=== PATIENT | female | born 1985 | race Caucasian/White ===

== ENCOUNTER → 2017-09-20 21:28 | Outpatient (CLI) | payer MEDICAID, SELFPAY | PROVIDERS: Family Provider Family Medicine; PCP Family Medicine; Visit Provider Obstetrics & Gynecology | DX: Z12.4 Encounter for screening for malignant neoplasm of cervix (principal) ==

== ENCOUNTER 2017-10-25 16:14 | Emergency (ER) | payer MEDICAID, SELFPAY ==
[2017-10-25 16:15] VITALS: BP 153/85; PULSE 105; RESP 16; TEMP 36.4; O2SAT 100; BMI 24.5
--- NOTE | 2017-10-25 16:17 | RAD_ITS ---
STUDY: X-RAY - RIGHT SHOULDER REASON FOR EXAM: Female, 31 years old. Shoulder pain without known injury TECHNIQUE: 4 view(s) of the shoulder. COMPARISON: None. FINDINGS: Normal glenohumeral articulation. Normal acromioclavicular joint. Normal acromion. Normal humeral head and visualized proximal humerus. The soft tissue structures are unremarkable. Normal visualized pulmonary apex. RAD/Shoulder min 2 Views IMPRESSION: Normal x-ray examination of the shoulder. Electronically Signed: Martin Dong DO at 16:58 EDT Tel , Service support ,
--- NOTE | 2017-10-25 17:34 | ED.VISSUMM ---
- ER Visit Summary Date of Service: 10/25/17 Chief Complaint: [Right shoulder pain] History of Present Illness: The patient is a 31 F [presents to the emergency department with pain in her right shoulder that started 2-3 days ago. Patient states the pain came on gradually. Patient yesterday started feeling some numbness in her right hand and at times feels like the hand is weak. Patient is never had pain like this before. Patient denies any trauma. 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 Patient is right-hand dominant.] Physical Examination: [HEENT-PERRLA, EOMI. Cranial nerves II through XII grossly intact. TMs clear. Mucous membranes moist. No adenopathy. Cardiovascular-regular rate and rhythm without murmur or ectopy Lungs-clear to auscultation, chest wall stable without crepitus or subcu emphysema Abdomen-normoactive bowel sounds, soft, nontender, no rebound or rigidity, no peritoneal signs. Extremities-intact ?4, normal range of motion, normal pulses, atraumatic. Right shoulder-no soft tissue swelling or deformity noted. Patient has tenderness diffusely about the glenohumeral joint and biceps tendon. Patient has pain with abduction of the arm and internal rotation of the shoulder. She is neurovascular intact distally. Deep tendon reflexes are plus 2 out of 4 bilaterally at the bicep, tricep, and brachioradialis.] Test Results: [X-ray of the right shoulder obtained was normal] Emergency Department Course and Treatment: [Patient was given a sling]. I suspect patient likely has pain from repetitive use possibly tendinitis or bursitis. Treatment Plan: [Patient will be given a prescription for an anti-inflammatory as well as [place] for pain. Patient will be referred to orthopedics on-call.] Disposition: [Discharged home in stable condition] Impression: [Right shoulder pain-etiology uncertain] This note was generated with [employer] dictation software. It may contain incorrect words, spelling, and punctuation that were not noted in review of the chart prior to signing ED Disposition - Plan for ED Patient: Chief Complaint: Upper Extremity Injury Referrals: Jani Christianson MD [Primary Care Provider] -
--- NOTE | 2017-10-25 17:37 | ED.DEP ---
ED Disposition - Plan for ED Patient: Chief Complaint: Upper Extremity Injury Instructions: ED Shoulder Pain [facility] Prescriptions: Hydrocodone Bitart/Apap 5-325 [[place] 5/325] 1 - 2 tab PO Q4H PRN PRN 5 Days #20 tab PRN Reason: Pain Naproxen [Naprosyn] 500 mg PO BID PRN #20 tab Referrals: Jani Christianson MD [Primary Care Provider] - Ottoniel Mayberry DO [STAFF PHYSICIAN] - 5-7 Days
[2017-10-25 17:56] VITALS: BP 128/78; PULSE 89; RESP 16; O2SAT 100
== END 2017-10-25 17:57 | disposition home or self-care (01) ==
PROVIDERS: Emergency Provider Emergency Medicine; Family Provider Family Medicine; PCP Family Medicine
DX: M25.511 Pain in right shoulder (principal); Z72.0 Tobacco use
CPT/HCPCS: 73030; 99283

== ENCOUNTER → 2017-12-21 16:16 | Outpatient (CLI) | payer MEDICAID, SELFPAY ==
--- NOTE | 2017-12-21 16:18 | CT_ITS ---
CT Sinuses W/O Contrast INDICATION: Sinusitis, cyst under nose/upper lip area. No prior surgery. [employer] navigation protocol. COMPARISON: None TECHNIQUE: axial CT imaging of the paranasal sinuses/maxillofacial bones with coronal and sagittal reformatted images. FINDINGS: Metallic pins are present in the bilateral maxillary central incisors as well as the left lateral incisor. There is lucency surrounding the root of the right maxillary incisor and there is associated cortical breakthrough and mild soft tissue swelling. This periapical abscess with anterior cortical breakthrough likely relates to the palpable abnormality at the base of the nose right of midline. The left medial and lateral incisor with pins are normal. Multiple molar teeth are missing. No additional periapical dental abscesses identified. The frontal sinuses not developed, normal variation. The ethmoid sinuses, sphenoid sinus, and maxillary sinuses are clear. The mastoid air cells and middle ear cavities are clear. CT/Sinus/Facial Bone IMPRESSION: Paranasal sinuses are clear. No evidence of paranasal sinus disease. Right central maxillary incisor periapical root abscess with anterior cortical breakthrough and focal soft tissue swelling, likely causing the palpable abnormality. Dentist consultation recommended. at 2116 Reported and signed by: Anamaria Garcia MD Electronically Signed: Anamaria Garcia MD at 21:14 EDT Tel , Service support ,
== END ==
PROVIDERS: Family Provider Family Medicine; PCP Family Medicine; Visit Provider Otolaryngology
DX: J32.9 Chronic sinusitis, unspecified (principal)
CPT/HCPCS: 70486

== ENCOUNTER → 2018-06-08 16:08 | Outpatient (CLI) | payer MEDICAID, SELFPAY ==
--- NOTE | 2018-06-08 16:10 | US_ITS ---
STUDY: ULTRASOUND OF THE PELVIS CLINICAL: Female, 32 years old. Left lower quadrant pain TECHNIQUE: Transvaginal and transabdominal COMPARISON: None. FINDINGS: The uterus has been surgically removed.. The right ovary has been surgically removed. The left ovary measures 4.1 x 2.5 x 2.5 cm. There is a 1.7 cm cyst. There is no free fluid in the pelvis. The urinary bladder has a problem of 109 cc. US/Pelvic (Non ) IMPRESSION: Left ovarian cyst. Status post hysterectomy and right oophorectomy. Electronically Signed: Clifford Tom DO at 22:07 EDT Tel [phone], Service support ,
== END ==
PROVIDERS: Family Provider Family Medicine; PCP Family Medicine; Referring Provider Obstetrics & Gynecology; Visit Provider Obstetrics & Gynecology
DX: N83.202 Unspecified ovarian cyst, left side (principal); R10.2 Pelvic and perineal pain; Z90.710 Acquired absence of both cervix and uterus; Z90.721 Acquired absence of ovaries, unilateral
CPT/HCPCS: 76856; 93976

== ENCOUNTER → 2018-08-09 09:46 | Outpatient (CLI) | payer MEDICAID, SELFPAY ==
--- NOTE | 2018-08-09 09:47 | RAD_ITS ---
STUDY: X-RAY - RIGHT SHOULDER REASON FOR EXAM: Female, 32 years old. Pain of the right shoulder TECHNIQUE: 3 view(s) of the shoulder. COMPARISON: 10/25/2017 FINDINGS: Normal glenohumeral articulation. Normal acromioclavicular joint. Normal acromion. Normal humeral head and visualized proximal humerus. The soft tissue structures are unremarkable. Normal visualized pulmonary apex. RAD/Shoulder min 2 Views IMPRESSION: Normal x-ray examination of the shoulder. Electronically Signed: Magdy Bonilla MD at 14:26 EST , Service support ,
== END ==
PROVIDERS: Family Provider Family Medicine; PCP Family Medicine; Referring Provider Physician Assistant; Visit Provider Physician Assistant
DX: M25.511 Pain in right shoulder (principal)
CPT/HCPCS: 73030

== ENCOUNTER 2018-08-29 18:28 | Emergency (ER) | payer MEDICAID, SELFPAY ==
[2018-08-29 18:29] VITALS: BP 145/74; PULSE 116; RESP 18; TEMP 37.3; O2SAT 98; BMI 22.1
--- NOTE | 2018-08-29 19:00 | RAD_ITS ---
STUDY: X-RAY - RIGHT SHOULDER REASON FOR EXAM: Female, 32 years old. Pain TECHNIQUE: 2 view(s) of the shoulder. COMPARISON: August 09, 2018 FINDINGS: Normal glenohumeral articulation. Normal acromioclavicular joint. Normal acromion. Normal humeral head and visualized proximal humerus. The soft tissue structures are unremarkable. Normal visualized pulmonary apex. No significant change since prior exam RAD/Shoulder min 2 Views IMPRESSION: Normal x-ray examination of the shoulder. If pain persists MRI recommended for further evaluation Electronically Signed: Jani Laws MD at 20:19 EST , Service support ,
--- NOTE | 2018-08-29 21:00 | ED.VISSUMM ---
- ER Visit Summary Date of Service: 08/29/18 Chief Complaint: Right shoulder injury History of Present Illness: The patient is a 32 F who presents with right shoulder injury that occurred today. Patient was riding on an inner tube behind a [employer] [address] when she fell off. Patient landed on her right shoulder. Patient states her pain is worse with movement. Patient describes the pain is sharp. Patient denies any paresthesias or weakness. Patient states she has a history of tendinitis in that shoulder and had a recent steroid injection in that right shoulder. Patient denies any head injury or loss of consciousness. Patient denies any other injuries. Physical Examination: Vital signs are stable. Patient is afebrile. Patient is in no acute distress. Musculoskeletal exam reveals tenderness over the right distal clavicle. There is no bony crepitance or step-off noted. Range of motion was limited in all motions of the right shoulder secondary to pain. Sensation was intact to light touch in the radial, median, ulnar, and axillary areas. Radial pulses are equal bilaterally. The remaining physical exam is within normal limits. Test Results: X-rays of the right shoulder were obtained. There is no acute fracture or dislocation noted. Emergency Department Course and Treatment: Patient was instructed to use ice to the area. Patient was instructed to do range of motion exercises. Patient was instructed to take ibuprofen or Tylenol as needed for pain. Patient was instructed to follow-up with her primary care physician in 5-7 days. Patient understood and was agreeable with the plan. All questions were answered. Disposition: Discharge home Impression: Right shoulder contusion This note was generated with [employer] dictation software. It may contain incorrect words, spelling, and punctuation that were not noted in review of the chart prior to signing ED Disposition - Plan for ED Patient: Disposition: Home or Assisted Living Chief Complaint: Upper Extremity Injury Diagnosis: Contusion of right shoulder region Instructions: ED Contusion Upper Ext Referrals: Jani Christianson MD [Primary Care Provider] -
--- OUTSIDE RECORDS SUMMARY | 2018-10-31 23:36 | XMS RPT_ITS ---
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 alert, in no acute distress, well-hydrated, well nourished.. Skin: Skin color, texture, turgor normal, no suspicious rashes or lesions. Head: Normocephalic, no masses, lesions, tenderness or abnormalities. Eyes: Anicteric sclera. Extraocular movements are intact. Neck: limited rotation. No step offs. No pain to vertebra. Lungs: Lungs clear to auscultation. No wheezing, rhonchi, rales. Heart: RRR without murmur, gallop, or rubs. No ectopy. Extremities: No deformities, edema, skin discoloration, clubbing or cyanosis. Good capillary refill. +2 radial pulses. Shoulder : Location: right shoulder Redness: no Warmth: no Tenderness to palpation: anterior glenoid Swelling: no Range of motion: extension and abduction limited to appx 110- 120 degrees. Tenderness with internal/external rotation. Empty can test: Negative. Neurologic: Gait normal. ASSESSMENT/PLAN: 1. Acute pain of right shoulder - ICD9: 719.41, ICD10: M25.511 (primary diagnosis) Stop ibuprofen. Start prednisone. Shoulder exercises. Moist heat/ice. Obtained xray results from gerardo - normal. - PREDNISONE 10 MG TABLET 2. Neck pain - ICD9: 723.1, ICD10: M54.2 Suspect exacerbated by the shoulder pain. Will start flexeril, at least at bedtime, to help with neck spasms/tightness. Neck exercises given. - CYCLOBENZAPRINE 10 MG TABLET Consider PT. Discussed treatment plan and patient voices understanding. Patient's questions answered appropriately. Medications and potential side effects were discussed and patient voices understanding. Return to the office as scheduled or as needed for worsening/no improvement. Liz Moctezuma APRN.JAH Moctezuma APRN.CNP 05/12/2018 1:54 PM Signed 1. The prednisone taper will be 4 tablets for 3 days; 3 tablets for 3 days; 2 tablets for 3 days; then 1 tablet for 3 days. Please do no use other anti-inflammatories (like ibuprofen, aleve, naproxen, etc) while you are on this medication. 2. Flexeril as needed for muscle spasm/tightness. 3. Neck and shoulder exercises. 4. Physical therapy. 5. Let me know how things are progressing. Referring Provider: SELF [[id number]] Allergies As of Date: 05/12/2018 Noted Allergy Reaction BUSPAR (BUSPIRONE HCL) 10/29/2015 14 - Other: See Comments Comments: Increased HR and shakey IMITREX (SUMATRIPTAN SUCCINATE) 09/04/2012 7 - Swelling Comments: Swelling of throat IMODIUM (LOPERAMIDE HCL) 03/31/2016 8 - GI Upset Comments: abdominal cramping and bloating MORPHINE 03/27/2013 8 - GI Upset Comments: severe pain in stomach TORADOL (KETOROLAC TROMETHAMINE) 05/28/2013 4 - Hives 9 - Itching ULTRAM (TRAMADOL) 04/21/2011 4 - Hives 9 - Itching Date Reviewed: 05/12/2018 Reviewed by: Laurel Leyva Distance Learning Administrator - Fully Assessed Reason for Visit: Pain (Shoulder Pain) [1343] Cmt: right shoulder X 3 weeks Primary Visit Diagnosis:Acute pain of right shoulder [M25.511] Other Visit Diagnosis:Neck pain [M54.2] Order(s):predniSONE (DELTASONE) 10 mg tabletTake 4 tabs daily x 3 days, then 3 tabs x 3 days, 2 tabs x 3 days, then 1 tab x3 days with food.Disp: 30 tabletRfl: 0 cyclobenzaprine (FLEXERIL) 10 mg tabletTake 0.5-1 tablets by mouth three times daily as needed for Muscle Spasm.Disp: 30 tabletRfl: 0 Prescriptions as of 05/12/2018 Sig: PREDNISONE 10 MG TABLET Take 4 tabs daily x 3 days, t* CYCLOBENZAPRINE 10 MG TABLET Take 0.5-1 tablets by mouth t* Problem List As Of Date 05/12/2018 Noted Resolved History of labor [Z87.51] INVALID FOR*11/19/2013 More... H/O kidney disease [Z87.448] INVALID FOR*04/11/2013 More... Immunization due [Z23] INVALID FOR*04/11/2013 More... Supervision of other normal [Z34.80] INVALID FOR*04/11/2013 Hydronephrosis [N13.30] INVALID FOR*11/19/2013 Right flank pain [R10.9] INVALID FOR*11/19/2013 Microscopic hematuria [R31.29] INVALID FOR*11/19/2013 arrhythmia [GVW0390] INVALID FOR*04/11/2013 More... Uterine size date discrepancy [O26.849] INVALID FOR*04/11/2013 More... Anxiety [F41.9] INVALID FOR* Priority: A More... Post-op bleeding [FWT6415] INVALID FOR*09/11/2014 Incisional pain [L76.82] INVALID FOR*12/07/2016 Hemorrhagic ovarian cyst [N83.209] INVALID FOR*12/07/2016 Generalized abdominal pain [R10.84] INVALID FOR*12/07/2016 Diarrhea [R19.7] INVALID FOR* Weight loss [R63.4] INVALID FOR*12/07/2016 Night sweats [R61] INVALID FOR*12/07/2016 Combined abdominal and pelvic pain [R10.9, R10.*INVALID FOR* Deep dyspareunia [N94.12] INVALID FOR* Marijuana abuse [F12.10] INVALID FOR* Priority: A More... Other instructions from your clinician: 1. The prednisone taper will be 4 tablets for 3 days; 3 tablets for 3 days; 2 tablets for 3 days; then 1 tablet for 3 days. Please do no use other anti-inflammatories (like ibuprofen, aleve, naproxen, etc) while you are on this medication. 2. Flexeril as needed for muscle spasm/tightness. 3. Neck and shoulder exercises. 4. Physical therapy. 5. Let me know how things are progressing. Prescriptions ordered this encounter Disp Refills Start End PREDNISONE 10 MG TABLET 30 t* 0 05/12/2018 05/24/2018 Sig: Take 4 tabs daily x 3 days, then 3 tabs x 3 days, 2 tabs x 3 days, then 1 tab x3 days with food. CYCLOBENZAPRINE 10 MG TABLET 30 t* 0 05/12/2018 Route: ORAL Sig: Take 0.5-1 tablets by mouth three times daily as needed for Muscle Spasm. Medications Discontinued During This Encounter venlafaxine ER (EFFEXOR XR) 75 mg 24* 05/12/2018 Class: Historical Med Route: ORAL Sig: Take 75 mg by mouth once daily. Disc: Course of therapy completed HYDROcodone-acetaminophen (NORCO) 5-* 30 t* 0 01/12/2017 05/12/2018 Class: Print RX Route: ORAL Sig: Take 1-2 tablets by mouth every 6 hours as needed. Disc: Course of therapy completed naproxen sodium (ALEVE) 220 mg tablet 05/12/2018 Class: Historical Med Route: ORAL Sig: Take 220 mg by mouth as needed. Disc: Course of therapy completed ALPRAZolam (XANAX) 0.5 mg tablet 30 t* 0 09/14/2016 05/12/2018 Class: Call Rx Route: ORAL Sig: Take 1 tablet by mouth three times daily. Disc: Course of therapy completed PARoxetine (PAXIL) 10 mg tablet 30 t* 13 09/14/2016 05/12/2018 Route: ORAL Sig: Take 1 tablet by mouth once daily. Disc: Course of therapy completed colestipol (COLESTID) 1 gram tablet 120 * 4 02/11/2016 05/12/2018 Route: ORAL Sig: Take 4 tablets by mouth once daily. Patient taking differently: Take 4 g by mouth once daily. As needed. Disc: Course of therapy completed dicyclomine (BENTYL) 20 mg tablet 90 t* 3 01/19/2016 05/12/2018 Route: ORAL Sig: Take 1 tablet by mouth three times daily before meals. Patient taking differently: Take 20 mg by mouth three times daily before meals. As needed. Disc: Course of therapy completed Encounter Status:Closed by LIZ MOCTEZUMA CNP on 05/12/18 SINUS/FACIAL BONE Observed: 12/21/2017 Status: F Source: [place] 4:18 PM [facility] REPOSITORY [facility] Imaging Services [address] [place] [address] Sinus/Facial Bone MR#: [id number] Acct: [id number] Name: KALEN DALLAS Rep #: [id number] : 1985 F 32 From: Anamaria Garcia MD PCP: Jani Christianson MD Status: REG CLI Study: Sinus/Facial Bone Date of Exam: 12/21/17 Exam# [id number] Ordering Dr: Aníbal Prasad MD CT Sinuses W/O Contrast INDICATION: Sinusitis, cyst under nose/upper lip area. No prior surgery. Needle HR navigation protocol. COMPARISON: None TECHNIQUE: axial CT imaging of the paranasal sinuses/maxillofacial bones with coronal and sagittal reformatted images. FINDINGS: Metallic pins are present in the bilateral maxillary central incisors as well as the left lateral incisor. There is lucency surrounding the root of the right maxillary incisor and there is associated cortical breakthrough and mild soft tissue swelling. This periapical abscess with anterior cortical breakthrough likely relates to the palpable abnormality at the base of the nose right of midline. The left medial and lateral incisor with pins are normal. Multiple molar teeth are missing. No additional periapical dental abscesses identified. The frontal sinuses not developed, normal variation. The ethmoid sinuses, sphenoid sinus, and maxillary sinuses are clear. The mastoid air cells and middle ear cavities are clear. CT/Sinus/Facial Bone IMPRESSION: Paranasal sinuses are clear. No evidence of paranasal sinus disease. Right central maxillary incisor periapical root abscess with anterior cortical breakthrough and focal soft tissue swelling, likely causing the palpable abnormality. Dentist consultation recommended. at 2116 Reported and signed by: Anamaria Garcia MD Electronically Signed: Anamaria Garcia MD at 21:14 EDT Tel , Service support , CC: Kael Prasad MD; Jani Christianson MD Typesetters Printer: Signed CBC W/ AUTO DIFF Collected: 2017 Status: F Source: [facility] 12:[address] [facility] REPOSITORY TYPE CODE TESTS RESULT OUT OF RANGE REFERENCE UNITS LAB 33329029(L 3.6-11.0 E3/mcL OINC) High WBC 18.0 LAB 36307977(L 3.90-5.40 E6/mcL OINC) High RBC 5.51 LAB 56063682(L 12.0-16.0 G/DL OINC) High Hgb 16.4 LAB 56214570(L 36.0-48.0 % OINC) Normal Hct 47.3 LAB 26016627(L 11.5-14.5 % OINC) Normal RDW 13.4 LAB 75735178(L 27.0-31.0 pg OINC) Normal MCH 29.8 LAB 05782743(L 33.0-37.0 G/DL OINC) Normal MCHC 34.7 LAB 65850941(L 78.0-100.0 fL OINC) Normal MCV 85.8 LAB 08768216(L 7.4-11.0 fL OINC) Normal MPV 8.1 LAB 41748440(L 130-400 E3/mcL OINC) Normal Platelet 253 Performed By: #### [id number] #### ANA [facility] [place] [address] AUTO DIFF Collected: 2017 Status: F Source: [place] 12:57 AM [facility] REPOSITORY Order Comment: Order Added by Discern Expert. TYPE CODE TESTS RESULT OUT OF RANGE REFERENCE UNITS LAB 74856685(L 37.0-75.0 % OINC) High Neutro Auto 75.2 LAB 96692168(L 20.0-55.0 % OINC) Low Lymph Auto 16.5 LAB 00666020(L 0.0-10.0 % OINC) Normal [place] Auto 6.1 LAB 23834187(L 0.0-11.0 % OINC) Normal Eos Auto 1.4 LAB 05528224(L 0.0-2.0 % OINC) Normal Basophil Auto 0.8 LAB 85789560(L 1.4-6.5 E3/mcL OINC) High Neutro 13.5 Absolute LAB 48505851(L 1.2-3.4 E3/mcL OINC) Normal Lymph Absolute 3.0 LAB 16360590(L 0.0-0.7 E3/mcL OINC) High [place] Absolute 1.1 LAB 12283093(L 0.0-0.7 E3/mcL OINC) Normal Eos Absolute 0.3 LAB 88425108(L 0.0-0.2 E3/mcL OINC) Normal Basophil 0.1 Absolute Performed By: #### [id number] #### ANA [employer] [address] [place] [address] BMP Collected: 2017 Status: F Source: [facility] 12:57 AM [facility] REPOSITORY TYPE CODE TESTS RESULT OUT OF RANGE REFERENCE UNITS LAB 82651237(L 70-99 mg/dL OINC) High Glucose Lvl 107 LAB 43413743(L 8.4-10.2 mg/dL OINC) Calcium Normal Lvl 9.5 LAB 68228015(L 136-145 mEq/L OINC) Sodium Normal Lvl 138 LAB 53893812(L 3.5-5.1 mEq/L OINC) Low Potassium Lvl 3.4 LAB 77520786(L 98-107 mEq/L OINC) Chloride Normal 105 LAB 78217246(L 24.0-30.0 mEq/L OINC) CO2 Normal 24.7 LAB 29216309(L 7-18 mg/dL OINC) BUN Normal 9 LAB 6433618(LO 0.6-1.3 mg/dL INC) Normal Creatinine 0.6 LAB 46258060(L 5.4-30.0 ratio OINC) Normal BUN/Creat Ratio 15.0 Performed By: #### [id number] #### ANA [employer] [facility] [place] [address] EGFR Collected: 2017 Status: F Source: [facility] 12:57 [facility] REPOSITORY Order Comment: Order added by Discern Expert. TYPE CODE TESTS RESULT OUT OF RANGE REFERENCE UNITS LAB 02315022(LO mL/min/1.73 INC) m2 Normal eGFR >60 LAB 78558078(LO mL/min/1.73 INC) m2 Normal eGFR AA >60 Performed By: #### [id number] #### ANA [employer] [address] [place] [id number] HEP FUNC PANEL Collected: 2017 Status: F Source: [facility] 12:57 [facility] REPOSITORY TYPE CODE TESTS RESULT OUT OF RANGE REFERENCE UNITS LAB 52125122(L 10-40 Int._Unit/L OINC) Normal ALT 30 LAB 43090519(L 10-42 Int._Unit/L OINC) Normal AST 21 LAB 88741155(L 3.2-5.0 G/DL OINC) High Albumin Lvl 5.1 LAB 98914925(L 2.0-4.0 G/DL OINC) Normal Globulin 3.4 LAB 52658735(L 1.1-1.9 ratio OINC) Normal A/G Ratio 1.5 LAB 43154714(L 42-121 Int._Unit/L OINC) Normal Alk Phos 58 LAB 15744304(L .00-.20 mg/dL OINC) Normal Bili Direct <.10 LAB 68839860(L OINC) Normal Bili Indirect >0.3 Result Comment: No established ranges available for the Indirect [place]. LAB 53037990(LOINC) 0.2-1.0 mg/dL Normal Bili Total 0.4 LAB 56006865(LOINC) 6.4-8.3 G/DL High Total Protein 8.5 Performed By: #### [id number] #### ANA [address] [place] [address] LIPASE LEVEL Collected: 2017 Status: F Source: [facility] 12:57 AM [facility] REPOSITORY TYPE CODE TESTS RESULT OUT OF RANGE REFERENCE UNITS LAB 81011576(LO 8-57 U/L INC) Normal Lipase Lvl 31 Performed By: #### [id number] #### [address]NA [address] [place] [address] INFLUENZA A&B AG Collected: 2017 Status: F Source: [facility] 12:43 AM [facility] REPOSITORY TYPE CODE TESTS RESULT OUT OF REFERENCE UNITS RANGE LAB 32435233(L Negative OINC) Normal Influenzae A Ag Negative Result Comment: A negative test result does not exclude infection with influenza A and B. Therefore, the results obtained should be used in conjunction with clinical findings to make an accurate diagnosis. LAB 84561709(LOINC) Negative Normal Influenzae B Ag Negative Performed By: #### [id number] #### ANA [facility] Micro SubSection , UA COMPLETE Collected: 2017 Status: F Source: [facility] 12:30 AM [facility] REPOSITORY TYPE CODE TESTS RESULT OUT OF RANGE REFERENCE UNITS LAB 38848549( Yellow LOINC) Normal UA Color Straw LAB 25957787( Clear LOINC) Normal UA Clarity Clear LAB 63918953( Negative LOINC) Normal UA Glucose Negative LAB 08305426( Negative LOINC) Normal UA Bili Negative LAB 71898778( Negative LOINC) Normal UA Ketones Negative LAB 36955252( 1.003-1.030 LOINC) Normal UA Spec Grav 1.005 LAB 61874904( 4.6-8.0 LOINC) Normal UA pH 6.0 LAB 77549171( Negative LOINC) Normal UA Protein Negative LAB 37542881( LOINC) Normal UA Urobilinogen Negative LAB 97404513( Negative LOINC) Normal UA Nitrite Negative LAB 95073093( Negative LOINC) UA Blood Abnormal 1+ LAB 84692710( Negative LOINC) Normal UA Leuk Est Negative LAB 26111271( 0-3 /HPF LOINC) UA RBC Abnormal 5-10 LAB 21455305( 0-5 /HPF LOINC) Normal UA WBC 0-5 LAB 27670464( 0-5 /HPF LOINC) Normal UA Squam Epithelial 0-5 LAB 91832137( /HPF LOINC) Normal UA Sperm FEW Performed By: #### [id number] #### ANA Urinalysis Automated Subsection [address] [place] [address] DISCHARGE INSTRUCTION Observed: 10/25/2017 Status: F Source: [place] 5:38 PM [facility] REPOSITORY [facility] Medical Records Department [address] [place] [address] Discharge Instruction 10/25/17 1737 MR#: [id number] Acct: [id number] Name: KALEN DALLAS Rep #: [id number] : 1985 31 From: Romi Uribe DO PCP: Jani Christianson MD Status: REG ER ED Disposition - Plan for ED Patient: Chief Complaint: Upper Extremity Injury Instructions: ED Shoulder Pain [facility]O Prescriptions: Hydrocodone Bitart/Apap 5-325 [Ripley 5/325] 1 - 2 tab PO Q4H PRN PRN 5 Days #20 tab PRN Reason: Pain Naproxen [Naprosyn] 500 mg PO BID PRN #20 tab Referrals: Jani Christianson MD [Primary Care Provider] - Ottoniel Mayberry DO [STAFF PHYSICIAN] - 5-7 Days What to do if you have Problems For any increased pain, shortness of breath, bleeding, nausea or vomiting, chest pain, or any unexpected problems, contact your Primary Care Provider. Call [facility] ([phone]) or report to the closest Emergency Room. Call 911 if necessary. 10/25/17 1738 <Electronically signed by Romi Uribe DO> Date Romi Uribe DO Cosigner Signature (If Indicated): Date CC: Jani Christianson MD EMERGENCY DEPARTMENT Observed: 10/25/2017 Status: F Source: [place] [facility] 5:36 PM [facility] REPOSITORY [facility] Medical Records Department [address] [facility] [place] [address] Emergency Department Summary 10/25/17 1734 MR#: [id number] Acct: [id number] Name: KALEN DALLAS Edie Rep #: [id number] : 1985 31 From: Romi Uribe DO PCP: Jani Christianson MD Status: REG ER - ER Visit Summary Date of Service: 10/25/17 Chief Complaint: [Right shoulder pain] History of Present Illness: The patient is a 31 F [presents to the emergency department with pain in her right shoulder that started 2-3 days ago. Patient states the pain came on gradually. Patient yesterday started feeling some numbness in her right hand and at times feels like the hand is weak. Patient is never had pain like this before. Patient denies any trauma. 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 Patient is right-hand dominant.] Physical Examination: [HEENT-PERRLA, EOMI. Cranial nerves II through XII grossly intact. TMs clear. Mucous membranes moist. No adenopathy. Cardiovascular-regular rate and rhythm without murmur or ectopy Lungs-clear to auscultation, chest wall stable without crepitus or subcu emphysema Abdomen-normoactive bowel sounds, soft, nontender, no rebound or rigidity, no peritoneal signs. Extremities-intact 4, normal range of motion, normal pulses, atraumatic. Right shoulder-no soft tissue swelling or deformity noted. Patient has tenderness diffusely about the glenohumeral joint and biceps tendon. Patient has pain with abduction of the arm and internal rotation of the shoulder. She is neurovascular intact distally. Deep tendon reflexes are plus 2 out of 4 bilaterally at the bicep, tricep, and brachioradialis.] Test Results: [X-ray of the right shoulder obtained was normal] Emergency Department Course and Treatment: [Patient was given a sling]. I suspect patient likely has pain from repetitive use possibly tendinitis or bursitis. Treatment Plan: [Patient will be given a prescription for an anti-inflammatory as well as Ripley for pain. Patient will be referred to orthopedics on-call.] Disposition: [Discharged home in stable condition] Impression: [Right shoulder pain-etiology uncertain] This note was generated with [employer] dictation software. It may contain incorrect words, spelling, and punctuation that were not noted in review of the chart prior to signing ED Disposition - Plan for ED Patient: Chief Complaint: Upper Extremity Injury Referrals: Jani Christianson MD [Primary Care Provider] - What to do if you have Problems For any increased pain, shortness of breath, bleeding, nausea or vomiting, chest pain, or any unexpected problems, contact your Primary Care Provider. Call [facility] ([phone]) or report to the closest Emergency Room. Call 911 if necessary. 10/25/17 2592 <Electronically signed by Romi Uribe DO> Date Romi Uribe DO Cosigner Signature (If Indicated): Date CC: Jani Christianson MD SHOULDER MIN 2 VIEWS Observed: 10/25/2017 Status: F Source: [place] 4:18 PM [facility] REPOSITORY [facility] Imaging Services [facility] [place] [address] [place] [address] Shoulder min 2 Views MR#: [id number] Acct: [id number] Name: KALEN DALLAS Rep #: [id number] : 1985 F 31 From: Martin Dong DO PCP: Jani Christianson MD Status: PRE ER Study: Shoulder min 2 Views Date of Exam: 10/25/17 Exam# [id number] Ordering Dr: Provider, Ed P. STUDY: X-RAY - RIGHT SHOULDER REASON FOR EXAM: Female, 31 years old. Shoulder pain without known injury TECHNIQUE: 4 view(s) of the shoulder. COMPARISON: None. FINDINGS: Normal glenohumeral articulation. Normal acromioclavicular joint. Normal acromion. Normal humeral head and visualized proximal humerus. The soft tissue structures are unremarkable. Normal visualized pulmonary apex. RAD/Shoulder min 2 Views IMPRESSION: Normal x-ray examination of the shoulder. Electronically Signed: Martin Dong DO at 16:58 EDT Tel , Service support , CC: ED PHYSICIAN PROVIDER; Jani Christianson MD Typesetters Printer: Signed CNOV Observed: 10/10/2017 Status: COMPLETED Source: [place] 7:15 PM [facility] REPOSITORY Office Visit (WSTR) KALEN DALLAS ([id number]) 1985 F Date Time Provider Department 10/10/17 7:15 PM FERNANDO HARRIS (BEAD TRIMMER) [facility] During your visit today, we recorded the following information about you: Temperature Pulse Respiration Blood pressure 99 degrees 84/minute 16/minute 120/88 Weight 55.8 kg Fernando Harris CNP, FACILITY WORKER 10/17/2017 8:19 AM Signed Subjective HPI Patient presents with: Tenderness ANDamp; red, inflammed spot in upper gum X 1 yr, started oozing yesterday Analgesic otc with minimal relief. Review of Systems Constitutional: Negative for chills and fever. HENT: Tenderness ANDamp; red, inflammed spot in upper gum X 1 yr, started oozing yesterday PAST MEDICAL HISTORY Diagnosis Date - Anxiety - SHERRI III (cervical intraepithelial neoplasia grade III) with severe dysplasia 2006 needs paps until 2026 - KIDNEY INFECTION HOSPITALIZED FOR 5 DAYS 09/2010 PAST SURGICAL HISTORY Procedure Laterality Date - COLONOSCOP W/ OR W/O BRSH SPEC 01/28/16 Colonoscopy mac - ESSURE 2012 - HYSTERECTOMY HX 07/2014 [facility] then exp lap for postop bleeding - OFFICE LEEP [facility] - REMOVAL GALLBLADDER 04/08/2011 - SALPINGECTOMY 11/2013 bilateral sec to post essure pain - VAGINOSCOPY 2006 Dr Rodriguez ALLERGIES Buspar [Buspirone Hcl]; Imitrex [Sumatriptan Succinate]; Imodium [Loperamide Hcl]; Morphine; Toradol [Ketorolac Tromethamine]; Ultram [Tramadol] MEDICATIONS venlafaxine ER (EFFEXOR XR) 75 mg 24 hr capsule Take 75 mg by mouth once daily. cephALEXin (KEFLEX) 500 mg capsule Take 1 capsule by mouth four times daily for 10 days. FOR 10 DAYS HYDROcodone-acetaminophen (NORCO) 5-325 mg per tablet Take 1-2 tablets by mouth every 6 hours as needed. naproxen sodium (ALEVE) 220 mg tablet Take 220 mg by mouth as needed. ALPRAZolam (XANAX) 0.5 mg tablet Take 1 tablet by mouth three times daily. PARoxetine (PAXIL) 10 mg tablet Take 1 tablet by mouth once daily. colestipol (COLESTID) 1 gram tablet Take 4 tablets by mouth once daily. dicyclomine (BENTYL) 20 mg tablet Take 1 tablet by mouth three times daily before meals. FAMILY HISTORY Problem Relation Age of Onset - Hypertension Mother - Lipids Mother - COPD Mother - Hypertension Father - COPD Father - Diabetes Maternal Grandmother - ITP [OTHER] Son Social History Substance Use Topics - Smoking status: Current Every Day Smoker Packs/day: 0.50 Years: 9.00 - Smokeless tobacco: Never Used Comment: less than a 1/2 pack per day - Alcohol use No Objective Physical Exam Constitutional: She is well-developed, well-nourished, and in no distress. HENT: Head: Normocephalic. Right Ear: External ear normal. Left Ear: External ear normal. Nose: Nose normal. Mouth/Throat: Oropharynx is clear and moist. Upper gumline adjacent to inside of upper lip erythematous pustule, swelling and tenderness present. No active drainage visible. Eyes: Conjunctivae are normal. Neck: Normal range of motion. Neck supple. Lymphadenopathy: She has no cervical adenopathy. Nursing note and vitals reviewed. ASSESSMENT/PLAN: 1. Abscess of soft tissue of mouth - ICD9: 528.3, ICD10: K12.2 - Begin treatment with Cephalaxin (Keflex) - Area of cellulitis defined, seek further attention if this area continues to enlarge - Follow up for recheck in three days if symptoms are not improving or worsening Prescription instructions reviewed with patient as applicable. Patient advised if symptoms do not improve or if symptoms worsen sooner, to contact their primary care physician. Potential red flag symptoms discussed with the patient. Reviewed appropriate action plan to take if red flag symptoms occur. Patient agreeable to treatment plan. Fernando Harris CNP Referring Provider: SELF [200] Allergies As of Date: 10/10/2017 Noted Allergy Reaction BUSPAR (BUSPIRONE HCL) 10/29/2015 14 - Other: See Comments Comments: Increased HR and shakey IMITREX (SUMATRIPTAN SUCCINATE) 09/04/2012 7 - Swelling Comments: Swelling of throat IMODIUM (LOPERAMIDE HCL) 03/31/2016 8 - GI Upset Comments: abdominal cramping and bloating MORPHINE 03/27/2013 8 - GI Upset Comments: severe pain in stomach TORADOL (KETOROLAC TROMETHAMINE) 05/28/2013 4 - Hives 9 - Itching ULTRAM (TRAMADOL) 04/21/2011 4 - Hives 9 - Itching Date Reviewed: 10/10/2017 Reviewed by: Fernando Adame (Statement Processor) JAH Harris - Fully Assessed Reason for Visit: Headache [52] Cmt: since this amAND tenderness AND red, inflammed spot in upper gum X 1 yr, started oozing yesterday Primary Visit Diagnosis:Abscess of soft tissue of mouth [K12.2] Order(s):cephALEXin (KEFLEX) 500 mg capsuleTake 1 capsule by mouth four times daily for 10 days. FOR 10 DAYSDisp: 40 capsuleRfl: 0 Prescriptions as of 10/10/2017 Sig: VENLAFAXINE ER 75 MG CAPSULE,* Take 75 mg by mouth once lizzeth* CEPHALEXIN 500 MG CAPSULE Take 1 capsule by mouth four * HYDROCODONE 5 MG-ACETAMINOPHE* Take 1-2 tablets by mouth anabella* NAPROXEN SODIUM 220 MG TABLET Take 220 mg by mouth as neede* ALPRAZOLAM 0.5 MG TABLET Take 1 tablet by mouth three * PAROXETINE 10 MG TABLET Take 1 tablet by mouth once d* COLESTIPOL 1 GRAM TABLET Take 4 tablets by mouth once * Patient taking differently: Take 4 g by mouth once daily.* DICYCLOMINE 20 MG TABLET Take 1 tablet by mouth three * Patient taking differently: Take 20 mg by mouth three sandra* Medication notes this encounter DICYCLOMINE 20 MG TABLET >> Patience Fernández LPN 10/10/2017 7:27 PM >> PATIENCE FERNÁNDEZ LPN TueOct 10, 2017 7:27 PM Not taking Problem List As Of Date 10/10/2017 Noted Resolved History of labor [Z87.51] INVALID FOR*11/19/2013 More... H/O kidney disease [Z87.448] INVALID FOR*04/11/2013 More... Immunization due [Z23] INVALID FOR*04/11/2013 More... Supervision of other normal [Z34.80] INVALID FOR*04/11/2013 Hydronephrosis [N13.30] INVALID FOR*11/19/2013 Right flank pain [R10.9] INVALID FOR*11/19/2013 Microscopic hematuria [R31.29] INVALID FOR*11/19/2013 arrhythmia [NRJ2754] INVALID FOR*04/11/2013 More... Uterine size date discrepancy [O26.849] INVALID FOR*04/11/2013 More... Anxiety [F41.9] INVALID FOR* Priority: A More... Post-op bleeding [TMF7935] INVALID FOR*09/11/2014 Incisional pain [R20.8] INVALID FOR*12/07/2016 Hemorrhagic ovarian cyst [N83.209] INVALID FOR*12/07/2016 Generalized abdominal pain [R10.84] INVALID FOR*12/07/2016 Diarrhea [R19.7] INVALID FOR* Weight loss [R63.4] INVALID FOR*12/07/2016 Night sweats [R61] INVALID FOR*12/07/2016 Combined abdominal and pelvic pain [R10.30] INVALID FOR* Deep dyspareunia [N94.12] INVALID FOR* Marijuana abuse [F12.10] INVALID FOR* Priority: A More... Prescriptions ordered this encounter Disp Refills Start End CEPHALEXIN 500 MG CAPSULE 40 c* 0 10/10/2017 10/20/2017 Route: ORAL Sig: Take 1 capsule by mouth four times daily for 10 days. FOR 10 DAYS Disposition: Return if symptoms worsen or fail to improve. Follow-up and Disposition History Recorded Encounter Status:Closed by FERNANDO HARRIS on 10/17/17 PROGRESS Observed: 10/10/2017 Status: COMPLETED Source: [place] 8:[address] [facility] REPOSITORY O ID: [id number] Author: Fernando Adame (Statement Processor) JAH Harris Service: (none) Author Type: Nurse Practitioner Type: Progress Notes Filed: 10/17/2017 8:19 AM Note Text: Subjective HPI Patient presents with: Tenderness AND red, inflammed spot in upper gum X 1 yr, started oozing yesterday Analgesic otc with minimal relief. Review of Systems Constitutional: Negative for chills and fever. HENT: Tenderness AND red, inflammed spot in upper gum X 1 yr, started oozing yesterday PAST MEDICAL HISTORY Diagnosis Date - Anxiety - SHERRI III (cervical intraepithelial neoplasia grade III) with severe dysplasia 2006 needs paps until 2026 - KIDNEY INFECTION HOSPITALIZED FOR 5 DAYS 09/2010 PAST SURGICAL HISTORY Procedure Laterality Date - COLONOSCOP W/ OR W/O BRSH SPEC 01/28/16 Colonoscopy mac - ESSURE 2012 - HYSTERECTOMY HX 07/2014 TV[facility] then exp lap for postop bleeding - OFFICE LEEP Yasir [facility] office - REMOVAL GALLBLADDER 04/08/2011 - SALPINGECTOMY 11/2013 bilateral sec to post essure pain - VAGINOSCOPY 2006 Dr Rodriguez ALLERGIES Buspar [Buspirone Hcl]; Imitrex [Sumatriptan Succinate]; Imodium [Loperamide Hcl]; Morphine; Toradol [Ketorolac Tromethamine]; Ultram [Tramadol] MEDICATIONS venlafaxine ER (EFFEXOR XR) 75 mg 24 hr capsule Take 75 mg by mouth once daily. cephALEXin (KEFLEX) 500 mg capsule Take 1 capsule by mouth four times daily for 10 days. FOR 10 DAYS HYDROcodone-acetaminophen (NORCO) 5-325 mg per tablet Take 1-2 tablets by mouth every 6 hours as needed. naproxen sodium (ALEVE) 220 mg tablet Take 220 mg by mouth as needed. ALPRAZolam (XANAX) 0.5 mg tablet Take 1 tablet by mouth three times daily. PARoxetine (PAXIL) 10 mg tablet Take 1 tablet by mouth once daily. colestipol (COLESTID) 1 gram tablet Take 4 tablets by mouth once daily. dicyclomine (BENTYL) 20 mg tablet Take 1 tablet by mouth three times daily before meals. FAMILY HISTORY Problem Relation Age of Onset - Hypertension Mother - Lipids Mother - COPD Mother - Hypertension Father - COPD Father - Diabetes Maternal Grandmother - ITP [OTHER] Son Social History Substance Use Topics - Smoking status: Current Every Day Smoker Packs/day: 0.50 Years: 9.00 - Smokeless tobacco: Never Used Comment: less than a 1/2 pack per day - Alcohol use No Objective Physical Exam Constitutional: She is well-developed, well-nourished, and in no distress. HENT: Head: Normocephalic. Right Ear: External ear normal. Left Ear: External ear normal. Nose: Nose normal. Mouth/Throat: Oropharynx is clear and moist. Upper gumline adjacent to inside of upper lip erythematous pustule, swelling and tenderness present. No active drainage visible. Eyes: Conjunctivae are normal. Neck: Normal range of motion. Neck supple. Lymphadenopathy: She has no cervical adenopathy. Nursing note and vitals reviewed. ASSESSMENT/PLAN: 1. Abscess of soft tissue of mouth - ICD9: 528.3, ICD10: K12.2 - Begin treatment with Cephalaxin (Keflex) - Area of cellulitis defined, seek further attention if this area continues to enlarge - Follow up for recheck in three days if symptoms are not improving or worsening Prescription instructions reviewed with patient as applicable. Patient advised if symptoms do not improve or if symptoms worsen sooner, to contact their primary care physician. Potential red flag symptoms discussed with the patient. Reviewed appropriate action plan to take if red flag symptoms occur. Patient agreeable to treatment plan. Fernando Harris CNP CURRICULUM COUNSELOR OFFICE VISIT Observed: 09/20/2017 Status: F Source: [place] REPORT 4:26 PM [facility] [place] 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 Required: No Accompanied by: None Is patient in pain?: No Allergies ketorolac tromethamine [From Toradol] Allergy (Verified 12/29/16 10:57) Hives sumatriptan [From Imitrex] Allergy (Verified 12/29/16 10:57) Anaphylaxis sumatriptan succinate [From Imitrex] Allergy (Verified 12/29/16 10:57) Anaphylaxis tramadol HCl [From Ultram] Allergy (Verified 12/29/16 10:57) Hives morphine Adverse Reaction (Verified 12/29/16 10:57) Other Medications alprazolam 0.5 mg tablet 0.5 mg PO ONCE #30 tab 09/20/17 [Rx Confirmed 09/20/17] venlafaxine ER 75 mg capsule,extended release 24 hr 75 mg PO QHS #30 cap 09/20/17 [Rx Confirmed 09/20/17] Is last menstrual period known: No PFSH Medical History Anxiety (Acute) Surgical History H/O: hysterectomy (Acute) History of cholecystectomy (Acute) Family History Mother Hypertension High cholesterol Grandmother Diabetes Father Hypertension Social History Smoking Status: Former smoker second hand exposure: Yes alcohol intake: never substance use type: does not use what type of physical activity do you participate in: none Pregancy History 2 Elective abortions Hx Para 2 Spontaneous abortions Past Pregnancies Del. DatNamshraddha [place]/WeeksOutcome Route [facility]aveen [facility] LocaProviderFOB e ht en ia tn 11/15/06Eithan 01/16/13Avia HPI Annual: Details: KALEN DALLAS is a 31 year old who presents for annual exam. having Last PAP: due History of abnormal PAP: 2005 leep Last mammogram: History of abnormal mammogram: Colon cancer screening: Other preventative health care screenings: Female Reproductive History Questions: Metorrhagia: No, Sexually active: Yes, Dyspareunia: No, PCB: No ROS Const Constitutional: Reports as per HPI; denies poor appetite, fatigue, increased appetite, weight gain or weight loss Cardio Card: Denies chest pain Resp Resp: Denies dyspnea or cough GI GI: Reports as per HPI; denies bloating, abdominal pain, constipation, vomiting or nausea : Reports as per HPI and other; denies blood in urine, vaginal odor, vaginal itching, vaginal dryness, vaginal discharge, urinary urgency, urinary incontinence, urinary frequency, pelvic pain, painful urination, difficulty urinating, prolapse symptoms or nipple discharge Skin Skin/Breast: Reports breast pain; denies breast skin changes, nipple discharge, breast lump or changing lesions Psych Psych: Reports anxiety Exam Const General: cooperative, healthy appearing, comfortable, no acute distress, well developed, well groomed [facility] Head: normal to inspection, normocephalic Ears: hearing grossly normal bilaterally, external ears normal Nose: external nose normal Face and sinus: normal facial exam Neck Neck: normal visual inspection, full ROM, no lymphadenopathy Thyroid: thyroid normal Chest Chest palpation AND inspection: normal inspection of the chest Breast inspection: normal inspection of the breasts, normal inspection of the axillae Breast palpation: normal palpation of the breasts, normal palpation of the axillae, no axillary lymphadenopathy Resp Effort AND Inspection: normal respiratory effort GI Inspection: normal to inspection, non-distended Palpation: no guarding, soft, no hepatosplenomegaly General: bladder normal to palpation External Female Exam: normal external appearance, normal appearance of the urethra, no lesions Urethra: normal appearance of the urethra, normal palpation Speculum Exam - Vagina: normal appearance of the vagina, normal vaginal discharge Speculum Exam - Cervix: normal appearance of the cervix, no cervical discharge, no lesions, nontender Bimanual Exam- Vagina AND Uterus: No cervical tenderness, normal bimanual exam, uterine size normal, bladder normal to palpation, uterine mobility normal, uterine consistency normal, uterus non-tender, no cervical motion tenderness Bimanual Exam- Adnexa, other: normal adnexae, no adnexal masses, adnexae non-tender Skin General: no rashes or lesions noted Neuro General: alert, moves all extremities, no focal motor deficits Extrem General: no pedal edema, normal to inspection Psych Appearance: grossly normal Mental Status: mental status grossly normal Affect: normal affect Speech and Movement: speech and movement normal Attitude: cooperative Assessment AND Plan Problems 1. Encounter for gynecological examination with abnormal finding Z01.411 2. Anxiety F41.9 Plan Cervical cancer screening: pap done Breast cancer screening: clinical STD prevention and contraceptive options including their risks, benefits, and alternatives were reviewed with the patient and she chooses: na Encouraged maintenance of a healthy weight and active lifestyle and handout given. Calcium/vitamin D recommendations provided. Annual exam handout including recommendations for good health guidelines and basic screening information given. Problem list up to date, see problem list details for any additional plan information. follow up in one year for annual health maintenance exam or sooner if needed. Medications New: Coding Level of Care Code Off vis,est,prev 18-39yrs Diagnoses Encounter for gynecological examination with abnormal finding Z01.411 Gynecological examination findings: abnormal findings PRESENT Anxiety F41.9 09/20/17 1626 <Electronically signed by Karrie Rdz MD> Date Karrie Rdz MD Cosigner Signature: Date (if applicable) CC: MISCELLANEOUS LAB Collected: 09/20/2017 Status: F Source: [place] PROCEDURE 11:45 AM [facility] [place] REPOSITORY Order Comment: Test(s) Ordered: [id number] TYPE CODE TESTS RESULT OUT OF RANGE REFERENCE UNITS LAB L801.[address] [facility] LAB TEST Result Comment: Test Ordered: IGP, Aptima HPV, rfx 16/18,45 Interpretation: NEGATIVE FOR INTRAEPITHELIAL LESION AND MALIGNANCY. Specimen Adequacy: Satisfactory for evaluation. Endocervical and/or squamous metaplastic cells (endocervical component) are present. Comments: The pap smear is a screening test designated to aid in the detection of pre-malignant and malignant conditions of the uterine cervix. It is not a diagnostic procedure and should not be used as the sole means of detecting cervical cancer. Both false-positive and false-negative reports do occur. This liquid based ThinPrep(R) pap test was screened with the use of an image guided system. Performed by Terri Evans, Ensemble Member (ASCP) This test detects fourteen high-risk HPV types (16/18/31/33/35/39/45/ 51/52/56/58/59/66/68) without differentiation. HPV Results: HPV Aptima: Negative TESTING PERFORMED AT [facility]. ORIGINAL REPORT ON FILE IN LAB CONTAINS ADDITIONAL TEST SITE INFORMATION. Performed By: #### L801.1541 #### [facility] [place], [address] ALLERGIES ALLERGIES DATE TYPE / NAME / CODE REACTION SEVERITY SOURCE CODE 08/29/2018 Drug ketorolac Hives Unknown [place] Allergy/41 tromethamine/F0000 [facility] [id number](SN 43026(RXNORM) [facility]) Repository 08/29/2018 Drug sumatriptan Anaphylaxis Unknown [place] Allergy/41 succinate/[id number] [facility] 6324691(SN 45(RXNORM) [facility]) Repository 08/29/2018 Drug tramadol Hives Unknown [place] Allergy/41 HCl/[id number](RXN [facility] 3370693( [place]) [facility]) Repository 08/29/2018 Drug morphine/F43245091 Other Unknown [place] Allergy/41 5(RXNORM) Community 8964362([facility] OMED [facility]) Repository 08/29/2018 Drug sumatriptan/P00600 Anaphylaxis Unknown [place] Allergy/41 4044(RXNORM) Community 9277325([facility] OMED [facility]) Repository 03/31/2016 DRUG LOPERAMIDE HCL GI UPSET [facility] INGREDI/41 [facility] [place] 6044708(SN Repository OMED CT) 10/29/2015 DRUG BUSPIRONE HCL OTHER: SEE C [facility] INGREDI/ [facility] [place] [id number]( Repository OMED CT) 05/28/2013 DRUG [facility]ES [facility] [place] [facility] 7699063( Repository OMED CT) 03/27/2013 DRUG MORPHINE GI UPSET [facility] INGREDI/ [facility] [place] 4155444( Repository OMED CT) 09/04/2012 DRUG SUMATRIPTAN SWELLING [facility] INGREDI/ SUCCINATE [facility] [place] [facility] 0147215( Repository OMED CT) 04/21/2011 DRUG TRAMADOL HIVES [facility] [place] 8167632( Repository OMED CT) Drug/00317 Toradol [id number] Moderate Yarsanism 1003([facility]) System Repository Drug/14735 Imitrex 58262794 Severe Yarsanism 1003([facility] D [facility]) System Repository Drug/31223 Ultram 333416288 Moderate Yarsanism 1003([facility] D [facility]) System Repository ENCOUNTERS ENCOUNTERS ADMIT/DISCHARGE ACCOUNT NUMBER ADMITTING ENCOUNTER LOCATION SOURCE CLASS 08/29/2018/08/29/19 [id number] Emergency [place] [address] [place] [address] ding:ED Repository 08/09/2018 [id number] Ambulatory [place] [facility] ding:HPRAD Repository 08/09/2018/08/09/19 [id number] Ambulatory BMSBuilding: Gerardo 19 BMS.[facility] Repository 08/08/2018/08/08/19 [id number] [place], Emergency [facility] 19 [facility] ding:[facility] EDRoom: WR Repository 08/08/2018 [id number] Ambulatory [address] [place] [address] Repository 06/08/2018 [id number] Ambulatory [facility] ding:US Repository 05/12/2018/05/15/20 [id number] Ambulatory [address] [facility] [place] Repository 12/21/2017 [id number] Ambulatory [facility] ding:CT Repository 10/30/2017/11/01/19 [id number] [place], Emergency [facility] 18 [facility] ding:[facility] EDRoom: WR Repository 10/25/2017/10/26/19 [id number] Emergency [address] ding:ED Repository 10/10/2017/10/18/19 [id number] Ambulatory [address] Repository 09/20/2017 [id number] Ambulatory [facility] ding:LABSPEC Repository 09/20/2017/09/20/19 [id number] Ambulatory BMSBuilding: [place] [address] BMS.[facility] Repository PAYERS PAYERS ENCOUNTER GUARANTOR PAYER SUBSCRIBER SOURCE 08/29/2018 KALEN D LILLY6 Primary KALEN D [place] TR Insurance:CARESOURCEP LILLYDOB: [address] Number: [id number] [place], [place] [address]Aiu: [id number] Repository Date:2018-08-29P O (HP) [address]ATTN: [place] [address]DN: 08/29/2018 Secondary NOT GIVENUNK [place] Insurance:SELF PAY [facility] Number: Effective Repository Date:2018-08-29 08/09/2018 KALEN D LILLY6 Primary KALEN D [place] TR Insurance:CARESOURCEP LILLYB: [address] Number: [id number] [place], [place] [address]Ocf: [id number] Repository Date:2018-08-09P O (HP) [address]ATTN: [place] [address]MA: 08/09/2018 Secondary NOT GIVENUNK [place] Insurance:SELF PAY [facility] Number: Effective Repository Date:2018-08-09 08/09/2018 KALEN D LILLY6 Primary KALEN D [place] TR Insurance:CARESOURCEP LILLYDOB: [address] Number: [id number] [place], [place] [address]Wvm: [id number] Repository Date:2018-08-09P O () [address]ATTN: [place] [address]PP: 08/09/2018 Secondary NOT GIVENUNK [place] Insurance:SELF PAY [facility] Number: Effective Repository Date:2018-08-09 08/08/2018 KALEN D Primary KALEN D Yarsanism LILLYDOB: Insurance:CARESOURCE LILLYDOB: [facility] Number: [id number] [place] [address] [place] [address] Date:2018-08-[address] [place] [address] [id number] , [place] [address]Dmu: Name:CD:[id number]: [address] [place] [address] (HP) [phone]: [phone] () [phone] () 08/08/2018 KALEN LILLYDOB: Primary KALEN LILLYDOB: [place] Insurance:CaresourceP [id number] [facility] Number: [address] [id number] [address] [place] [address] Date:[place], [place] [id number]: Name:[facility] [address] [id number]: [address] [place] [address] (HP) [phone]: [phone] ([phone] 06/08/2018 KALEN D LILLY6 Primary KALEN D [place] TR Insurance:CARESOURCEP LILLYDOB: [address] Number: [id number] [place], [place] [address]Lsd: [id number] Repository Date:2018-06-07 O () [address]ATTN: [place] [address]SU: 06/08/2018 Secondary NOT GIVENUNK [place] Insurance:SELF PAY [facility] Number: Effective Repository Date:2018-06-07 12/21/2017 KALEN D LILLY6 Primary KALEN D [place] TR Insurance:CARESOURCEP LILLYDOB: [address] Number: [id number] [place], [place] [address]Ins: [id number] Repository Date:2017-11-30P O () [address]ATTN: [place] [address]LL: 12/21/2017 Secondary NOT GIVENUNK [place] Insurance:SELF PAY [facility] Number: Effective Repository Date:2017-11-30 10/30/2017 KALEN D Primary KALEN D Yarsanism LILLYDOB: Insurance:CARESOURCE LILLYDOB: [facility] Number: [id number] [facility] Effective [facility] [address] Repository [address] [place] [address] Date:2017-10-30 - [address] [place] [address] [id number] , [place] [id number]: Name:CD:[id number]: [address] [place] [address] (HP) [phone]: [phone] (HP) [phone] () 10/25/2017 KALEN D LILLY6 Primary KALEN D [place] TR Insurance:CARESOURCEP LILLYDOB: [address] Number: [id number] [place], [place] [address]Den: [id number] Repository Date:2017-10-25P O (HP) [address]ATTN: [place] [address]OK: 10/25/2017 Secondary NOT GIVENUNK [place] Insurance:SELF PAY [facility] Effective Repository Date:2017-10-25 09/20/2017 KALEN LILLY6 TR Primary KALEN LILLYDOB: [place] [address] Insurance:CARESOURCEP [id number] [place], [place] [address]Hfs: olicy Number: [facility] [id number] Repository (HP) Date:2017-09-20P O [address]ATTN: [place] [address]QT: 09/20/2017 Secondary NOT GIVENUNK [place] Insurance:SELF PAY [facility] Number: Effective Repository Date:2017-09-20 09/20/2017 KALEN LILLY6 Primary KALEN LILLYDOB: [facility] [id number] [facility] [address] [facility] Number: [place], [place] [address]Maa: [id number] Repository Date:2017-08-10P O () [address]ATTN: [place] [address]NL: 09/20/2017 Secondary NOT GIVENUNK Ger[place] Insurance:SELF PAY [facility] Number: Effective Repository Date:2017-09-20
== END 2018-08-29 21:13 | disposition home or self-care (01) ==
PROVIDERS: Emergency Provider Emergency Medicine; Family Provider Family Medicine; PCP Family Medicine
DX: S40.011A Contusion of right shoulder, initial encounter (principal); W17.89XA Other fall from one level to another, initial encounter; Y93.23 Activity, snow (alpine) (downhill) skiing, snowboarding, sledding, tobogganing and snow tubing; Y92.9 Unspecified place or not applicable; Y99.8 Other external cause status; Z72.0 Tobacco use
CPT/HCPCS: 73030; 99282

== ENCOUNTER 2018-09-27 21:18 | Emergency (ER) | payer MEDICAID, SELFPAY ==
[2018-09-27 21:19] VITALS: BP 155/79; PULSE 117; RESP 16; TEMP 36.2; O2SAT 100; BMI 23.1
--- NOTE | 2018-09-27 21:52 | ED.VISSUMM ---
- ER Visit Summary Date of Service: 09/27/18 Chief Complaint: [] History of Present Illness: The patient is a 32 F [] Physical Examination: [] Test Results: [] Emergency Department Course and Treatment: [] Treatment Plan: [] Disposition: [] Impression: [] This note was generated with [employer] dictation software. It may contain incorrect words, spelling, and punctuation that were not noted in review of the chart prior to signing ED Disposition - Plan for ED Patient: Disposition: Home or Assisted Living Diagnosis: Dental abscess Instructions: ED Abscess Dental Prescriptions: Clindamycin HCl [Cleocin] 300 mg PO Q6H #40 cap Referrals: Jani Christianson MD [Primary Care Provider] -
--- NOTE | 2018-09-27 21:56 | ED.DCSUM_ITS ---
- ER Visit Summary Date of Service: 09/27/18 Chief Complaint: Dental pain History of Present Illness: The patient is a 32 F who presents with right upper dental pain that has been getting worse over the past 3 days. Patient describes pain as aching. Patient states the pain is worse when she moves her head. Patient is currently on amoxicillin for a dental abscess. Patient admits to some purulent drainage today. Patient admits to a fever of 102 at home. Patient admits to some nausea. Patient states she has been following up with her dentist who prescribes her amoxicillin or Cipro. Physical Examination: Vital signs are stable. Patient is afebrile. Patient is in no acute distress. Oral mucosa is pink and moist. There is tenderness over the right upper lateral incisor and right upper canine. There is some mild gingival edema over these teeth. There is no fluctuance. There is no discharge or drainage. There are dental caries noted in these teeth as well. Neck is supple. Trachea is midline. There is no JVD noted. Cranial nerves II through XII are intact. There are no focal motor or sensory deficits noted. The remaining physical exam is within normal limits. Emergency Department Course and Treatment: Patient was given a prescription for clindamycin. Patient was instructed to follow-up with her primary care physician in 7-10 days. Patient was instructed to follow-up with her dentist as scheduled. Patient understood and was agreeable with the plan. All questions were answered. Disposition: Discharge home Impression: Dental abscess This note was generated with [employer] dictation software. It may contain incorrect words, spelling, and punctuation that were not noted in review of the chart prior to signing ED Disposition - Plan for ED Patient: Disposition: Home or Assisted Living Diagnosis: Dental abscess Instructions: ED Abscess Dental Prescriptions: Clindamycin HCl [Cleocin] 300 mg PO Q6H #40 cap Referrals: Jani Christianson MD [Primary Care Provider] -
[2018-09-27 22:11] VITALS: RESP 16
== END 2018-09-27 22:12 | disposition home or self-care (01) ==
PROVIDERS: Emergency Provider Emergency Medicine; Family Provider Family Medicine; PCP Family Medicine
DX: K04.7 Periapical abscess without sinus (principal); Z72.0 Tobacco use
CPT/HCPCS: 99282

== ENCOUNTER → 2018-11-13 | Outpatient (CLI) | payer MEDICAID, SELFPAY ==
[2018-11-06 14:24] VITALS: BMI 23.1
--- NOTE | 2018-11-13 09:17 | BI_ITS ---
MAMMOGRAPHY - BILATERAL DIAGNOSTIC REASON FOR EXAM: Female, 33 years old. Occasional left lateral breast pain. Occasional left milky discharge. PERTINENT HISTORY: Non-contributory. TECHNIQUE: Digital bilateral breast herberth (3D mammographic acquisition) in the CC and MLO projections. 2-D mediolateral oblique (MLO) and craniocaudad (CC) views of both breasts were obtained. CAD: Full Field Digital Mammography with Computer Added Detection was performed. COMPARISON: None. Baseline examination. FINDINGS: Breast Composition: The breasts are heterogeneously dense, which may obscure small masses. There is a 1.1 cm x 0.6 cm nodular density in the deep slightly outer aspect of the right breast. There is also evidence of a 7.5 mm well-defined nodule in the deep lateral aspect of the right breast. Correlation with ultrasound is recommended. No other significant abnormalities are identified. BI/DIAG MAMM W/CAD, BILAT IMPRESSION: History of occasional left breast discharge. Nodular densities in the right breast as described. Correlation with bilateral breast ultrasound is recommended. ASSESSMENT CATEGORY: BIRADS Category 0: Incomplete. Need additional imaging evaluation. A letter regarding these results will be sent to the patient by the facility within 30 days. Approximately 10% of breast cancers are not detected by mammography. A normal mammogram should not delay biopsy of a clinically suspicious abnormality. Electronically Signed: Carlos Voss, at 11:17 EDT , Service support ,
--- NOTE | 2018-11-13 09:17 | US_ITS ---
STUDY: ULTRASOUND BREAST - LEFT REASON FOR EXAM: Female, 33 years old. Lateral left breast pain and breast discharge. TECHNIQUE: Axial and longitudinal images of the LEFT breast were performed with a high resolution ultrasound transducer. COMPARISON: Comparison is made with prior mammogram done earlier in the day. FINDINGS: LEFT Breast: The lateral aspect of the breast was examined by ultrasound. There is homogeneous fibroglandular tissue. No solid or cystic mass lesion is seen. US/Breast Limited Unilateral IMPRESSION: Unremarkable sonogram of the lateral aspect of the left breast. ASSESSMENT CATEGORY: BIRADS Category 1: Negative. A letter regarding these results will be sent to the patient by the facility within 30 days. Electronically Signed: Carlos Voss, at 14:31 EDT , Service support ,
== END | disposition home or self-care (01) ==
PROVIDERS: Family Provider Family Medicine; PCP Family Medicine; Referring Provider Obstetrics & Gynecology; Visit Provider Obstetrics & Gynecology
DX: N64.4 Mastodynia (principal)
CPT/HCPCS: 76642; 77066

== ENCOUNTER → 2018-11-16 10:28 | Outpatient (CLI) | payer MEDICAID, SELFPAY ==
[2018-11-06 14:24] VITALS: BMI 23.1
--- NOTE | 2018-11-16 10:30 | US_ITS ---
STUDY: ULTRASOUND BREAST - RIGHT REASON FOR EXAM: Female, 33 years old. Abnormal screening mammogram. TECHNIQUE: Axial and longitudinal images of the RIGHT breast were performed with a high resolution ultrasound transducer. COMPARISON: Comparison is made with prior mammogram dated November 13, 2018. FINDINGS: RIGHT Breast: There is a 4 mm x 7 mm x 2 mm cyst at the 9:00 position of the breast at 1 cm from the nipple. This also evidence of heterogeneously fibroglandular tissue. US/Breast Limited Unilateral IMPRESSION: The mammographic abnormality corresponds to a 7 mm x 2 mm x 4 mm cyst. ASSESSMENT CATEGORY: BIRADS Category 2: Benign. A letter regarding these results will be sent to the patient by the facility within 30 days. Electronically Signed: Carlos Voss, at 11:15 EDT , Service support ,
== END ==
PROVIDERS: Family Provider Family Medicine; PCP Family Medicine; Referring Provider Obstetrics & Gynecology; Visit Provider Obstetrics & Gynecology
DX: R92.8 Other abnormal and inconclusive findings on diagnostic imaging of breast (principal)
CPT/HCPCS: 76642

== ENCOUNTER 2018-12-31 18:24 | Emergency (ER) | payer MEDICAID, SELFPAY ==
[2018-12-14 12:43] VITALS: BMI 23.1
[2018-12-31 18:25] VITALS: BP 153/90; PULSE 122; RESP 18; TEMP 36.1; O2SAT 99; BMI 23.0
--- NOTE | 2018-12-31 18:42 | ED.RN ---
PULLED OLD IRVIN FOR
--- NOTE | 2018-12-31 19:12 | EKG12_ITS ---
Test Reason : PALPS Blood Pressure : / mmHG Vent. Rate : 130 BPM Atrial Rate : 130 BPM P-R Int : 146 ms QRS Dur : 090 ms QT Int : 308 ms P-R-T Axes : 080 090 050 degrees QTc Int : 453 ms Sinus tachycardia with occasional Premature ventricular complexes Possible Left atrial enlargement Rightward axis Nonspecific ST abnormality Abnormal ECG Confirmed by RANDALL ANDERSEN, MICHELLE ([id number]), writer editor KALEN DAMON ([id number]) on 01/03/2019 9:12:06 AM Referred By: RORY Confirmed By:MICHELLE PEREIRA MD
--- NOTE | 2018-12-31 19:14 | RAD_ITS ---
STUDY: X-RAY CHEST REASON FOR EXAM: Female, 33 years old. Palpitations. TECHNIQUE: Single frontal view of the chest. COMPARISON: None. FINDINGS: The lungs are clear and expanded. There is no demonstrated pleural abnormality. Normal size heart. Normal mediastinum and diego. Normal visualized pulmonary arteries. Normal visualized aortic arch and descending thoracic aorta. Normal visualized thoracic spine. Normal visualized ribs, clavicles, and shoulders. There is no demonstrated abnormality of the visualized soft tissue structures of the upper abdomen. RAD/Chest 1 View (Portable) IMPRESSION: No acute cardiopulmonary process. Electronically Signed: Julieta Brown MD at 19:32 EDT Tel , Service support ,
--- NOTE | 2018-12-31 19:14 | ED.VIS.CHEST ---
History of Present Illness Chief Complaint: Chest Pain Informant: Patient Onset: Today Activity at onset: Light Activity Timing: Continuous Quality: Aching Location: Substernal Current Severity: Mild Maximum Severity: Mild Worsened By: Nothing Relieved By: Nothing Associated Symptoms: Dyspnea, Lightheadedness, Palpitations - Racing. Negative for: Nausea, Vomiting, Diaphoresis, Cough Narrative: Patient states she felt an occasional skip of her heartbeat for the past week, but today feels like it is racing, malaise, having some shortness of breath and mild chest discomfort. She denies any leg pain or swelling, no recent travel/immobilization/hospitalization/surgery. No history of DVT or PE. She smokes but does not take any female exogenous hormones, she has had prior hysterectomy. Prior Similar Symptoms: No Recent Illness/Hospitalization: No CVD Risk Factors: Smoking - Past Medical History (1) Migraines Status: Chronic Past Medical History - Allergies and Home Meds Allergies/Adverse Reactions: Allergies ketorolac tromethamine [From Toradol] Allergy (Verified 12/31/18 18:25) Hives sumatriptan [From Imitrex] Allergy (Verified 12/31/18 18:25) Anaphylaxis sumatriptan succinate [From Imitrex] Allergy (Verified 12/31/18 18:25) Anaphylaxis tramadol HCl [From Ultram] Allergy (Verified 12/31/18 18:25) Hives morphine Adverse Reaction (Verified 12/31/18 18:25) Other Primary Care Physician: Jani Christianson MD [Primary Care Provider] - Surgical History: hysterectomy Smoking Status: Current every day smoker Drugs: None Review of Systems General: Reports: Malaise. Denies: Chills, Fever, Sweats Eyes: Denies: Visual changes - bilaterally, Diplopia ENT: Denies: Rhinorrhea, Sore throat Cardiovascular: Reports: Chest pain, Palpitations, Heart racing Respiratory: Reports: Dyspnea. Denies: Cough, Dyspnea on exertion Gastrointestinal: Reports: Abdominal pain - intermittent lower. Denies: Nausea, Vomiting, Diarrhea, Melena, Hematochezia Genitourinary: Denies: Dysuria, Hematuria, Frequency Musculoskeletal: Denies: Neck pain, Back pain, Swelling, Extremity Pain Skin: Denies: Rash, Wounds Neurological: Denies: Headache, Weakness, Numbness Endocrine: Denies: Polyuria, Polydipsia, Heat intolerance, Cold intolerance Physical Exam Vital Signs/Narrative: Vital Signs Temp Pulse Resp BP Pulse Ox 12/31/18 18:25 97 F L 122 H 18 153/90 H 99 Inital Vital Signs reviewed: Yes General: Well nourished, Well developed, No Acute Distress Head: Normocephalic, Atraumatic Eyes: Perrl, EOMI ENT: Moist mucous membranes, No rhinorrhea Neck: Supple, Nontender, No JVD Cardiovascular: Regular rate, Regular rhythm, No murmurs, Tachycardia Respiratory: No distress, CTA bilaterally, Chest nontender Abdomen: Soft, Nontender, Nondistended, Normal bowel sounds Back: Nontender, Normal Inspection. Negative for: CVA tenderness Extremities: Nontender, No edema. Negative for: Calf Tenderness Skin: Normal color, No rash, No Trauma Neurological: Alert, Oriented x3, Cranial nerves II-XII grossly intact, Normal Strength, Normal Sensation Psychological: Normal affect, Normal Mood Diagnostic/Tx/Re-eval Impressions Chest X-Ray 12/31/18 19:14 IMPRESSION: No acute cardiopulmonary process. Electronically Signed: Julieta Brown MD at 19:32 EDT Tel , Service support , 12/31/18 19:14 Chest 1 View (Portable) [RAD] Stat Laboratory Results 12/31/18 12/31/18 12/31/18 18:55 18:55 18:55 WBC 15.0 H RBC 5.37 Hgb 16.0 H Hct 45.5 MCV 84.7 MCH 29.8 MCHC 35.2 RDW 13.4 RDW Differential 41.1 Plt Count 294 MPV 10.0 Immature Gran % (Auto) 0.300 Neut % (Auto) 75.2 H Lymph % (Auto) 17.0 L [place] % (Auto) 6.7 Eos % (Auto) 0.4 Baso % (Auto) 0.4 Absolute Neuts (auto) 11.3 H Absolute Lymphs (auto) 2.55 Total Counted Not Reportable D-Dimer Quant (PE/DVT) < 0.27 L Sodium 138 Potassium 3.2 L Chloride 105 Carbon Dioxide 24.0 Anion Gap 9 BUN 10 Creatinine 0.85 Estim Creat Clear Calc 71.70 Est GFR (MDRD) Af Amer 100 Est GFR (MDRD) Non-Af 82 BUN/Creatinine Ratio 11.8 Glucose 130 H Calcium 9.1 Troponin I < 0.015 TSH 1.36 Urine Color Urine Clarity Urine pH Ur Specific [place] Urine Protein Urine Glucose (UA) Urine Ketones Urine Occult Blood Urine Nitrite Urine Bilirubin Urine Urobilinogen Ur Leukocyte Esterase Urine RBC Urine WBC Ur Squamous Epith Cells Urine Bacteria Urine Mucus 12/31/18 19:15 WBC RBC Hgb Hct MCV MCH MCHC RDW RDW Differential Plt Count MPV Immature Gran % (Auto) Neut % (Auto) Lymph % (Auto) [place] % (Auto) Eos % (Auto) Baso % (Auto) Absolute Neuts (auto) Absolute Lymphs (auto) Total Counted D-Dimer Quant (PE/DVT) Sodium Potassium Chloride Carbon Dioxide Anion Gap BUN Creatinine Estim Creat Clear Calc Est GFR (MDRD) Af Amer Est GFR (MDRD) Non-Af BUN/Creatinine Ratio Glucose Calcium Troponin I TSH Urine Color Yellow Urine Clarity Clear Urine pH 6.5 Ur Specific [place] 1.005 Urine Protein Negative Urine Glucose (UA) Normal Urine Ketones Negative Urine Occult Blood Negative Urine Nitrite Negative Urine Bilirubin Negative Urine Urobilinogen Normal Ur Leukocyte Esterase 25 H Urine RBC 0 SEEN Urine WBC 0 SEEN Ur Squamous Epith Cells 0-5 SEEN Urine Bacteria 0 SEEN Urine Mucus 0 SEEN - Rhythm Strip Rhythm Strip: Sinus Tach Rate: 130 Ectopy: PVC(s) - EKG Initial EKG Interpretation: No Acute Injury Pattern, Sinus Tachycardia, Non-Specific ST Changes - inf, - - PVCs. nml axis, almost rightward. LAE w/ upright P waves inferiorly. Prior: Changed Follow-up EKG Interpretation: Sinus Rhythm - 82, No Acute Injury Pattern, - - Normal EKG. Resolution of enlarged P waves axis unchanged. No ectopy. Prior: Changed - Medical Decision Making Patient was given Cardizem 20 mg and on repeat evaluation her symptoms are resolved and her heart rate is in the 80s. I repeated EKG. It looks normal, and the P waves look more normal and different compared with her other EKG. My suspicion is that she was having atrial tachycardia, potentially some other supraventricular dysrhythmia, that would be the most likely here given the appearance of the EKG. I discussed with Dr. Dey who advises putting her on low-dose metoprolol and having her follow-up as an outpatient which is the plan. Patient is comfortable with that plan. I also advised that she try to avoid drinking caffeine until then. ED Disposition - Plan for ED Patient: Disposition: Home or Assisted Living Diagnosis: Tachycardia Instructions: ED Dysrhythmia Unspecified Prescriptions: Metoprolol Tartrate 12.5 mg PO BID #15 tablet Referrals: Jani Christianson MD [Primary Care Provider] - [facility] [Provider Group] (Call Tuesday for appointment)
[2018-12-31 19:19] VITALS: O2SAT 100
[2018-12-31 19:23] LABS: Absolute Lymphocyte Count 2.55 X10^3/ul (0.83-4.51); Absolute Neutrophil Count 11.3 X10^3/uL (2.0-7.7); Basophil# 0.06 X10^3/uL; Basophil% 0.4 % (0-1); Eosinophil# 0.06 X10^3/uL; Eosinophils% 0.4 % (0-5); Hematocrit 45.5 % (37-47); Lymphocyte # 2.55 X10^3/ul (4.0); Mean Corp Hgb Conc 35.2 g/gl (32-36); Mean Corpuscular Hgb 29.8 pg (27.0-32.0); Mean Corpuscular Volume 84.7 fL (81-99); Monocyte# 1.01 X10^3/uL; Monocyte% 6.7 % (0-10); Neutrophil # 11.28 X10^3/uL (2.7-7.7); Neutrophil % 75.2 % (47-70); Platelet Count 294 K/mm3 (150-450); RBC Distribution Width CV 13.4 % (11.6-14.6); RBC Distribution Width SD 41.1 fl (35.1-43.9); Red Blood Count 5.37 M/mm3 (4.2-5.4)
[2018-12-31 19:25] LABS: POSITIVE COUNT NO; POSITIVE DIFFERENTIAL NO; POSITIVE MORPHOLOGY NO
[2018-12-31 19:25] LABS: Bacteria 0 SEEN /hpf (None Seen); Mucous, Urine 0 SEEN /hpf (<or=2+); Red Blood Cells-Urine 0 SEEN /hpf (0-5); White Blood Cells 0 SEEN /hpf (0-5)
[2018-12-31 19:28] VITALS: BP 116/79; PULSE 105; RESP 11; O2SAT 99
[2018-12-31] MEDS: 0.9% Normal Saline 1,000 ML 1000 ML IV (19:31)
[2018-12-31] MEDS: dilTIAZem 25 MG/5 ML Vial 20 MG IV BOLUS (19:31)
[2018-12-31 19:47] LABS: Color, Urine Yellow (Yellow); Glucose, Dipstick Normal (Normal); Ketone-Dipstick Negative (Negative); Leukocyte Esterase-Dipstick 25 /ul (Negative); Nitrite-Dipstick Negative (Negative); Occult Blood-Urine Negative /ul (Negative); Protein-Dipstick Negative (Negative); Specific Gravity, Urine 1.005 (1.002-1.030); Urine Bilirubin Dipstick Negative (Negative); Urine Clarity Clear (Clear); Urine Urobilinogen Normal (Normal); Urine pH 6.5 (5.0 - 8.0)
[2018-12-31 19:57] LABS: Anion Gap 9 (5-15); BUN 10 mg/dL (7-18); BUN/Creat Ratio 11.8 RATIO (10-20); Calcium,Total 9.1 mg/dL (8.5-10.1); Chloride 105 mmol/L (98-107); Creatinine, Serum 0.85 mg/dL (0.55-1.02); EST Glomerular Filtration Rate 82 mL/min (>60); Est Glom Filt Rate - Afr Amer 100 mL/min (>60); Glucose 130 mg/dL (74-106); Potassium 3.2 mmol/L (3.5-5.1); Sodium Level 138 mmol/L (136-145); Thyroid Stim Hormone (TSH) 1.36 uIU/mL (0.358-3.74)
[2018-12-31 20:02] LABS: Squamous Epithelial Cells - UA 0-5 SEEN /hpf (5-10)
[2018-12-31 20:02] LABS: D-Dimer Quantitative (DVT/PE) < 0.27 FEU/ug/m (0.27-0.49)
[2018-12-31 20:03] VITALS: BP 115/74; PULSE 91; RESP 20; O2SAT 98
--- NOTE | 2018-12-31 20:35 | EKG12_ITS ---
Test Reason : REPEAT Blood Pressure : / mmHG Vent. Rate : 082 BPM Atrial Rate : 082 BPM P-R Int : 140 ms QRS Dur : 080 ms QT Int : 370 ms P-R-T Axes : 076 090 054 degrees QTc Int : 432 ms Normal sinus rhythm Rightward axis Borderline ECG Confirmed by RANDALL ANDERSEN, MICHELLE ([id number]), news editor KALEN DAMON ([id number]) on 01/03/2019 9:12:23 AM Referred By: DAGMAR Confirmed By:MICHELLE PEREIRA MD
[2018-12-31 21:26] VITALS: BP 113/63; PULSE 82; RESP 12; O2SAT 98
== END 2018-12-31 21:26 | disposition home or self-care (01) ==
PROVIDERS: Emergency Provider Emergency Medicine; Family Provider Family Medicine; PCP Family Medicine
DX: R00.0 Tachycardia, unspecified (principal); F17.200 Nicotine dependence, unspecified, uncomplicated
CPT/HCPCS: 71045; 80048; 81001; 84443; 84484; 85025; 85379; 93005; 96361; 96374; 99285; J7030; A4216

== ENCOUNTER → 2019-05-28 11:06 | Outpatient (CLI) | payer MEDICAID, SELFPAY ==
[2019-05-28 10:26] VITALS: BMI 21.7
--- NOTE | 2019-05-28 11:07 | RAD_ITS ---
STUDY: X-RAY - CERVICAL SPINE REASON FOR EXAM: Female, 33 years old. Neck pain TECHNIQUE: 6 view(s) of the cervical spine were obtained. COMPARISON: Prior study of 07/24/2015 FINDINGS: Normal anterior atlantoaxial articulation. Normal odontoid process. There is mild reversal of the normal lordotic curvature. Normal vertebral bodies and endplates. Normal disc space heights. Normal visualized intervertebral neuroforamina. The soft tissue structures are unremarkable. RAD/Cerv Spine 4 or 5 Views IMPRESSION: There is mild reversal of the normal lordotic curvature. There is no evidence of fracture or subluxation. Disc spacing is preserved. Electronically Signed: Eric Puente MD at 23:16 EDT , Service support ,
== END ==
PROVIDERS: Family Provider Family Medicine; PCP Family Medicine; Referring Provider Physician Assistant; Visit Provider Physician Assistant
DX: M75.41 Impingement syndrome of right shoulder (principal)
CPT/HCPCS: 72050

== ENCOUNTER → 2019-06-09 08:00 | Outpatient (CLI) | payer MEDICAID, SELFPAY ==
[2019-05-28 10:26] VITALS: BMI 21.7
--- NOTE | 2019-06-09 08:02 | MRI_ITS ---
HISTORY: rt shoulder pain for 1-2 YEARS. 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 EXAMINATION: MR Shoulder W/O Contrast TECHNIQUE: Multiplanar and multisequence MR images of the right shoulder. IV Contrast dosage and agent: No contrast. 8 series. 153 images COMPARISON: X-rays of the right shoulder from August 29, 2018 FINDINGS: BONE: No fracture or abnormal bone marrow signal. ACROMIOCLAVICULAR JOINT: There is no degenerative change. SUBACROMIAL-SUBDELTOID SPACE: A tiny sliver of bursal fluid is present within the subacromial space GLENOHUMERAL JOINT: Articular cartilage is intact Field a tiny amount of fluid is present within the joint, a normal volume of fluid No rotator interval edema. ROTATOR CUFF: The rotator cuff is intact, however, there is some abnormal increased T2-weighted signal within the supraspinatus both superficially and deep adjacent to the articular surface. This is very peripheral edema at the insertion of the supraspinatus. Some of this also extends more anteriorly to involve the superior posterior fibers of the subscapularis LABRUM: Intact, limited evaluation on non-arthrographic exam. BICEPS TENDON: The extra-articular biceps tendon is in the bicipital groove. The intra-articular biceps tendon is normal. OTHER SOFT TISSUES: Unremarkable. MRI/Upper Ext Joint Only(Routine) IMPRESSION: Tiny sliver of subacromial bursal fluid. Minimal tendinosis to the superficial surface of the supraspinatus and the anterior posterior surface of the subscapularis. Tendinosis also at the insertion of the supraspinatus, the undersurface of the supraspinatus just proximal to its insertion. at 0600 Reported and signed by: Jeovanny Tejada MD Electronically Signed: Jeovanny Tejada MD at 5:59 EST Tel , Service support ,
== END ==
PROVIDERS: Family Provider Family Medicine; PCP Family Medicine; Referring Provider Physician Assistant; Visit Provider Physician Assistant
DX: M75.41 Impingement syndrome of right shoulder (principal)
CPT/HCPCS: 73221

== ENCOUNTER 2019-06-25 10:12 | Emergency (ER) | payer MEDICAID, SELFPAY ==
[2019-06-21 08:54] VITALS: BMI 21.7
[2019-06-25 10:14] VITALS: BP 151/83; PULSE 121; RESP 20; TEMP 36.6; O2SAT 97; BMI 23.6
[2019-06-25 10:32] VITALS: BP 131/76; PULSE 108; RESP 16; TEMP 37.1; O2SAT 98
--- NOTE | 2019-06-25 11:07 | EKG12_ITS ---
Test Reason : PALP Blood Pressure : / mmHG Vent. Rate : 097 BPM Atrial Rate : 097 BPM P-R Int : 138 ms QRS Dur : 084 ms QT Int : 352 ms P-R-T Axes : 066 078 055 degrees QTc Int : 447 ms Normal sinus rhythm Right atrial enlargement Borderline ECG Confirmed by RANDALL ANDERSEN, MICHELLE ([id number]), multimedia editor RITO RINALDI ([id number]) on 06/27/2019 2:01:24 PM Referred By: PAO/TWILA Confirmed By:MICHELLE PEREIRA MD
--- NOTE | 2019-06-25 11:11 | RAD_ITS ---
STUDY: X-RAY CHEST REASON FOR EXAM: Female, 33 years old. Shortness of breath and palpitations. TECHNIQUE: Single AP portable view of the chest. COMPARISON: Comparison is made with prior examination of December 31, 2018. FINDINGS: EKG electrodes are seen. The lungs are clear and expanded. There is no demonstrated pleural abnormality. Normal size heart. Normal mediastinum and diego. Normal visualized pulmonary arteries. Normal visualized aortic arch and descending thoracic aorta. Normal visualized thoracic spine. Normal visualized ribs, clavicles, and shoulders. There is no demonstrated abnormality of the visualized soft tissue structures of the upper abdomen. RAD/Chest 1 View (Portable) IMPRESSION: Normal x-ray examination of the chest. Electronically Signed: Carlos Voss, at 11:32 EST , Service support ,
[2019-06-25] MEDS: 0.9% Normal Saline 1,000 ML 1000 ML IV (11:19)
[2019-06-25 11:21] VITALS: PULSE 79; RESP 17; O2SAT 98
[2019-06-25 11:25] LABS: Absolute Neutrophil Count 5.7 X10^3/uL (2.0-7.7); Basophil# 0.11 X10^3/uL; Basophil% 1.1 % (0-1); Eosinophil# 0.18 X10^3/uL; Eosinophils% 1.8 % (0-5); Hematocrit 46.6 % (37-47); Hemoglobin 15.9 g/dL (12.0-15.0); Lymphocyte % 31.5 % (19-41); Mean Corp Hgb Conc 34.1 g/dL (32-36); Mean Corpuscular Hgb 29.2 pg (27.0-32.0); Mean Corpuscular Volume 85.5 fL (81-99); Mean Platelet Vol. 10.4 fl (6.2-12.0); Monocyte# 0.75 X10^3/uL; Monocyte% 7.6 % (0-10); NRBC Flagged by Analyzer 0 % (0-5); Neutrophil # 5.67 X10^3/uL (2.7-7.7); Neutrophil % 57.6 % (47-70); Platelet Count 319 K/mm3 (150-450); RBC Distribution Width CV 12.9 % (11.6-14.6); RBC Distribution Width SD 39.9 fl (35.1-43.9); Red Blood Count 5.45 M/mm3 (4.2-5.4); White Blood Count 9.9 K/mm3 (4.4-11.0)
[2019-06-25 11:38] LABS: Anion Gap 6 (5-15); BUN 6 mg/dL (7-18); BUN/Creat Ratio 6.6 RATIO (10-20); Calcium,Total 9.3 mg/dL (8.5-10.1); Chloride 107 mmol/L (98-107); EST Glomerular Filtration Rate 77 mL/min (>60); Est Glom Filt Rate - Afr Amer 93 mL/min (>60); Estimated Creatinine Clearance 67.72 ml/min; Glucose 129 mg/dL (74-106); Potassium 3.3 mmol/L (3.5-5.1); Sodium Level 137 mmol/L (136-145)
[2019-06-25 12:16] VITALS: BP 101/51; PULSE 83; RESP 21; O2SAT 100
--- NOTE | 2019-06-25 12:59 | ED.DCSUM_ITS ---
History of Present Illness Chief Complaint: Shortness of Breath Onset: Today Current Severity: Moderate Maximum Severity: Moderate Narrative: Chief complaint says shortness of breath. Patient is here mostly for palpitations. This is been ongoing for the past few months and she is been diagnosed with tachycardia she takes a very low-dose beta-elfego. She had 2 episodes where her phone ian and her own pounding showed a heart rate in the 16 0s. She wants to make sure that everything is okay. She has no chest pain shortness of breath fever or chills. She has no abdominal pain no recent nausea vomiting or diarrhea. Past Medical History - Allergies and Home Meds Allergies/Adverse Reactions: Allergies ketorolac tromethamine [From Toradol] Allergy (Verified 06/25/19 10:13) Hives sumatriptan [From Imitrex] Allergy (Verified 06/25/19 10:13) Anaphylaxis sumatriptan succinate [From Imitrex] Allergy (Verified 06/25/19 10:13) Anaphylaxis tramadol HCl [From Ultram] Allergy (Verified 06/25/19 10:13) Hives morphine Adverse Reaction (Verified 06/25/19 10:13) Other novocaine with epinephrine Adverse Reaction (Uncoded 06/25/19 10:13) tachy and hypotensive Primary Care Physician: Jani Christianson MD [Primary Care Provider] - Past Medical History: - - Tachycardia Surgical History: hysterectomy Smoking Status: Current every day smoker Review of Systems General: Denies: Fever Eyes: Denies: Visual changes - left Cardiovascular: Reports: Palpitations, Heart racing. Denies: Chest pain Respiratory: Denies: Dyspnea, Cough, Sputum Gastrointestinal: Denies: Abdominal pain, Vomiting Genitourinary: Denies: Dysuria Skin: Denies: Rash Neurological: Denies: Weakness Endocrine: Denies: Polyuria Hematologic: Denies: Easy bruising Allergy: Denies: Uticaria Physical Exam Vital Signs/Narrative: Vital Signs Temp Pulse Resp BP Pulse Ox 06/25/19 12:16 83 21 H 101/51 L 100 06/25/19 11:21 79 17 98 06/25/19 10:32 98.8 F 108 H 16 131/76 H 98 06/25/19 10:14 97.9 F 121 H 20 H 151/83 H 97 General: Well nourished, Well developed, No Acute Distress Eyes: Perrl ENT: Moist mucous membranes Neck: Supple Cardiovascular: Regular rate, Regular rhythm Respiratory: No distress, CTA bilaterally Abdomen: Soft, Nontender Back: Nontender, Normal Inspection Extremities: Nontender, No edema Skin: Normal color Neurological: Alert, Oriented x3 Psychological: Normal affect Diagnostic/Tx/Re-eval - Rhythm Strip Rhythm Strip: Sinus Rhythm Rate: 97 Ectopy: None - EKG Initial EKG Interpretation: Sinus Rhythm - Normal sinus rhythm with a rate of 97. Normal OR and QTc intervals. No ischemic changes Interpreted by emergency doctor - Medical Decision Making Patient has a normal work-up. I told her she can double up on her metoprolol, she is currently only on 12.5 mg twice a day. She is to do this only when she has the palpitations. Otherwise she can follow-up with cardiology. ED Disposition - Plan for ED Patient: Disposition: Home or Assisted Living Diagnosis: Tachycardia Instructions: Palpitations Referrals: Raj Zayas MD [STAFF PHYSICIAN] - 3-5 Days
[2019-06-25 13:19] VITALS: BP 103/58; PULSE 87; RESP 16; O2SAT 97
== END 2019-06-25 13:20 | disposition home or self-care (01) ==
PROVIDERS: Emergency Provider Emergency Medicine; Family Provider Family Medicine; PCP Family Medicine
DX: R00.0 Tachycardia, unspecified (principal); F17.200 Nicotine dependence, unspecified, uncomplicated
CPT/HCPCS: 71045; 80048; 84484; 85025; 93005; 96360; 99284; J7030; A4216

== ENCOUNTER 2019-08-22 09:11 | Day surgery (SDC) | payer MEDICAID, SELFPAY ==
[2019-08-03 13:12] VITALS: BMI 23.6
[2019-08-22] VITALS (12 sets, daily range): BP systolic 94–115; BP diastolic 57–71; PULSE 63–84; RESP 16; TEMP 36.2–37.2; O2SAT 97–100; BMI 23.8
[2019-08-22] MEDS: Lactated Ringers 1,000 ML 100 ML IV ×2 (09:41→15:05)
[2019-08-22 09:46] LABS: International Normalized Ratio 1.1; Prothrombin Time (Protime)PT. 13.9 SECONDS (11.7-14.9)
[2019-08-22 09:47] LABS: Partial Thromboplast Time 31.5 Seconds (24.1-36.2)
[2019-08-22 09:50] LABS: AST(SGOT) 11 U/L (15-37); Alanine Aminotransfer ALT/SGPT 17 U/L (13-56); Albumin, Serum 4.3 g/dL (3.2-5.0); Alkaline Phosphatase 57 U/L (45-117); Bilirubin, Direct 0.07 mg/dL (0.00-0.30); Globulin 2.9 g/dL (2.2-4.2); Protein, Total 7.2 g/dL (6.4-8.2)
[2019-08-22] MEDS: Cefazolin 2 GM in 0.9% Normal Saline 100 ML IV (12:45)
[2019-08-22] MEDS: Epinephrine (1 mg/ml) 1 MG/ML VIAL (13:30)
[2019-08-22] MEDS: Mupirocin Ointment 22gm Tube 1 APPLIC (13:40)
--- NOTE | 2019-08-22 13:46 | HP.PCM_ITS ---
History and Physical I have re-examined the patient. There are no clinical changes since date of exam. Intake Vital Signs 08/03/19 BMI 23.6 Intake Visit Reasons: RIGHT SHOULDER Chief Complaint: right shoulder pain Allergies ketorolac tromethamine [From Toradol] Allergy (Verified 06/25/19 10:13) Hives sumatriptan [From Imitrex] Allergy (Verified 06/25/19 10:13) Anaphylaxis sumatriptan succinate [From Imitrex] Allergy (Verified 06/25/19 10:13) Anaphylaxis tramadol HCl [From Ultram] Allergy (Verified 06/25/19 10:13) Hives morphine Adverse Reaction (Verified 06/25/19 10:13) Other novocaine with epinephrine Adverse Reaction (Uncoded 06/25/19 10:13) tachy and hypotensive Medications metoprolol tartrate 25 mg tablet 25 mg PO BID tab 02/22/19 [History Confirmed 08/03/19] PFSH Social History (Updated 08/03/19 @ 15:56 by DONALD Saavedra) Smoking Status: Current every day smoker tobacco type: cigarettes Tobacco: How many years used: 8 second hand exposure: Yes alcohol intake: never substance use type: does not use caffeine: Yes (2) Type: carbonated beverages what type of physical activity do you participate in: walking seatbelt use: always do you feel safe at home: Yes 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 KALEN VALLADARES is a 33 year old F here today for right shoulder. Patient is here today to sign surgery consent for right shoulder arthroscopy for bursectomy/synovectomy and should clean out. Denies numbness, tingling or other associated symptoms. Continues to have right anterior shoulder pain with any shoulder ROM. ROS Const Reports weakness Musc Reports joint pain, Denies joint swelling, Reports muscle weakness, Reports numbness, Denies radiating pain into limb, Reports stiffness, Reports tingling Skin/Breast Denies redness, Denies lesions, Denies itching, Denies rash, Denies skin swelling Neuro Yes numbness, Yes tingling, Yes weakness Ortho Exam Right Shoulder Skin/Wound: No ecchymosis, No erythema, No swelling Testing: Positive Hawkin's, Speed's, TTP Biceps and AROM-External Rotation at side 0-60; negative AROM-Forward Elevation 0-180 SHOULDER: No interval change in physical exam findings from previous visit. No abnormalities on inspection. Some decreased range of motion and weakness. Evident impingement with biceps involvement. No rales rhonchi wheezing, no abdominal pain, no audible bruits Assessment & Plan Problems 1. Biceps tendinitis of right shoulder M75.21 2. Impingement syndrome of right shoulder M75.41 Plan Patient presents to the office today to sign surgical consent for right shoulder arthroscopy with acromial decompression, synovectomy/bursectomy, and expiration of the biceps to include possible tenotomy versus tenodesis. At this time we discussed risks and benefits of the surgery and all her questions were answered regarding these. Consent was signed in office to proceed for the planned procedure. We did discuss that recovery is a little dependent upon whether the biceps is repaired versus snipped. This is something patient can think about and notify us the day of surgery. She states she would not want any type of rotator cuff repair at this time if that would be found. Patient be notified by surgery for presurgery/anesthesia testing. Patient was given antimicrobial cleansed to be used night before morning of surgery from the neck down to her fingertips. Patient be notified the day before her surgery for surgery time. Notify our office if she has any other concerns or complaints or need to cancel or reschedule. This note was generated with [employer] dictation software. It may contain incorrect words, spelling, and punctuation that were not noted in checking the note before signing. Coding Level of Care Code Off vis,est,level 2 Diagnoses Biceps tendinitis of right shoulder M75.21 Impingement syndrome of right shoulder M75.41
--- NOTE | 2019-08-22 13:47 | DCINST_ITS ---
Discharge Diet: No Restrictions - May remove dressings in 4 days and apply Band- Aids to incision sites, may get incision wet in shower after 4 days , may remove sling as tolerated move arm and elbow as tolerated, follow-up in 10 to 14 days for suture removal, no restrictions and arm hand or shoulder movement, call with concerns Discharge Activity: May Not Drive May shower in (days): 1 Ice area for (Minutes): 20 - Every hour while awake. Weight Bearing Status: Weight bearing as tolerated Keep extremity elevated above heart level: Operative Extremity Call your doctor if your incision/area has: Continuous Slow Oozing, Sudden Increased Bleeding, Increased Pain/ Swelling, Increased Redness, Foul Smelling Discharge Call your doctor if you observe: Fever of 101 or Higher, Coldness, Increased Pain, Numbness or Tingling, Change in Color, Calf discomfort Allergies/Adverse Reactions: Allergies ketorolac tromethamine [From Toradol] Allergy (Verified 08/22/19 09:21) Hives sumatriptan [From Imitrex] Allergy (Verified 08/22/19 09:21) Anaphylaxis sumatriptan succinate [From Imitrex] Allergy (Verified 08/22/19 09:21) Anaphylaxis tramadol HCl [From Ultram] Allergy (Verified 08/22/19 09:21) Hives morphine Adverse Reaction (Verified 08/22/19 09:21) Other novocaine with epinephrine Adverse Reaction (Uncoded 08/22/19 09:21) tachy and hypotensive Medications to take at Discharge Oxycodone HCl/Acetaminophen [Percocet 5/325] 1 - 2 tab PO Q6H PRN PRN 5 Days #28 tab 08/22/19 Zolpidem Tartrate [Ambien (Generic)] 5 mg PO QHS PRN PRN #14 tab 08/22/19 The following prescriptions were given: Zolpidem Tartrate [Ambien (Generic)] 5 mg PO QHS PRN PRN #14 tab PRN Reason: Insomnia Transmission Status: Received by [facility] Oxycodone HCl/Acetaminophen [Percocet 5/325] 1 - 2 tab PO Q6H PRN PRN 5 Days #28 tab PRN Reason: Pain Transmission Status: Received by [facility] Orders to be completed after discharge: Liver Profile Time Frame: 08/22/19, Facility: [facility], Location: Laboratory Partial Thromboplast Time Time Frame: 08/22/19, Facility: [facility], Location: Laboratory Prothrombin Time w/INR Time Frame: 08/22/19, Facility: [facility], Location: Laboratory Primary Care Physician: Jani Christianson MD [Primary Care Provider] - Test Results: Test results from this visit will be discussed in further detail at your follow- up appointment, if applicable. Please Follow Up With: Yara Bruce, - [phone]
--- NOTE | 2019-08-22 13:47 | PCM.OPRPT ---
Report of Operation Date of Procedure: 08/22/19 Pre-Operative Diagnosis: right shoulder biceps tendinosis, rc tear, subacromial impingment Post-Operative Diagnosis: same Surgery/Procedure Performed:: sars, rc debridement, biceps tenotomy, sad/acromioplasty finisher cold rolling: Steven Gray Type of Anesthesia:: Block,Regional, General Anesthesiologist: Alessandro Lawrence Estimated Blood Loss (mL): min Fluids Replaced: 1100cc lr Description of Procedure: Preop note Patient is a 33-year-old female with continued right shoulder pain recalcitrant to conservative treatment. Patient complains of most of her pain being anterior aspect of her shoulder with supination as well. Risk benefits alternatives are discussed with family patient after MRI which shows a leading edge rotator cuff tear as well as some fluid around her biceps and some impingement. Risk include but not limited to blood loss, blood clot, infection, neurovascular, failure procedure, loss of life and loss of limb. Patient is aware like to proceed with right shoulder arthroscopy repair as indicated. Operative note Patient seen and examined preop plan. Right arm was marked. Patient brought to the operating room placed supine on the operating table. Signed, anesthesia, antibiotics were administered. The right arm was prepped and draped usual sterile fashion after [place] after beachchair positioning was maintained. [place] through beachchair we did recheck her blood pressure which is stable throughout all bony prominences well-padded SCDs placed on her bilateral lower extremity. Again her right arm was prepped and draped in usual sterile sterile technique. Marked out our bony landmarks for portal placement. We insufflated the glenohumeral joint for the posterior aspect and had good return. We created a lateral of posterior portal with an 11 blade. Timeout was performed prior to that. Begin a diagnostic arthroscopy. Created anterior portal under direct visualization. Her glenohumeral humeral joint was intact there is no loose bodies in her inferior recess her posterior labrum was intact her anterior labrum was intact she had a large [facility] L. Her biceps tendon insertion was unstable and had a partially torn at the slap lesion extending from anterior to posterior at the insertion of the biceps anchor. And there is a leading edge rotator cuff tear as well. We inserted a shaver and resected back the rotator cuff and then marked it with a spinal needle. We then performed a biceps tenotomy. We then moved to the subacromial space. We created a lateral portal under direct visualization. Resected back the thickened bursa that was extensive throughout with combination of a shaver and ablator if there were at least we encountered any bleeders. We visualized the anterior aspect of the rotator cuff which is where we had marked out the tear there was no bursal sided tear and was appear to be about a 20% thickness tear from the articular side only. We then irrigated again the subacromial space with copious muscle sterile saline. We had completed an extensive bursectomy and acromioplasty shaving gently of the acromion and anterior lateral edge as well. The only irrigated the copious with copious amounts of sterile saline portals were closed with interrupted 4-0 nylon stitches. Sterile dressings were applied patient was placed in a simple sling. Patient taught procedure well no complication transferred recovery room stable condition. Postoperative note Weight-bear as tolerated right arm as tolerated Patient is to give to family in 2 weeks Call with increased pain numbness tingling further issues arise This note was generated with imageloop dictation software. It may contain incorrect words, spelling, and punctuation that were not noted in checking the note before signing.
== END 2019-08-22 16:49 | disposition home or self-care (01) ==
LOC: SDC 09:14 → AC 09:14
PROVIDERS: Family Provider Family Medicine; PCP Family Medicine; Referring Provider Orthopaedic Surgery; Visit Provider Orthopaedic Surgery
PROC: (CPT 29827; principal; 2019-08-22 10:40)
DX: M75.41 Impingement syndrome of right shoulder (principal); M75.21 Bicipital tendinitis, right shoulder; M75.111 Incomplete rotator cuff tear or rupture of right shoulder, not specified as traumatic; F17.210 Nicotine dependence, cigarettes, uncomplicated; R00.2 Palpitations; Z79.899 Other long term (current) drug therapy
CPT/HCPCS: 01630; 29826; 29828; 36415; 80076; 85610; 85730; J7120; J2405

== ENCOUNTER → 2020-04-29 12:08 | Outpatient (CLI) | payer MEDICAID, SELFPAY ==
[2020-04-22 12:08] VITALS: BMI 23.8
--- NOTE | 2020-04-29 12:10 | US_ITS ---
STUDY: ULTRASOUND OF THE FEMALE PELVIS - COMPLETE REASON FOR EXAM: Female, 34 years old. LEFT PELVIC PAIN -- HX OF HYSTERECTOMY 2014 -- HX OF RT OOPHORECTOMY 2014 LMP: Status post hysterectomy. TECHNIQUE: Transabdominal and Transvaginal TECHNICAL QUALITY: Adequate. COMPARISON: None. FINDINGS: The patient is status post hysterectomy. The patient is status post right oophorectomy. The left ovary is visualized. The left ovary measures 5 cm x 4.8 cm x 4 cm. 2 complex cysts are seen within the ovary adjacent to each other. The larger cyst measures 2.3 cm x 2 size by 1.8 cm. The second cyst measures 1.9 cm x 1.8 cm x 1.4 cm. There is no visualized left adnexal mass or complex lesion. There is normal arterial and normal venous vascularity. There is no fluid in the cul-de-sac. US/Transvaginal Non- IMPRESSION: Status post hysterectomy and right oophorectomy. Two complex cysts are seen in the left ovary. Electronically Signed: Carlos Voss, at 14:09 EDT , Service support ,
--- NOTE | 2020-04-29 12:10 | US_ITS ---
STUDY: ULTRASOUND OF THE FEMALE PELVIS - COMPLETE REASON FOR EXAM: Female, 34 years old. LEFT PELVIC PAIN -- HX OF HYSTERECTOMY 2014 -- HX OF RT OOPHORECTOMY 2014 LMP: Status post hysterectomy. TECHNIQUE: Transabdominal and Transvaginal TECHNICAL QUALITY: Adequate. COMPARISON: None. FINDINGS: The patient is status post hysterectomy. The patient is status post right oophorectomy. The left ovary is visualized. The left ovary measures 5 cm x 4.8 cm x 4 cm. 2 complex cysts are seen within the ovary adjacent to each other. The larger cyst measures 2.3 cm x 2 size by 1.8 cm. The second cyst measures 1.9 cm x 1.8 cm x 1.4 cm. There is no visualized left adnexal mass or complex lesion. There is normal arterial and normal venous vascularity. There is no fluid in the cul-de-sac. US/Pelvic (Non ) IMPRESSION: Status post hysterectomy and right oophorectomy. Two complex cysts are seen in the left ovary. Electronically Signed: Carlos Voss, at 14:09 EDT , Service support ,
== END ==
PROVIDERS: PCP Family Medicine; Referring Provider Obstetrics & Gynecology; Visit Provider Obstetrics & Gynecology
DX: R10.2 Pelvic and perineal pain (principal)
CPT/HCPCS: 76830; 76856; 93976

== ENCOUNTER 2020-05-27 06:52 | Day surgery (SDC) | payer MEDICAID, SELFPAY ==
[2020-05-15 13:06] VITALS: BMI 23.8
[2020-05-20 15:05] LABS: Hematocrit 45.6 % (37-47); Hemoglobin 15.1 g/dL (12.0-15.0); Mean Corp Hgb Conc 33.1 g/dL (32-36); Mean Corpuscular Hgb 28.7 pg (27.0-32.0); Mean Corpuscular Volume 86.7 fL (81-99); Mean Platelet Vol. 10.2 fl (6.2-12.0); Platelet Count 292 K/mm3 (150-450); RBC Distribution Width CV 13.2 % (11.6-14.6); RBC Distribution Width SD 41.8 fl (35.1-43.9); Red Blood Count 5.26 M/mm3 (4.2-5.4); White Blood Count 8.3 K/mm3 (4.4-11.0)
[2020-05-20 15:14] LABS: International Normalized Ratio 1.1; Partial Thromboplast Time 31.8 Seconds (24.1-36.2); Prothrombin Time (Protime)PT. 13.9 SECONDS (11.7-14.9)
[2020-05-20 15:29] LABS: AST(SGOT) 13 U/L (15-37); Alanine Aminotransfer ALT/SGPT 16 U/L (13-56); Alkaline Phosphatase 68 U/L (45-117); Bilirubin, Direct 0.08 mg/dL (0.00-0.30); Globulin 3.6 g/dL (2.2-4.2); Protein, Total 7.6 g/dL (6.4-8.2)
--- NOTE | 2020-05-24 18:01 | HP.PCM_ITS ---
- Problem List (1) Adnexal mass Status: Acute Comment: us reviewed multiple complex cyst present on ovary, N SAID ordered. discussed removal and estrogen replacement (2) Intermittent palpitations Status: Acute (3) Pelvic pain Status: Acute Comment: Chronic and related to recurrent ovarian cysts. Patient has been treated with continuous OCP in the past which has failed to control symptoms. Discussed Depo-Lupron versus surgical removal. Plan proceeding with ovarian removal and estrogen replacement after due to risk of early menopause which was discussed with the patient. (4) Tachycardia Status: Acute (5) Nicotine dependence Status: Chronic History and Physical Date of Admission: 05/27/20 Intake Vital Signs 05/15/20 Height 5 ft 1 in 05/15/20 Weight: 123 lb 6 oz 05/15/20 BMI 23.3 05/15/20 BP 116/87 H Intake Visit Reasons: Discuss US. Chief Complaint: u/s results, surgical consult Obstetric Anaesthetist Required: No Is patient in pain?: No Allergies ketorolac tromethamine [From Toradol] Allergy (Verified 05/15/20 13:06) Hives sumatriptan [From Imitrex] Allergy (Verified 05/15/20 13:06) Anaphylaxis sumatriptan succinate [From Imitrex] Allergy (Verified 05/15/20 13:06) Anaphylaxis tramadol HCl [From Ultram] Allergy (Verified 05/15/20 13:06) Hives morphine Adverse Reaction (Verified 05/15/20 13:06) Other novocaine with epinephrine Adverse Reaction (Uncoded 05/15/20 13:06) tachy and hypotensive Medications acetaminophen 325 mg tablet 325 mg PO ONCE PRN 04/22/20 [History Confirmed 05/15/20] ibuprofen 200 mg capsule 200 mg PO Q6H PRN 04/22/20 [History Confirmed 05/15/20] nabumetone 500 mg tablet 500 mg PO BID #60 tab 04/22/20 [Rx Confirmed 05/15/20] Is last menstrual period known: No Post menopausal: No Patient : No : No PFSH Medical History Nicotine dependence (Chronic) Anxiety (Chronic) GERD (gastroesophageal reflux disease) (Chronic) Migraine (Chronic) Situational depression (Chronic) Surgical History H/O: hysterectomy (Resolved) History of bilateral salpingectomy (Resolved) History of cholecystectomy (Resolved) History of colonoscopy (Resolved) History of right oophorectomy (Resolved) Family History Mother Hypertension High cholesterol Grandmother Diabetes Hypertension afib Father Hypertension Grandfather Cancer skin Hypertension Afib Grandmother Hypertension afib Social History (Updated 05/16/20 @ 04:[address] 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 She had a hysterectomy done years ago for abnormal uterine bleeding and dysmenorrhea. She has had one ovary removed due to pelvic pain, complex ovarian cyst, and dyspareunia. Currently she has had a recurrence of symptoms and had several complex cysts seen on ultrasound recently. She has been treated with a continuous OCP in the past but this has not been managing her pain now and she is wanting definitive treatment. This limits physical activity and interferes with work. Pregancy History 2 Elective abortions Hx Para 2 Spontaneous abortions Hx # Term Pregnancies Ectopic pregnancies Hx # Pregnancies Multiple births # of living children Past Pregnancies Del. Date Name GA/Weeks Outcome Route Bth Weight Infant Gen Labor Lgth Anesthesia Del Locatn Provider FOB 11/15/06 Eikimmy 01/16/13 Mj EVANS Const Constitutional: Denies fatigue, fever(s), headache(s), increased appetite, poor appetite, weight gain or weight loss GI GI: Reports as per HPI; denies abdominal pain, constipation, nausea or vomiting : Denies nipple discharge Skin Skin/Breast: Denies hair loss, change in hair, dry skin, breast lump, breast pain, breast skin changes or nipple discharge Exam Const General: cooperative, healthy appearing, comfortable, no acute distress, well developed Orientation: alert HENMT Head: normal to inspection, normocephalic Ears: hearing grossly normal bilaterally, external ears normal Nose: external nose normal, nares normal Face and sinus: normal facial exam Neck Neck: normal visual inspection, no lymphadenopathy, trachea midline Thyroid: thyroid normal Resp Effort & Inspection: normal respiratory effort Musc Other: gross motor intact no deficits, full bilateral strength Skin General: no rashes or lesions noted Neuro Motor: muscle tone normal throughout Assessment & Plan Problems 1. Adnexal mass N94.89 us reviewed multiple complex cyst present on ovary, NSAID ordered. discussed removal and estrogen replacement 2. Pelvic pain R10.2 Chronic and related to recurrent ovarian cysts. Patient has been treated with continuous OCP in the past which has failed to control symptoms. Discussed Depo-Lupron versus surgical removal. Plan proceeding with ovarian removal and estrogen replacement after due to risk of early menopause which was discussed with the patient. Plan After discussing the patient's diagnosis and treatment plan options, patient wishes to proceed with surgical management. I have discussed with the patient the risks, benefits, and alternatives of the procedure which include but are not limited to risks of anesthesia, bleeding, infection, possible damage to bowel, bladder, or surrounding vasculature which could lead to additional surgery to evaluate any complications. Patient agrees to procedure and wishes to proceed. ACOG/uptodate references given for additional information regarding procedure. Orders Referrals: Urogynecology N32.81 Coding Level of Care Code Off vis,est,level 4 Diagnoses Adnexal mass N94.89 Pelvic pain R10.2
[2020-05-27] VITALS (9 sets, daily range): BP systolic 95–110; BP diastolic 55–66; PULSE 68–85; RESP 16–18; TEMP 36.5–37.1; O2SAT 96–100; BMI 22.8
[2020-05-27] MEDS: Lactated Ringers 1,000 ML 100 ML IV (07:41)
--- NOTE | 2020-05-27 08:50 | OV_PTH ---
PATIENT: KALEN VALLADARES [place] [facility] [id number] AGE/SX: 34/F ROOM: RE05/27/[address]: Dr. Karrie Rdz MD : [id number] BED: DIS: 05/27/2020 SPEC #: [id number] RECD: 05/27/20 11:35 STATUS: DEJA JEROD #: [id number] PAWAN: 05/27/20 08:[address]: Karrie Rdz DEPT: SURGICAL PATHOLOGY RECD BY: Tasneem Garcia ENTERED: 05/27/20 13:22 SP TYPE: OVARY OTHR DR: Dr. Jani Christianson MD Tissues: Left ovary Procedures: Surgery Specimen Level IV HEADER OPERATION: Left laparoscopic oophorectomy PRE-OP DIAGNOSIS: Adnexal mass, chronic pelvic pain TISSUE SUBMITTED: Left ovary MICROSCOPIC DIAGNOSIS Left ovary, oophorectomy: Physiologic follicular cysts. GRANT:gunjan 05/28/20 MICROSCOPIC DESCRIPTION Slides are reviewed. GROSS DESCRIPTION Received in fixative is one container labeled with the patient's name and designated left ovary. The specimen consists of a soft to cystic ovary measuring 4 x 3 x 1.5 cm and weighs 7.7 gm. No papillation is identified. The outer surface is slightly rough. The specimen is inked, serially sectioned and reveals multiple cysts filled with clear to hemorrhagic fluid. No obvious mass lesion is identified. The largest cyst measures 1 cm in greatest dimension. Annealing Oven Operator sections are submitted in four cassettes. / GRANT:gunjan 05/27/20 TC:5 CPT: 04327
[2020-05-27] MEDS: Bupivacaine 0.25% 30 ML Vial (09:00)
--- NOTE | 2020-05-27 10:30 | OP.PCM_ITS ---
Problem List (1) Adnexal mass Status: Acute Comment: us reviewed multiple complex cyst present on ovary, NS AID ordered. discussed removal and estrogen replacement (2) Intermittent palpitations Status: Acute (3) Pelvic pain Status: Acute Comment: Chronic and related to recurrent ovarian cysts. Patient has been treated with continuous OCP in the past which has failed to control symptoms. Discussed Depo-Lupron versus surgical removal. Plan proceeding with ovarian removal and estrogen replacement after due to risk of early menopause which was discussed with the patient. (4) Tachycardia Status: Acute (5) Nicotine dependence Status: Chronic Report of Operation Date of Procedure: 05/27/20 Pre-Operative Diagnosis: Pelvic pain complex ovarian cysts Post-Operative Diagnosis: Same Surgery/Procedure Performed:: Laparoscopic left oophorectomy Description of Surgical Findings:: Extensive adhesions left ovary to sigmoid colon and pelvic sidewall. Normal abdomen and the rest of the pelvis writer technical publications: Kyleigh Kay Type of Anesthesia:: General Special Medications: aldo, intercede, floseal Specimen's removed: left ovary Drains: none Estimated Blood Loss (mL): 50 Fluids Replaced: crystalloid Description of Procedure: Patient was taken to the operating room and placed under general anesthesia was prepped and draped in normal sterile fashion in the dorsal lithotomy position. Sponge stick placed in the vagina. Umbilicus injected with quarter percent Marcaine and 12 mm incision made and after insufflating the abdomen with CO2 gas using a varies needle a 12 mm port was placed under direct visualization. Suprapubic and left lower quadrant 5 mm ports were placed without complication. Left ovary was noted to be significantly adhesed into the ovarian fossa the pelvic sidewall and to the back of the sigmoid colon. Sharp and blunt dissection were used to be able to separate the anatomical structures and hydrodissection was also used. Using the LigaSure device the ovary was freed and vessels isolated and ligated with the LigaSure device without complication. Multiple raw areas were noted over the epiploica overlying the sigmoid colon of which the bowel was inspected and the area noted to have no changes to the integrity however that with a raw appearance Aldo was initially placed but some oozing was noted in certain areas and therefore FloSeal was placed. This obtained excellent hemostasis and a sheet of Interceed was placed over it to reduce adhesions in the future. Abdomen was desufflated of gas after the umbilical port was closed with 0 Vicryl using a Papo Jenkins and all port sites were closed all instruments removed from the patient and patient awoken taken recovery in stable condition. Grafts/Implants Used: none - Complications none - Admit VTE Documentation VTE Present on Admission: No VTE Mechan Device Prophylaxis: SCD's Multi Select Codes - Urinary/Genital Urinary/Genital CPT Codes: 86040 Laproscopic BS/O
--- NOTE | 2020-05-27 10:51 | DCINST_ITS ---
Discharge Diet: No Restrictions - Increase fluid intake for the next 48 hours. Discharge Activity: Return to Normal Activity, May Drive - when you are no longer taking narcotic pain medications., May Shower, May Take a Tub Bath - in 7 days Additional Activity Instructions:: Ambulate often the next week after surgery. Nothing in the vagina for 5 days. Call your doctor if your incision/area has: Continuous Slow Oozing, Sudden Increased Bleeding, Increased Pain/ Swelling, Increased Redness, Foul Smelling Discharge Call your doctor if you observe: Fever of 101 or Higher Allergies/Adverse Reactions: Allergies ketorolac tromethamine [From Toradol] Allergy (Verified 05/27/20 07:15) Hives sumatriptan [From Imitrex] Allergy (Verified 05/27/20 07:15) Anaphylaxis sumatriptan succinate [From Imitrex] Allergy (Verified 05/27/20 07:15) Anaphylaxis tramadol HCl [From Ultram] Allergy (Verified 05/27/20 07:15) Hives morphine Adverse Reaction (Verified 05/27/20 07:15) Other novocaine with epinephrine Adverse Reaction (Uncoded 05/27/20 07:15) tachy and hypotensive Medications to take at Discharge acetaminophen 325 mg tablet 325 mg PO ONCE PRN 04/22/20 ibuprofen 200 mg capsule 200 mg PO Q6H PRN 04/22/20 Nabumetone 500 mg PO BID PRN 05/19/20 Docusate Sodium [Colace] 100 mg PO BID #60 cap 05/27/20 Estradiol [Vivelle-Dot, Estraderm] 0.1 mg TRANSDERM. .2X/WEEK #8 patch 05/27/20 Naproxen [Naprosyn] 250 - 500 mg PO Q8H PRN PRN #30 tab 05/27/20 Oxycodone HCl/Acetaminophen [Percocet 5-325] 1 - 2 tab PO Q6H PRN PRN 7 Days #20 tab 05/27/20 The following prescriptions were given: Docusate Sodium [Colace] 100 mg PO BID #60 cap Transmission Status: Pending to [facility] Naproxen [Naprosyn] 250 - 500 mg PO Q8H PRN PRN #30 tab PRN Reason: MILD PAIN Transmission Status: Received by [facility] Oxycodone HCl/Acetaminophen [Percocet 5-325] 1 - 2 tab PO Q6H PRN PRN 7 Days #20 tab PRN Reason: Pain Transmission Status: Received by [facility] Estradiol [Vivelle-Dot, Estraderm] 0.1 mg TRANSDERM. .2X/WEEK #8 patch Transmission Status: Pending to [facility] Orders to be completed after discharge: Type & Screen - PAT ONLY Time Frame: 05/26/20, Facility: [facility] [place], Location: Laboratory Primary Care Physician: Jani Christianson MD [Primary Care Provider] - Test Results: Test results from this visit will be discussed in further detail at your follow- up appointment, if applicable. Please Follow Up With: Karrie Rdz MD - [phone]
[2020-05-27] MEDS: HYDROcodone Bitartrate/Apap 5/325 Tablet PO (12:00)
== END 2020-05-27 12:50 | disposition home or self-care (01) ==
LOC: SDC 06:53 → AC 06:53
PROVIDERS: Anesthesiology; PCP Family Medicine; Referring Provider Obstetrics & Gynecology; Visit Provider Obstetrics & Gynecology
PROC: (CPT 58720; principal; 2020-05-27 08:35)
DX: N83.02 Follicular cyst of left ovary (principal); Z20.828 Contact with and (suspected) exposure to other viral communicable diseases; G89.29 Other chronic pain; Z79.1 Long term (current) use of non-steroidal anti-inflammatories (NSAID); K21.9 Gastro-esophageal reflux disease without esophagitis; F17.200 Nicotine dependence, unspecified, uncomplicated; K66.0 Peritoneal adhesions (postprocedural) (postinfection)
CPT/HCPCS: 00840; 58661; 36415; 80076; 85027; 85610; 85730; 86850; 86870; 86900; 86901; 86902; 86920; 86922; 87635; 88305; C9803; J7120; J2405; U0003

== ENCOUNTER 2021-04-12 17:30 | Emergency (ER) | payer MEDICAID, SELFPAY ==
[2021-04-12 17:31] VITALS: BP 105/57; PULSE 104; RESP 16; TEMP 36.6; O2SAT 98; BMI 24.9
--- NOTE | 2021-04-12 18:20 | EDS_ITS ---
HPI HPI - GI History of Present Illness Chief Complaint: Abd Pain Informant: patient Abdominal Pain/Flank Pain Onset: Days Narrative Narrative: Patient is a 35-year-old female with history of IBS and tachycardia presenting with left-sided abdominal pain and bright red blood per rectum. Patient states she started having abdominal pain and blood in her stool 2 days ago. She has frequent sensation of needing to have a bowel movement and her bowel movements have been loose. She states been mixed with clots of bright red blood. She has had nausea but no vomiting. Patient know she is felt very bloated. She is been feeling dizzy. She is not on any oral anticoagulation. She did take some ibuprofen with help with her symptoms. She had a colonoscopy 6 to 7 years ago which she states was normal and they told her she had IBS. She has family history of diverticulitis as well as colon cancer. She has had a hysterectomy as well as a cholecystectomy in the past. No report of any fevers. No other complaints at this time. [facility] Medical History Anxiety GERD (gastroesophageal reflux disease) Migraine Nicotine dependence PTSD (post-traumatic stress disorder) Situational depression Home Medications estradiol 0.05 mg/24 hr semiweekly transdermal patch 1 patch TD 2XW #24 each 01/30/21 [Rx Last Taken Unknown] dicyclomine 20 mg PO TID PRN #20 tab 04/12/21 [Rx Last Taken Unknown] Allergy/AdvReac Type Severity Reaction Status Date / Time ketorolac tromethamine Allergy Hives Verified 04/12/21 17:31 [From Toradol] sumatriptan [From Imitrex] Allergy Anaphylaxis Verified 04/12/21 17:31 sumatriptan succinate Allergy Anaphylaxis Verified 04/12/21 17:31 [From Imitrex] tramadol HCl [From Ultram] Allergy Hives Verified 04/12/21 17:31 morphine AdvReac Other Verified 04/12/21 17:31 novocaine with epinephrine AdvReac tachy and Uncoded 04/12/21 17:31 hypotensive Family History Mother Hypertension High cholesterol Grandmother Diabetes Hypertension afib Father Hypertension Grandfather Cancer skin Hypertension Afib Grandmother Hypertension afib Surgical History H/O: hysterectomy History of bilateral salpingectomy History of cholecystectomy History of colonoscopy History of left oophorectomy History of right oophorectomy Social History Smoking Status: Current every day smoker tobacco type: cigarettes Tobacco: How many years used: 8 second hand exposure: Yes alcohol intake: never substance use type: does not use caffeine: Yes (2) Type: carbonated beverages what type of physical activity do you participate in: walking seatbelt use: always do you feel safe at home: Yes 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 ROS ED Constitutional Constitutional ED: Reports other Details: Dizziness ; Denies chills, fever(s) or malaise Eyes Eyes: Denies blurry vision or loss of vision ENT ENT ED: Denies rhinorrhea or sore throat Cardiovascular Cardiovascular: Denies chest pain or dizziness Respiratory/Chest Respiratory/Chest: Denies cough or dyspnea Gastrointestinal Gastrointestinal: Reports abdominal pain, diarrhea, nausea and other Details: Hematochezia ; Denies vomiting Genitourinary Genitourinary ED: Denies dysuria or hematuria Musculoskeletal Musculoskeletal: Denies arthralgias or myalgias Integumentary Denies rash or wounds Neurologic Neurologic: Denies focal weakness or headache(s) Psychiatric Psychiatric: Denies anxiety or behavioral changes EXAM Physical Exam Const Vital Signs: 04/12/21 17:31 04/12/21 20:01 04/12/21 21:58 Temperature 97.8 F Temperature Source Temporal Pulse Rate 104 H 74 74 Respiratory Rate 16 17 17 Blood Pressure 105/57 L 107/61 103/65 Blood Pressure Mean 73 76 Pulse Ox 98 98 Oxygen Delivery Method Room Air 04/12/21 22:00 Temperature Temperature Source Pulse Rate Respiratory Rate 19 H Blood Pressure Blood Pressure Mean Pulse Ox Oxygen Delivery Method Positive well nourished, well developed and no apparent distress General Appearance ED: well developed HEENT Reports normocephalic normocephalic and atraumatic Nose: no nasal discharge External Ear: external ears normal Mouth ED: Yes moist mucous membranes normal Eyes PERRL and EOMs intact bilaterally Neck full ROM and no meningeal signs Chest Wall inspection of chest normal Resp normal respiratory effort and normal air movement Cardio regular rate and regular rhythm GI normal to inspection, nondistended, normoactive bowel sounds Inspection: abdominal distention Auscultation: normoactive bowel sounds Palpation: soft and tender LLQ and LUQ; Negative for guarding or rigid Back/Spine no CVA tenderness Extremity normal to inspection and full ROM Neuro oriented x3 and no focal motor deficits Sensorium / Orientation: alert Motor Exam: strength 5/5 throughout; Negative for general weakness Psych mental status grossly normal and thought process normal Skin no rashes or lesions noted and no wounds Rashes: no rashes MDM MDM MDM Narrative Medical decision making narrative: Patient is evaluated for bright red blood per rectum as well as abdominal pain and bloating. She appears nontoxic and in no acute distress. Vital signs on arrival are significant for mild tachycardia with a pulse of 104. Her blood pressure is normal. She is given IV fluids. Her hemoglobin is normal at 14.3. No signs of acute infection with a normal white blood cell count. She is afebrile. Patient is given 2 doses of 0.5 mg Dilaudid as well as IV Zofran for pain control in the emergency room. CT does not show any acute anterior abdominal process to explain her symptoms. Patient referred to surgery for further evaluation of her bright red blood per rectum at this time I think she is stable for outpatient follow-up. She is not have any further bowel movements or bleeding while in the emergency room. She is counseled on return precautions. Patient does have a history of IBS will be started on Bentyl for pain control and bloating. Lab Data Labs: Laboratory Results - last 24 hr 04/12/21 04/12/21 04/12/21 18:30 18:30 18:30 WBC 8.3 RBC 4.86 Hgb 14.3 Hct 42.1 MCV 86.6 MCH 29.4 MCHC 34.0 RDW Std Deviation 43.8 RDW Coeff of Marian 13.8 Plt Count 276 MPV 9.7 Immature Gran % (Auto) 0.200 Neut % (Auto) 53.5 Lymph % (Auto) 32.6 Brooke % (Auto) 9.0 Eos % (Auto) 3.7 Baso % (Auto) 1.0 Absolute Neuts (auto) 4.4 Absolute Lymphs (auto) 2.71 Nucleated RBC % 0 Sodium 141 Potassium 3.8 Chloride 107 Carbon Dioxide 28.0 Anion Gap 6 BUN 9 Creatinine 0.57 Estim Creat Clear Calc 104.94 Est GFR (MDRD) Af Amer 156 Est GFR (MDRD) Non-Af 129 BUN/Creatinine Ratio 15.8 Glucose 100 Lactic Acid 0.7 Calcium 8.0 L Total Bilirubin 0.30 AST 12 L ALT 21 Alkaline Phosphatase 60 Total Protein 6.8 Albumin 3.7 Globulin 3.1 Albumin/Globulin Ratio 1.2 Lipase 132 Radiography Diagnostic Testing: Radiology Impression Abdomen/Pelvis CT 04/12/21 19:35 IMPRESSION: Negative CT of the abdomen and pelvis with contrast. Individualized dose optimization techniques were used for this CT. at 2015 Reported and signed by: Steven Dong MD Electronically Signed: Steven Dong MD at 20:13 EDT Tel , Service support , ADDENDUM: 04/12/21 2206 IMPRESSION: Negative CT of the abdomen and pelvis with contrast. Individualized dose optimization techniques were used for this CT. at 2015 Reported and signed by: Steven Dong MD Electronically Signed: Steven Dong MD at 21:56 EDT Tel , Service support , Discharge Plan Triage Chief Complaint: Abd Pain ED Provider: Chandni Vasquez Dx/Rx/DC Orders Clinical Impression: BRBPR (bright red blood per rectum), Abdominal pain of unknown etiology Instructions: ED Abdominal Pain Unkn Cause Fem, ED Lower GI Bleeding (Stable) Prescriptions: New dicyclomine 20 mg tablet 20 mg PO TID PRN (Reason: abdominal discomfort) Qty: 20 RF: 0 No Action estradiol 0.05 mg/24 hr patch semiweekly 1 patch TD 2XW Qty: 24 RF: 12 Primary Care Provider: Jani Christianson Referrals: Jani Christianson MD [Primary Care Provider] - Lyn Monreal MD [STAFF PHYSICIAN] - Disposition Disposition: Home, Self Care Discharge Date/Time: 04/12/21 22:00
[2021-04-12] MEDS: 0.9% Normal Saline 1,000 ML 1000 ML IV (18:38)
[2021-04-12] MEDS: Ondansetron 4 MG/2 ML Vial IV (18:38)
[2021-04-12] MEDS: HYDROmorphone 1 MG/ML Syringe 0.5 MG IV (18:39)
[2021-04-12 19:00] LABS: Bacteria 0 SEEN /hpf (None Seen); Mucous, Urine 0 SEEN /hpf (<or=2+); Red Blood Cells-Urine 0 SEEN /hpf (0-5); White Blood Cells 0 SEEN /hpf (0-5)
[2021-04-12 19:01] LABS: Absolute Lymphocyte Count 2.71 X10^3/uL (0.83-4.51); Absolute Neutrophil Count 4.4 X10^3/uL (2.0-7.7); Basophil# 0.08 X10^3/uL; Eosinophil# 0.31 X10^3/uL; Eosinophils% 3.7 % (0-5); Hematocrit 42.1 % (37-47); Hemoglobin 14.3 g/dL (12.0-15.0); Lymphocyte # 2.71 X10^3/ul (0.83-4.51); Lymphocyte % 32.6 % (19-41); Mean Corpuscular Hgb 29.4 pg (27.0-32.0); Mean Corpuscular Volume 86.6 fL (81-99); Mean Platelet Vol. 9.7 fl (6.2-12.0); Monocyte# 0.75 X10^3/uL; NRBC Flagged by Analyzer 0 % (0-5); Neutrophil # 4.44 X10^3/uL (2.7-7.7); Neutrophil % 53.5 % (47-70); Platelet Count 276 K/mm3 (150-450); RBC Distribution Width CV 13.8 % (11.6-14.6); RBC Distribution Width SD 43.8 fl (35.1-43.9); Red Blood Count 4.86 M/mm3 (4.2-5.4); White Blood Count 8.3 K/mm3 (4.4-11.0)
[2021-04-12 19:19] LABS: ALB/GLOB Ratio 1.2 RATIO (0.9-2.4); AST(SGOT) 12 U/L (15-37); Alanine Aminotransfer ALT/SGPT 21 U/L (13-56); Albumin, Serum 3.7 g/dL (3.2-5.0); Alkaline Phosphatase 60 U/L (45-117); Anion Gap 6 (5-15); BUN 9 mg/dL (7-18); BUN/Creat Ratio 15.8 RATIO (10-20); Chloride 107 mmol/L (98-107); Creatinine, Serum 0.57 mg/dL (0.55-1.02); EST Glomerular Filtration Rate 129 mL/min (>60); Est Glom Filt Rate - Afr Amer 156 mL/min (>60); Estimated Creatinine Clearance 104.94 ml/min; Globulin 3.1 g/dL (2.2-4.2); Glucose 100 mg/dL (74-106); Lactic Acid 0.7 mmol/L (0.4-1.9); Lipase 132 U/L (73-393); Potassium 3.8 mmol/L (3.5-5.1); Protein, Total 6.8 g/dL (6.4-8.2); Sodium Level 141 mmol/L (136-145)
--- NOTE | 2021-04-12 19:35 | CT_ITS ---
HISTORY: Left sided abd pain TECHNIQUE: Helically acquired images were obtained of the abdomen and pelvis following the intravenous administration of 100mL Isovue-370 Iodinated contrast. No Oral contrast was administered. Coronal and sagittal reformats obtained. A radiation dose optimization technique was used for this scan. COMPARISON: None FINDINGS: # of images incl. paperwork: [id number] LUNG BASES: Unremarkable. LIVER T BILIARY TRACT: Cholecystectomy. No acute hepatic finding. Hepatomegaly. ADRENAL GLANDS: Unremarkable. SPLEEN: Unremarkable. PANCREAS: Unremarkable. KIDNEYS/URETERS/BLADDER: No hydronephrosis or perinephric inflammation. Unremarkable ureters and bladder. LYMPH NODES: No suspicious adenopathy. STOMACH, SMALL AND LARGE BOWEL: No acute gastric finding. No small bowel obstruction or gross wall thickening. Normal appendix. No acute colonic finding. ASCITES/FREE AIR: No free fluid or free air. AORTA: Unremarkable. PELVIS: Left ovary noted, decreased in size from prior CT at 2.1 cm. No right ovary seen. Absent uterus. MUSCULOSKELETAL: No acute osseous finding. CT/Abdomen/Pelvis W IV Cont ONLY IMPRESSION: Negative CT of the abdomen and pelvis with contrast. Individualized dose optimization techniques were used for this CT. at 2015 Reported and signed by: Steven Dong MD Electronically Signed: Steven Dong MD at 20:13 EDT Tel , Service support ,
[2021-04-12 20:01] VITALS: BP 107/61; PULSE 74; RESP 17
[2021-04-12] MEDS: HYDROmorphone 0.5 MG/0.5 ML SYRINGE IV (20:10)
[2021-04-12 21:58] VITALS: BP 103/65; PULSE 74; RESP 17; O2SAT 98
[2021-04-12 22:00] VITALS: RESP 19
[2021-04-12 23:08] LABS: Color, Urine Yellow (Yellow); Urine Clarity Clear (Clear)
[2021-04-12 23:09] LABS: Glucose, Dipstick NEGATIVE (Normal); Ketone-Dipstick Negative (Negative); Leukocyte Esterase-Dipstick Negative /ul (Negative); Nitrite-Dipstick Negative (Negative); Occult Blood-Urine Negative /ul (Negative); Protein-Dipstick Negative (Negative); Squamous Epithelial Cells - UA 5-10 SEEN /hpf (5-10); Urine Bilirubin Dipstick Negative (Negative); Urine Urobilinogen Normal (Normal); Urine pH 6.5 (5.0 - 8.0)
== END 2021-04-12 22:00 | disposition home or self-care (01) ==
PROVIDERS: Emergency Provider Emergency Medicine; PCP Family Medicine
DX: K62.5 Hemorrhage of anus and rectum (principal); R10.9 Unspecified abdominal pain
CPT/HCPCS: 74177; 80053; 81001; 83605; 83690; 85025; 96374; 96375; 96376; 99284; J7030; Q9967; A4216; J2405

== ENCOUNTER → 2021-04-22 11:19 | Outpatient (CLI) | payer MEDICAID, SELFPAY ==
--- NOTE | 2021-04-22 11:20 | US_ITS ---
HISTORY: pelvic pain EXAMINATION: US Transvaginal Non-OB TECHNIQUE: Transabdominal and transvaginal (for optimal evaluation of the adnexa) pelvic ultrasound was performed. Grayscale, spectral waveform, and color flow Doppler evaluation of the adnexa. COMPARISON: CT abdomen and pelvis 04/12/21, pelvic ultrasound 04/29/20 FINDINGS: UTERUS: Surgically absent. RIGHT OVARY: Surgically absent LEFT OVARY: No ovarian tissue identified. 2.2 cm anechoic cyst in the left adnexa corresponding to CT findings. FREE FLUID: None. US/Transvaginal Non- IMPRESSION: Status post hysterectomy and bilateral oophorectomy. 2.2 cm anechoic cyst left adnexa. Findings correspond to CT findings of 04/12/21. at 1832 Reported and signed by: Chirag Hernandez MD Electronically Signed: Chirag Hernandez MD at 18:31 EDT Tel , Service support ,
== END ==
PROVIDERS: PCP Family Medicine; Referring Provider Obstetrics & Gynecology; Visit Provider Obstetrics & Gynecology
DX: R10.2 Pelvic and perineal pain (principal)
CPT/HCPCS: 76830

== ENCOUNTER 2021-05-20 08:17 | Day surgery (SDC) | payer MEDICAID, SELFPAY ==
[2021-05-20] VITALS (7 sets, daily range): BP systolic 93–113; BP diastolic 49–70; PULSE 65–87; RESP 16–18; TEMP 36.2–36.3; O2SAT 98–99; BMI 25.4
[2021-05-20] MEDS: Lactated Ringers 1,000 ML 100 ML IV (08:43)
--- NOTE | 2021-05-20 09:13 | HP.PCM_ITS ---
HPI - General HPI Narrative KALEN VALLADARES, is a 35 F who presents for colonoscopy due to abdominal pain. Patient states she has had dull left lower quadrant abdominal pain still comes and goes not directly related anything obvious. Patient did have increasing pain last Tuesday prior to office visit in April and went to the ER. At the ER patient's labs were normal. Patient had CT abdomen pelvis which only showed peripelvic cyst on the left unsure significance but did recommend follow-up with [facility] per report. Patient does have a history of IBS states she gets could have a quick abdominal cramp prior to having a bowel movement. Patient states she usually has diarrhea with this. Patient states she has had some bright red blood per rectum twice denies any hemorrhoids that she is aware of. Patient states she did have a colonoscopy 2012 or 2013 at [facility] which was negative. Patient's grandmother did have colon cancer in her 80s as well as an uncle in his 50s but no immediate relatives. [facility] Medical History (Updated 05/15/21 @ 14:36 by Inga Horton) Abdominal pain of unknown etiology Anemia Anxiety BRBPR (bright red blood per rectum) Cardiology follow-up encounter Depression GERD (gastroesophageal reflux disease) History of echocardiogram History of IBS Hx of sinus tachycardia Migraine Migraine headache Nausea Nicotine dependence PTSD (post-traumatic stress disorder) Situational depression Smoker Wears dentures Home Medications estradiol 1 patch TD TUSA 05/15/21 [History Last Taken Unknown] Allergy/AdvReac Type Severity Reaction Status Date / Time ketorolac tromethamine Allergy Hives Verified 05/20/21 08:44 [From Toradol] sumatriptan [From Imitrex] Allergy Anaphylaxis Verified 05/20/21 08:44 sumatriptan succinate Allergy Anaphylaxis Verified 05/20/21 08:44 [From Imitrex] tramadol HCl [From Ultram] Allergy Hives Verified 05/20/21 08:44 morphine AdvReac Other Verified 05/20/21 08:44 novocaine with epinephrine AdvReac tachy and Uncoded 05/20/21 08:44 hypotensive Family History Mother Hypertension High cholesterol Grandmother Diabetes Hypertension afib Father Hypertension High cholesterol Grandfather Cancer skin Hypertension Afib Grandmother Hypertension afib Colon cancer Diabetes Surgical History (Updated 05/15/21 @ 14:36 by Inga Horton) H/O: hysterectomy History of bilateral salpingectomy History of cholecystectomy History of colonoscopy History of left oophorectomy History of right oophorectomy History of shoulder surgery Hx laparoscopic cholecystectomy Hx of colonoscopy Social History Smoking Status: Current every day smoker tobacco type: cigarettes Tobacco: How many years used: 8 second hand exposure: Yes alcohol intake: never substance use type: does not use caffeine: Yes (2) Type: carbonated beverages what type of physical activity do you participate in: walking seatbelt use: always do you feel safe at home: Yes 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 Medical/Surgical History Planned Operation Planned Operative Procedure/s: CSCOPE S.O.S: No Previous Hospitalizations/Surgeries HX Hospitalizations: No HX of Surgeries: GB TUBES REMOVED 2013 [facility] X2 VAG PARTIAL HYSTERECTOMY 2013 [place] OOPHRECTOMY 01/2017 Any Problems With Anesthesia: No You/Your Family Experience Fever (Hyperthermia) With Anes: No Cholinesterase deficiency: No Cardiovascular Hx Chest Pain within Last 2 months: No Hx of Irregular Heartbeat and/or Afib: Yes (PALPATATIONS,) Hx Heart Attack: No Hx Congestive Heart Failure: No Hx Rheumatic Fever: No Hx Hypertension: No Hx Internal Defibrillator: No Hx Pacemaker: No Hx Cardiac Catheterization: No Hx Cardiac Surgery/Stents/Etc.: No (ECHO) Hx Stress Test: No Hx Pain in Legs when Walking/Leg Cramps: No Respiratory Chronic Cough: No HX of Shortness of Breath: No Hoarseness: No Hx Chronic Obstructive Pulmonary Disease (COPD): No Hx Asthma: No Hx Emphysema: No Hx Sleep Apnea: No CPAP: No BIPAP: No Hx Respiratory Tract Infection/Cold (presently): No Do You Snore Loudly (louder than talking or can be heard): No Do You Often Feel Tired/ Fatigued/ Sleepy Dring Daytime?: Yes Has Anyone Observed You Stop Breathing During Sleep?: No Result (for STOP score): Negative Hx Smoking: Yes Smoking Status: Current every day smoker Gastrointestinal Hx Gastroesophageal Reflux: No Controlled With Meds: No (no meds) Hx Gastrointestinal Disorders: Yes (IBS) Hx Gastrointestinal Bleed: No Hx Ulcer: No Hx Hiatal Hernia: No Difficulty Chewing/Swallowing: No Special diet followed at home: No Hx Unplanned Weight Loss of 20#: No HX Unplanned Weight Gain of 20#: No Neurological Hx Seizures: No HX Syncope/Blackout Spells/Unconsciousness: No Hx Transient Ischemic Attacks (TIA): No Hx Multiple Sclerosis: No Hx Parkinson's Disease: No Hx Head/Neck Injury: No Hx Headaches: Yes (DAILY HEADACHES) Hx Back Injury/Pain: No Recent Onset of Speech Difficulty: No Restless Legs: No Does patient have nerve stimulator: No Blood Disorder Hx Leukemia: No Bleeding Tendencies: Yes (BRUISES EASILY) Hx Deep Vein Thrombosis: No Hx High Cholesterol: No Blood Transmitted Disease: No Hx Hepatitis: No Hx Cirrhosis: No Hx Anemia: Yes (IN THE PAST) Hx Blood Disorders: No Reproduction : No Is Patient Lactating: No Hx Hysterectomy: Yes Hx Tubal Ligation: No Are You Post Menopause: No Genitourinary Hx Renal Disease: No Hx Dialysis: No Musculoskeletal Hx Arthritis: No Hx Rheumatoid Arthritis: No Hx Gout: No Recent Onset of an Orthopedic Problem: No Endocrine Hx Diabetes: No Thyroid Disease: No Hx Steroid Therapy: No Psycho/Social Hx Substance Use: No Hx Alcohol Use: No Hx Anxiety: Yes (NO MEDS) Hx Depression: No Mental Illness: No Hx Dementia: No Miscellaneous Hx Cancer: No Recent Exposure to Contagious Disease: No Hx of C-Diff: No Any Loose Teeth: No Allergies ketorolac tromethamine [From Toradol] Allergy (Verified 05/20/21 08:44) Hives sumatriptan [From Imitrex] Allergy (Verified 05/20/21 08:44) Anaphylaxis sumatriptan succinate [From Imitrex] Allergy (Verified 05/20/21 08:44) Anaphylaxis tramadol HCl [From Ultram] Allergy (Verified 05/20/21 08:44) Hives morphine Adverse Reaction (Verified 05/20/21 08:44) Other novocaine with epinephrine Adverse Reaction (Uncoded 05/20/21 08:44) tachy and hypotensive Discharge Is Pt Admitted From a Skilled Nursing, or a [facility]: No After D/C, Where Do you Plan to Go: Return Home Vital Signs Vital Signs Vital Signs: 05/20/21 08:40 Temperature 97.4 F L Temperature Source Temporal Pulse Rate 87 Respiratory Rate 18 Respiratory Pattern Normal Blood Pressure 113/57 L Blood Pressure Mean 75 Blood Pressure Source Monitor Blood Pressure Position Sitting Blood Pressure Location Left Arm Pulse Ox 99 Oxygen Delivery Method Room Air Weight Weight: 134 lb 7.712 oz Body Mass Index (BMI) 25.4 Physical Exam Const alert, oriented x3 and no apparent distress HEENT normocephalic and head/scalp atraumatic Resp normal respiratory effort Cardio regular rate GI soft to palpation; Negative for non-distended Palpation: tender LLQ; Negative for guarding Extremity no clubbing, cyanosis or edema Neuro CN's II-XII intact bilaterally Psych mental status grossly normal Assessment & Plan Assessment/Plan (1) Abdominal pain of unknown etiology: (2) BRBPR (bright red blood per rectum): Procedure Criteria Type of Procedure Procedure Type: Elective Elective Risks - COVID COVID Risk Discussion: The surgeon/proceduralist and patient have discussed in detail the risk of exposure to and/or potential harm posed by the COVID-19 virus with having a surgery/procedure at this time versus the risk of delaying the surgery/procedure. It is not possible to know either the risk of delaying the surgery or procedure or chance of getting an infection with perfect accuracy, but a joint decision was made between the patient and the surgeon/proceduralist to proceed at this time with the scheduled surgery/procedure as indicated on the consent form. Surgery Risks - Colonoscopy Risks Include but are not Limited To: Risks include but are not limited to: Bleeding, perforation requiring further surgery, inability to complete colonoscopy requiring barium enema.
--- NOTE | 2021-05-20 09:30 | COLBX_PTH ---
PATIENT: KALEN VALLADARES LOC: EN U#:[id number] AGE/SX: 35/F ROOM: RE05/20/[address]: Dr. Lyn Monreal MD : 1985 BED: DIS: 05/20/2021 SPEC #: [id number] RECD: 05/20/21 11:57 STATUS: DEJA JEROD #: [id number] PAWAN: 05/20/21 09:[address]: Lyn Monreal DEPT: SURGICAL PATHOLOGY RECD BY: Tasneem Garcia ENTERED: 05/20/21 13:29 SP TYPE: COLON BX OTHR DR: Dr. Jani Christianson MD Tissues: Ileum, NOS Procedures: Surgery Specimen Level IV HEADER OPERATION: Colonoscopy (MAC) PRE-OP DIAGNOSIS: Abdominal pain, bright red blood per rectum TISSUE SUBMITTED: Biopsy of terminal ileum MICROSCOPIC DIAGNOSIS Terminal ileum, biopsy: Fragments of small intestinal mucosa with prominent lymphoid aggregates, favor benign. See comment. SJ:gunjan 05/21/2021 COMMENT Correlation with clinical, endoscopic findings and appropriate follow up are necessary. MICROSCOPIC DESCRIPTION Slides are reviewed. GROSS DESCRIPTION Received in fixative is one container labeled with the patient's name and designated biopsy of terminal ileum. The specimen consists of multiple irregular fragments of light pozo soft tissue that in aggregate measure 0.7 x 0.1 x 0.1 cm. The specimen is totally submitted in one cassette. / GRANT:gunjan 05/20/21 TC:5 CPT: 48618
--- NOTE | 2021-05-20 10:38 | OP.COLON_ITS ---
Patient Name: Eliza Dallas Procedure Date: 05/20/2021 10:09 AM Date of : 1985 Age: 35 Procedure: Colonoscopy Indications: Rectal bleeding, Lower abdominal pain Providers: Lyn Monreal MD Referring MD: Lyn Monreal MD Medicines: Monitored Anesthesia Care Patient Profile: This is a 35 year old female. Last Colonoscopy: several years ago. Complications: No immediate complications. Procedure: Pre-Anesthesia Assessment: - Prior to the procedure, a History and Physical was performed, and patient medications and allergies were reviewed. The patient's tolerance of previous anesthesia was also reviewed. The risks and benefits of the procedure and the sedation options and risks were discussed with the patient. All questions were answered, and informed consent was obtained. Prior Anticoagulants: The patient has taken no previous anticoagulant or antiplatelet agents. ASA Grade Assessment: Per anesthesia. After reviewing the risks and benefits, the patient was deemed in satisfactory condition to undergo the procedure. After I obtained informed consent, the scope was passed under direct vision. Throughout the procedure, the patient's blood pressure, pulse, and oxygen saturations were monitored continuously. The pediatric colonoscope was introduced through the anus and advanced to the terminal ileum. The colonoscopy was performed without difficulty. The patient tolerated the procedure well. The quality of the bowel preparation was good. Scope In: 10:19:15 AM Scope Withdrawal Time 0 hours 8 minutes 15 seconds Scope Out: 10:32:46 AM Total Procedure Duration Time 0 hours 13 minutes 31 seconds Findings: Hemorrhoids were found on perianal exam. Non-bleeding internal hemorrhoids were found. The hemorrhoids were Grade I (internal hemorrhoids that do not prolapse). A localized area of mucosa in the terminal ileum was nodular. Biopsies were taken with a cold forceps for histology. The exam was otherwise without abnormality. Impression: - Hemorrhoids found on perianal exam. - Non-bleeding internal hemorrhoids. - Nodular ileal mucosa. Biopsied. - The examination was otherwise normal. Recommendation: - Discharge patient to home. - Resume previous diet. - Continue present medications. - Await pathology results. - Repeat colonoscopy [day] at age 46 Procedure Code(s): --- Professional --- 47089, Colonoscopy, flexible; with biopsy, single or multiple Diagnosis Code(s): --- Professional --- K64.0, First degree hemorrhoids K63.89, Other specified diseases of intestine K62.5, Hemorrhage of anus and rectum R10.30, Lower abdominal pain, unspecified CPT copyright 2017 [employer] [place] [employer]. All rights reserved. The codes documented in this report are preliminary and upon supervisor cd area review may be revised to meet current compliance requirements. MD Lyn Woodard MD 05/20/2021 10:37:52 AM This report has been signed electronically. Number of Addenda: 0 Note Initiated On: 05/20/2021 10:09 AM
--- NOTE | 2021-05-20 10:38 | OP.CCLET_ITS ---
05/20/2021 Jani Christianson MD Re : Colonoscopy procedure for Eliza Dallas Dear Dr. Christianson This procedure was performed on Thursday, May 20, 2021. My impressions and recommendations are as follows: Impressions : - Hemorrhoids found on perianal exam. - Non-bleeding internal hemorrhoids. - Nodular ileal mucosa. Biopsied. - The examination was otherwise normal. Recommendations : - Discharge patient to home. - Resume previous diet. - Continue present medications. - Await pathology results. - Repeat colonoscopy [day] at age 46 My findings are described in the full procedure note, which is enclosed. If I can be of further assistance, please feel free to contact me at Doctor phone number(s): , Work: . Sincerely, MD Lyn Woodard MD 05/20/2021 10:37:52 AM This report has been signed electronically.
--- NOTE | 2021-05-20 11:13 | SUR.PHASEI ---
Iv site, right hand; assessment, red and tender to touch. Does not appear infiltrated. IV removed.
== END 2021-05-20 11:28 ==
LOC: EN 08:18 → AC 08:18
PROVIDERS: PCP Family Medicine; Referring Provider Surgery; Visit Provider Surgery
PROC: 0DJD8ZZ Inspection of Lower Intestinal Tract, Via Natural or Artificial Opening Endoscopic (ICD-10-PCS; CPT 45378; principal; 2021-05-20 09:25)
DX: K64.0 First degree hemorrhoids (principal); K64.9 Unspecified hemorrhoids; K63.89 Other specified diseases of intestine; F17.210 Nicotine dependence, cigarettes, uncomplicated; Z80.0 Family history of malignant neoplasm of digestive organs; Z79.899 Other long term (current) drug therapy
CPT/HCPCS: 45380; 87426; 88305; C9803; J7120; J2405

== ENCOUNTER 2021-12-04 23:47 | Emergency (ER) | payer MEDICAID, SELFPAY ==
[2021-12-04 23:50] VITALS: BP 157/90; PULSE 110; RESP 16; TEMP 36.6; O2SAT 99; BMI 30.4
--- NOTE | 2021-12-05 00:49 | CT_ITS ---
INDICATION: headache/neck pain EXAMINATION: CTA HEAD - CTA Head and Neck W/ Contrast Injection (and W/O Contrast Images if performed) TECHNIQUE: [place]/head CT angiogram protocol was performed following IV contrast. Routine carotid CT angiogram protocol was performed without and with IV contrast. NASCET criteria using the distal ICAs for comparison were used for evaluation of stenoses. 3D reconstructions were reviewed of the CT angiogram head and neck. A radiation dose optimization technique was used for this scan. IV Contrast dosage and agent: 100 mL [id number] COMPARISON: None. FINDINGS: --Anterior cerebral circulation: ACAs: No significant stenosis at the visualized segments. ACOM: Present. MCAs: No significant stenosis at the visualized segments. --Posterior cerebral circulation: PCOMs: Present bilaterally green chainer: Diminutive right P1 segment which is commonly congenital. No significant stenosis at the visualized segments. BASILAR ARTERY: No significant stenosis. --Carotid and vertebral circulation: AORTIC ARCH AND BRANCHES: Normal anatomy, patent. RIGHT CCA: No occlusion, significant stenosis or dissection. RIGHT ICA: No occlusion, significant stenosis or dissection. LEFT CCA: No occlusion, significant stenosis or dissection. LEFT ICA: No occlusion, significant stenosis or dissection. RIGHT VERTEBRAL ARTERY: No occlusion, significant stenosis or dissection. LEFT VERTEBRAL ARTERY: No occlusion, significant stenosis or dissection. NECK SOFT TISSUES: Focal irregular subcutaneous edema anterior to the left maxilla compatible with contusion. LUNG APICES: Clear. BONES: Unremarkable. CT/CTA Head AND Neck W/ Contrast IMPRESSION: Negative CTA Head.and CTA Neck Small subcutaneous soft tissue contusion anterior to the left maxilla. Electronically Signed: Steven Dong MD at 3:31 EDT ,
--- NOTE | 2021-12-05 00:52 | EDS_ITS ---
HPI History of Present Illness Chief Complaint: Headache Narrative Narrative: 36-year-old female presenting with headache, left-sided neck pain. This started about 24 hours ago. She states that initially started with dizziness. She was seen at an outside facility and had a CTA of the head and neck done which was initially read as normal however the patient states that they told her she was going to be transferred to [facility]. She states she did not feel comfortable at that facility and she had had a bad experience at [facility] and decided to leave. She states that the police showed up at her house and told her she had abnormal findings on her CTA with concern for po ssible vertebral artery dissection. There is also possibly an aneurysm. She is able to show me the read of this and it is very vague. She describes her headache as mild. She states he sometimes has some visual floaters in her left eye but other than that she has no visual complaints. She denies a thunderclap or acute onset headache. No nausea or vomiting. She has not had any neck manipulation but does states she cracks her neck on her own quite a bit. [facility] Medical History Abdominal pain of unknown etiology Anemia Anxiety BRBPR (bright red blood per rectum) Cardiology follow-up encounter Cervical strain Depression GERD (gastroesophageal reflux disease) History of echocardiogram History of IBS Hx of sinus tachycardia Migraine Migraine headache Nausea Nicotine dependence PTSD (post-traumatic stress disorder) Right shoulder strain Situational depression Smoker Wears dentures Home Medications cyclobenzaprine 10 mg tablet 10 mg PO TID PRN #30 tab 11/04/21 [Rx Last Taken Unknown] fluoxetine 20 mg capsule 20 mg PO DAILY #30 cap 12/04/21 [Rx Last Taken Unknown] Allergy/AdvReac Type Severity Reaction Status Date / Time ketorolac tromethamine Allergy Hives Verified 12/04/21 23:52 [From Toradol] sumatriptan [From Imitrex] Allergy Anaphylaxis Verified 12/04/21 23:52 sumatriptan succinate Allergy Anaphylaxis Verified 12/04/21 23:52 [From Imitrex] tramadol HCl [From Ultram] Allergy Hives Verified 12/04/21 23:52 morphine AdvReac Other Verified 12/04/21 23:52 novocaine with epinephrine AdvReac tachy and Uncoded 12/04/21 23:52 hypotensive Family History Mother Hypertension High cholesterol Grandmother Diabetes Hypertension afib Father Hypertension High cholesterol Grandfather Cancer skin Hypertension Afib Grandmother Hypertension afib Colon cancer Diabetes Surgical History H/O: hysterectomy History of bilateral salpingectomy History of cholecystectomy History of colonoscopy History of left oophorectomy History of right oophorectomy History of shoulder surgery Hx laparoscopic cholecystectomy Hx of colonoscopy Social History Smoking Status: Current every day smoker tobacco type: cigarettes Tobacco: How many years used: 8 second hand exposure: Yes alcohol intake: never substance use type: does not use caffeine: Yes (2) Type: carbonated beverages what type of physical activity do you participate in: walking seatbelt use: always do you feel safe at home: Yes 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 ROS ED Constitutional Constitutional ED: Denies chills or fever(s) Eyes Eyes: Reports other Details: Visual floaters left eye ENT ENT ED: Denies ear pain or sore throat Cardiovascular Cardiovascular: Denies chest pain or palpitations Respiratory/Chest Respiratory/Chest: Denies cough or dyspnea Gastrointestinal Gastrointestinal: Denies abdominal pain or nausea Genitourinary Genitourinary ED: Denies dysuria or hematuria Musculoskeletal Musculoskeletal: Reports neck pain; Denies arthralgias or myalgias Integumentary Denies Abrasions or rash Neurologic Neurologic: Reports headache(s); Denies paresthesias or weakness Psychiatric Psychiatric: Denies anxiety or depression EXAM Physical Exam Const Vital Signs: 12/04/21 23:50 Temperature 97.9 F Temperature Source Temporal Pulse Rate 110 H Respiratory Rate 16 Blood Pressure 157/90 H Blood Pressure Mean 112 Pulse Ox 99 Oxygen Delivery Method Room Air Positive well nourished General Appearance ED: NAD HEENT Reports normocephalic and moist mucous membranes atraumatic Eyes PERRL and EOMs intact bilaterally Neck no lymphadenopathy, supple, no meningeal signs and no JVD Resp normal respiratory effort and clear to auscultation bilaterally Cardio regular rate and regular rhythm Neuro oriented x3, CN's II-XII intact bilaterally and no sensory deficits noted Sensorium / Orientation: awake and alert Motor Exam: strength 5/5 throughout Psych mental status grossly normal Skin Lesions: no lesions Rashes: no rashes MDM MDM MDM Narrative Medical decision making narrative: Patient presenting with headache and neck pain and she had an abnormal CTA at an outside facility which I did review and these were not conclusive findings. Patient does not have any risk factors for vertebral dissection and her symptoms do not appear consistent. I did speak to her at length regarding the fact that we do not have MRI or MRA which was recommended for follow-up however I could repeat the CTA and see if there is anything abnormal and this was performed and the radiologist interpreted the CTA as negative for any kind of occlusion or dissection. There was no stroke identi fied. They did a definitive a small subcutaneous soft tissue contusion of the left maxilla although the patient does not have any pain here and there is no swelling. I counseled the patient that based on this finding I do not believe she needs emergent follow-up however I also did agency legal counsel her that this is not an MRI or MRA and if she has any worsening symptoms she should return to the ER. I suspect that she has a cervical strain which is causing the left-sided headache and the left neck pain. Patient was already given Valium at the other facility. Impression: 1. Headache 2. Cervical strain Lab Data Attestation: I reviewed the patient's lab results. Radiography Diagnostic Testing: Clinical Impression(s) from Imaging Studies Head/Neck CTA 12/05/21 00:49 IMPRESSION: Negative CTA Head.and CTA Neck Small subcutaneous soft tissue contusion anterior to the left maxilla. Electronically Signed: Steven Dong MD at 3:31 EDT Reading Location ID and State: [facility] include [facility] beds at the [facility] [place] Tel , Service support , Discharge Plan Triage Chief Complaint: Headache ED Provider: Jw Flores Dx/Rx/DC Orders Instructions: ED Headache Unspecified, ED Neck Sprain or Strain Prescriptions: No Action cyclobenzaprine 10 mg tablet 10 mg PO TID PRN (Reason: muscle spasm) Qty: 30 RF: 0 fluoxetine [Prozac] 20 mg capsule 20 mg PO DAILY Qty: 30 RF: 12 Primary Care Provider: Jani Christianson Referrals: Jani Christianson MD [Primary Care Provider] - Disposition Disposition: Home, Self Care
[2021-12-05 03:36] VITALS: PULSE 74; RESP 15; O2SAT 99
== END 2021-12-05 03:42 | disposition home or self-care (01) ==
PROVIDERS: Emergency Provider Student in an Organized Health Care Education/Training Program; PCP Family Medicine; Visit Provider Student in an Organized Health Care Education/Training Program
DX: S16.1XXA Strain of muscle, fascia and tendon at neck level, initial encounter (principal); R51.9 Headache, unspecified; F17.210 Nicotine dependence, cigarettes, uncomplicated; Z79.899 Other long term (current) drug therapy; X58.XXXA Exposure to other specified factors, initial encounter
CPT/HCPCS: 70496; 70498; 99283; Q9967; A4216

== ENCOUNTER 2021-12-25 18:50 | Emergency (ER) | payer MEDICAID, SELFPAY ==
[2021-12-25 18:51] VITALS: BP 137/90; PULSE 128; RESP 20; TEMP 37.2; O2SAT 99; BMI 28.7
[2021-12-25 20:04] LABS: Bacteria 0 SEEN /hpf (None Seen); Mucous, Urine 0 SEEN /hpf (<or=2+)
[2021-12-25 20:07] LABS: Absolute Lymphocyte Count 1.71 X10^3/uL (0.83-4.51); Absolute Neutrophil Count 4.8 X10^3/uL (2.0-7.7); Basophil# 0.06 X10^3/uL; Basophil% 0.8 % (0-1); Eosinophil# 0.06 X10^3/uL; Eosinophils% 0.8 % (0-5); Hematocrit 46.2 % (37-47); Hemoglobin 15.8 g/dL (12.0-15.0); Lymphocyte # 1.71 X10^3/ul (0.83-4.51); Lymphocyte % 22.7 % (19-41); Mean Corp Hgb Conc 34.2 g/dL (32-36); Mean Corpuscular Hgb 28.3 pg (27.0-32.0); Mean Corpuscular Volume 82.8 fL (81-99); Mean Platelet Vol. 9.8 fl (6.2-12.0); Monocyte# 0.82 X10^3/uL; Monocyte% 10.9 % (0-10); NRBC Flagged by Analyzer 0 % (0-5); Neutrophil # 4.83 X10^3/uL (2.7-7.7); Neutrophil % 64.3 % (47-70); Platelet Count 285 K/mm3 (150-450); RBC Distribution Width CV 14.5 % (11.6-14.6); RBC Distribution Width SD 43.2 fl (35.1-43.9); Red Blood Count 5.58 M/mm3 (4.2-5.4); White Blood Count 7.5 K/mm3 (4.4-11.0)
[2021-12-25] MEDS: 0.9% Normal Saline 1,000 ML 999 ML IV (20:07)
[2021-12-25] MEDS: Ondansetron 4 MG/2 ML Vial IV (20:08)
[2021-12-25 20:12] LABS: Color, Urine Yellow (Yellow); Glucose, Dipstick Normal (Normal); Ketone-Dipstick 5 mg/dl (Negative); Leukocyte Esterase-Dipstick 25 /ul (Negative); Nitrite-Dipstick Negative (Negative); Occult Blood-Urine 25 /ul (Negative); Protein-Dipstick 15 mg/dl (Negative); Urine Bilirubin Dipstick Negative (Negative); Urine Clarity Sl. Cloudy (Clear); Urine Urobilinogen Normal (Normal)
[2021-12-25 20:20] LABS: Anion Gap 6 (5-15); BUN 7 mg/dL (7-18); Calcium,Total 9.3 mg/dL (8.5-10.1); Chloride 105 mmol/L (98-107); Creatinine, Serum 0.78 mg/dL (0.55-1.02); EST Glomerular Filtration Rate 90 mL/min (>60); Est Glom Filt Rate - Afr Amer 109 mL/min (>60); Estimated Creatinine Clearance 75.96 ml/min; Glucose 111 mg/dL (74-106); Potassium 3.3 mmol/L (3.5-5.1); Sodium Level 139 mmol/L (136-145)
[2021-12-25 20:26] LABS: Red Blood Cells-Urine 0-5 SEEN /hpf (0-5); Squamous Epithelial Cells - UA 0-5 SEEN /hpf (5-10); White Blood Cells 0-5 SEEN /hpf (0-5)
--- NOTE | 2021-12-25 20:48 | EX.ED.DYSGE1 ---
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 She states that 2 or 3 days later she started developing diarrhea, and the next day or 2 she saw urgent care for all of this. She states that the wound was a little red but no different than what it appears to look like now, except now the scab is starting to fall off, and because of this they put her on amoxicillin. The diarrhea has persisted, she has been taking amoxicillin now for 3 days, she states she is having 9-10 bouts of diarrhea per day and it is watery nonbloody. She denies any abdominal pain, but yesterday and today she has developed nausea, fevers subjective and chills. [facility] Medical History Abdominal pain of unknown etiology Anemia Anxiety BRBPR (bright red blood per rectum) Cardiology follow-up encounter Cellulitis of lower back Cervical strain Depression GERD (gastroesophageal reflux disease) History of echocardiogram History of IBS Hx of sinus tachycardia Migraine Migraine headache Nausea Nicotine dependence PTSD (post-traumatic stress disorder) Right shoulder strain Situational depression Smoker Wears dentures Home Medications cyclobenzaprine 10 mg tablet 10 mg PO TID PRN #30 tab 11/04/21 [Rx Last Taken Unknown] fluoxetine 20 mg capsule 20 mg PO DAILY #30 cap 12/04/21 [Rx Last Taken Unknown] ciprofloxacin HCl 500 mg PO BID #10 tablet 12/25/21 [Rx Last Taken Unknown] potassium chloride 20 meq PO BID #8 tab 12/25/21 [Rx Last Taken Unknown] promethazine 25 mg PO Q6H PRN PRN #10 tablet 12/25/21 [Rx Last Taken Unknown] Allergy/AdvReac Type Severity Reaction Status Date / Time ketorolac tromethamine Allergy Hives Verified 12/25/21 18:51 [From Toradol] sumatriptan [From Imitrex] Allergy Anaphylaxis Verified 12/25/21 18:51 sumatriptan succinate Allergy Anaphylaxis Verified 12/25/21 18:51 [From Imitrex] tramadol HCl [From Ultram] Allergy Hives Verified 12/25/21 18:51 morphine AdvReac Other Verified 12/25/21 18:51 novocaine with epinephrine AdvReac tachy and Uncoded 12/25/21 18:51 hypotensive Family History Mother Hypertension High cholesterol Grandmother Diabetes Hypertension afib Father Hypertension High cholesterol Grandfather Cancer skin Hypertension Afib Grandmother Hypertension afib Colon cancer Diabetes Surgical History H/O: hysterectomy History of bilateral salpingectomy History of cholecystectomy History of colonoscopy History of left oophorectomy History of right oophorectomy History of shoulder surgery Hx laparoscopic cholecystectomy Hx of colonoscopy Social History Smoking Status: Current every day smoker tobacco type: cigarettes Tobacco: How many years used: 8 second hand exposure: Yes alcohol intake: never substance use type: does not use caffeine: Yes (2) Type: carbonated beverages what type of physical activity do you participate in: walking seatbelt use: always do you feel safe at home: Yes 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 ROS ED Constitutional Constitutional ED: Denies chills or fever(s) Eyes Eyes: Denies change in vision or diplopia ENT ENT ED: Denies rhinorrhea or sore throat Cardiovascular Cardiovascular: Denies chest pain or palpitations Respiratory/Chest Respiratory/Chest: Denies cough or dyspnea Gastrointestinal Gastrointestinal: Reports as per HPI, diarrhea and nausea; Denies abdominal pain or vomiting Genitourinary Genitourinary ED: Denies dysuria or hematuria Musculoskeletal Musculoskeletal: Denies back pain or neck pain Integumentary Reports wounds; Denies abscess or rash Neurologic Neurologic: Denies headache(s), paresthesias or weakness Psychiatric Psychiatric: Denies anxiety or suicidal thoughts EXAM Physical Exam Const Vital Signs: 12/25/21 18:51 Temperature 99 F Temperature Source Temporal Pulse Rate 128 H Respiratory Rate 20 H Blood Pressure 137/90 H Blood Pressure Mean 105 Pulse Ox 99 Oxygen Delivery Method Room Air Positive well nourished and well developed General Appearance ED: well developed and NAD HEENT Reports moist mucous membranes normocephalic and atraumatic Eyes PERRL and EOMs intact bilaterally Neck full ROM and supple Resp normal respiratory effort and clear to auscultation bilaterally Cardio regular rate, regular rhythm and no murmurs Rate: tachycardic GI non-tender and non-distended Auscultation: normoactive bowel sounds Palpation: soft Back/Spine no CVA tenderness General Back: other FROM Extremity normal to inspection General Extremety ED: Negative for edema, pulses abnormal or tenderness General Extremity: Negative for edema or pulses abnormal Neuro oriented x3, CN's II-XII intact bilaterally and no sensory deficits noted Sensorium / Orientation: awake and alert Motor Exam: strength 5/5 throughout Skin no rashes or lesions noted Skin Narrative: Mostly healed abrasion, linear, no surrounding cellulitis, no expressible discharge, mostly covered in scab, on the left lower side/flank. Mildly tender throughout this area without any abscess or induration. The linear abrasion is approximately 7 cm in length. MDM MDM MDM Narrative Medical decision making narrative: PatientTreated with a liter of IV fluids and some Zofran. Work-up is fairly unremarkable, her potassium is a little low, urinalysis unremarkable. It is unknown if the wound/abrasion, which does not appear to be infected at all and she states it is exactly the way it looks when they started her on amoxicillin, has anything to do with the diarrhea she has developed. She has had no sick contacts, no recent antibiotics except for the amoxicillin that she started after the diarrhea started, no recent travel out of the area. Her only risk factor is exposure to chickens and their feces. She was not able to provide stool specimen in the emergency department, but given this risk for Salmonella and/or Campylobacter I think would be reasonable to try her on a 5-day course of ciprofloxacin and have her discontinue the amoxicillin which I see no indication for. We will send her home with a collection kit and current labs are ordered for C. difficile and enteric pathogen panel with results to be sent to her doctor after the weekend. Since today is Tuesday night, we decided to do a combination of testing and treated empirically after she provides the specimen and she is comfortable with that. I discussed staying hydrated, she is certainly not dehydrated here and I will give her some potassium prior to discharge. She is comfortable with that overall plan, we discussed reasons to return to the ER. Lab Data Attestation: I reviewed the patient's lab results. Labs: Laboratory Results - last 24 hr 12/25/21 12/25/21 12/25/21 19:47 19:47 19:55 WBC 7.5 RBC 5.58 H Hgb 15.8 H Hct 46.2 MCV 82.8 MCH 28.3 MCHC 34.2 RDW Std Deviation 43.2 RDW Coeff of Marian 14.5 Plt Count 285 MPV 9.8 Immature Gran % (Auto) 0.500 Neut % (Auto) 64.3 Lymph % (Auto) 22.7 Hood % (Auto) 10.9 H Eos % (Auto) 0.8 Baso % (Auto) 0.8 Absolute Neuts (auto) 4.8 Absolute Lymphs (auto) 1.71 Nucleated RBC % 0 Sodium 139 Potassium 3.3 L Chloride 105 Carbon Dioxide 28.0 Anion Gap 6 BUN 7 Creatinine 0.78 Estim Creat Clear Calc 75.96 Est GFR (MDRD) Af Amer 109 Est GFR (MDRD) Non-Af 90 BUN/Creatinine Ratio 9.0 L Glucose 111 H Calcium 9.3 Urine Color Yellow Urine Clarity Sl. Cloudy Urine pH 6.0 Ur Specific [place] 1.020 Urine Protein 15 H Urine Glucose (UA) Normal Urine Ketones 5 H Urine Occult Blood 25 H Urine Nitrite Negative Urine Bilirubin Negative Urine Urobilinogen Normal Ur Leukocyte Esterase 25 H Urine RBC 0-5 SEEN Urine WBC 0-5 SEEN Ur Squamous Epith Cells 0-5 SEEN Urine Bacteria 0 SEEN Urine Mucus 0 SEEN Discharge Plan Triage Chief Complaint: Wound ED Provider: Joseph Edmond Dx/Rx/DC Orders Clinical Impression: Acute diarrhea, Visit for wound check, Abrasion of trunk, Hypokalemia due to excessive gastrointestinal loss of potassium Instructions: ED Diarrhea, Unknown Cause, ED Wound Check (No Infection) Prescriptions: New ciprofloxacin HCl [ciprofloxacin HCl] 500 MG tablet 500 mg PO BID Qty: 10 RF: 0 promethazine [promethazine] 25 MG tablet 25 mg PO Q6H PRN PRN (Reason: Nausea) Qty: 10 RF: 0 potassium chloride 20 mEq tablet extended release 20 meq PO BID Qty: 8 RF: 0 Continued cyclobenzaprine 10 mg tablet 10 mg PO TID PRN (Reason: muscle spasm) Qty: 30 RF: 0 fluoxetine [Prozac] 20 mg capsule 20 mg PO DAILY Qty: 30 RF: 12 Other Ambulatory Orders: ENTERIC PATHOGEN PANEL STOOL (Routine) Timeframe: 2 Days Facility: [facility] - Location: Laboratory Ordered By: Dr. Joseph Edmond CDIFF (PCR) (Routine) Timeframe: 2 Days Facility: [facility] - Location: Laboratory Ordered By: Dr. Joseph Edmond Primary Care Provider: Jani Christianson Referrals: Jani Christianson MD [Primary Care Provider] - Activity Restrictions/Additional Instructions: Collect your stool, keep in the refrigerator until you can get it to the lab here at the hospital. At any point after you collect specimen you may start the antibiotic. If you are getting much worse on the antibiotic discontinue it and consider returning to the emergency room. STOP the amoxicillin. Disposition Disposition: Home, Self Care
[2021-12-25 21:44] VITALS: RESP 16
[2021-12-25 21:55] VITALS: PULSE 108; RESP 16; O2SAT 97
== END 2021-12-25 21:55 | disposition home or self-care (01) ==
PROVIDERS: Emergency Provider Emergency Medicine; PCP Family Medicine; Visit Provider Emergency Medicine
DX: R19.7 Diarrhea, unspecified (principal); E87.6 Hypokalemia; F17.210 Nicotine dependence, cigarettes, uncomplicated; S30.811D Abrasion of abdominal wall, subsequent encounter
CPT/HCPCS: 80048; 81001; 85025; 96361; 96374; 99282; J7030; A4216; J2405

== ENCOUNTER 2022-06-18 22:26 | Emergency (ER) | payer MEDICAID, SELFPAY ==
[2022-06-18 22:28] VITALS: BP 131/81; PULSE 103; RESP 18; TEMP 36.4; O2SAT 99; BMI 28.0
[2022-06-18 22:30] VITALS: BP 131/81; PULSE 103; RESP 16; TEMP 36.4; O2SAT 99
--- NOTE | 2022-06-18 22:51 | EX.ED.DYSGE1 ---
HPI History of Present Illness Chief Complaint: Wound Narrative Narrative: Patient is 36-year-old female who states she was at work yesterday when she was rubbing her right knee because it was painful. She states she got home and took her pants off and noticed there was some redness and swelling to the anterior aspect of her right knee. She denies any direct trauma but states this time is past pain is increased and the redness is slightly worsened. She states she is able to ambulate but states it is painful to do so. She denies any fevers or chills or history of immunosuppression but does states she had a nephew with a similar issue that led to surgery and was concerned that she has an infection presents for evaluation [facility] Medical History Abdominal pain of unknown etiology Anemia Anxiety BRBPR (bright red blood per rectum) Cardiology follow-up encounter Cellulitis of lower back Cephalgia Cervical lymphadenitis Cervical strain Contact with and (suspected) exposure to other viral communicable diseases Depression GERD (gastroesophageal reflux disease) History of echocardiogram History of IBS Hx of sinus tachycardia Migraine Migraine headache Nausea Nicotine dependence PTSD (post-traumatic stress disorder) Right shoulder strain Situational depression Smoker URI (upper respiratory infection) Wears dentures Home Medications ibuprofen 600 mg tablet 600 mg PO TID PRN pain #30 tabs 05/05/22 [Rx Last Taken Unknown] baclofen 5 mg tablet 5 mg PO TID #30 tabs 05/27/22 [Rx Last Taken Unknown] etodolac 300 mg capsule 300 mg PO Q8H #30 caps 05/27/22 [Rx Last Taken Unknown] clindamycin HCl 300 mg capsule (Cleocin HCl) 300 mg PO 4X/DAY 10 days #40 caps 06/18/22 [Rx Last Taken Unknown] oxycodone-acetaminophen 5 mg-325 mg tablet (Percocet) 1 tab PO Q6H PRN pain 3 days #12 tabs 06/18/22 [Rx Last Taken Unknown] Allergy/AdvReac Type Severity Reaction Status Date / Time ketorolac tromethamine Allergy Hives Verified 12/25/21 18:51 [From Toradol] sumatriptan [From Imitrex] Allergy Anaphylaxis Verified 12/25/21 18:51 sumatriptan succinate Allergy Anaphylaxis Verified 12/25/21 18:51 [From Imitrex] tramadol HCl [From Ultram] Allergy Hives Verified 12/25/21 18:51 morphine AdvReac Other Verified 12/25/21 18:51 novocaine with epinephrine AdvReac tachy and Uncoded 12/25/21 18:51 hypotensive Family History Mother Hypertension High cholesterol Grandmother Diabetes Hypertension afib Father Hypertension High cholesterol Grandfather Cancer skin Hypertension Afib Grandmother Hypertension afib Colon cancer Diabetes Surgical History H/O: hysterectomy History of bilateral salpingectomy History of cholecystectomy History of colonoscopy History of left oophorectomy History of right oophorectomy History of shoulder surgery Hx laparoscopic cholecystectomy Hx of colonoscopy Social History Smoking Status: Current every day smoker tobacco type: cigarettes Tobacco: How many years used: 8 second hand exposure: Yes alcohol intake: never substance use type: does not use caffeine: Yes (2) Type: carbonated beverages what type of physical activity do you participate in: walking seatbelt use: always do you feel safe at home: Yes 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 ROS ED Constitutional Constitutional ED: Denies chills or fever(s) ENT ENT ED: Denies sore throat Cardiovascular Cardiovascular: Denies chest pain Respiratory/Chest Respiratory/Chest: Denies cough or dyspnea Gastrointestinal Gastrointestinal: Denies abdominal pain, diarrhea, nausea or vomiting Genitourinary Genitourinary ED: Denies dysuria Musculoskeletal Musculoskeletal: Reports other Details: Positive right knee pain Integumentary Reports other Details: Positive right knee redness ; Denies rash Neurologic Neurologic: Denies headache(s) Hematologic/Lymphatic Hematologic/Lymphatic: Denies easy bleeding or easy bruising EXAM Physical Exam Const Vital Signs: 06/18/22 22:28 06/18/22 22:30 Temperature 97.5 F L 97.5 F L Temperature Source Temporal Temporal Pulse Rate 103 H 103 H Respiratory Rate 18 16 Blood Pressure 131/81 H 131/81 H Blood Pressure Mean 97 97 Pulse Ox 99 99 Oxygen Delivery Method Room Air Room Air Positive well nourished and well developed General Appearance ED: well developed Eyes PERRL and EOMs intact bilaterally Neck supple Resp normal respiratory effort and clear to auscultation bilaterally Cardio regular rate and regular rhythm Extremity Extremity Narrative: Right lower extremity is neurovascular intact. There is mild asymmetric erythema and warmth with slight fluctuance present to the anterior aspect of the right knee over top the prepatellar bursa. There is no active discharge or lymphangitic streak. No joint effusion. Patient is able to flex and extend the knee without difficulty. Remainder of the exam is normal Neuro oriented x3 and CN's II-XII intact bilaterally Sensorium / Orientation: alert Psych mental status grossly normal Skin Skin Narrative: Soft tissue changes over top the right knee as documented above MDM MDM MDM Narrative Medical decision making narrative: Patient presented to the ER afebrile with no report or signs of trauma. She is able to flex and extend the right knee and bear weight going against septic joint and she has no history of immunosuppression or signs of systemic infection. At this time I do feel she has an infection/cellulitis the prepatellar bursa. I do not feel there is enough fluctuance to suggest incision and drainage. As she is not immunosuppressed and does not have signs of systemic infection I do not believe lab work or imaging studies would change treatment options and therefore elected not to perform these. Patient will be started on antibiotics secondary to the infectious process but without signs of septic joint or systemic infection is otherwise safe for discharge Discharge Plan Triage Chief Complaint: Wound ED Provider: Nimesh Stack Dx/Rx/DC Orders Clinical Impression: Cellulitis Instructions: Cellulitis Dc Prescriptions: New clindamycin HCl [Cleocin HCl] 300 mg capsule 300 mg PO 4X/DAY 10 Days Qty: 40 0RF oxycodone-acetaminophen [Percocet] 5-325 mg tablet 1 tab PO Q6H PRN (Reason: pain) 3 Days Qty: 12 0RF No Action ibuprofen 600 mg tablet 600 mg PO TID PRN (Reason: pain) Qty: 30 0RF baclofen 5 mg tablet 5 mg PO TID Qty: 30 0RF Rx Instructions: May increase to 2 tabs (10mg) TID after 3 days etodolac 300 mg capsule 300 mg PO Q8H Qty: 30 0RF Primary Care Provider: Jani Christianson Referrals: Jani Christianson MD [Primary Care Provider] - Activity Restrictions/Additional Instructions: Please take your antibiotic as directed and if you notice worsening of the redness lymphangitic streaking or develop a fever over 100.4 despite being on antibiotics please return to the ER for repeat evaluation Disposition Disposition: Home, Self Care Discharge Date/Time: 06/18/22 23:02
[2022-06-18] MEDS: Morphine 4 MG/ML Syringe 8 MG IM (22:58)
[2022-06-18] MEDS: Ondansetron ODT 4 MG Tablet PO (22:58)
[2022-06-18] MEDS: Clindamycin HCl 150 MG Capsule 300 MG PO (22:58)
== END 2022-06-18 23:02 | disposition home or self-care (01) ==
PROVIDERS: Emergency Provider Emergency Medicine; PCP Family Medicine; Visit Provider Emergency Medicine
DX: L03.115 Cellulitis of right lower limb (principal); F17.210 Nicotine dependence, cigarettes, uncomplicated
CPT/HCPCS: 96372; 99283

== ENCOUNTER → 2022-08-30 | Outpatient (CLI) | payer MEDICAID, SELFPAY ==
[2022-08-30 14:42] LABS: Prolactin 5.8 ng/mL
== END | disposition home or self-care (01) ==
LOC: PAVLAB 13:54
PROVIDERS: PCP Family Medicine; Referring Provider Obstetrics & Gynecology; Visit Provider Obstetrics & Gynecology
DX: N64.3 Galactorrhea not associated with childbirth (principal)
CPT/HCPCS: 36415; 84146

== ENCOUNTER 2023-05-08 01:01 | Emergency (ER) | payer MEDICAID, SELFPAY ==
[2023-05-08 01:04] VITALS: BP 143/72; PULSE 102; RESP 15; TEMP 36.6; O2SAT 100
[2023-05-08] MEDS: Ondansetron 4 MG/2 ML Vial IV (02:04)
[2023-05-08] MEDS: Dicyclomine 10 MG Capsule 20 MG PO (02:04)
[2023-05-08] MEDS: 0.9% Normal Saline (1000mL) 1,000 ML 1000 ML IV (02:05)
[2023-05-08 02:13] LABS: Absolute Lymphocyte Count 3.19 X10^3/uL (0.83-4.51); Absolute Neutrophil Count 4.5 X10^3/uL (2.0-7.7); Basophil# 0.06 X10^3/uL; Basophil% 0.7 % (0-1); Eosinophil# 0.27 X10^3/uL; Eosinophils% 3.1 % (0-5); Hematocrit 46.7 % (37-47); Hemoglobin 15.5 g/dL (12.0-15.0); Lymphocyte # 3.19 X10^3/ul (0.83-4.51); Mean Corp Hgb Conc 33.2 g/dL (32-36); Mean Corpuscular Hgb 28.2 pg (27.0-32.0); Mean Corpuscular Volume 84.9 fL (81-99); Monocyte# 0.56 X10^3/uL; Monocyte% 6.5 % (0-10); NRBC Flagged by Analyzer 0 % (0-5); Neutrophil # 4.52 X10^3/uL (2.7-7.7); Neutrophil % 52.5 % (47-70); Platelet Count 313 K/mm3 (150-450); RBC Distribution Width CV 13.2 % (11.6-14.6); White Blood Count 8.6 K/mm3 (4.4-11.0)
[2023-05-08 02:27] LABS: Anion Gap 4 (5-15); BUN 11 mg/dL (7-18); BUN/Creat Ratio 14.5 RATIO (10-20); Calcium,Total 9.5 mg/dL (8.5-10.1); Chloride 107 mmol/L (98-107); Creatinine, Serum 0.76 mg/dL (0.55-1.02); EST Glomerular Filtration Rate 91 mL/min (>60); Est Glom Filt Rate - Afr Amer 110 mL/min (>60); Glucose 111 mg/dL (74-106); Potassium 3.5 mmol/L (3.5-5.1); Sodium Level 140 mmol/L (136-145)
--- NOTE | 2023-05-08 05:46 | ED.VIS.GI ---
HPI HPI - GI History of Present Illness Chief Complaint: Diarrhea Detail of Chief Complaint: Pain and diarrhea Informant: patient Abdominal Pain/Flank Pain Onset: Weeks (1 week) Context: Sudden Onset Timing: Intermittent and Waxes and wanes Quality: Aching and Cramping Location: Epigastric and RUQ Current Severity: Moderate Maximum Severity: Severe Worsened by: Not Worsened By Car ride, Food or Movement Relieved by: Nothing; Not Relieved By Antacids, Food or Remaining Still Nausea/Vomiting/Emesis GI Symptom: Positive for Nausea; Negative for Vomiting Diarrhea/Melena/Hematochezia GI Symptom: Positive for Diarrhea; Negative for Melena or Hematochezia Onset: Weeks (Week. Between 5-8 times a day) Stool Quality: Positive for Loose, Watery and Mucous; Negative for Black, Maroon or BRB per rectum Severity: Moderate Associated Symptoms Associated Symptoms: Negative for Dysuria, Frequency, Hematuria or Urgency Narrative Narrative: Patient is a 37-year-old female who presents with abdominal discomfort that is in the right upper quadrant epigastric area. She states this reminds her of pain that she experienced prior to her cholecystectomy. She denies blood with her diarrhea. She does report mucus. She does have history of IBS. There is no family history nor does she have history of Crohn's disease or ulcerative colitis. She denies urologic symptoms. She denies dermatologic symptoms. She denies plaints. She states the diarrhea is worse if she eats. Prior similar symptoms: No Recent Illness/Hospitalization: No PFSH PFS Medical History Abdominal pain of unknown etiology Acute sinusitis, unspecified Anemia Anxiety BRBPR (bright red blood per rectum) Cardiology follow-up encounter Cellulitis of lower back Cephalgia Cervical lymphadenitis Cervical strain Contact with and (suspected) exposure to other viral communicable diseases Contact with and (suspected) exposure to other viral communicable diseases Depression GERD (gastroesophageal reflux disease) Hematuria History of echocardiogram History of IBS Hx of sinus tachycardia Migraine Migraine headache Nausea Nicotine dependence Postauricular lymphadenopathy PTSD (post-traumatic stress disorder) Right shoulder strain Situational depression Smoker URI (upper respiratory infection) Urinary frequency Wears dentures Home Medications lorazepam 1 mg tablet (Ativan) 1 mg PO BID PRN anxiety #30 tabs 11/08/22 [Rx Last Taken Unknown] Allergy/AdvReac Type Severity Reaction Status Date / Time ketorolac tromethamine Allergy Hives Verified 05/08/23 01:12 [From Toradol] sumatriptan [From Imitrex] Allergy Anaphylaxis Verified 05/08/23 01:12 sumatriptan succinate Allergy Anaphylaxis Verified 05/08/23 01:12 [From Imitrex] tramadol HCl [From Ultram] Allergy Hives Verified 05/08/23 01:12 epinephrine AdvReac Other Verified 05/08/23 01:12 morphine AdvReac Other Verified 05/08/23 01:12 procaine [From Novocain] AdvReac Other Verified 05/08/23 01:12 Family History Mother Hypertension High cholesterol Grandmother Diabetes Hypertension afib Father Hypertension High cholesterol Grandfather Cancer skin Hypertension Afib Grandmother Hypertension afib Colon cancer Diabetes Surgical History H/O: hysterectomy History of bilateral salpingectomy History of cholecystectomy History of colonoscopy History of left oophorectomy History of right oophorectomy History of shoulder surgery Hx laparoscopic cholecystectomy Hx of colonoscopy Social History Smoking Status: Current every day smoker tobacco type: cigarettes Tobacco: How many years used: 8 second hand exposure: Yes alcohol intake: never substance use type: does not use caffeine: Yes (2) Type: carbonated beverages what type of physical activity do you participate in: none seatbelt use: always do you feel safe at home: Yes 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 difficile or infectious diarrhea. ; Denies constipation, melena or vomiting Genitourinary Genitourinary ED: Denies dysuria, hematuria or urinary frequency Musculoskeletal Musculoskeletal: Denies arthralgias or myalgias Integumentary Denies rash Neurologic Neurologic: Reports weakness; Denies headache(s) or paresthesias Endocrine Endocrinology: Denies polydipsia or polyphagia Hematologic/Lymphatic Hematologic/Lymphatic: Denies easy bleeding or easy bruising EXAM Physical Exam Const Vital Signs: 05/08/23 01:04 Temperature 97.9 F Temperature Source Temporal Pulse Rate 102 H Respiratory Rate 15 Blood Pressure 143/72 H Blood Pressure Mean 95 Pulse Ox 100 Oxygen Delivery Method Room Air Positive well nourished and well developed Constitutional Narrative: Does not appear well. She does not appear toxic. She does not appear to be in pain or distress at this time. General Appearance ED: well developed; Negative for pallor HEENT Reports TM's clear and dry mucous membranes normocephalic and atraumatic Tympanic Membrane ED: Yes TM's clear Mouth ED: Yes dry mucous membranes Mouth: dry mucous membranes Eyes PERRL and EOMs intact bilaterally General Eye ED: Negative for pale conjunctiva or scleral icterus Neck no lymphadenopathy, supple and no JVD Resp normal respiratory effort and clear to auscultation bilaterally Cardio regular rate, regular rhythm, S1 normal heart sound, S2 normal heart sound and no murmurs GI non-distended and no masses Auscultation: hypoactive bowel sounds Palpation: soft and tender RUQ Back/Spine no CVA tenderness Extremity full ROM General Extremety ED: Negative for edema or tenderness General Extremity: Negative for edema Neuro CN's II-XII intact bilaterally, moves all extremities and no sensory deficits noted Sensorium / Orientation: alert Motor Exam: strength 5/5 throughout Psych thought process normal Psych Narrative: Patient appears slightly depressed. Skin no wounds General Skin Exam: Negative for jaundice or pallor Lesions: no lesions Rashes: no rashes MDM MDM MDM Narrative Medical decision making narrative: This may represent inflammatory bowel disorder, infectious diarrhea including bacterial and viral. Patient may be slightly dehydrated. CBC was obtained to assess white count and determine if there is any eosinophilia which would increase likelihood of parasitic infection. If patient is able to give a stool specimen we will send for stool enteric pathogen since her diarrhea has been greater than 7 days. Basic metabolic panel was obtained assess electrolytes and fecal for hypokalemia as well as renal function. Patient's CV the normal. BMP is normal. Lab Data Attestation: I reviewed the patient's lab results. Lab results narrative: CBC is unremarkable. BMP is unremarkable. Glucose is 111 with normal CO2 anion gap. Labs: Laboratory Results - last 24 hr 05/08/23 01:30 WBC 8.6 RBC 5.50 H Hgb 15.5 H Hct 46.7 MCV 84.9 MCH 28.2 MCHC 33.2 RDW Std Deviation 41.0 RDW Coeff of Marian 13.2 Plt Count 313 MPV 10.0 Immature Gran % (Auto) 0.200 Neut % (Auto) 52.5 Lymph % (Auto) 37.0 Fountain % (Auto) 6.5 Eos % (Auto) 3.1 Baso % (Auto) 0.7 Absolute Neuts (auto) 4.5 Absolute Lymphs (auto) 3.19 Nucleated RBC % 0 Sodium 140 Potassium 3.5 Chloride 107 Carbon Dioxide 29.0 Anion Gap 4 L BUN 11 Creatinine 0.76 Est GFR (MDRD) Af Amer 110 Est GFR (MDRD) Non-Af 91 BUN/Creatinine Ratio 14.5 Glucose 111 H Calcium 9.5 Treatment and Re-Evaluation :: Went to reassess her at 0546 was noted that she was not in the room and her gown was on the chair next to her bed. Patient had left prior to me informing her that her blood work was unremarkable and that she will be discharged home to follow-up with her doctor. Discharge Plan Triage Chief Complaint: Diarrhea ED Provider: Devyn Lizarraga Dx/Rx/DC Orders Clinical Impression: Abdominal pain, Nicotine dependence, Diarrhea Instructions: ED Diarrhea, Unknown Cause Prescriptions: No Action lorazepam [Ativan] 1 mg tablet 1 mg PO BID PRN (Reason: anxiety) Qty: 30 0RF Primary Care Provider: Jani Christianson Referrals: Jani Christianson MD [Primary Care Provider] - 3-5 Days if not improving Disposition Disposition: Home, Self Care
== END 2023-05-08 07:06 | disposition home or self-care (01) ==
PROVIDERS: Emergency Provider Emergency Medicine; PCP Family Medicine; Visit Provider Emergency Medicine
DX: R10.9 Unspecified abdominal pain (principal); F17.210 Nicotine dependence, cigarettes, uncomplicated; R19.7 Diarrhea, unspecified
CPT/HCPCS: 80048; 85025; 96361; 96374; 99283; J7030; A4216; J2405

== ENCOUNTER → 2023-06-22 | Outpatient (CLI) | payer MEDICAID, SELFPAY ==
--- NOTE | 2023-06-22 12:53 | NEURO ---
NCS and/or EMG Patient Report Ordering Doctor: Jessy Arredondo DATE OF SERVICE: 06/22/23 Eliza presents for electrodiagnostic testing of the right upper limb. She reports neck pain with radiation into the right arm. She reports numbness and tingling in the right hand. Symptoms been present for approximately 4 months. Electrodiagnostic findings: Right median motor nerve demonstrates normal distal latency, amplitude and conduction velocity. Normal right ulnar motor response, including conduction across the elbow. Normal median and ulnar F?wave. Normal sensory responses. Needle EMG testing was performed in the right upper limb. 1+ fibrillation potentials are noted in the right flexor carpi ulnaris, right triceps and right lower cervical paraspinals. A decreased recruitment pattern is noted in the right triceps. Motor unit action potentials are of normal amplitude and duration. Electrodiagnostic impression: This is an abnormal study in the right upper limb. 1. Electrodiagnostic findings are suggestive of an acute right C7 radiculopathy. Consider cervical spine imaging to evaluate for potential disc herniation and/or stenosis. 2. There is no electrodiagnostic evidence for peripheral neuropathy, including carpal tunnel or cubital tunnel syndrome. Multi Select Codes Neurology Neurology Interp Codes: 52541-32 Musc test done w/n test comp (interp) and 08132-05 Nrv cndj test 7-8 studies (interp)
== END | disposition home or self-care (01) ==
LOC: PSN 08:21
PROVIDERS: PCP Family Medicine
DX: M54.12 Radiculopathy, cervical region (principal)
CPT/HCPCS: 95886; 95910

== ENCOUNTER → 2023-07-02 | Outpatient (CLI) | payer MEDICAID, SELFPAY ==
--- NOTE | 2023-07-02 07:24 | MRI_ITS ---
HISTORY: Pain, right arm radiculopathy, NKI. TECHNIQUE: Multiplanar and multisequence MR images of the cervical spine were obtained without contrast. 246 images. COMPARISON: XR 05/27/2022, CT 12/05/2021. FINDINGS: VERTEBRAE: Vertebral body heights maintained. Mild degenerative endplate changes of C5-6. No other significant bone marrow signal abnormality. VERTEBRAL ALIGNMENT: Straightening of the cervical lordosis without anterior or posterior subluxation. SPINAL CORD: Cervical cord signal and morphology within normal limits. SOFT TISSUES: No prevertebral fluid collection. INTERVERTEBRAL DISCS: C2-3, C3-4, C4-5: No significant posterior disc protrusion, central canal stenosis, or foraminal narrowing. C5-6: Mild posterior disc bulge osteophyte complex resulting in mild central canal stenosis. No significant foraminal narrowing. C6-7, C7-T1: No significant posterior disc protrusion, central canal stenosis, or foraminal narrowing. MRI/Spine Cervical (Routine) IMPRESSION: Mild degenerative disc disease of C5-6 resulting in mild spinal canal stenosis. Electronically Signed: Valentina Silver MD at 11:52 EST ,
== END | disposition home or self-care (01) ==
LOC: MRI 07:12
PROVIDERS: PCP Family Medicine
DX: M54.12 Radiculopathy, cervical region (principal)
CPT/HCPCS: 72141

== ENCOUNTER 2024-04-24 10:02 | Emergency (ER) | payer MEDICAID, SELFPAY ==
[2024-04-24 10:02] VITALS: BP 165/81; BP 175/79; PULSE 150; PULSE 155; RESP 18; RESP 22; TEMP 37.2; O2SAT 97; BMI 27.8
--- NOTE | 2024-04-24 11:08 | RAD_ITS ---
STUDY: X-RAY CHEST REASON FOR EXAM: Female, 38 years old. Cough, sob TECHNIQUE: PA and lateral views of the chest. COMPARISON: Comparison is made with prior study dated June 25, 2019. FINDINGS: EKG electrodes are seen. The lungs are clear and expanded. Scattered calcified granulomas in the right lung base. There is no demonstrated pleural abnormality. Normal size heart. Normal mediastinum and diego. Normal visualized pulmonary arteries. Normal visualized aortic arch and descending thoracic aorta. Normal visualized thoracic spine. Normal visualized ribs, clavicles, and shoulders. Prior cholecystectomy. RAD/Chest PA and Lateral IMPRESSION: Normal x-ray examination of the chest. Electronically Signed: Carlos Voss MD at 12:05 EDT ,
--- NOTE | 2024-04-24 11:53 | EX.ED.DYSGE1 ---
HPI History of Present Illness Chief Complaint: Chest Pain Informant: patient Narrative Narrative: Patient states she has had an illness for about a week. Started with vomiting and diarrhea but that stopped and went into respiratory symptoms with cough occasional shortness of breath, chest is sore diffusely when she coughs, she had some green sputum at the beginning and then it lessened and now she is occasionally having sputum again. Fevers at the beginning but not since. She has got body aches and some mild headaches. She has seen urgent care several times. She had a negative COVID test, and at the first visit they thought she had an ear infection so they prescribed her amoxicillin, and she went back again and the next petitioner told her that she did not have an ear infection and told her to stop the amoxicillin, so she took it for a day or 2. Her ears have never bothered her throughout this illness. She denies a sore throat. She denies history of asthma or any other chronic medical problems that she knows of. She went back to urgent care for a third time today and so they sent her here to the ER. [facility] Medical History Urinary frequency Hematuria Postauricular lymphadenopathy Contact with and (suspected) exposure to other viral communicable diseases Acute sinusitis, unspecified Contact with and (suspected) exposure to other viral communicable diseases Cervical lymphadenitis Cephalgia URI (upper respiratory infection) Cellulitis of lower back Right shoulder strain Cervical strain Wears dentures Depression Anemia Migraine headache History of IBS Smoker History of echocardiogram Hx of sinus tachycardia Cardiology follow-up encounter Nausea Abdominal pain of unknown etiology BRBPR (bright red blood per rectum) PTSD (post-traumatic stress disorder) Nicotine dependence Migraine Situational depression GERD (gastroesophageal reflux disease) Anxiety Home Medications ?Medication ?Instructions ?Recorded ?Last Taken ?Type acetaminophen 500 mg tablet 1,000 mg PO BID PRN 07/07/23 Unknown History (Tylenol Extra Strength) ibuprofen 200 mg tablet 400 mg PO Q6H PRN 07/07/23 Unknown History tizanidine 4 mg tablet 2 mg PO QHS PRN 12/12/23 Unknown History albuterol sulfate 90 mcg/actuation 1 - 2 puff inhalation Q4H PRN PRN 04/24/24 Unknown Rx aerosol inhaler (Ventolin HFA) Wheezing ##1 benzonatate 100 mg capsule 200 mg (2 x 100 mg) PO TID PRN PRN 04/24/24 Unknown Rx Cough #20 CAPSULES Allergy/AdvReac Type Severity Reaction Status Date / Time ketorolac tromethamine (From Allergy Hives Verified 04/24/24 10:22 Toradol) sumatriptan (From Imitrex) Allergy Anaphylaxis Verified 04/24/24 10:22 sumatriptan succinate (From Allergy Anaphylaxis Verified 04/24/24 10:22 Imitrex) tramadol HCl (From Ultram) Allergy Hives Verified 04/24/24 10:22 epinephrine AdvReac Other Verified 04/24/24 10:22 morphine AdvReac Other Verified 04/24/24 10:22 procaine (From Novocain) AdvReac Other Verified 04/24/24 10:22 Family History Mother Hypertension High cholesterol Grandmother Diabetes Hypertension afib Father Hypertension High cholesterol Grandfather Cancer skin Hypertension Afib Grandmother Hypertension afib Colon cancer Diabetes Surgical History H/O: hysterectomy History of bilateral salpingectomy History of cholecystectomy History of colonoscopy History of left oophorectomy History of right oophorectomy History of shoulder surgery Hx laparoscopic cholecystectomy Hx of colonoscopy Social History Smoking Status: Current every day smoker tobacco type: cigarettes Tobacco: How many years used: 8 second hand exposure: Yes alcohol intake: never substance use type: does not use caffeine: Yes (2) Type: carbonated beverages what type of physical activity do you participate in: none seatbelt use: always do you feel safe at home: Yes 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 ROS ED Constitutional Constitutional ED: Reports body ache(s); Denies chills or fever(s) Eyes Eyes: Denies change in vision or diplopia ENT ENT ED: Reports headache(s), nasal congestion and rhinorrhea; Denies ear pain, sinus pain, sinus pressure or sore throat Cardiovascular Cardiovascular: Denies chest pain or palpitations Respiratory/Chest Respiratory/Chest: Reports cough, dyspnea and sputum Gastrointestinal Gastrointestinal: Denies abdominal pain, diarrhea, nausea or vomiting Genitourinary Genitourinary ED: Denies dysuria or hematuria Musculoskeletal Musculoskeletal: Denies back pain or neck pain Integumentary Denies abscess or rash Neurologic Neurologic: Denies headache(s), paresthesias or weakness Psychiatric Psychiatric: Denies suicidal thoughts EXAM Physical Exam Const Vital Signs: 04/24/24 10:02 04/24/24 10:02 04/24/24 10:14 Temperature 99 F Temperature Source Temporal Pulse Rate 150 H 155 H Respiratory Rate 22 H 18 Respiratory Effort Normal Respiratory Pattern Blood Pressure 165/81 H 175/79 H Blood Pressure Mean 109 111 Pulse Ox 97 97 Oxygen Delivery Method Room Air Room Air 04/24/24 10:14 Temperature Temperature Source Pulse Rate Respiratory Rate Respiratory Effort Normal Respiratory Pattern Normal Blood Pressure Blood Pressure Mean Pulse Ox Oxygen Delivery Method Positive well nourished and well developed Constitutional Narrative: Well-appearing General Appearance ED: well developed and NAD HEENT Reports TM's clear and moist mucous membranes normocephalic and atraumatic Tympanic Membrane ED: Yes TM's clear Eyes PERRL and EOMs intact bilaterally Neck full ROM and supple Chest Wall inspection of chest normal and palpation of chest normal Resp normal respiratory effort Resp Narrative: Slight end expiratory wheezes in the bases otherwise clear. Effort and Inspection: able to speak in complete sentences Cardio regular rate, regular rhythm and no murmurs GI non-tender and non-distended Auscultation: normoactive bowel sounds Palpation: soft Back/Spine no CVA tenderness General Back: other FROM Extremity normal to inspection General Extremety ED: Negative for edema, pulses abnormal or tenderness General Extremity: Negative for edema or pulses abnormal Neuro oriented x3, CN's II-XII intact bilaterally and no sensory deficits noted Sensorium / Orientation: awake and alert Motor Exam: strength 5/5 throughout Psych mental status grossly normal Skin no rashes or lesions noted and no wounds MDM MDM MDM Narrative Medical decision making narrative: Initially patient got here her heart was racing and she felt it, EKG was obtained shows sinus tachycardia in the 120s, but this resolved by the time I saw the patient, heart rate in the 80s. Two-view chest x-ray on my interpretation negative for pneumonia. Patient reassured, she says she has a history of tachycardia, I do not think this is related to her illness, may be more anxiety. At this time my suspicion is that this is all viral wheezy bronchitis. She is in agreement with that, she is okay with prescription for Tessalon and albuterol but she is advised to not use it too much since it could cause her to become tachycardic again. Radiography Diagnostic Testing: Clinical Impression(s) from Imaging Studies Chest X-Ray 04/24/24 11:08 IMPRESSION: Normal x-ray examination of the chest. Electronically Signed: Carlos Voss MD at 12:05 EDT , Rhythm Strip Rhythm Strip: Sinus Rhythm Rate: 85 Ectopy: None EKG Initial EKG: Attestation: I personally reviewed and interpreted this EKG as follows: Interpretation: No Acute Injury Pattern and Sinus Tachycardia Discharge Plan Triage Chief Complaint: Chest Pain Other Complaint: Hypertension ED Provider: Joseph Edmond Dx/Rx/DC Orders Clinical Impression: Acute wheezy bronchitis, Tachycardia Instructions: Acute Bronchitis Prescriptions: New benzonatate 100 mg capsule 200 mg PO TID PRN PRN (Reason: Cough) Qty: 20 0RF albuterol sulfate [Ventolin HFA] 90 mcg/actuation HFA aerosol inhaler 1 - 2 puff inhalation Q4H PRN PRN (Reason: Wheezing) Qty: 1 0RF No Action acetaminophen [Tylenol Extra Strength] 500 mg tablet 1,000 mg PO BID PRN ibuprofen 200 mg tablet 400 mg PO Q6H PRN tizanidine 4 mg tablet 2 mg PO QHS PRN Primary Care Provider: Jani Christianson Referrals: Jani Christianson MD [Primary Care Provider] - 1 Week if not improving Print Language: Welsh Disposition Disposition: Home, Self Care
[2024-04-24 12:24] VITALS: BP 108/76; PULSE 81; RESP 16; TEMP 36.4; O2SAT 99
== END 2024-04-24 12:25 | disposition home or self-care (01) ==
PROVIDERS: Emergency Provider Emergency Medicine; PCP Family Medicine; Visit Provider Emergency Medicine
DX: J20.9 Acute bronchitis, unspecified (principal); R00.0 Tachycardia, unspecified; F17.210 Nicotine dependence, cigarettes, uncomplicated
CPT/HCPCS: 71046; 93005; 99283; A4216

== ENCOUNTER → 2024-06-28 | Outpatient (CLI) | payer MEDICAID, SELFPAY ==
[2024-06-28 10:02] LABS: Erythrocyte Sedimentation Rate 5 mm/hr (0-30)
[2024-06-28 10:04] LABS: ALB/GLOB Ratio 1.1 RATIO (0.9-2.4); AST(SGOT) 22 U/L (15-37); Alanine Aminotransfer ALT/SGPT 30 U/L (13-56); Albumin, Serum 4.1 g/dL (3.2-5.0); Alkaline Phosphatase 82 U/L (45-117); Anion Gap 5 (5-15); BUN 9 mg/dL (7-18); BUN/Creat Ratio 11.7 RATIO (10-20); CRP 7.51 mg/L (0.0-3.0); Calcium,Total 9.4 mg/dL (8.5-10.1); Chloride 107 mmol/L (98-107); Creatinine, Serum 0.77 mg/dL (0.55-1.02); EST Glomerular Filtration Rate 89 mL/min (>60); Est Glom Filt Rate - Afr Amer 108 mL/min (>60); Globulin 3.8 g/dL (2.2-4.2); Glucose 98 mg/dL (74-106); Protein, Total 7.9 g/dL (6.4-8.2); Sodium Level 139 mmol/L (136-145)
[2024-06-28 10:06] LABS: Absolute Lymphocyte Count 2.69 X10^3/uL (0.83-4.51); Absolute Neutrophil Count 3.1 X10^3/uL (2.0-7.7); Basophil# 0.09 X10^3/uL; Basophil% 1.3 % (0-1); Eosinophil# 0.35 X10^3/uL; Eosinophils% 5.1 % (0-5); Hematocrit 45.1 % (37-47); Hemoglobin 15.3 g/dL (12.0-15.0); Lymphocyte # 2.69 X10^3/ul (0.83-4.51); Mean Corp Hgb Conc 33.9 g/dL (32-36); Mean Corpuscular Hgb 28.8 pg (27.0-32.0); Mean Corpuscular Volume 84.8 fL (81-99); Mean Platelet Vol. 10.5 fl (6.2-12.0); Monocyte% 8.7 % (0-10); NRBC Flagged by Analyzer 0 % (0-5); Neutrophil # 3.14 X10^3/uL (2.7-7.7); Neutrophil % 45.6 % (47-70); POSITIVE COUNT YES; Platelet Count 319 K/mm3 (150-450); RBC Distribution Width CV 13.5 % (11.6-14.6); RBC Distribution Width SD 41.9 fl (35.1-43.9); Red Blood Count 5.32 M/mm3 (4.2-5.4); White Blood Count 6.9 K/mm3 (4.4-11.0)
[2024-06-28 12:10] LABS: Platelet Estimate ADEQUATE (ADEQ)
[2024-07-02 04:06] LABS: Giardia Lamblia, Stool EIA Negative (Negative); Pancreatic Elastase, Fecal > 800 (>200)
[2024-07-02 16:10] LABS: Calprotectin, Stool 26 ug/g (0-120)
[2024-07-03 12:10] LABS: Anti-Centromere B Ab <0.2 AI (0.0-0.9); Anti-Chromatin <0.2 AI (0.0-0.9); Anti-Jo <0.2 AI (0.0-0.9); Anti-Scleroderma-70 AB <0.2 AI (0.0-0.9); Anti-dsDNA Ab 2 IU/mL (0-9); Beef <0.10 kU/L (Class 0); Chocolate <0.10 kU/L (Class 0); Codfish <0.10 kU/L (Class 0); Corn <0.10 kU/L (Class 0); Egg, Whole <0.10 kU/L (Class 0); Milk (Cow) <0.10 kU/L (Class 0); Mussels <0.10 kU/L (Class 0); Peanut <0.10 kU/L (Class 0); Pork <0.10 kU/L (Class 0); RNP Ab 0.7 AI (0.0-0.9); SJOGREN'S Anti-SS-A test < 0.2 AI (0.0-0.9); SJOGREN'S Anti-SS-B test < 0.2 AI (0.0-0.9); Salmon <0.10 kU/L (Class 0); Shrimp <0.10 kU/L (Class 0); Smith Ab <0.2 AI (0.0-0.9); Soybean <0.10 kU/L (Class 0); Tuna <0.10 kU/L (Class 0); Wheat <0.10 kU/L (Class 0)
[2024-07-05 17:07] LABS: ACCA 12 units (0-90); ALCA 2 units (0-60); AMCA 19 units (0-100); Cytoplasmic Ab (C-ANCA) <1:20 titer (Neg:<1:20); Deamidated Gliadin IgA 2 units (0-19); Deamidated Gliadin IgG 2 units (0-19); Endomysial Antibody IgA Negative (Negative); Immunoglobulin A 103 mg/dL (87-352); Immunoglobulin E 22 IU/mL (6-495); Immunoglobulin G 969 mg/dL (586-1602); Immunoglobulin M 166 mg/dL (26-217); Perinuclear Ab (P-ANCA) <1:20 titer (Neg:<1:20); gASCA 9 units (0-50); t-Transglutaminase IgA <2 U/mL (0-3)
== END | disposition home or self-care (01) ==
PROVIDERS: PCP Family Medicine; Referring Provider Student in an Organized Health Care Education/Training Program; Visit Provider Student in an Organized Health Care Education/Training Program
DX: R19.7 Diarrhea, unspecified (principal); K58.9 Irritable bowel syndrome, unspecified
CPT/HCPCS: 36415; 80053; 82653; 82784; 82785; 83516; 83630; 83993; 85025; 85652; 86003; 86005; 86036; 86037; 86140; 86225; 86235; 86255; 86671; 87177; 87209; 87329; 87506

== ENCOUNTER 2024-08-20 08:21 | Day surgery (SDC) | payer MEDICAID, SELFPAY ==
--- NOTE | 2024-08-15 15:40 | PAT.ANESEVAL ---
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 When Was Last Pacemaker Check QUESTION #4 FULL TEXT: You/Your Family Experience fever (hyperthermia) with Anesthesia Last Oral Intake Last Oral intake: Last Oral Intake NPO since Meds taken in AM with sips of water? Meds patient instructed to take am of surgery PONV PONV - consumer loan manager: PONV - consumer loan manager Female Yes 08/15/24 15:12 HX of Motion Sickness No 08/15/24 15:12 HX of N/V After Surgery No 08/15/24 15:12 Non-Smoker Yes 08/15/24 15:12 Duration of Surgery greater No 08/15/24 15:12 than 60 minutes Number of Risk Factors 2 08/15/24 15:12 PONV Score Moderate Risk 08/15/24 15:12 Height & Weight Height & Weight: Anesthesia: Height & Weight Height 5 ft 2 in 06/22/24 09:24 Respiratory Assessment Respiratory Assessment - consumer loan manager: Respiratory Tract Infection Hx - consumer loan manager Hx Respiratory Tract Infection No 08/15/24 15:12 STOP Sleep Apnea STOP Sleep Apnea - consumer loan manager: STOP Sleep Apnea - consumer loan manager Hx Hypertension No 08/15/24 15:12 Hx Sleep Apnea No 08/15/24 15:12 CPAP No 08/15/24 15:12 BIPAP No 08/15/24 15:12 Do you snore loudly (louder No 08/15/24 15:12 than talking or can be heard Do you often feel tired/ No 08/15/24 15:12 fatigued/ sleepy during daytime? Has anyone observed you stop No 08/15/24 15:12 breathing during sleep? STOP Results Negative 08/15/24 15:12 QUESTION #5 FULL TEXT : Do you snore loudly (louder than talking or can be heard through closed doors)? Tobacco Use History Tobacco Use History - consumer loan manager: Tobacco Use History - consumer loan manager Tobacco Use Cigarettes 05/19/20 11:26 Smoking Status Current every day smoker 08/15/24 15:12 Hx Tobacco Use Yes 08/15/24 15:12 Years Smoking Packs Smoked per Day Smoking Cessation Date was within the last 15 years Hx Smoking Cessation Date Hx Smoking Cessation Counseling Hematologic Medial History Hematologic Hx - consumer loan manager: Hematologic Medical Hx - advice nurse Hx of Blood Transfusion Yes 08/15/24 15:12 Hx of Transfusion in last 3 No 08/15/24 15:12 Months Date of Last Transfusion (if within last 3 months) Ever experience any problems No 08/15/24 15:12 with transfusion(s)? Specify any problems Hx of Preganancy in last 3 No 08/15/24 15:12 Months Nurse Filling Out Transfusion VCHRISTIN 08/15/24 15:12 & Questions: Date: 08/15/24 08/15/24 15:12 Time: 15:14 08/15/24 15:12 Patient unable to answer at this time (ie. confused, unrespo /Reproduction History /Reproductive History - consumer loan manager: /Reproductive Hx- consumer loan manager Hx Now No 08/15/24 15:12 Gestational Age (in weeks): EDC: Hx Hx Para Hx Section SAB No 08/15/24 15:12 [facility] Medical History (Updated 08/15/24 @ 15:12 by Lindsey Pulido) Wears glasses Gastric reflux History of irregular heartbeat Urinary frequency Hematuria Postauricular lymphadenopathy Contact with and (suspected) exposure to other viral communicable diseases Acute sinusitis, unspecified Contact with and (suspected) exposure to other viral communicable diseases Cervical lymphadenitis Cephalgia URI (upper respiratory infection) Cellulitis of lower back Right shoulder strain Cervical strain Wears dentures Depression Anemia Migraine headache History of IBS Smoker History of echocardiogram Hx of sinus tachycardia Cardiology follow-up encounter Nausea Abdominal pain of unknown etiology BRBPR (bright red blood per rectum) PTSD (post-traumatic stress disorder) Nicotine dependence Migraine Situational depression GERD (gastroesophageal reflux disease) Anxiety Home Medications ?Medication ?Instructions ?Recorded ?Last Taken ?Type acetaminophen 500 mg tablet 1,000 mg PO BID PRN pain 07/07/23 Unknown History (Tylenol Extra Strength) ibuprofen 200 mg tablet 400 mg PO Q6H PRN pain 07/07/23 Unknown History pantoprazole 40 mg tablet,delayed 40 mg PO QDAY #90 tabs 06/28/24 Unknown Rx release magnesium 200 mg tablet 200 mg PO BID 08/15/24 Unknown History Allergy/AdvReac Type Severity Reaction Status Date / Time ketorolac tromethamine (From Allergy Hives Verified 08/15/24 15:06 Toradol) sumatriptan (From Imitrex) Allergy Anaphylaxis Verified 08/15/24 15:06 sumatriptan succinate (From Allergy Anaphylaxis Verified 08/15/24 15:06 Imitrex) tramadol HCl (From Ultram) Allergy Hives Verified 08/15/24 15:06 epinephrine AdvReac Other Verified 08/15/24 15:06 morphine AdvReac Other Verified 08/15/24 15:06 procaine (From Novocain) AdvReac Other Verified 08/15/24 15:06 Family History Mother Hypertension High cholesterol Grandmother Diabetes Hypertension afib Father Hypertension High cholesterol Grandfather Cancer skin Hypertension Afib Grandmother Hypertension afib Colon cancer Diabetes Surgical History (Updated 08/15/24 @ 15:12 by Lindsey Pulido) Hx of colonoscopy Hx laparoscopic cholecystectomy History of shoulder surgery History of left oophorectomy History of colonoscopy History of right oophorectomy History of bilateral salpingectomy History of cholecystectomy H/O: hysterectomy Social History number of children: 2 Smoking Status: Current every day smoker tobacco type: cigarettes Tobacco: How many years used: 8 second hand exposure: Yes alcohol intake: never substance use type: does not use caffeine: Yes (2) Type: carbonated beverages what type of physical activity do you participate in: none seatbelt use: always do you feel safe at home: Yes 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
--- NOTE | 2024-08-20 08:39 | PCM.PRE.AN2 ---
ASA Classification* ASA Classification ASA Classification: 2 Assessment & Plan Anesthesia* Anesthesia Assessment Anesthesia Assessment: Discussed sedation and/or anesthesia options, risks, benefits, and alternatives with patient/parents/legal guardian/POA. Questions invited. The patient/parents/legal guardian/POA seems to understand and agrees to proceed with anesthesia plan. Reviewed the physical assessment, medical history, allergy history and patient home medications list prior to surgery/procedure/anesthetic and documented any changes. Performed airway and anesthesia risk assessments. Anesthesia Type Anesthesia Type: MAC (consider avoiding lidocaine) Anesthesia Focused Assessment* Airway Assessment Mouth opens: >3 cm Mallampati Score: II Focused Labs Anesthesia Preop lab: CBC WBC 6.9 K/mm3 (4.4-11.0) 06/28/24 09:08 RBC 5.32 M/mm3 (4.2-5.4) 06/28/24 09:08 Hgb 15.3 g/dL (12.0-15.0) H 06/28/24 09:08 Hct 45.1 % (37-47) 06/28/24 09:08 Plt Count 319 K/mm3 (150-450) 06/28/24 09:08 CHEMISTRY Potassium 4.0 mmol/L (3.5-5.1) 06/28/24 09:08 Sodium 139 mmol/L (136-145) 06/28/24 09:08 BUN 9 mg/dL (7-18) 06/28/24 09:08 Creatinine 0.77 mg/dL (0.55-1.02) 06/28/24 09:08 Glucose 98 mg/dL (74-106) 06/28/24 09:08 TSH 1.36 uIU/mL (0.358-3.74) 12/31/18 18:55 COAG PT 13.9 SECONDS (11.7-14.9) 05/20/20 13:58 Urine Test Negative Negative 11/27/13 22:25 Tst Clinic Negative 05/03/23 09:42 Pre-Assessment Diagnosis/Proposed Procedure Planned Operative Procedure(s): EGD Anesthesia History 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 When Was Last Pacemaker Check QUESTION #4 FULL TEXT: You/Your Family Experience fever (hyperthermia) with Anesthesia Last Oral Intake Last Oral intake: Last Oral Intake NPO since Meds taken in AM with sips of water? 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 Female Yes 08/15/24 15:12 HX of Motion Sickness No 08/15/24 15:12 HX of N/V After Surgery No 08/15/24 15:12 Non-Smoker Yes 08/15/24 15:12 Duration of Surgery greater No 08/15/24 15:12 than 60 minutes Number of Risk Factors 2 08/15/24 15:12 PONV Score Moderate Risk 08/15/24 15:12 Height & Weight Height & Weight: Anesthesia: Height & Weight Height 5 ft 2 in 06/22/24 09:24 Respiratory Assessment Respiratory Assessment - fabric lay out worker: Respiratory Tract Infection Hx - fabric lay out worker Hx Respiratory Tract Infection No 08/15/24 15:12 STOP Sleep Apnea STOP Sleep Apnea - fabric lay out worker: STOP Sleep Apnea - fabric lay out worker Hx Hypertension No 08/15/24 15:12 Hx Sleep Apnea No 08/15/24 15:12 CPAP No 08/15/24 15:12 BIPAP No 08/15/24 15:12 Do you snore loudly (louder No 08/15/24 15:12 than talking or can be heard Do you often feel tired/ No 08/15/24 15:12 fatigued/ sleepy during daytime? Has anyone observed you stop No 08/15/24 15:12 breathing during sleep? STOP Results Negative 08/15/24 15:12 QUESTION #5 FULL TEXT : Do you snore loudly (louder than talking or can be heard through closed doors)? Tobacco Use History Tobacco Use History - fabric lay out worker: Tobacco Use History - fabric lay out worker Tobacco Use Cigarettes 05/19/20 11:26 Smoking Status Current every day smoker 08/15/24 15:12 Hx Tobacco Use Yes 08/15/24 15:12 Years Smoking Packs Smoked per Day Smoking Cessation Date was within the last 15 years Hx Smoking Cessation Date Hx Smoking Cessation Counseling Hematologic Medial History Hematologic Hx - fabric lay out worker: Hematologic Medical Hx - school counselor Hx of Blood Transfusion Yes 08/15/24 15:12 Hx of Transfusion in last 3 No 08/15/24 15:12 Months Date of Last Transfusion (if within last 3 months) Ever experience any problems No 08/15/24 15:12 with transfusion(s)? Specify any problems Hx of Preganancy in last 3 No 08/15/24 15:12 Months Nurse Filling Out Transfusion VCHRISTIN 08/15/24 15:12 & Questions: Date: 08/15/24 08/15/24 15:12 Time: 15:14 08/15/24 15:12 Patient unable to answer at this time (ie. confused, unrespo /Reproduction History /Reproductive History - fabric lay out worker: /Reproductive Hx- fabric lay out worker Hx Now No 08/15/24 15:12 Gestational Age (in weeks): EDC: Hx Hx Para Hx Section SAB No 08/15/24 15:12 PFSH Medical History Wears glasses Gastric reflux History of irregular heartbeat Urinary frequency Hematuria Postauricular lymphadenopathy Contact with and (suspected) exposure to other viral communicable diseases Acute sinusitis, unspecified Contact with and (suspected) exposure to other viral communicable diseases Cervical lymphadenitis Cephalgia URI (upper respiratory infection) Cellulitis of lower back Right shoulder strain Cervical strain Wears dentures Depression Anemia Migraine headache History of IBS Smoker History of echocardiogram Hx of sinus tachycardia Cardiology follow-up encounter Nausea Abdominal pain of unknown etiology BRBPR (bright red blood per rectum) PTSD (post-traumatic stress disorder) Nicotine dependence Migraine Situational depression GERD (gastroesophageal reflux disease) Anxiety Home Medications ?Medication ?Instructions ?Recorded ?Last Taken ?Type acetaminophen 500 mg tablet 1,000 mg PO BID PRN pain 07/07/23 Unknown History (Tylenol Extra Strength) ibuprofen 200 mg tablet 400 mg PO Q6H PRN pain 07/07/23 Unknown History pantoprazole 40 mg tablet,delayed 40 mg PO QDAY #90 tabs 06/28/24 Unknown Rx release magnesium 200 mg tablet 200 mg PO BID 08/15/24 Unknown History Allergy/AdvReac Type Severity Reaction Status Date / Time ketorolac tromethamine (From Allergy Hives Verified 08/15/24 15:06 Toradol) sumatriptan (From Imitrex) Allergy Anaphylaxis Verified 08/15/24 15:06 sumatriptan succinate (From Allergy Anaphylaxis Verified 08/15/24 15:06 Imitrex) tramadol HCl (From Ultram) Allergy Hives Verified 08/15/24 15:06 epinephrine AdvReac Other Verified 08/15/24 15:06 morphine AdvReac Other Verified 08/15/24 15:06 procaine (From Novocain) AdvReac Other Verified 08/15/24 15:06 Family History Mother Hypertension High cholesterol Grandmother Diabetes Hypertension afib Father Hypertension High cholesterol Grandfather Cancer skin Hypertension Afib Grandmother Hypertension afib Colon cancer Diabetes Surgical History Hx of colonoscopy Hx laparoscopic cholecystectomy History of shoulder surgery History of left oophorectomy History of colonoscopy History of right oophorectomy History of bilateral salpingectomy History of cholecystectomy H/O: hysterectomy Social History number of children: 2 Smoking Status: Current every day smoker tobacco type: cigarettes Tobacco: How many years used: 8 second hand exposure: Yes alcohol intake: never substance use type: does not use caffeine: Yes (2) Type: carbonated beverages what type of physical activity do you participate in: none seatbelt use: always do you feel safe at home: Yes 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
[2024-08-20 08:42] VITALS: BP 112/55; PULSE 91; RESP 16; TEMP 36.2; O2SAT 100; BMI 29.6
--- NOTE | 2024-08-20 09:30 | IMM_PTH ---
PATIENT: KALEN VALLADARES LOC: EN U#:[id number] AGE/SX: 38/F ROOM: RE08/20/[address]: Dr. Seymour Rocha DO : 1985 BED: DIS: 08/20/2024 SPEC #: [id number] RECD: 08/20/24 13:48 STATUS: DEJA REQ #: [id number] PAWAN: 08/20/24 09:[address]: Seymour Rocha DEPT: IMMUNOHISTOCHEMISTRY RECD BY: Terrell Walton ENTERED: 08/20/24 13:49 SP TYPE: IMMUNO OTHR DR: Dr. Jani Christianson MD Tissues: A - Gastric mucous membrane Procedures: H Pylori (initial) PHYSICIAN & INSTITUTION [place] [id number] SPECIMEN INFORMATION: Tissue Source: A- Gastric body biopsy Clinical Info: Bloating, diarrhea Specimen Number: [id number] CPT code: 04066 METHODOLOGY: Deparaffinized sections of prefer/formalin-fixed tissue or PAP/DQ stained slides are incubated with monoclonal/polyclonal antibodies/oligonucleotide probes. Localization is made via biotin free immunoperoxidase method. Appropriate controls are performed and reacted as expected. Results on target cell population are indicated in the following table: RESULTS: ANTIBODY / CLONE RESULT Block A H Pylori (polyclonal) negative These tests were developed and their performance characteristics determined by [facility]. They may not have been cleared or approved by the [place]. Food and Drug Administration. The FDA has determined that such clearance or approval is not necessary. The above immunohistochemical/dualISH markers are ordered and reviewed by the Pathologist. INTERPRETATION: A. Gastric body, biopsy: Negative for Helicobacter pylori organisms. 08/21/2024
--- NOTE | 2024-08-20 09:30 | EGD_PTH ---
PATIENT: KALEN VALLADARES LOC: EN U#:[id number] AGE/SX: 38/F ROOM: RE08/20/[address]: Dr. Seymour Rocha DO : 1985 BED: DIS: 08/20/2024 SPEC #: [id number] RECD: 08/20/24 13:27 STATUS: DEJA JEROD #: [id number] PAWAN: 08/20/24 09:[address]: Seymour Rocha DEPT: SURGICAL PATHOLOGY RECD BY: Evelyn Chang ENTERED: 08/20/24 14:01 SP TYPE: EGD BIOPSY WILLIAM DR: Dr. Jani Christianson MD Tissues: A - Gastric mucous membrane B - Duodenum, NOS C - Esophagus, NOS Procedures: Special Stain Group I Surgery Specimen Level IV Alcian Blue/PAS (control) HEADER OPERATION: EGD biopsy, hemostasis PRE-OP DIAGNOSIS: Bloating, diarrhea TISSUE SUBMITTED: A- Gastric body biopsy, B- Submucosal lesion duodenal bulb, C- Distal esophagus biopsy MICROSCOPIC DIAGNOSIS A. Gastric body, biopsy: Minimal gastritis. See microscopic description and comment. B. Submucosal lesion duodenal bulb, biopsy: Fragments of duodenal mucosa, no pathologic diagnosis. See comment. C. Distal esophagus, biopsy: Fragments of gastroesophageal mucosa with chronic inflammation. Intestinal metaplasia (goblet cell metaplasia) not identified. See comment. 08/21/2024 COMMENT A. The results of immunohistochemistry for Helicobacter pylori will be reported separately ([id number]). B. This specimen consists of only superficial mucosal tissue. C. Alcian blue/PAS stain with matched control is used in the evaluation of the specimen. Correlation with clinical, endoscopic findings and appropriate follow up are necessary. MICROSCOPIC DESCRIPTION Slides are reviewed. A. The specimen shows fragments of gastric mucosa with chronic inflammatory cell infiltrates in the lamina propria consisting of lymphocytes and plasma cells, consistent with minimal chronic gastritis. GROSS DESCRIPTION A. Received in fixative is one container labeled with the patient's name and designated Gastric body biopsy. The specimen consists of multiple irregular fragments of light pozo soft tissue that in aggregate measure 1.3 x 0.3 x 0.2 cm. The specimen is totally submitted in one cassette. B. Received in fixative is one container labeled with the patient's name and designated Submucosal lesion duodenal bulb. The specimen consists of two irregular fragments of light pozo soft tissue that in aggregate measuring 0.6 x 0.4 x 0.2 cm. The specimen is totally submitted in one cassette. C. Received in fixative is one container labeled with the patient's name and designated Distal esophagus biopsy. The specimen consists of multiple irregular fragments of light pozo soft tissue that in aggregate measure 1.2 x 0.3 x 0.2 cm. The specimen is totally submitted in one cassette. GT 08/20/2024 TC:3 CPT:49430v8,63654
--- NOTE | 2024-08-20 09:37 | PCM.HP.STD ---
HPI - General General Date of Admission: 08/20/24 Date of Service: 08/20/24 Chief Complaint: Abdominal pain HPI Narrative KALEN VALLADARES, is a 38 F who presents today for evaluation of abdominal pain. Pt reports IBS sx for many years. Increased abdominal pain, bloating and indigestion. Currently taking Famotidine 40mg AM and PM but says it doesn't last her through the day. She will have epigastric pain with reflux and nausea. Some mornings she wakes up with RUQ pain that feels like a gallbladder attack. She had her gallbladder removed several years ago. She reports early satiety. She also complains of alternating BMs. Sometimes will have urgent postprandial diarrhea followed by not being able to go the next day. Stools are loose and watery. Has seen blood mixed with stools twice last month. She has seen general surgery a couple years ago for hemorrhoids. t was referred here to us from OBGYN for abdominal pain. For years pt has had issues with urgent diarrhea and abdominal discomfort. She was told she has IBS but has never had a full GI work up for IBD. She has upwards of 10 loose stools per day that are bright yellow. She is s/p cholecystectomy 15 years ago but these issues were present before. She has bright red blood within her stools. She is also having a lot of heartburn. She takes famotidine 40 mg BID this has not helped. SHe has never had an upper scope before. She is nauseous on most days but does not vomit. Colonoscopy 05.20.21; Hemorrhoids found on perianal exam. - Non-bleeding internal hemorrhoids. - Nodular ileal mucosa. Biopsied. - The examination was otherwise normal. I FORMERLY [facility] Medical History Wears glasses Gastric reflux History of irregular heartbeat Urinary frequency Hematuria Postauricular lymphadenopathy Contact with and (suspected) exposure to other viral communicable diseases Acute sinusitis, unspecified Contact with and (suspected) exposure to other viral communicable diseases Cervical lymphadenitis Cephalgia URI (upper respiratory infection) Cellulitis of lower back Right shoulder strain Cervical strain Wears dentures Depression Anemia Migraine headache History of IBS Smoker History of echocardiogram Hx of sinus tachycardia Cardiology follow-up encounter Nausea Abdominal pain of unknown etiology BRBPR (bright red blood per rectum) PTSD (post-traumatic stress disorder) Nicotine dependence Migraine Situational depression GERD (gastroesophageal reflux disease) Anxiety Home Medications ?Medication ?Instructions ?Recorded ?Last Taken ?Type acetaminophen 500 mg tablet 1,000 mg PO BID PRN pain 07/07/23 Unknown History (Tylenol Extra Strength) ibuprofen 200 mg tablet 400 mg PO Q6H PRN pain 07/07/23 Unknown History pantoprazole 40 mg tablet,delayed 40 mg PO QDAY #90 tabs 06/28/24 Unknown Rx release magnesium 200 mg tablet 200 mg PO BID 08/15/24 Unknown History Allergy/AdvReac Type Severity Reaction Status Date / Time ketorolac tromethamine (From Allergy Hives Verified 08/20/24 08:42 Toradol) sumatriptan (From Imitrex) Allergy Anaphylaxis Verified 08/20/24 08:42 sumatriptan succinate (From Allergy Anaphylaxis Verified 08/20/24 08:42 Imitrex) tramadol HCl (From Ultram) Allergy Hives Verified 08/20/24 08:42 epinephrine AdvReac Other Verified 08/20/24 08:42 morphine AdvReac Other Verified 08/20/24 08:42 procaine (From Novocain) AdvReac Other Verified 08/20/24 08:42 Family History Mother Hypertension High cholesterol Grandmother Diabetes Hypertension afib Father Hypertension High cholesterol Grandfather Cancer skin Hypertension Afib Grandmother Hypertension afib Colon cancer Diabetes Surgical History Hx of colonoscopy Hx laparoscopic cholecystectomy History of shoulder surgery History of left oophorectomy History of colonoscopy History of right oophorectomy History of bilateral salpingectomy History of cholecystectomy H/O: hysterectomy Social History number of children: 2 Smoking Status: Current every day smoker tobacco type: cigarettes Tobacco: How many years used: 8 second hand exposure: Yes alcohol intake: never substance use type: does not use caffeine: Yes (2) Type: carbonated beverages what type of physical activity do you participate in: none seatbelt use: always do you feel safe at home: Yes 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 Constitutional Constitutional: Denies fatigue, fever(s), poor appetite, weight gain or weight loss Gastrointestinal Gastrointestinal: Denies belching, bloating, change in bowel habits, change in stool character, chewing difficulty, coffee ground emesis, constipation, cramping, diarrhea, dyspepsia, dysphagia, early satiety, excessive flatus, fecal incontinence, heartburn, hematemesis, hematochezia, hemorrhoids, loose stools, melena, nausea, odynophagia, rectal bleeding, tenesmus, vomiting or weight changes Vital Signs Vital Signs Vital Signs: 08/20/24 08:42 08/20/24 08:42 Temperature 97.1 F L Temperature Source Temporal Pulse Rate 91 Respiratory Rate 16 Respiratory Pattern Normal Blood Pressure 112/55 L Blood Pressure Mean 74 Blood Pressure Source Monitor Blood Pressure Position Semi-Fowlers Blood Pressure Location Left Arm Pulse Ox 100 Oxygen Delivery Method Room Air Weight Weight: 162 lb Body Mass Index (BMI) 29.6 Physical Exam Const alert, oriented x3 and no apparent distress HEENT normocephalic and head/scalp atraumatic Resp normal respiratory effort Cardio regular rate GI soft to palpation; Negative for non-distended Palpation: tender LLQ; Negative for guarding Extremity no clubbing, cyanosis or edema Neuro CN's II-XII intact bilaterally Psych mental status grossly normal Assessment & Plan Assessment/Plan (1) Bloating: (2) Diarrhea: PLAN: Plan Assessment and Plan Assessment and Plan (1) Abdominal pain of unknown etiology: Status: Acute Comment: LLQ Plan: This is a 38 yo female pt here today for evaluation of abdominal pain and urgent diarrhea. Her last colonoscopy was in 2020 with nodular ilium and biopsy showing prominent lymphoid aggregates. I will order blood work for IBD, celiac or food allergens. I will also order stool testing with calprotectin, lactoferrin and elastase. She has blood in her stool and joint pain which makes me more concerned for IBD. She is also having issues with heartburn and has treated this with famotidine for some time now. She will undergo EGD to evaluate her upper GI tract to rule out GERD, ulcer or gastritis. We will consider further workup with colonoscopy if indicated. She is agreeable to this plan. -EGD -Stool test -blood work -Start PPI -Continue H2 elfego -consider colonoscopy (2) Diarrhea: Status: Inactive Orders: Orders IBD Expanded Profile Today R19.7 - Diarrhea, unspecified Celiac AB,Comprehensive Today R19.7 - Diarrhea, unspecified Allergen, Food Profile 14 Today R19.7 - Diarrhea, unspecified KIARA Comprehensive Panel Today R19.7 - Diarrhea, unspecified ANCA Today R19.7 - Diarrhea, unspecified ENTERIC PATHOGEN PANEL STOOL Today K58.9 - Irritable bowel syndrome, unspecified, R19.7 - Diarrhea, unspecified CRP Today R19.7 - Diarrhea, unspecified Erythrocyte Sed Rate Today R19.7 - Diarrhea, unspecified Immunoglobulins G/A/M/E Today R19.7 - Diarrhea, unspecified Ova and Parasites 8623 Today K58.9 - Irritable bowel syndrome, unspecified, R19.7 - Diarrhea, unspecified Pancreatic Elastase, Fecal Today R19.7 - Diarrhea, unspecified Stool Lactoferrin/WBC Today K58.9 - Irritable bowel syndrome, unspecified, R19.7 - Diarrhea, unspecified Giardia Lamblia, Stool EIA Today R19.7 - Diarrhea, unspecified Calprotectin, Stool Today R19.7 - Diarrhea, unspecified CBC W/Diff, Automated Today R19.7 - Diarrhea, unspecified Comprehensive Metabolic Profil Today R19.7 - Diarrhea, unspecified Medications: New pantoprazole 40 mg PO QDAY 90 tabs 2RF
[2024-08-20 10:30] VITALS: BP 102/59; BP 112/55; PULSE 76; RESP 18; TEMP 36.2; O2SAT 95
--- NOTE | 2024-08-20 10:31 | OP.EGD_ITS ---
Patient Name: Eliza Dallas Procedure Date: 08/20/2024 10:09 AM Date of : 1985 Age: 38 Procedure: Upper GI endoscopy Indications: Epigastric abdominal pain, Functional Dyspepsia Providers: Seymour Rocha DO Referring MD: Seymour Rocha DO Medicines: Monitored Anesthesia Care Patient Profile: This is a 38 year old female. Refer to note in patient chart for documentation of history and physical. Patient has symptoms of chronic abdominal cramping, chronic epigastric abdominal pain, chronic dyspepsia and chronic nausea. Complications: No immediate complications. Procedure: Pre-Anesthesia Assessment: - Prior to the procedure, a History and Physical was performed, and patient medications and allergies were reviewed. The patient is competent. The risks and benefits of the procedure and the sedation options and risks were discussed with the patient. All questions were answered and informed consent was obtained. Patient identification and proposed procedure were verified by the physician in the pre-procedure area. Mental Status Examination: alert and oriented. Respiratory Examination: clear to auscultation. CV Examination: normal. Prophylactic Antibiotics: The patient does not require prophylactic antibiotics. Prior Anticoagulants: The patient has taken no anticoagulant or antiplatelet agents. ASA Grade Assessment: II - A patient with mild systemic disease. After reviewing the risks and benefits, the patient was deemed in satisfactory condition to undergo the procedure. The anesthesia plan was to use monitored anesthesia care (MAC). Immediately prior to administration of medications, the patient was re-assessed for adequacy to receive sedatives. The heart rate, respiratory rate, oxygen saturations, blood pressure, adequacy of pulmonary ventilation, and response to care were monitored throughout the procedure. The physical status of the patient was re-assessed after the procedure. After obtaining informed consent, the endoscope was passed under direct vision. Throughout the procedure, the patient's blood pressure, pulse, and oxygen saturations were monitored continuously. The gastroscope was introduced through the mouth, and advanced to the second part of duodenum. The upper GI endoscopy was accomplished without difficulty. The patient tolerated the procedure well. Scope In: 10:15:41 AM Scope Out: 10:24:45 AM Total Procedure Duration Time 0 hours 9 minutes 4 seconds Findings: The Z-line was irregular and was found 40 cm from the incisors. Biopsies were taken with a cold forceps for histology. Verification of patient identification for the specimen was done. Estimated blood loss was minimal. Segmental mild inflammation characterized by erythema and friability was found in the gastric body. Biopsies were taken with a cold forceps for histology. Verification of patient identification for the specimen was done. Estimated blood loss was minimal. A single 5 mm angioectasia without bleeding was found in the duodenal bulb. Biopsies were taken with a cold forceps for histology. Verification of patient identification for the specimen was done. Coagulation for bleeding prevention using heater probe was successful. Estimated blood loss was minimal. Impression: - Z-line irregular, 40 cm from the incisors. Biopsied. - Chronic gastritis. Biopsied. - A single non-bleeding angioectasia in the duodenum. Biopsied. Treated with a heater probe. Recommendation: - Discharge patient to home. - Resume previous diet. - Continue present medications. - Await pathology results. Procedure Code(s): --- Professional --- 31774, 59, Esophagogastroduodenoscopy, flexible, transoral; with control of bleeding, any method 59681, 51, Esophagogastroduodenoscopy, flexible, transoral; with biopsy, single or multiple CPT copyright 2021 [employer]. All rights reserved. The codes documented in this report are preliminary and upon mechanical tech review may be revised to meet current compliance requirements. Seymour Rocha DO 08/20/2024 10:31:06 AM This report has been signed electronically. Number of Addenda: 0 Note Initiated On: 08/20/2024 10:09 AM
--- NOTE | 2024-08-20 10:31 | OP.CCLET_ITS ---
08/20/2024 Jani Christianson MD Re : Upper GI endoscopy procedure for Eliza Dallas Dear Dr. Christianson This procedure was performed on Tuesday, August 20, 2024. My impressions and recommendations are as follows: Impressions : - Z-line irregular, 40 cm from the incisors. Biopsied. - Chronic gastritis. Biopsied. - A single non-bleeding angioectasia in the duodenum. Biopsied. Treated with a heater probe. Recommendations : - Discharge patient to home. - Resume previous diet. - Continue present medications. - Await pathology results. My findings are described in the full procedure note, which is enclosed. If I can be of further assistance, please feel free to contact me at . Sincerely, Seymour Rocha, 08/20/2024 10:31:06 AM This report has been signed electronically.
--- NOTE | 2024-08-20 10:34 | PCM.POST.ANE ---
Anesthesia: Postop Eval I Current Vital Signs Temperature: 97.2 F Pulse Rate: 85 Blood Pressure: 102/59 Respiratory Rate: 16 Pulse Ox: 95 Oxygen Delivery Method: Room Air Assessment Airway patent: Yes Spontaneous unlabored respirations: Yes Mental status: Asleep nausea: No Vomiting: No Anesthesia Complication: No Fluid Hydration Crystalloid volume administer (ml): 40 Total IV fluid infused: 40 Progress Note Anesthesia document: Postop Eval 1 completed: Yes
[2024-08-20 10:35] VITALS: BP 102/59; BP 109/62; BP 112/55; PULSE 74; PULSE 85; RESP 12; RESP 16; TEMP 36.2; O2SAT 95; O2SAT 96
[2024-08-20 10:43] VITALS: BP 101/69; BP 112/55; PULSE 72; RESP 18; O2SAT 97
--- NOTE | 2024-08-20 10:43 | PCM.POSTANE2 ---
Anesthesia Postop Eval I Sum Postop Eval Completion status Anesthesia document: Postop Eval 1 completed: Yes Anesthesia Postop Eval I Summary Anesthesia Postop Eval I Summary: Anesthesia Postop Eval I: Assessment Summary Airway patent Yes 08/20/24 10:35 [email or web address] Spontaneous unlabored Yes 08/20/24 10:35 [email or web address] respirations Mental status Asleep 08/20/24 10:35 [email or web address] nausea No 08/20/24 10:35 [email or web address] Vomiting No 08/20/24 10:35 [email or web address] Anesthesia Postop Eval I: Fluid Summary Crystalloid volume administer 40 08/20/24 10:35 [email or web address] (ml) Colloids volume administered ( ml) Blood Product volume administered (ml) Total IV fluid infused 40 08/20/24 10:35 [email or web address] Anesthesia Postop Eval I: Summary Notes Anesthesia Complication No 08/20/24 10:35 [email or web address] Anesthesia Complication Comment: Post-operative progress note Anesthesia: Postop Eval II Evaluation Mental status: Awake Pain Level: 0 nausea: No Vomiting: No
[2024-08-20 10:45] VITALS: BP 106/69; BP 112/55; PULSE 87; RESP 16; TEMP 36.7; O2SAT 97
[2024-08-20 11:10] VITALS: BP 112/55
== END 2024-08-20 11:17 | disposition home or self-care (01) ==
LOC: EN 08:22 → AC 08:23
PROVIDERS: PCP Family Medicine; Referring Provider Family Medicine; Visit Provider Internal Medicine Gastroenterology
PROC: 0DJ08ZZ Inspection of Upper Intestinal Tract, Via Natural or Artificial Opening Endoscopic (ICD-10-PCS; CPT 43235; principal; 2024-08-20 09:25)
DX: K29.50 Unspecified chronic gastritis without bleeding (principal); K21.00 Gastro-esophageal reflux disease with esophagitis, without bleeding; R14.0 Abdominal distension (gaseous); F17.210 Nicotine dependence, cigarettes, uncomplicated; Z79.899 Other long term (current) drug therapy
CPT/HCPCS: 43239; 43255; 88305; 88312; 88342; A4216; J2405

== ENCOUNTER → 2025-07-05 | Outpatient (CLI) | payer MEDICAID, SELFPAY ==
--- NOTE | 2025-07-05 09:11 | US_ITS ---
PROCEDURE: BREAST LIMITED UNILATERAL 07/05/2025 REASON FOR EXAM: F, Age 39 y/o , RIGHT BREAST DISCHARGE. Nipple discharge was dark black thin it was a yellowish whitish color and now it is bloody. Inconclusive mammogram. Evaluate. COMPARISON: Mammogram studies dated 06/27/2025 and 11/13/2017. TECHNIQUE: Procedure Code: USBRSTLIMIT Modality: US Procedure: BREAST LIMITED UNILATERAL FINDINGS: There is no ultrasound abnormality in the right breast to correlate to the nipple discharge. The tubular structure seen on the mammogram appears to represent a duct with surrounding echogenic normal- appearing breast parenchymal tissue. There are no filling defects seen in any of the ducts. There are no suspicious solid masses seen. US/Breast Limited Unilateral IMPRESSION: There is no ultrasound abnormality to correlate to the nipple discharge. A gal actogram or breast MRI with and without IV contrast should be performed for further evaluation. BI-RADS 0: INCOMPLETE - NEED ADDITIONAL IMAGING EVALUATION. RECOMMENDATION: MRI Recommended or a galactogram of the right breast. Reading Location: [id number]
--- OUTSIDE RECORDS SUMMARY | 2025-07-05 09:27 | XMS RPT_ITS | CCD ---
Author Organization [facility] Care Team Providers Care Inspector [employer] Name Role Phone Sokari, Telemate Admitting Unavailable Sokari, Telemate Attending Unavailable Jani Starkey Primary Care Unavailable Jani Starkey Primary Care Unavailable Callands, Samantha A Admitting Unavailable Callands, Samantha Harini Attending Unavailable Jani Starkey Primary Care Unavailable Callands, Samantha Harini Admitting Unavailable Callands, Samantha Harini Attending Unavailable Unavailable Primary Care Provider Unavailabl e No Family, Physician Primary Care Unavailable Jani Starkey MD Primary Care Provider [phone] Jani Starkey Primary Care Provider Dr. Jani Starkey Referring Provider DONALD Ziegler Attending Provider JANI STARKEY Primary Care Unavailable PHYSICIANS, [facility] Admitting Unav ailable MARI SANCHEZ Referring Unava ilable aJni Starkey MD Primary Care Provider Jani Starkey MD Primary Care Provider Jani Starkey MD Primary Care Provider Dr. Jani Starkey Primary Care Provider Dr. Jani Starkey Referring Provider DONALD Richmond Attending Provider DONALD Ziegler Attending Provider Dr. Karrie Rdz Attending Provider DONALD Hernández Attending Provider Dr. Raj Zayas Attending Provider SONIYA SCHWARTZ Unavailable Unavailable Bessie Clarke Unavailable Unavailabl e Soniya Schwartz Primary Care Unavailable Bessie Clarke Attending Unavailable Jani Starkey MD Primary Care Provider Dr. Jani Starkey Primary Care Provider Dr. Jani Starkey Referring Provider DONALD Ziegler Attending Provider Jani Starkey MD Primary Care Provider [id number] [phone] JANI STARKEY Primary Care Unavailable SCOTT MCKNIGHT Attending UnavailSCOTT Travis Attending Unavaila JANI Story Primary Care Unavailable Dr. Jani Starkey Primary Care Provider Dr. Jani Starkey Referring Provider DONALD Garcia Attending Provider ODNALD Ziegler Attending Provider Dr. Jani Starkey Primary Care Provider Dr. Jani Starkey Referring Provider DONALD Ziegler Attending Provider DONALD Richmond Attending Provider Dr. Raj Zayas Attending Provider DONALD Richmond Referring Provider DONALD Richmond Other Provider Dr. Beltran Peterson Attending Provider Jani Starkey MD Primary Care Provider Jani Starkey MD Primary Care Provider Lakeisha BRIAN.Sveta TYSON Unavailable Shelbi Whitfield PA-C Unavailable JANI STARKEY Primary Care Unavailable JANI STARKEY Primary Care Unavailable JANI STARKEY Primary Care Unavailable MEAGAN MEJIA Referring Unavailable JAKY, JANI A Primary Care Unavailable NICHOLAS TEJEDA Attending Unavailab le JAKY, JANI A Primary Care Unavailable JAKY, JANI A Primary Care Unavailable ANGEL MENDEZ Attending Unavaila ble Jaky, Jani Referring Unavailable Jaky, Jani Primary Care Unavailable Friend, Seymour Consulting Unavailable Friend, Seymour Attending Unavailable Karrie Rdz Attending Unavailable Jaky, Jani Referring Unavailable Jaky, Jani Primary Care Unavailable Clarisse Ziegler Attending Unavailable Jaky, Jani Referring Unavailable Jaky, Jani Primary Care Unavailable Jaky, Jani Referring Unavailable Jaky, Jani Primary Care Unavailable Friend, Seymour Attending Unavailable Claire Burt Attending Unavailable Claire Burt Referring Unavailable Jaky, Jani Primary Care Unavailable Karrie Rdz Referring Unavailable Adelia Shaw Attending Unavailable Jaky, Jani Primary Care Unavailable Claire Burt Attending Unavailable Jaky, Jani Primary Care Unavailable Jaky, Jani Referring Unavailable Claire Burt Attending Unavailable Jaky, Jani Referring Unavailable Jaky, Jani Primary Care Unavailable Allergies Allergy Classification Reported Allergen(s) Allergy Type Date of Onset Reaction(s) Facility (1 source) Ketorolac; Translations: [Toradol] Drug Allergy [facility] Repository (2 sources) SUMAtriptan; Translations: [Imitrex] Drug Allergy Other [facility] Repository (1 source) traMADol; Translations: [Ultram] Drug Allergy [facility] Repository (20 sources) Ketorolac; Translations: [KETOROLAC TROMETHAMINE] Drug Allergy 3 Hives, Itching [facility] Work Phone: (20 sources) Morphine; Translations: [MORPHINE] Drug Allergy 3 GI Upset, GI Intolerance, Other (See Comments) [facility] (11 sources) SUMAtriptan; Translations: [SUMATRIPTAN] Drug Allergy 9 Anaphylaxis, Other (See Comments) [facility] (20 sources) SUMAtriptan; Translations: [SUMATRIPTAN SUCCINATE] Drug Allergy 3 Swelling [facility] Work Phone: (8 sources) traMADol; Translations: [tramadol HCl] Drug Allergy 2 Hives [facility] (3 sources) novocaine with epinephrine Propensity to adverse reactions 2 tachy and hypotensive [facility] Work Phone: (20 sources) busPIRone; Translations: [BUSPIRONE HCL] Drug Allergy 6 Other: See Comments, Other (See Comments) [facility] Work Phone: (20 sources) Loperamide; Translations: [LOPERAMIDE HCL] Drug Allergy 6 GI Upset, GI Intolerance [facility] Work Phone: (20 sources) traMADol; Translations: [TRAMADOL] Drug Allergy 1 Hives, Itching [facility] (8 sources) EPINEPHrine; Translations: [EPINEPHRINE] Drug Allergy 2 Other (See Comments) [facility] (8 sources) Procaine; Translations: [PROCAINE] Drug Allergy 2 Other (See Comments) [facility] (4 sources) Ketorolac; Translations: [KETOROLAC] Drug Allergy 9 Hives [facility] (1 source) EPINEPHrine Drug Allergy 5 [facility] Repository (1 source) Morphine Drug Allergy 5 [facility] Repository (1 source) Procaine Drug Allergy 5 [facility] Repository (1 source) SUMAtriptan Drug Allergy 5 [facility] Repository Medications Current Medications Medication Drug Class(es) Dates Sig (Normalized) Sig (Original) acetaminophen 325 mg / oxyCODONE hydrochloride 5 mg oral tablet (20 sources) Opioid Agonist Start: 06-18-2022 take 1 tablet by mouth every six hours Oxycodone-Acetami nophen (Percocet) 5-325 mg tablet Active 1 TABLET PO EVERY 6 HOURS 12 3 June 18, 2022 Start: 05-27-2020 End: 06-03-2020 take 1 tablet by mouth every six hours as needed Oxycodone-Acetaminophen Discontinued 1 - 2 TABLET PO EVERY 6 HOURS NEEDED 24 02May 27, 2020 June 02, 2020 11:03pm Start: 08-22-2019 End: 08-27-2019 take 1 tablet by mouth every six hours as needed Oxycodone-Acetaminophen Discontinued 1 - 2 TABLET PO EVERY 6 HOURS NEEDED 02 01August 22, 2019 August 27, 2019 12:08am Start: 01-06-2017 End: 09-20-2017 take 2 tablets by mouth every four hours as needed Oxycodone-Acetaminophen Discontinued 2 TABLET PO EVERY 4 HOURS NEEDED January 05, 2017 11:00pm September 20, 2017 11:46am amoxicillin 875 mg oral tablet (7 sources) Penicillin-class Antibacterial Start: 04-17-2024 End: 04-24-2024 take 1 tablet by mouth twice daily amoxicillin (AMOXIL) 875 mg tablet Indications: Acute otitis media, left Take 1 tablet by mouth two times a day for 7 days. 14 tablet 04/17/2024 04/24/2024 Active Start: 08-12-2022 End: 08-22-2022 take 500 mg by mouth three times daily Amoxicillin Discontinued 500 MG PO THREE TIMES A DAY 06 06August 12, 2022 12:00am August 22, 2022 12:05am cephalexin 500 mg oral capsule (8 sources) Cephalosporin Antibacterial Start: 02-10-2023 End: 02-17-2023 take 1 capsule by mouth four times daily cephALEXin (KEFLEX) 500 MG capsule Take 1 (one) capsule (500 mg total) by mouth 4 (four) times a day for 7 days . 28 capsule 0 02/10/2023 02/17/2023 Active Start: 01-27-2023 End: 02-03-2023 take 1 capsule by mouth four times daily cephALEXin (KEFLEX) 500 MG capsule Take 1 (one) capsule (500 mg total) by mouth 4 (four) times a day for 7 days . 28 capsule 0 01/27/2023 02/03/2023 Active Start: 01-20-2023 End: 01-30-2023 take 500 mg by mouth three times daily Cephalexin Discontinued 500 MG PO THREE TIMES A DAY 30 January 19, 2023 11:00pm January 29, 2023 11:04pm cyclobenzaprine hydrochloride 10 mg oral tablet (20 sources) Muscle Relaxant Start: 06-02-2023 take 10 mg by mouth three times daily Cyclobenzaprine Active 10 MG PO THREE TIMES A DAY June 01, 2023 11:00pm Start: 05-05-2022 End: 11-28-2023 take 1 tablet by mouth every twenty-four hours as needed cyclobenzaprine (FLEXERIL) 5 mg tablet Take 1 tablet by mouth at bedtime as needed. 0 05/05/2022 11/28/2023 Discontinued Start: 11-04-2021 End: 05-14-2022 take 10 mg by mouth three times daily Cyclobenzaprine Discontinued 10 MG PO THREE TIMES A DAY November 03, 2021 11:00pm May 14, 2022 1:19pm Comment on above: Take 1 tablet by radha th at bedtime as needed. famotidine 20 mg oral tablet (14 sources) Histamine-2 Receptor Antagonist Start: 11-28-19 End: 11-28-19 take 1 tablet by mouth twice daily famotidine (PEPCID) 20 mg tablet Take 1 tablet by mouth two times a day. 11/28/2023 Active hydrOXYzine hydrochloride 10 mg oral tablet (20 sources) Antihistamine Start: 11-28-19 take 1 tablet by mouth every eight hours as needed hydrOXYzine HCl (ATARAX) 10 mg tablet Take 1 tablet by mouth three times a day as needed for anxiety. 90 tablet 1 11/28/2023 Active Start: 06-24-2021 End: 11-28-2023 take 1 tablet by mouth every six hours as needed for anxiety and anxiety hydrOXYzine HCl (ATARAX) 25 mg tablet Indications: Anxiety Take 1 tablet by mouth every 6 hours as needed for anxiety. 30 tablet 2 03/31/2022 11/28/2023 Discontinued Comment on above: Take 1 tablet by radha th every 6 hours as needed for anxiety. ibuprofen 600 mg oral tablet (20 sources) Nonsteroidal Anti-inflammatory Drug Start: 05-05-2022 End: 08-30-2022 take 1 tablet by mouth every eight hours as needed ibuprofen (MOTRIN) 600 mg tablet Take 600 mg by mouth three times daily as needed. 05/05/2022 Active Start: 04-22-2020 End: 07-22-2020 take 200 mg by mouth every six hours Ibuprofen Discontinued 200 MG PO EVERY 6 HOURS April 21, 2020 11:00pm July 22, 2020 3:22pm take 1 tablet by radha th every six hours as needed for pain ibuprofen (ADVIL,MOTRIN) 200 MG tablet Take 1 (one) tablet (200 mg total) by mouth every 6 (six) hours as needed for pain . 0 Active Comment on above: Take 600 mg by mouth three times daily as needed. iv contrast (will be provided with radiology test) (1 source) Start: 2 End: 2 iv contrast (will be provided with radiology test) Indications: Acute intractable headache, unspecified headache type MRA Brain Inject, intravenously, once for 1 dose. No IV access, insert saline lock prior to the beginning of sedation, infusion, injection of imaging exam. Discontinue saline lock post exam. If Pt. has a central line or IVAD, may access for administration according to line specific nursing protocol. Once exam is complete flush line and de-access according to line specific nursing protocol in the MR contrast administration guidelines link. 1 Each 0 12/14/2021 12/15/2021 Active Comment on above: MRA Brain Inject, in travenously, once for 1 dose. No IV access, insert saline lock prior to the beginning of sedation, infusion, injection of imaging exam. Discontinue saline lock post exam. If Pt. has a central line or IVAD, may access for administration according to line specific nursing protocol. Once exam is complete flush line and de-access according to line specific nursing protocol in the MR contrast administration guidelines link. meloxicam 15 mg oral tablet (20 sources) Nonsteroidal Anti-inflammatory Drug Start: 3 take 15 mg by mouth once daily Meloxicam Active 15 MG PO DAILY June 01, 2023 11:00pm Do not take in conjunction with other NSAIDs. Tylenol is okay. Start: 04-07-2022 End: 05-14-2022 take 15 mg by mouth once daily Meloxicam Discontinued 15 MG PO DAILY April 06, 2022 11:00pm May 14, 2022 1:19pm Do not take in conjunction with other NSAIDs. Tylenol is okay. Start: 05-28-2019 End: 06-21-2019 take 15 mg by mouth once daily Meloxicam Discontinued 15 MG PO DAILY May 27, 2019 11:00pm June 21, 2019 9:03am Start: 09-11-2018 End: 11-06-2018 take 1 tablet by mouth once daily Meloxicam (Mobic) 15 mg tablet Discontinued 15 MG PO DAILY September 11, 2018 12:00am November 06, 2018 1:22pm mupirocin 0.02 mg/mg topical ointment (6 sources) RNA Synthetase Inhibitor Antibacterial Start: 08-24-2022 End: 08-29-2022 mupirocin (BACTROBAN) 2 % ointment Apply to affected area three times daily for 5 days. 30 g 0 08/24/2022 08/29/2022 Active Start: 06-21-2022 End: 08-30-2022 Mupirocin Discontinued 1 VERONICA LIC TOPICAL TWICE A DAY June 21, 2022 1:00am August 30, 2022 2:05pm Start: 06-21-2022 End: 08-30-2022 Mupirocin Discontinued 1 VERONICA LIC TOPICAL TWICE A DAY June 21, 2022 12:00am August 30, 2022 1:05pm Comment on above: Apply to affected ar ea three times daily for 5 days. [place] (Nk) (1 source) Start: 08-30-2022 [place] (Nk) Active August 30, 2022 12:00am predniSONE 20 mg oral tablet (1 source) Start: 04-28-2022 End: 05-03-2022 take 2 tablets by mouth once daily predniSONE (DELTASONE) 20 mg tablet Take 2 tablets by mouth once daily for 5 days. 10 tablet 0 04/28/2022 05/03/2022 Active Comment on above: Take 2 tablets by [facility] once daily for 5 days. Completed/Discontinued Medications Medication Drug Class(es) Dates Sig (Normalized) Sig (Original) acetaminophen 325 mg oral tablet (7 sources) Start: 04-22-2020 End: 07-22-2020 take 1 tablet by mouth once Acetaminophen (Tylenol) 325 mg tablet Discontinued 325 MG PO ONCE April 21, 2020 11:00pm July 22, 2020 3:22pm acetaminophen 325 mg / HYDROcodone bitartrate 5 mg oral tablet (14 sources) Opioid Agonist Start: 10-25-2017 End: 08-09-2018 take 1 tablet by mouth every four hours as needed Hydrocodone-Acetami nophen Discontinued 1 - 2 TABLET PO EVERY 4 HOURS NEEDED 25 12October 24, 2017 11:00pm August 09, 2018 9:41am Start: 12-29-2016 End: 09-20-2017 take 1 tablet by mouth every six hours Hydrocodone-Acetaminophen Discontinued 1 - 2 TABLET PO EVERY 6 HOURS December 28, 2016 11:00pm September 20, 2017 11:45am ALPRAZolam 0.5 mg oral tablet (7 sources) Benzodiazepine Start: 11-14-2018 End: 11-21-2018 Alprazolam (Xanax) 0.5 mg tablet Discontinued 0.5 MG PO 2 to 3 times per day 20 November 13, 2018 11:00pm November 20, 2018 11:09pm amoxicillin 875 mg / clavulanate 125 mg oral tablet (17 sources) Penicillin-class Antibacterial Start: 12-23-2021 End: 05-05-2023 amoxicillin-clavul anic acid (AUGMENTIN) 875-125 mg per tablet Take by mouth. 0 12/23/2021 05/05/2023 Discontinued (Course of therapy completed) Comment on above: Take by mouth. baclofen 5 mg oral tablet (5 sources) gamma-Aminobutyric Acid-ergic Agonist Start: 05-27-2022 End: 08-30-2022 take 2 tablets by mouth three times daily Baclofen Discontinued 5 MG PO THREE TIMES A DAY May 26, 2022 11:00pm August 30, 2022 1:05pm May increase to 2 tabs (10mg) TID after 3 days 24 hr buPROPion hydrochloride 150 mg extended release oral tablet (7 sources) Aminoketone Start: 11-23-2017 End: 11-06-2018 take 1 tablet by mouth once daily in the morning Bupropion Hcl (Wellbutrin Xl) 150 mg tablet extended release 24 hr Discontinued 150 MG PO EVERY MORNING November 22, 2017 11:00pm November 06, 2018 1:22pm cefadroxil 500 mg oral capsule (5 sources) Cephalosporin Antibacterial Start: 05-05-2023 End: 11-28-2023 take 1 capsule by mouth twice daily cefADROxil (DURICEF) 500 mg capsule Take 1 capsule by mouth twice daily. 20 capsule 0 05/05/2023 11/28/2023 Discontinued Comment on above: Take 1 capsule by [facility] twice daily. ciprofloxacin 500 mg oral tablet (6 sources) Quinolone Antimicrobial Start: 12-25-2021 End: 05-14-2022 take 500 mg by mouth twice daily Ciprofloxacin Hcl Discontinued 500 MG PO TWICE A DAY December 24, 2021 11:00pm May 14, 2022 1:19pm clindamycin 300 mg oral capsule (12 sources) Lincosamide Antibacterial Start: 06-18-2022 End: 08-30-2022 take 1 capsule by mouth four times daily Clindamycin Hcl (Cleocin Hcl) 300 mg capsule Discontinued 300 MG PO 4 TIMES DAILY 40 June 18, 2022 12:00am August 30, 2022 1:05pm Start: 09-27-2018 End: 11-06-2018 take 300 mg by mouth every six hours Clindamycin Hcl Discontinued 300 MG PO EVERY 6 HOURS 40 September 27, 2018 12:00am November 06, 2018 1:22pm dicyclomine hydrochloride 10 mg oral capsule (7 sources) Anticholinergic Start: 11-14-2015 End: 09-20-2017 take 10 mg by mouth at bedtime Dicyclomine Discontinued 10 MG PO BEFORE MEALS AND AT BEDTIME November 13, 2015 11:00pm September 20, 2017 11:45am docusate sodium 100 mg oral capsule (7 sources) Start: 05-27-2020 End: 07-22-2020 take 100 mg by mouth twice daily Docusate Sodium Discontinued 100 MG PO TWICE A DAY May 26, 2020 11:00pm July 22, 2020 3:22pm escitalopram 10 mg oral tablet (7 sources) Serotonin Reuptake Inhibitor Start: 07-22-2020 End: 01-30-2021 take 1 tablet by mouth once daily Escitalopram Oxalate (Lexapro) 10 mg tablet Discontinued 10 MG PO DAILY July 22, 2020 12:00am January 30, 2021 9:11am 84 hr estradiol 0.53118 mg/hr transdermal system (20 sources) Estrogen Start: 05-26-2021 End: 12-14-2021 IRAIS 0.05 mg/24 hr apply 1 patch two times a week as directed (1 PATCH FOR 4 DAYS ALTERNATING WITH 1 PATCH FOR 3 DAYS) 0 05/26/2021 12/14/2021 Discontinued Start: 09-25-2020 End: 05-15-2021 Estradiol Discontinued 1 PAT CH TD TWICE A WEEK October 21, 2020 3:13pm January 30, 2021 9:18am apply 1 patch for 3 days alternating with 1 patch for 4 days each week for 3 wks per 4-wk cycle Start: 05-27-2020 End: 10-21-2020 Estradiol Discontinued 0.1 M G TRANSDERM. .2X/WEEK May 26, 2020 11:00pm October 21, 2020 3:14pm estradioL (VIVEL LE-DOT,DAVID) 0.05 mg/[address] 1 patch on the skin twice weekly . 0 Active Comment on above: apply 1 patch two ti mes a week as directed (1 PATCH FOR 4 DAYS ALTERNATING WITH 1 PATCH FOR 3 DAYS) etodolac 300 mg oral capsule (5 sources) Nonsteroidal Anti-inflammatory Drug Start: 2 End: 2 take 300 mg by mouth every eight hours Etodolac Discontinued 300 MG PO Q8H May 26, 2022 11:00pm June 21, 2022 9:02am FLUoxetine 20 mg oral capsule (20 sources) Serotonin Reuptake Inhibitor Start: 2 End: 2 take 1 capsule by mouth once daily Fluoxetine (Prozac) 20 mg capsule Discontinued 20 MG PO DAILY December 03, 2021 11:00pm May 14, 2022 1:19pm Start: 09-29-2021 End: 11-28-2023 take 1 capsule by mouth once daily FLUoxetine (PROZAC) 10 mg capsule Indications: Anxiety Take 1 capsule by mouth once daily. 30 capsule 0 09/29/2021 11/28/2023 Discontinued Comment on above: Take 1 capsule by [facility] once daily. Lidocaine (6 sources) Antiarrhythmic, Amide Local Anesthetic Start: 02-10-2023 End: 02-10-2023 lidocaine 20 mg/mL (2 %) injection 3 mL Start: 01-27-2023 End: 01-27-2023 lidocaine 20 mg/mL (2 %) inj ection 3 mL LORazepam 1 mg oral tablet (20 sources) Benzodiazepine Start: 11-08-2022 End: 05-17-2023 take 1 tablet by mouth twice daily Lorazepam (Ativan) 1 mg tablet Discontinued 1 MG PO TWICE A DAY May 17, 2023 10:35am May 17, 2023 3:41pm Start: 06-11-2021 End: 07-13-2021 take 1 tablet by mouth three times daily Lorazepam (Ativan) 1 mg tablet Discontinued 1 MG PO THREE TIMES A DAY June 10, 2021 11:00pm July 13, 2021 8:35am Start: 11-20-2020 End: 12-08-2020 take 2 mg by mouth twice daily Lorazepam Discontinued 2 MG PO TWICE A DAY November 20, 2020 7:04am December 08, 2020 3:44pm Start: 07-25-2020 End: 11-20-2020 take 1 tablet by mouth twice daily Lorazepam (Ativan) 1 mg tablet Discontinued 1 MG PO TWICE A DAY November 14, 2020 2:23pm November 20, 2020 7:05am metoprolol tartrate 25 mg oral tablet (14 sources) beta-Adrenergic Bree Start: 12-31-2018 End: 02-22-2019 take 12.5 mg by mouth twice daily Metoprolol Tartrate Discontinued 12.5 MG PO TWICE A DAY January 04, 2019 12:12pm February 22, 2019 6:02pm MULTIVITAMIN ORAL (20 sources) End: 11-28-2023 MULTIVITAMIN ORAL Take by mouth. 0 11/28/2023 Discontinued MULTIVITAMIN ORA L Take by mouth. 0 Active Comment on above: Take by mouth. nabumetone 500 mg oral tablet (14 sources) Nonsteroidal Anti-inflammatory Drug Start: 0 End: 0 take 500 mg by mouth twice daily Nabumetone Discontinued 500 MG PO TWICE A DAY May 19, 2020 10:26am July 22, 2020 3:22pm naproxen 250 mg oral tablet (14 sources) Nonsteroidal Anti-inflammatory Drug Start: 0 End: 0 take 250-500 mg by mouth every eight hours as needed Naproxen Discontinued 250 - 500 MG PO EVERY 8 HOURS NEEDED May 26, 2020 11:00pm July 22, 2020 3:22pm Start: 10-25-2017 End: 11-06-2018 take 500 mg by mouth twice daily as needed Naproxen Discontinued 500 MG PO TWICE DAILY NEEDED October 24, 2017 11:00pm November 06, 2018 1:22pm oxyCODONE hydrochloride 5 mg oral tablet (4 sources) Opioid Agonist Start: 06-19-2022 End: 08-30-2022 take 5 mg by mouth every six hours Oxycodone Discontinued 5 MG PO EVERY 6 HOURS 8 June 19, 2022 August 30, 2022 1:05pm potassium chloride 20 meq extended release oral tablet (6 sources) Start: 12-25-2021 End: 05-14-2022 take 20 mEq by mouth twice daily Potassium Chloride Discontinued 20 MEQ PO TWICE A DAY December 24, 2021 11:00pm May 14, 2022 1:19pm promethazine hydrochloride 25 mg oral tablet (13 sources) Phenothiazine Start: 12-25-2021 End: 05-14-2022 take 25 mg by mouth every six hours as needed Promethazine Discontinued 25 MG PO EVERY 6 HOURS NEEDED December 24, 2021 11:00pm May 14, 2022 1:19pm Start: 11-23-2017 End: 11-06-2018 take 1 tablet by mouth every six hours promethazine 12.5 mg tablet Discontinued 12.5 MG PO EVERY 6 HOURS 60 November 22, 2017 11:00pm November 06, 2018 1:22pm sulfamethoxazole 800 mg / trimethoprim 160 mg oral tablet (5 sources) Dihydrofolate Reductase Inhibitor Antibacterial, Sulfonamide Antimicrobial Start: 05-14-2022 End: 05-24-2022 take 1 tablet by mouth twice daily Sulfamethoxazole-Trimethoprim (Bactrim Ds) 800-160 mg tablet Discontinued 1 TABLET PO TWICE A DAY 20 May 13, 2022 11:00pm May 23, 2022 11:03pm triamcinolone acetonide 40 mg/ml injectable suspension (6 sources) Corticosteroid Start: 11-04-2021 End: 11-04-2021 inject 20 mg by intramuscula r injection once Kenalog (triamcinolone acetonide) 40 mg/mL suspension for injection Discontinued 20 MG IM ONCE 0.5 November 04, 2021 11:53am November 04, 2021 12:22pm Start: 12-14-2018 End: 12-14-2018 Kenalog (triamcinolone aceto nide) 40 mg/mL suspension for injection Discontinued 40 MG intrabursal ONCE December 14, 2018 12:06pm December 14, 2018 2:23pm Start: 08-09-2018 End: 08-09-2018 Kenalog (triamcinolone aceto nide) 40 mg/mL suspension for injection Discontinued 80 MG INTRAARTIC ONCE 2 August 09, 2018 10:33am August 09, 2018 11:26am varenicline 1 mg oral tablet (14 sources) Partial Cholinergic Nicotinic Agonist Start: 11-16-2017 End: 02-08-2018 take 1 tablet by mouth twice daily Varenicline (Chantix Continuing Month Box) 1 mg tablet Discontinued 1 MG PO TWICE A DAY 168 84 November 15, 2017 11:00pm February 07, 2018 11:06pm begin after the first month prescription of chantix Start: 11-16-2017 End: 11-06-2018 take 1 tablet by mouth once Varenicline (Chantix Start ing Month Box) 0.5 mg (11)- 1 mg (42) tablets,dose pack Discontinued 0 PO per package directions 53 November 15, 2017 11:00pm November 06, 2018 1:22pm PO PER PKG DIR 24 hr venlafaxine 75 mg extended release oral capsule (7 sources) Serotonin and Norepinephrine Reuptake Inhibitor Start: 09-20-2017 End: 10-06-2017 take 1 capsule by mouth every twenty-four hours at bedtime Venlafaxine (Effexor Xr) 75 mg capsule,extended release 24hr Discontinued 75 MG PO AT BEDTIME September 20, 2017 12:00am October 06, 2017 11:45am zolpidem tartrate 5 mg oral tablet (7 sources) gamma-Aminobutyric Acid-ergic Agonist Start: 08-22-2019 End: 09-04-2019 take 5 mg by mouth at bedtime as needed Zolpidem Discontinued 5 MG PO AT BEDTIME NEEDED August 22, 2019 12:00am September 04, 2019 10:02am Problems Active Problems Problem Classification Problem Date Documented Da te Episodic/Chronic Acquired foot deformities (2 sources) Talipes cavus; Translations: [Congenital pes cavus, unspecified foot] Episodic Anxiety disorders (20 sources) Anxiety; Translations: [Anxiety disorder, unspecified] Onset: 3 10-29-2015 Chronic Disorders of teeth and jaw (7 sources) Dental abscess; Translations: [Periapical abscess without sinus] 09-28-2018 Episodic E Codes: Natural/environment (2 sources) Repetitive motion disorder; Translations: [Overexertion from repetitive movements, initial encounter] Episodic Esophageal disorders (14 sources) Gastroesophageal reflux disease without esophagitis; Translations: [Gastro-esophageal reflux disease without esophagitis] Onset: 4 11-28-2023 Chronic Fever of unknown origin (1 source) Fever; Translations: [Fever, unspecified] Episodic Fluid and electrolyte disorders (6 sources) Hypokalemia, gastrointestinal losses; Translations: [Hypokalemia] 01-02-2022 Episodic Gastrointestinal hemorrhage (7 sources) Gastrointestinal hemorrhage; Translations: [Hemorrhage of anus and rectum] 04-17-2021 Episodic Headache; including migraine (10 sources) Acute headache; Translations: [Acute intractable headache, unspecified headache type] Episodic Joint disorders and dislocations; trauma-related (1 source) Patellofemoral disorders, left knee; Translations: [Pain in joint, lower leg] Chronic Lymphadenitis (13 sources) Cervical lymphadenitis; Translations: [Nonspecific lymphadenitis, unspecified] Episodic Nausea and vomiting (7 sources) Nausea; Translations: [Nausea] 04-17-2021 Episodic Noninfectious gastroenteritis (1 source) Gastroenteritis; Translations: [Noninfective gastroenteritis and colitis, unspecified] 05-05-2023 Episodic Nonmalignant breast conditions (7 sources) Breast lump; Translations: [Unspecified lump in the left breast, upper outer quadrant] 01-30-2021 Episodic Open wounds of extremities (6 sources) Open wound of toe; Translations: [Unspecified open wound of left great toe without damage to nail, sequela] Onset: 3 02-10-2023 Episodic Other aftercare (1 source) Post-discharge follow-up; Translations: [Encounter for follow-up examination after completed treatment for conditions other than malignant neoplasm] Episodic Other aftercare (6 sources) Wound finding; Translations: [Encounter for other specified aftercare] 01-02-2022 Episodic Other congenital anomalies (3 sources) Syndactyly, unspecified; 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] Onset: 3 01-27-2023 Chronic Other connective tissue disease (4 sources) Pain in right foot; Translations: [Pain in right foot] Episodic Other connective tissue disease (5 sources) Spasm of cervical paraspinous muscle; Translations: [Other muscle spasm] 05-27-2022 Episodic Other connective tissue disease (2 sources) Other muscle spasm; Translations: [Spasm of muscle] Episodic Other connective tissue disease (2 sources) Pain of toe of left foot; Translations: [Pain in left toe(s)] 02-06-2024 Episodic Other female genital disorders (20 sources) Deep pain on intercourse; Translations: [Deep dyspareunia] Onset: 7 12-08-2016 Chronic Other female genital disorders (7 sources) Mass of uterine adnexa; Translations: [Other specified conditions associated with female genital organs and menstrual cycle] 01-30-2021 Episodic Other gastrointestinal disorders (14 sources) Irritable bowel syndrome with diarrhea; Translations: [Irritable bowel syndrome with diarrhea] Onset: 4 11-28-2023 Chronic Other gastrointestinal disorders (6 sources) Acute diarrhea; Translations: [Diarrhea, unspecified] 01-02-2022 Episodic Other non-traumatic joint disorders (2 sources) Shoulder pain; Translations: [Pain in right shoulder] 05-27-2022 Episodic Other non-traumatic joint disorders (3 sources) Pain in right shoulder; Translations: [Right shoulder pain] 05-27-2022 Episodic Other skin disorders (3 sources) Ingrowing great toenail; Translations: [Ingrowing nail] 01-27-2023 Episodic Other skin disorders (3 sources) Ingrowing nail; Translations: [Ingrowing nail] Onset: 3 Episodic Other skin disorders (3 sources) Ingrowing nail of toe of left foot; Translations: [Ingrowing nail] 01-20-2023 Episodic Other upper respiratory infections (16 sources) Upper respiratory infection; Translations: [Acute upper respiratory infection, unspecified] Episodic Otitis media and related conditions (1 source) Acute left otitis media; Translations: [Otitis media, unspecified, left ear] 04-17-2024 Episodic Residual codes; unclassified (1 source) Pain, unspecified; Translations: [Pain, unspecified] Onset: 5 Episodic Skin and subcutaneous tissue infections (20 sources) Cellulitis of trunk; Translations: [Cellulitis of back [any part except buttock]] Episodic Spondylosis; intervertebral disc disorders; other back problems (14 sources) Degeneration of cervical intervertebral disc; Translations: [Other cervical disc degeneration, unspecified cervical region] Onset: 4 11-28-2023 Chronic Sprains and strains (20 sources) Sprain of right wrist; Translations: [Unspecified sprain of right wrist, initial encounter] Episodic Substance-related disorders (20 sources) Nicotine dependence; Translations: [Nicotine dependence, unspecified, uncomplicated] Onset: 7 07-05-2017 Chronic Superficial injury; contusion (13 sources) Contusion of shoulder region; Translations: [Contusion of right shoulder, initial encounter] 01-02-2022 Episodic Unclassified (2 sources) LOWER BACK PAIN, FEVER 08-08-2022 Comment on above: LOWER BACK PAIN, FEV ER Past or Other Problems Problem Classification Problem Date Documented Da te Episodic/Chronic Abdominal pain (20 sources) Pain in pelvis; Translations: [Pelvic and perineal pain] Onset: 09-04-2012 Resolved: 12-07-2016 12-07-2016 Episodic Cardiac dysrhythmias (20 sources) Intermittent palpitations; Translations: [Palpitations] Onset: 01-23-2019 01-23-2019 Episodic Complications of surgical procedures or medical care (20 sources) Postoperative hemorrhage; Translations: [Post-op bleeding] Onset: 07-14-2014 Resolved: 12-07-2016 09-11-2014 Episodic Genitourinary symptoms and ill-defined conditions (20 sources) Proteinuria; Translations: [Proteinuria, unspecified] Onset: 06-15-2012 Resolved: 11-19-2013 Episodic Immunizations and screening for infectious disease (20 sources) Antibody titer - finding; Translations: [Raised antibody titer] Onset: 06-15-2012 Resolved: 04-11-2013 Episodic Other complications of (14 sources) Uterine size for dates discrepancy; Translations: [Uterine size-date discrepancy, unspecified trimester] Onset: 01-02-2013 Resolved: 04-11-2013 08-03-2021 Episodic Other diseases of kidney and ureters (14 sources) Hydronephrosis; Translations: [Unspecified hydronephrosis] Onset: 09-04-2012 Resolved: 11-19-2013 11-19-2013 Episodic Other female genital disorders (14 sources) History of premature labor; Translations: [Personal history of pre-term labor] Onset: 06-15-2012 Resolved: 11-19-2013 08-03-2021 Episodic Other gastrointestinal disorders (20 sources) Diarrhea; Translations: [Diarrhea, unspecified] Onset: 10-29-2015 Resolved: 11-28-2023 10-29-2015 Episodic Other gastrointestinal disorders (1 source) Abdominal distension (gaseous); Translations: [Abdominal distension (gaseous)] Onset: 09-10-2024 Episodic Other gastrointestinal disorders (2 sources) Diarrhea, unspecified; Translations: [Diarrhea, unspecified] Onset: 07-24-2024 Episodic Other nutritional; endocrine; and metabolic disorders (14 sources) Weight loss; Translations: [Abnormal weight loss] Onset: 10-29-2015 Resolved: 12-07-2016 12-07-2016 Episodic Other and delivery including normal (20 sources) Intrauterine ; Translations: [Encounter for supervision of normal , unspecified, unspecified trimester] Onset: 07-20-2012 Resolved: 04-11-2013 12-31-2018 Episodic Other screening for suspected conditions (not mental disorders or infectious disease) (20 sources) Patient encounter status; Translations: [Encounter for screening for lipoid disorders] Onset: 11-28-2023 Episodic Other skin disorders (14 sources) Night sweats; Translations: [Generalized hyperhidrosis] Onset: 10-29-2015 Resolved: 12-07-2016 12-07-2016 Episodic Ovarian cyst (14 sources) Hemorrhagic cyst of ovary; Translations: [Unspecified ovarian cyst, unspecified side] Onset: 01-24-2015 Resolved: 12-07-2016 12-07-2016 Episodic Spondylosis; intervertebral disc disorders; other back problems (20 sources) Neck pain; Translations: [Cervicalgia] Onset: 11-28-2023 Episodic Substance-related disorders (15 sources) Marijuana user; Translations: [Cannabis use, unspecified, uncomplicated] Onset: 07-05-2017 11-28-2023 Episodic Unclassified (14 sources) dysrhythmia; Translations: [ arrhythmia] Onset: 11-29-2012 Resolved: 04-11-2013 08-03-2021 Results Test Name Value Interpretation Reference Range Facility Urgent Care Visit Reporton 1 08-10-2024 Urgent Care Visit Report [facility] [address], [address] [place] [address] OFFICE VISIT Date of Service: 06/10/25 MR#: [id number] Acct: [id number] Name: ELIZA VALLADARES Rep #: [id number] : 1985 Provider: DONALD Juarez Age/Sex: 39/F Location: [facility] [place] Status: Signed Intake Vital Signs 08/20/24 08:42 06/10/25 10:42 Height 5 ft 2 in BP 124/84 H Position Sitting Respiration 18 Pulse 65 Temp 99.1 F Temp Source Oral Pulse Oximetry (%) 98 Oxygen Delivery Method room air Intake Visit Reasons: CONCERN FOR FLU Chief Complaint: Concern for Flu Accompanied by: Self Allergies ketorolac tromethamine (From Toradol) Allergy (Verified 06/10/25 10:37) Hives sumatriptan (From Imitrex) Allergy (Verified 06/10/25 10:37) Anaphylaxis sumatriptan succinate (From Imitrex) Allergy (Verified 06/10/25 10:37) Anaphylaxis tramadol HCl (From Ultram) Allergy (Verified 06/10/25 10:37) Hives epinephrine Adverse Reaction (Verified 06/10/25 10:37) Other morphine Adverse Reaction (Verified 06/10/25 10:37) Other procaine (From Novocain) Adverse Reaction (Verified 06/10/25 10:37) Other Medications ???Medication ???Instructions ???Recorded ???Confirmed ???Type acetaminophen 500 mg tablet 1,000 mg PO BID PRN pain 07/07/23 06/10/25 History (Tylenol Extra Strength) ibuprofen 200 mg tablet 400 mg PO Q6H PRN pain 07/07/23 History pantoprazole 40 mg tablet,delayed 40 mg PO QDAY #90 tabs 04/15/25 1 08/10/24 Rx release dicyclomine 10 mg capsule 10 mg PO BID #30 caps 04/16/2510/30 Rx methylprednisolone 4 mg tablets in See Rx Instructions PO PER PKG D IR 06/10/25 06/10/25 Rx a dose pack (Medrol (Juan Jose)) #21 tabs Nurse's Note: Patient has MTZ,fever,chills and Body aches. Patient states that this started yesterday with a MTZ in the morning and then got worse. Patient is concern for the Flu. [facility] Medical History (Updated 04/16/25 @ 11:47 by DONALD Ho) Wears glasses Gastric reflux History of irregular heartbeat Urinary frequency Hematuria Postauricular lymphadenopathy Contact with and (suspected) exposure to other viral communicable diseases Acute sinusitis, unspecified Contact with and (suspected) exposure to other viral communicable diseases Cervical lymphadenitis Cephalgia URI (upper respiratory infection) Cellulitis of lower back Right shoulder strain Cervical strain Wears dentures Depression Anemia Migraine headache History of IBS Smoker History of echocardiogram Hx of sinus tachycardia Cardiology follow-up encounter Nausea Abdominal pain of unknown etiology BRBPR (bright red blood per rectum) PTSD (post-traumatic stress disorder) Nicotine dependence Migraine Situational depression GERD (gastroesophageal reflux disease) Anxiety Surgical History Hx of colonoscopy Hx laparoscopic cholecystectomy History of shoulder surgery History of left oophorectomy History of colonoscopy History of right oophorectomy History of bilateral salpingectomy History of cholecystectomy H/O: hysterectomy Family History Mother Hypertension High cholesterol Grandmother Diabetes Hypertension afib Father Hypertension High cholesterol Grandfather Cancer skin Hypertension Afib Grandmother Hypertension afib Colon cancer Diabetes Social History number of children: 2 Smoking Status: Current every day smoker tobacco type: cigarettes Tobacco: How many years used: 8 second hand exposure: Yes alcohol intake: never substance use type: does not use caffeine: Yes (2) Type: carbonated beverages what type of physical activity do you participate in: none seatbelt use: always do you feel safe at home: Yes 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 Patient notes no complaints of chest pain or shortness of breath or dyspnea on exertion. Several close contacts recently dx???d w/ similar URI complaints. No [id number] taken to assist. No other associated symptoms and no other alleviating/aggravating factors. ROS Const Constitutional: No other (As above) Exam Const General: cooperative, healthy appearing and no acute distress Orientation: alert, awake HENMT Head: normal to inspection Ears: hearing grossly normal bilaterally, external ears normal, TM's ondina (more content not included)... Normal [facility] ED Prov Noteon 05-22-2025 ED Prov Note ED PROVIDER NOTE [facility] EMERGENCY [facility] NAME: Eliza Valladares AGE: 39 y.o. : 1985 VISIT DATE: 05/22/2025 CSN: [id number] PCP: Jani Starkey MD Chief Complaint Patient presents with Finger Laceration Chief complaint laceration History of present illness 39-year-old female who is using a knife cooking today and sustained a avulsion to the distal pad of the left fifth phalanx minor cut as well. She tried to stop it with some materials at home but no success Past Medical History: Diagnosis Date Chronic headaches Past Surgical History: Procedure Laterality Date CHOLECYSTECTOMY HYSTERECTOMY (CERVIX REMOVED) ORTHOPEDIC SURGERY rt shoulder History reviewed. No pertinent family history. Social History [1] Previous Medications Medication Sig estradioL (VIVELLE-DOT,DAVID) 0.05 mg/[address] 1 patch on the skin twice weekly . ibuprofen (ADVIL,MOTRIN) 200 MG tablet Take 1 (one) tablet (200 mg total) by mouth every 6 (six) hours as needed for pain . ondansetron (ZOFRAN-ODT) 4 MG disintegrating tablet Dissolve 1 (one) tablet (4 mg total) on top of tongue every 8 (eight) hours as needed for nausea . pantoprazole (PROTONIX) 40 MG tablet Take 1 (one) tablet (40 mg total) by mouth daily . tiZANidine (ZANAFLEX) 4 MG tablet Take 0.5 (one-half) tablet (2 mg total) by mouth nightly as needed for muscle spasms . Allergies[2] Review of Systems All other systems reviewed and are negative. Patient Vitals for the past 24 hrs: BP Temp Pulse Resp SpO2 Weight 05/22/255 135/87 97.6 degrees F (36.4 degrees C) 95 16 95 % 63.5 kg (140 lb) Physical Exam Vitals and nursing note reviewed. Exam conducted with a houseman present. Constitutional: Appearance: She is normal weight. HENT: Head: Normocephalic and atraumatic. Musculoskeletal: Comments: Left fifth skin avulsion distal pad phalanx Neurological: Mental Status: She is alert. Laboratory & Radiographic Imaging (if done): No results found for this visit on 05/22/25. No orders to display Procedures Medical Decision Making Differential diagnosis Avulsion Clinical Impression: 1. Avulsion of finger, initial encounter ED Disposition ED Disposition Discharge Condition Stable Comment Eliza Edie Celena discharged to home/self care in stable condition. Follow-up Information 1. Jani Starkey MD. Specialty: Family Medicine [address] [facility] [place] [id number] [phone] Contact information for after-discharge care Follow-up information has not been specified. [1] Social History Socioeconomic History Marital status: Tobacco Use Smoking status: Every Day Smokeless tobacco: Never Vaping Use Vaping status: Never Used Substance and Sexual Activity Alcohol use: Never Drug use: Never Social History Narrative Merged History Encounter Social Drivers of Health Financial Resource Strain: Low Risk (11/08/2023) Received from [facility] Overall Financial Resource Strain (CARDIA) Difficulty of Paying Living Expenses: Not very hard Food Insecurity: No Food Insecurity (11/08/2023) Received from [facility] Hunger Vital Sign Worried About Running Out of Food in the Last Year: Never true Ran Out of Food in the Last Year: Never true Transportation Needs: No Transportation Needs (11/08/2023) Received from [facility] PRAPARE - Transportation Lack of Transportation (Medical): No Lack of Transportation (Non-Medical): No Physical Activity: Insufficiently Active (11/08/2023) Received from [facility] Exercise Vital Sign Days of Exercise per Week: 3 days Minutes of Exercise per Session: 30 min Stress: Stress Concern Present (11/08/2023) Received from [facility] [place] [employer] - Occupational Stress Questionnaire Feeling of Stress : Rather much Social Connections: Unknown (11/08/2023) Received from [facility] Social Connection and Isolation Panel [NHANES] Frequency of Communication with Friends and Family: Patient declined Frequency of Social Gatherings with Friends and Family: Once a week Attends [employer] Services: 1 to 4 times per year Active Member of Clubs or Organizations: No Attends Club or Organization Meetings: Patient declined Marital Status: Housing Stability: High Risk (11/08/2023) Received from [facility] Housing Stability Vital Sign Unable to Pay for Housing in the Last Year: Yes Number of Places Lived in the Last Year: 1 Unstable Housing in the Last Year: No [2] Allergies Allergen Reactions Sumatriptan Anaphylaxis and Other (See Comments) Buspirone Hcl Other (See Comments) Increased HR and shakey Epinephrine Other (See Comments) Ketorolac Hives Ketorolac Tromethamine Hives and Itching Loperamide Hcl GI Intolerance abdominal cramping and bloating Morphine GI Intolerance and Other (See Comments) severe pain (more content not included)... [facility] Gastroenterology Visit Repor ton 04-16-2025 Gastroenterology Visit Report [facility] Gastroenterology [address] [place] [address] OFFICE VISIT Date of Service: 04/16/25 MR#: [id number] Acct: [id number] Name: ELIZA VALLADARES Rep #: [id number] : 1985 Provider: DONALD Ho Age/Sex: 39/F Location: [facility] [place] Status: Signed Intake Vital Signs 08/20/24 08:42 Height 5 ft 2 in Intake Visit Reasons: F/U Chief Complaint: Abdominal pain Allergies ketorolac tromethamine (From Toradol) Allergy (Verified 04/16/25 11:16) Hives sumatriptan (From Imitrex) Allergy (Verified 04/16/25 11:16) Anaphylaxis sumatriptan succinate (From Imitrex) Allergy (Verified 04/16/25 11:16) Anaphylaxis tramadol HCl (From Ultram) Allergy (Verified 04/16/25 11:16) Hives epinephrine Adverse Reaction (Verified 04/16/25 11:16) Other morphine Adverse Reaction (Verified 04/16/25 11:16) Other procaine (From Novocain) Adverse Reaction (Verified 04/16/25 11:16) Other Medications ???Medication ???Instructions ???Recorded ???Confirmed ???Type acetaminophen 500 mg tablet 1,000 mg PO BID PRN pain 07/07/23 04/16/25 History (Tylenol Extra Strength) ibuprofen 200 mg tablet 400 mg PO Q6H PRN pain 07/07/23 History pantoprazole 40 mg tablet,delayed 40 mg PO QDAY #90 tabs 04/15/25 0 04/16/25 Rx release dicyclomine 10 mg capsule 10 mg PO BID #30 caps 04/16/2505/02 Rx Nurse's Note: Pt reports since last visit her indigestion is better. Continues to have abdominal pain and bloating. States she will have diarrhea with blood followed by constipation. [facility] Medical History (Updated 04/16/25 @ 11:47 by DONALD Ho) Wears glasses Gastric reflux History of irregular heartbeat Urinary frequency Hematuria Postauricular lymphadenopathy Contact with and (suspected) exposure to other viral communicable diseases Acute sinusitis, unspecified Contact with and (suspected) exposure to other viral communicable diseases Cervical lymphadenitis Cephalgia URI (upper respiratory infection) Cellulitis of lower back Right shoulder strain Cervical strain Wears dentures Depression Anemia Migraine headache History of IBS Smoker History of echocardiogram Hx of sinus tachycardia Cardiology follow-up encounter Nausea Abdominal pain of unknown etiology BRBPR (bright red blood per rectum) PTSD (post-traumatic stress disorder) Nicotine dependence Migraine Situational depression GERD (gastroesophageal reflux disease) Anxiety Surgical History Hx of colonoscopy Hx laparoscopic cholecystectomy History of shoulder surgery History of left oophorectomy History of colonoscopy History of right oophorectomy History of bilateral salpingectomy History of cholecystectomy H/O: hysterectomy Family History Mother Hypertension High cholesterol Grandmother Diabetes Hypertension afib Father Hypertension High cholesterol Grandfather Cancer skin Hypertension Afib Grandmother Hypertension afib Colon cancer Diabetes Social History number of children: 2 Smoking Status: Current every day smoker tobacco type: cigarettes Tobacco: How many years used: 8 second hand exposure: Yes alcohol intake: never substance use type: does not use caffeine: Yes (2) Type: carbonated beverages what type of physical activity do you participate in: none seatbelt use: always do you feel safe at home: Yes 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 Pt was referred here to us from OBGYN for abdominal pain. For years pt has had issues with urgent diarrhea and abdominal discomfort. She was told she has IBS but has never had a full GI work up for IBD. She has upwards of 10 loose stools per day that are bright yellow. She is s/p cholecystectomy 15 years ago but these issues were present before. She has bright red blood within her stools. She is also having a lot of heartburn. She takes famotidine 40 mg BID this has not helped. SHe has never had an upper scope before. She is nauseous on most days but does not vomit. Colonoscopy 05.20.21; Hemorrhoids found on perianal exam. - Non-bleeding internal hemorrhoids. - Nodular ileal mucosa. Biopsied. - The examination was otherwise normal. EGD 08.20.24 - Z-line irregular, 40 cm from the incisors. Biopsied. - Chronic gastritis. Biopsied. - A single non-bleeding angioectasia in the duodenum. Biopsied. Treated with a heater probe. OV 04.16.25 patient having less heartburn since starting pantoprazole 40 mg daily. She does have some breakthrough on oc (more content not included)... Normal [facility] CT KIDNEY STONEon 02-28-2025 CT KIDNEY STONE EXAMINATION: CT KIDNEY STONE HISTORY: ORDERING SYSTEM PROVIDED HISTORY: Abdominal/flank pain, stone suspected, TECHNOLOGIST PROVIDED HISTORY: Illness/Other Reason for exam: left flank pain since tuesday worsened today with increased pain and hematuria Encounter Type: Initial Additional signs and symptoms: na ORDERING SYSTEM PROVIDED DIAGNOSIS CODES: COMPARISON: CT abdomen and pelvis 07/03/2017. TECHNIQUE: CT examination of the abdomen and pelvis without IV contrast. Coronal and sagittal reformations were performed. Dose reduction techniques were achieved by using automated exposure control and/or adjustment of mA and/or kV according to patient size and/or use of iterative reconstruction technique. FINDINGS: The visualized portions of the liver and spleen are unremarkable. No focal lesions. Gallbladder is surgically absent. The pancreas and adrenal glands are unremarkable. The kidneys demonstrate no hydronephrosis. No calculi noted in the kidneys or along the course of the ureters. No enlarged retroperitoneal lymphadenopathy. Aorta and IVC are normal caliber. Small-bowel caliber is within normal limits. Appendix is noninflamed. The colon is nondistended. No evidence of free intraperitoneal air or fluid. The bladder is empty. Uterus is surgically absent. No acute osseous abnormalities. IMPRESSION: No acute CT abnormality noted in the abdomen or pelvis. No nephrolithiasis or obstructive uropathy. The appendix is noninflamed. Cholecystectomy and hysterectomy. SLM/ads Workstation ID: [id number] Dictated by: CLARISSE JONES on TueFeb 28, 2025 1:57:11 PM EDT Transcribed by: LOGAN MATOS on TueFeb 28, 2025 2:18:47 PM EDT Finalized by: CLARISSE JONES on TueFeb 28, 2025 2:22:22 PM EDT [facility] Comment on above: Order Comment: Injur y/Trauma or Illness?:Illness/Other How long have you had these symptoms (acute/chronic)?:Acute Reason for exam?:left flank pain since tuesday worsened today with increased pain and hematuria Type of Exam?:Initial Additional signs and symptoms?:na ED Prov Noteon 02-28-2025 ED Prov Note ED PROVIDER NOTE [facility] EMERGENCY DEPARTMENT NAME: Eliza Valladares AGE: 39 y.o. : 1985 VISIT DATE: 02/28/2025 CSN: [id number] PCP: Jani Starkey MD Chief Complaint Patient presents with Flank Pain 39-year-old female patient presents for left-sided flank pain, patient stated [place] symptoms for approximately a week, went to an urgent care associated blood in her urine to go to the ER. No fevers chills, no chest pain difficulty breathing, no changes in bowel or bladder Past Medical History: Diagnosis Date Chronic headaches Past Surgical History: Procedure Laterality Date CHOLECYSTECTOMY HYSTERECTOMY (CERVIX REMOVED) ORTHOPEDIC SURGERY rt shoulder No family history on file. Social History [1] Previous Medications Medication Sig estradioL (VIVELLE-DOT,DAVID) 0.05 mg/[address] 1 patch on the skin twice weekly . ibuprofen (ADVIL,MOTRIN) 200 MG tablet Take 1 (one) tablet (200 mg total) by mouth every 6 (six) hours as needed for pain . Allergies[2] Review of Systems All other systems reviewed and are negative. Patient Vitals for the past 24 hrs: BP Temp Pulse Resp SpO2 Height Weight 02/28/25 1319 132/76 98.4 degrees F (36.9 degrees C) 88 18 95 % 5' 1 72.6 kg (160 lb) Physical Exam Vitals and nursing note reviewed. Constitutional: Appearance: Normal appearance. HENT: Head: Normocephalic and atraumatic. Right Ear: External ear normal. Left Ear: External ear normal. Nose: Nose normal. Mouth/Throat: Mouth: Mucous membranes are moist. Pharynx: Oropharynx is clear. Eyes: Extraocular Movements: Extraocular movements intact. Conjunctiva/sclera: Conjunctivae normal. Pupils: Pupils are equal, round, and reactive to light. Cardiovascular: Rate and Rhythm: Normal rate and regular rhythm. Musculoskeletal: General: Normal range of motion. Cervical back: Normal range of motion and neck supple. Pulmonary: Effort: Pulmonary effort is normal. Breath sounds: Normal breath sounds. Abdominal: General: Abdomen is flat. Bowel sounds are normal. Palpations: Abdomen is soft. Neurological: General: No focal deficit present. Mental Status: She is alert and oriented to person, place, and time. Mental status is at baseline. Psychiatric: Mood and Affect: Mood normal. Thought Content: Thought content normal. Laboratory & Radiographic Imaging (if done): No results found for this visit on 02/28/25. No orders to display Procedures Medical Decision Making Patient's symptoms not typical for emergent causes of abdominal pain such as, but not limited to, appendicitis, abdominal aortic aneurysm, surgical biliary disease, pancreatitis, SBO, mesenteric ischemia, serious intra-abdominal bacterial illness. Presentation also not typical of gynecologic emergencies such as TOA, Ovarian Torsion, PID. Not Ectopic. Doubt atypical ACS Labs and imaging reassuring, no severe leukocytosis or electrolyte function, CT with no acute intra-abdominal pathology. Pt tolerating PO. Disposition: Patient will be discharged with strict return precautions and follow up with primary MD within 12-24 hours for further evaluation. Patient understands that this still may have an early presentation of an emergent medical condition such as appendicitis that will require a recheck. The patient has been informed that they may have pre-hypertension or hypertension based on a blood pressure reading in the Emergency Department. I recommend that the patient call the primary care provider listed on their discharge instructions or a physician of their choice as soon as possible to arrange follow-up in the next 4 weeks for further evaluation of possible pre-hypertension or hypertension. . Clinical Impression: No diagnosis found. ED Disposition None Follow-up Information Follow-up information has not been specified. Contact information for after-discharge care Follow-up information has not been specified. [1] Social History Socioeconomic History Marital status: Tobacco Use Smoking status: Every Day Smokeless tobacco: Never Substance and Sexual Activity Alcohol use: Never Drug use: Never Social History Narrative Merged History Encounter Social Drivers of Health Financial Resource Strain: Low Risk (11/08/2023) Received from [facility] Overall Financial Resource Strain (CARDIA) Difficulty of Paying Living Expenses: Not very hard Food Insecurity: No Food Insecurity (11/08/2023) Received from [facility] Hunger Vital Sign Worried About Running Out of Food in the Last Year: Never true Ran Out of Food in the Last Year: Never true Transportation Needs: No Transportation Needs (11/08/2023) Received from [facility] PRAPARE - Transportation Lack of Transportation (Medical): No Lack of Transportation (Non-Medical): No Physical Activity: Insufficiently Active (11/08/2023) Received f (more content not included)... Normal [facility] POC BASIC METABOLIC PANEL [facility] 02-28-2025 Chloride [Moles/Vol] 106 mmol/L Normal 98-108 [facility] Comment on above: Order Comment: [facility] has implemented the eGFR calculation approach that does not have a coefficient for race that conforms to the NKF-ASN Task Force Recommendations. CO2 [Moles/Vol] 27 mmol/L Normal 21-32 [facility] Comment on above: Order Comment: [facility] Services has implemented the eGFR calculation approach that does not have a coefficient for race that conforms to the NKF-ASN Task Force Recommendations. Creatinine [Mass/Vol] 0.68 mg/dL Normal 0.40-1.10 [facility] Comment on above: Order Comment: [facility] Services has implemented the eGFR calculation approach that does not have a coefficient for race that conforms to the NKF-ASN Task Force Recommendations. Glucose [Mass/Vol] 137 mg/dL High 65-99 [facility] Comment on above: Order Comment: [facility] Services has implemented the eGFR calculation approach that does not have a coefficient for race that conforms to the NKF-ASN Task Force Recommendations. POC GFR 114 mL/min/1.73 m2 Normal >=60 [facility] Comment on above: Order Comment: [facility] has implemented the eGFR calculation approach that does not have a coefficient for race that conforms to the NKF-ASN Task Force Recommendations. Result Comment: Alma mated GFR was calculated using the 2020 CKD-EPI creatinine equation. POC IONIZED CALCIUM 4.8 mg/dL Normal 4.5-5.3 [facility] Comment on above: Order Comment: [facility] has implemented the eGFR calculation approach that does not have a coefficient for race that conforms to the NKF-ASN Task Force Recommendations. Potassium [Moles/Vol] 4.3 mmol/L Normal 3.5-5.1 [facility] Comment on above: Order Comment: [facility] has implemented the eGFR calculation approach that does not have a coefficient for race that conforms to the NKF-ASN Task Force Recommendations. Sodium [Moles/Vol] 141 mmol/L Normal 135-145 [facility] Comment on above: Order Comment: [facility] has implemented the eGFR calculation approach that does not have a coefficient for race that conforms to the NKF-ASN Task Force Recommendations. Urea nitrogen [Mass/Vol] 9 mg/dL Normal 8-25 [facility] Comment on above: Order Comment: [facility] has implemented the eGFR calculation approach that does not have a coefficient for race that conforms to the NKF-ASN Task Force Recommendations. POC CBC AND DIFFERENTIALon 0 - BASOPHILS ABSOLUTE COUNT 0.07 K/mcL Normal 0.00-0.30 [facility] Basophils/100 WBC (Bld) 0.7 % Normal [facility] Eosinophils (Bld) [#/Vol] 0.55 10*3/uL High 0.00-0.50 [facility] Eosinophils/100 WBC (Bld) 5.4 % Normal [facility] Erythrocyte distribution width (RBC) [Ratio] 14.4 % Normal 11.6-14.8 [facility] Hematocrit (Bld) [Volume fraction] 44.9 % Normal 36.0-46.0 [facility] Hemoglobin (Bld) [Mass/Vol] 15.0 g/dL Normal 12.0-16.0 [facility] IG ABSOLUTE 0.02 K/mcL Normal 0.00-0.30 [facility] IG PERCENT 0.20 % Normal [facility] Comment on above: Result Comment: The IG parameter is the percentage of metamyelocytes, myelocytes and promyelocytes. An immature granulocyte count (IG) of 1% or more suggests the possibility of infection, an IG count of 3% is very likely related to an infection. Lymphocytes (Bld) [#/Vol] 3.47 10*3/uL Normal 0.90-4.00 [facility] Lymphocytes/100 WBC (Bld) 34.3 % Normal [facility] MCH (RBC) [Entitic mass] 28.2 pg Normal 26.0-34.0 [facility] MCV (RBC) [Entitic vol] 84.6 fL Normal 80.0-100.0 [facility] MEAN CORPUSCULAR HEMOGLOBIN CONC 33.4 g/dL Normal 31.0-37.0 [facility] Monocytes (Bld) [#/Vol] 0.64 10*3/uL Normal 0.30-0.90 [facility] Monocytes/100 WBC (Bld) 6.3 % Normal [facility] NEUTROPHILS ABSOLUTE COUNT 5.37 K/mcL Normal 1.70-7.00 [facility] Neutrophils/100 WBC (Bld) 53.1 % Normal [facility] Platelet mean volume (Bld) [Entitic vol] 9.9 fL Normal 9.4-12.4 [facility] Platelets (Bld) [#/Vol] 312 10*3/uL Normal 150-400 [facility] RBC (Bld) [#/Vol] 5.31 10*6/uL High 4.00-5.20 [facility] WBC (Bld) [#/Vol] 10.12 10*3/uL Normal 4.50-11.00 [facility] POC LIVER PANEL PLUS Riki 02-28-2025 Albumin [Mass/Vol] 3.8 g/dL Normal 3.2-5.2 [facility] ALP [Catalytic activity/Vol] 81 U/L Normal 40-140 [facility] ALT [Catalytic activity/Vol] 19 U/L Normal 0-40 [facility] Amylase [Catalytic activity/Vol] 32 U/L Normal 25-115 [facility] Amylase [Catalytic activity/Vol] 18 U/L Normal 7-33 [facility] AST [Catalytic activity/Vol] 31 U/L Normal 0-45 [facility] Bilirubin [Mass/Vol] 0.5 mg/dL Normal 0.0-1.3 [facility] Protein [Mass/Vol] 7.1 g/dL Normal 6.0-8.0 [facility] POC URINALYSIS DIPSTICK,AUTO - RALSon 02-28-2025 POC BILIRUBIN, URINE Negative Normal Negative [facility] POC BLOOD, URINE Negative Normal Negative [facility] POC GLUCOSE, URINE Negative Normal Negative [facility] POC KETONES, URINE Negative Normal Negative [facility] POC LEUKOCYTE ESTERASE, URINE Negative Normal Negative [facility] POC NITRITE, URINE Negative Normal Negative [facility] POC PH, URINE 6.0 Normal 5.0-7.0 [facility] POC PROTEIN, URINE Trace Abnormal Negative [facility] POC SPECIFIC GRAVITY >= High 1.005-1.025 [facility] POC UROBILINOGEN 0.2 mg/dL Normal < 2.0 [facility] CNCOon 11-27-[address] [facility] EGD Reporton 08-20-2024 EGD Report [facility] Medical Records Department [address] [place] [address] EGD Report MR#: [id number] Acct: [id number] Name: ELIZA VALLADARES Rep #: [id number] : 1985 38 From: Seymour Rocha DO PCP: Dr. Jani Starkey MD Status:[facility] Patient Name: Eliza Valladares Procedure Date: 08/20/2024 10:09 AM Date of : 1985 Age: 38 Procedure: Upper GI endoscopy Indications: Epigastric abdominal pain, Functional Dyspepsia Providers: Seymour Rocha DO Referring MD: Seymour Rocha DO Medicines: Monitored Anesthesia Care Patient Profile: This is a 38 year old female. Refer to note in patient chart for documentation of history and physical. Patient has symptoms of chronic abdominal cramping, chronic epigastric abdominal pain, chronic dyspepsia and chronic nausea. Complications: No immediate complications. Procedure: Pre-Anesthesia Assessment: - Prior to the procedure, a History and Physical was performed, and patient medications and allergies were reviewed. The patient is competent. The risks and benefits of the procedure and the sedation options and risks were discussed with the patient. All questions were answered and informed consent was obtained. Patient identification and proposed procedure were verified by the physician in the pre-procedure area. Mental Status Examination: alert and oriented. Respiratory Examination: clear to auscultation. CV Examination: normal. Prophylactic Antibiotics: The patient does not require prophylactic antibiotics. Prior Anticoagulants: The patient has taken no anticoagulant or antiplatelet agents. ASA Grade Assessment: II - A patient with mild systemic disease. After reviewing the risks and benefits, the patient was deemed in satisfactory condition to undergo the procedure. The anesthesia plan was to use monitored anesthesia care (MAC). Immediately prior to administration of medications, the patient was re-assessed for adequacy to receive sedatives. The heart rate, respiratory rate, oxygen saturations, blood pressure, adequacy of pulmonary ventilation, and response to care were monitored throughout the procedure. The physical status of the patient was re-assessed after the procedure. After obtaining informed consent, the endoscope was passed under direct vision. Throughout the procedure, the patient's blood pressure, pulse, and oxygen saturations were monitored continuously. The gastroscope was introduced through the mouth, and advanced to the second part of duodenum. The upper GI endoscopy was accomplished without difficulty. The patient tolerated the procedure well. Scope In: 10:15:41 AM Scope Out: 10:24:45 AM Total Procedure Duration Time 0 hours 9 minutes 4 seconds Findings: The Z-line was irregular and was found 40 cm from the incisors. Biopsies were taken with a cold forceps for histology. Verification of patient identification for the specimen was done. Estimated blood loss was minimal. Segmental mild inflammation characterized by erythema and friability was found in the gastric body. Biopsies were taken with a cold forceps for histology. Verification of patient identification for the specimen was done. Estimated blood loss was minimal. A single 5 mm angioectasia without bleeding was found in the duodenal bulb. Biopsies were taken with a cold forceps for histology. Verification of patient identification for the specimen was done. Coagulation for bleeding prevention using heater probe was successful. Estimated blood loss was minimal. Impression: - Z-line irregular, 40 cm from the incisors. Biopsied. - Chronic gastritis. Biopsied. - A single non-bleeding angioectasia in the duodenum. Biopsied. Treated with a heater probe. Recommendation: - Discharge patient to home. - Resume previous diet. - Continue present medications. - Await pathology results. Procedure Code(s): --- Professional --- 80617, 59, Esophagogastroduodenosc opy, flexible, transoral; with control of bleeding, any method 31151, 51, Esophagogastroduodenosc opy, flexible, transoral; with biopsy, single or multiple CPT copyright 2021 [employer]. All rights reserved. The codes documented in this report are preliminary and upon zinc skimmer review may be revised to meet current compliance requirements. Seymour Rocha DO 08/20/2024 10:31:06 AM This report has been signed electronically. Number of Addenda: 0 Note Initiated On: 08/20/2024 10:09 AM 08/20/24 1031 Date Seymour Rocha DO Cosigner Signature: Date (if indicated) CC: Dr. Jani Starkye MD; Seymour Rocha DO Date Dictated: 08/20/24 1009 Date Transcribed: Ticketer: LENNY Signed Normal [facility] H Pylori (initial)on H Pylori (initial) --- Patient Age/Sex Location Account Attending Physician ELIZA VALLADARES 38/F EN [id number] Seymour Rocha DO Specimen: [id number] Received: 08/20/244 Status: DEJA Ghotra Num: [id number] Spec Type: IMMUNO Subm Dr: Seymour Rocha DO PHYSICIAN INSTITUTION [place] [address] SPECIMEN INFORMATION: Tissue Source: A- Gastric body biopsy Clinical Info: Bloating, diarrhea Specimen Number: [id number] CPT code: 97557 METHODOLOGY: Deparaffinized sections of prefer/formalin-fixed tissue or PAP/DQ stained slides are incubated with monoclonal/polyclonal antibodies/oligonucleot eddie probes. Localization is made via biotin free immunoperoxidase method. Appropriate controls are performed and reacted as expected. Results on target cell population are indicated in the following table: RESULTS: ANTIBODY / CLONE RESULT Block A H Pylori (polyclonal) negative These tests were developed and their performance characteristics determined by [facility]. They may not have been cleared or approved by the U.S. Food and Drug Administration. The FDA has determined that such clearance or approval is not necessary. The above immunohistochemical/luiz Zoë markers are ordered and reviewed by the Pathologist. INTERPRETATION: A. Gastric body, biopsy: Negative for Helicobacter pylori organisms. SJ. 08/21/2024 Signed (signature on file) Dr. Ronn Ramos MD 08/22/24 0923 Normal [facility] Comment on above: Performed By: #### M 100.637, L7400.3300, M600.5000, L7000.0750, L7000.0700, M100.0605 #### [facility] [address] [place], [address] MR/POSTOP.ANEon 08-20-2024 [facility] Medical Records Department [address] [place] [address] Anesthesia Postop Eval I 08/20/24 1034 MR#: [id number] Acct: [id number] Name: ELIZA VALLADARES Rep #: [id number] : 1985 38 From: Scot Polanco PCP: Dr. Jani Starkey MD Status:[facility] Y Race: C Location: [place] [address] Anesthesia: Postop Eval I Current Vital Signs Temperature: 97.2 F Pulse Rate: 85 Blood Pressure: 102/59 Respiratory Rate: 16 Pulse Ox: 95 Oxygen Delivery Method: Room Air Assessment Airway patent: Yes Spontaneous unlabored respirations: Yes Mental status: Asleep nausea: No Vomiting: No Anesthesia Complication: No Fluid Hydration Crystalloid volume administer (ml): 40 Total IV fluid infused: 40 Progress Note Anesthesia document: Postop Eval 1 completed: Yes 08/20/24 1035 Date Scot Smart Signature: Date CC: Signed Normal [facility] MR/IPOSJRFA5mr 08-20-2024 MR/POSTOPAN2 [facility] Medical Records Department [address] [place] [address] Anesthesia Postop Eval II 08/20/24 1043 MR#: [id number] Acct: [id number] Name: ELIZA VALLADARES Rep #: [id number] : 1985 38 From: Stepan Gagnon MD PCP: Dr. Jani Starkey MD Status:REG SD Y Race: C Location: [place] [address] Anesthesia Postop Eval I Sum Postop Eval Completion status Anesthesia document: Postop Eval 1 completed: Yes Anesthesia Postop Eval I Summary Anesthesia Postop Eval I Summary: Anesthesia Postop Eval I: Assessment Summary Airway patent Yes 08/20/24 10:35 [email or web address] Spontaneous unlabored Yes 08/20/24 10:35 [email or web address] respirations Mental status Asleep 08/20/24 10:35 [email or web address] nausea No 08/20/24 10:35 [email or web address] Vomiting No 08/20/24 10:35 [email or web address] Anesthesia Postop Eval I: Fluid Summary Crystalloid volume administer 40 08/20/24 10:35 [email or web address] (ml) Colloids volume administered ( ml) Blood Product volume administered (ml) Total IV fluid infused 40 08/20/24 10:35 [email or web address] Anesthesia Postop Eval I: Summary Notes Anesthesia Complication No 08/20/24 10:35 [email or web address] Anesthesia Complication Comment: Post-operative progress note Anesthesia: Postop Eval II Evaluation Mental status: Awake Pain Level: 0 nausea: No Vomiting: No 08/20/24 104 Date Stepan Gagnon MD Cosigner Signature: Date CC: Signed Normal [facility] Special Stain Group Ion 08-08 Special Stain Group I ----- Patient Age/Sex Location Account Attending Physician ELIZA VALLADARES 38/ EN [id number] Seymour Rocha DO Specimen: [id number] Received: 08/20/24 Status: DEJA Ghotra Num: [id number] Spec Type: EGD BIOPSY Subm Dr: Seymour Rocha DO HEADER OPERATION: EGD biopsy, hemostasis PRE-OP DIAGNOSIS: Bloating, diarrhea TISSUE SUBMITTED: A- Gastric body biopsy, B- Submucosal lesion duodenal bulb, C- Distal esophagus biopsy MICROSCOPIC DIAGNOSIS A. Gastric body, biopsy: Minimal gastritis. See microscopic description and comment. B. Submucosal lesion duodenal bulb, biopsy: Fragments of duodenal mucosa, no pathologic diagnosis. See comment. C. Distal esophagus, biopsy: Fragments of gastroesophageal mucosa with chronic inflammation. Intestinal metaplasia (goblet cell metaplasia) not identified. See comment. SJ.mr 08/21/2024 COMMENT A. The results of immunohistochemistry for Helicobacter pylori will be reported separately ([id number]). B. This specimen consists of only superficial mucosal tissue. C. Alcian blue/PAS stain with matched control is used in the evaluation of the specimen. Correlation with clinical, endoscopic findings and appropriate follow up are necessary. MICROSCOPIC DESCRIPTION Slides are reviewed. A. The specimen shows fragments of gastric mucosa with chronic inflammatory cell infiltrates in the lamina propria consisting of lymphocytes and plasma cells, consistent with minimal chronic gastritis. GROSS DESCRIPTION A. Received in fixative is one container labeled with the patient's name and designated Gastric body biopsy. The specimen consists of multiple irregular fragments of light cho soft tissue that in aggregate measure 1.3 x 0.3 x 0.2 cm. The specimen is totally submitted in one cassette. B. Received in fixative is one container labeled with the patient's name and designated Submucosal lesion duodenal bulb. The specimen consists of two irregular fragments of Patient Age/Sex Location Account Attending Physician ELIZA VALLADARES/Macy EN [id number] Seymour Rocha DO light cho soft tissue that in aggregate measuring 0.6 x 0.4 x 0.2 cm. The specimen is totally submitted in one cassette. C. Received in fixative is one container labeled with the patient's name and designated Distal esophagus biopsy. The specimen consists of multiple irregular fragments of light cho soft tissue that in aggregate measure 1.2 x 0.3 x 0.2 cm. The specimen is totally submitted in one cassette. GTAna 08/20/2024 TC:3 [facility]:[id number] Patient Age/Sex Location Account Attending Physician ELIZA VALLADARES 38/F EN [id number] Seymour Rocha DO Signed (signature on file) Dr. Ronn Ramos MD 08/21/24 1052 Normal [facility] Comment on above: Performed By: #### M 100.637, L7400.3300, M600.5000, L7000.0750, L7000.0700, M100.0605 #### [facility] [address] [place], [address] MR/PAT.YVONNEon 08-15-2024 MR/FLY.YVONNE [facility] Medical Records Department [address] [place] [address] PAT - Anesthesia 08/15/24 1540 MR#: [id number] Acct: [id number] Name: ELIZA VALLADARES Rep #: [id number] : 1985 38 From: Stepan Gagnon MD PCP: Dr. 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 When Was Last Pacemaker Check QUESTION #4 FULL TEXT: You/Your Family Experience fever (hyperthermia) with Anesthesia Last Oral Intake Last Oral intake: Last Oral Intake NPO since Meds taken in AM with sips of water? Meds patient instructed to take am of surgery PONV PONV - crystallizer operator: PONV - crystallizer operator Female Yes 08/15/24 15:12 HX of Motion Sickness No 08/15/24 15:12 HX of N/V After Surgery No 08/15/24 15:12 Non-Smoker Yes 08/15/24 15:12 Duration of Surgery greater No 08/15/24 15:12 than 60 minutes Number of Risk Factors 2 08/15/24 15:12 PONV Score Moderate Risk 08/15/24 15:12 Height Weight Height Weight: Anesthesia: Height Weight Height 5 ft 2 in 06/22/24 09:24 Respiratory Assessment Respiratory Assessment - crystallizer operator: Respiratory Tract Infection Hx - crystallizer operator Hx Respiratory Tract Infection No 08/15/24 15:12 STOP Sleep Apnea STOP Sleep Apnea - crystallizer operator: STOP Sleep Apnea - crystallizer operator Hx Hypertension No 08/15/24 15:12 Hx Sleep Apnea No 08/15/24 15:12 CPAP No 08/15/24 15:12 BIPAP No 08/15/24 15:12 Do you snore loudly (louder No 08/15/24 15:12 than talking or can be heard Do you often feel tired/ No 08/15/24 15:12 fatigued/ sleepy during daytime? Has anyone observed you stop No 08/15/24 15:12 breathing during sleep? STOP Results Negative 08/15/24 15:12 QUESTION #5 FULL TEXT : Do you snore loudly (louder than talking or can be heard through closed doors)? Tobacco Use History Tobacco Use History - crystallizer operator: Tobacco Use History - crystallizer operator Tobacco Use Cigarettes 05/19/20 11:26 Smoking Status Current every day smoker 08/15/24 15:12 Hx Tobacco Use Yes 08/15/24 15:12 Years Smoking Packs Smoked per Day Smoking Cessation Date was within the last 15 years Hx Smoking Cessation Date Hx Smoking Cessation Counseling Hematologic Medial History Hematologic Hx - crystallizer operator: Hematologic Medical Hx - e/m engineer Hx of Blood Transfusion Yes 08/15/24 15:12 Hx of Transfusion in last 3 No 08/15/24 15:12 Months Date of Last Transfusion (if within last 3 months) Ever experience any problems No 08/15/24 15:12 with transfusion(s)? Specify any problems Hx of Preganancy in last 3 No 08/15/24 15:12 Months Nurse Filling Out Transfusion VCHRISTIN 08/15/24 15:12 Questions: Date: 08/15/24 08/15/24 15:12 Time: 15:14 08/15/24 15:12 Patient unable to answer at this time (ie. 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 08/15/24 15:12 Gestational Age (in weeks): EDC: Hx Hx Para Hx Section SAB No 08/15/24 15:12 [facility] Medical History (Updated 08/15/24 @ 15:12 by Lindsey Pulido) Wears glasses Gastric reflux History of irregular heartbeat Urinary frequency Hematuria Postauricular lymphadenopathy Contact with and (suspected) exposure to other viral communicable diseases Acute sinusitis, unspecified Contact with and (suspected) exposure to other viral communicable diseases Cervical lymphadenitis Cephalgia URI (upper respiratory infection) Cellulitis of lower back Right shoulder strain Cervical strain Wears dentures Depression Anemia Migraine headache History of IBS Smoker History of echocardiogram Hx of sinus tachycardia Cardiology follow-up encounter Nausea Abdominal pain of unknown etiology BRBPR (bright red blood per rectum) PTSD (post-traumatic stress disorder) Nicotine dependence Migraine Situational depression GERD (gastroesophageal reflux disease) Anxiety Home Medications (more content not included)... [place] [facility] 8623on OP OVA AND PARASITES EX AM, ROUTINE These results were obtained using wet preparation(s) and trichrome stained smear. This test does not include testing for Crytosporidium parvum, Cyclospora, or Microsporidia. One negative specimen does not rule out the possibility of a parasitic infection. TESTING PERFORMED AT [facility]. ORIGINAL REPORT ON FILE IN LAB CONTAINS ADDITIONAL TEST SITE INFORMATION. Ova/Parasite Exam NO OVA, CYSTS, OR PARASITES FOUND. [place] Comment on above: Performed By: #### M 100.117, L00.3300, M600.5000, L7000.0750, L7000.0700, M100.0605 #### [facility] [address] [place], [place], [id number] ANCAon 07-05-2024 Atypical pANCA <1:20 Normal Neg:<1:20 [facility] Comment on above: Order Comment: NUNK Result Comment: The atypical pANCA pattern has been observed in a significant percentage of patients with ulcerative colitis, primary sclerosing cholangitis and autoimmune hepatitis. Performed at: - [facility] [id number] Pharmacy Billing Adjudicator: Jack Arnold PhD, Phone: [phone] Performed at: [facility] [address] [id number] Pharmacy Billing Adjudicator: Eve Green MD, Phone: [phone] Performed By: #### M 100.637, L7400.3300, M600.5000, L7000.0750, L7000.0700, M100.0605 #### [facility] [address] [place], [place], [id number] Cytoplasmic Ab <1:20 Normal Neg:<1:20 [facility] Comment on above: Order Comment: NUNK Performed By: #### M 100.637, L7400.3300, M600.5000, L7000.0750, L7000.0700, M100.0605 #### [facility] [address] [place], [place], [id number] [phone] Perinuclear Ab. <1:20 Normal Neg:<1:20 [facility] Comment on above: Order Comment: NUNK Result Comment: The presence of positive fluorescence exhibiting P-ANCA or C-ANCA patterns alone is not specific for the diagnosis of Ar's Granulomatosis (WG) or microscopic polyangiitis. Decisions about treatment should not be based solely on ANCA IFA results. The International ANCA Group Consensus recommends follow up testing of positive sera with both MS- 3 and MPO-ANCA enzyme immunoassays. As many as 5% serum samples are positive only by EIA. Ref. AM J Clin Pathol 1999;111:507-513. Performed By: #### M 100.637, L7400.3300, M600.5000, L7000.0750, L7000.0700, M100.0605 #### [facility] [address] [place], [address] Celiac AB,Comprehensiveon ANTIGLIADIN IGA 2 units Normal 0-19 [facility] Comment on above: Order Comment: NUNK Result Comment: Nega tive 0 - 19 Weak Positive 20 - 30 Moderate to Strong Positive >30 Performed By: #### M 100.637, L7400.3300, M600.5000, L7000.0750, L7000.0700, M100.0605 #### [facility] [address] [place], [address] ANTIGLIADIN IGG 2 units Normal 0-19 [facility] Comment on above: Order Comment: NUNK Result Comment: Nega tive 0 - 19 Weak Positive 20 - 30 Moderate to Strong Positive >30 Performed By: #### M 100.637, L7400.3300, M600.5000, L7000.0750, L7000.0700, M100.0605 #### [facility] [address] [place], [address] ENDOMYSIAL IGA Negative Normal Negative [facility] Comment on above: Order Comment: NUNK Performed By: #### M 100.637, L7400.3300, M600.5000, L7000.0750, L7000.0700, M100.0605 #### [facility] [address] [place], [address] tTG IGA <2 Normal 0-3 [facility] Comment on above: Order Comment: NUNK Result Comment: Nega tive 0 - 3 Weak Positive 4 - 10 Positive >10 Tissue Transglutaminase (tTG) has been identified as the endomysial antigen. Studies have demonstr- ated that endomysial IgA antibodies have over 99% specificity for gluten sensitive enteropathy. Performed By: #### M 100.637, L7400.3300, M600.5000, L7000.0750, L7000.0700, M100.0605 #### [facility] [address] [place], [address] tTG IGG 2 U/mL Normal 0-5 [facility] Comment on above: Order Comment: NUNK Result Comment: Nega tive 0 - 5 Weak Positive 6 - 9 Positive >9 Performed By: #### M 100.637, L7400.3300, M600.5000, L7000.0750, L7000.0700, M100.0605 #### [facility] [address] [place], [address] Immunoglobulins G/A/M/Anderson IMMUNOGLOB A QN 103 mg/dL Normal 87-352 [facility] Comment on above: Order Comment: NUNK Performed By: #### M 100.637, L7400.3300, M600.5000, L7000.0750, L7000.0700, M100.0605 #### [facility] [address] [place], [address] IMMUNOGLOB E QN 22 IU/mL Normal 6-495 [facility] Comment on above: Order Comment: NUNK Performed By: #### M 100.637, L7400.3300, M600.5000, L7000.0750, L7000.0700, M100.0605 #### [facility] [address] [place], [address] IMMUNOGLOB G QN 969 mg/dL Normal 586-1602 [facility] Comment on above: Order Comment: NUNK Performed By: #### M 100.637, L7400.3300, M600.5000, L7000.0750, L7000.0700, M100.0605 #### [facility] [address] [place], [address] IMMUNOGLOB M QN 166 mg/dL Normal 26-217 [facility] Comment on above: Order Comment: NUNK Performed By: #### M 100.637, L7400.3300, M600.5000, L7000.0750, L7000.0700, M100.0605 #### [facility] [address] [place], [address] L2100.0000on 07-05-2024 ACCA 12 units Normal 0-90 [facility] Comment on above: Order Comment: NUNK Result Comment: Nega tive: <80 Equivocal: 80-90 Positive: >90 Performed By: #### M 100.637, L7400.3300, M600.5000, L7000.0750, L7000.0700, M100.0605 #### [facility] [address] [place], [address] ALCA 2 units Normal 0-60 [facility] Comment on above: Order Comment: NUNK Result Comment: Nega tive:<55 Equivocal: 55-60 Positive: >60 Performed By: #### M 100.637, L7400.3300, M600.5000, L7000.0750, L7000.0700, M100.0605 #### [facility] [address] [place], [address] AMCA 19 units Normal 0-100 [facility] Comment on above: Order Comment: NUNK Result Comment: Nega tive: <90 Equivocal: 90-100 Positive: >100 This test was developed and its performance characteristics determined by [employer]. It has not been cleared or approved by the Food and Drug Administration. The FDA has determined that such clearance or approval is not necessary. Performed By: #### M 100.637, L7400.3300, M600.5000, L7000.0750, L7000.0700, M100.0605 #### [facility] [address] [place], [place], [id number] Atypical pANCA Negative Normal Negative [facility] Comment on above: Order Comment: NUNK Performed By: #### M 100.637, L7400.3300, M600.5000, L7000.0750, L7000.0700, M100.0605 #### [facility] [address] [place], [place], [id number] COMMENT Comment Normal . [facility] Comment on above: Order Comment: NUNK Result Comment: Jahaira lew is not suggestive of Inflammatory Bowel Disease Performed By: #### M 100.637, L7400.3300, M600.5000, L7000.0750, L7000.0700, M100.0605 #### [facility] [address] [place], [place], [id number] Cecil 9 units Normal 0-50 [facility] Comment on above: Order Comment: NUNK Result Comment: Nega tive: <45 Equivocal: 45-50 Positive: >50 Performed By: #### M 100.637, L7400.3300, M600.5000, L7000.0750, L7000.0700, M100.0605 #### [facility] [address] [place], [place], [id number] KIARA Comprehensive Panelon KIARA TABLE Comment Normal . [facility] Comment on above: Result Comment: Auto antibody Disease Association Condition Frequency --------- Antinuclear Antibody, SLE, mixed connective Direct (KIARA-D) tissue diseases --------- dsDNA SLE 40 - 60% --------- Chromatin Drug induced SLE 90% SLE 48 - 97% --------- SSA (Ro) SLE 25 - 35% Sjogren's Syndrome 40 - 70% Lupus 100% --------- SSB (La) SLE 10% Sjogren's Syndrome 30% --------- Sm (anti-Hussein) SLE 15 - 30% --------- CORPORATE DEVELOPMENT OFFICER Mixed Connective Tissue Disease 95% (U1 nRNP, SLE 30 - 50% anti-ribonucleoprotein) Polymyositis and/or Dermatomyositis 20% --------- Scl-70 (antiDNA Scleroderma (diffuse) 20 - 35% topoisomerase) Crest 13% --------- Melania-1 Polymyositis and/or Dermatomyositis 20 - 40% --------- Centromere B Scleroderma - Crest variant 80% Performed By: #### M 100.637, L7400.3300, M600.5000, L7000.0750, L7000.0700, M100.0605 #### [facility] [address] [facility] [place], [address] [phone] ANTI-CENT B AB <0.2 Normal 0.0-0.9 [facility] Comment on above: Performed By: #### M 100.637, L7400.3300, M600.5000, L7000.0750, L7000.0700, M100.0605 #### [facility] [address] [facility] [place], [place], [id number] [phone] ANTI-DNA (DS)AB 2 IU/mL Normal 0-9 [facility] Comment on above: Result Comment: Nega tive <5 Equivocal 5 - 9 Positive >9 Performed By: #### M 100.637, L7400.3300, M600.5000, L7000.0750, L7000.0700, M100.0605 #### [facility] [address] [place], [address] [phone] ANTI-MELANIA-1 <0.2 Normal 0.0-0.9 [facility] Comment on above: Performed By: #### M 100.637, L7400.3300, M600.5000, L7000.0750, L7000.0700, M100.0605 #### [facility] [address] [place], [address] ANTI-SS-A < 0.2 Normal 0.0-0.9 [facility] Comment on above: Performed By: #### M 100.637, L7400.3300, M600.5000, L7000.0750, L7000.0700, M100.0605 #### [facility] [address] [place], [address] ANTI-SS-B < 0.2 Normal 0.0-0.9 [facility] Comment on above: Performed By: #### M 100.637, L7400.3300, M600.5000, L7000.0750, L7000.0700, M100.0605 #### [facility] [address] [place], [address] ANTICHROMATIN <0.2 Normal 0.0-0.9 [facility] Comment on above: Performed By: #### M 100.637, L7400.3300, M600.5000, L7000.0750, L7000.0700, M100.0605 #### [facility] [address] [place], [address] ANTISCLERODERM <0.2 Normal 0.0-0.9 [facility] Comment on above: Performed By: #### M 100.637, L7400.3300, M600.5000, L7000.0750, L7000.0700, M100.0605 #### [facility] [address] [place], [address] CORPORATE DEVELOPMENT OFFICER Ab 0.7 AI Normal 0.0-0.9 [facility] Comment on above: Performed By: #### M 100.637, L7400.3300, M600.5000, L7000.0750, L7000.0700, M100.0605 #### [facility] [address] [place], [address] HUSSEIN Ab <0.2 Normal 0.0-0.9 [facility] Comment on above: Performed By: #### M 100.637, L7400.3300, M600.5000, L7000.0750, L7000.0700, M100.0605 #### [facility] [address] [place], [address] L5500.0550on 07-03-2024 BEEF <0.10 Normal Class 0 [facility] Comment on above: Performed By: #### M 100.637, L7400.3300, M600.5000, L7000.0750, L7000.0700, M100.0605 #### [facility] [address] [place], [address] CHOCOLATE <0.10 Normal Class 0 [facility] Comment on above: Performed By: #### M 100.637, L7400.3300, M600.5000, L7000.0750, L7000.0700, M100.0605 #### [facility] [address] [place], [address] CODFISH <0.10 Normal Class 0 [facility] Comment on above: Performed By: #### M 100.637, L7400.3300, M600.5000, L7000.0750, L7000.0700, M100.0605 #### [facility] [address] [place], [address] COMMENT Comment Normal . [facility] Comment on above: Result Comment: Elaine samson of Specific IgE Class Description of Class ----- < 0.10 0 Negative 0.10 - 0.31 0/I Equivocal/Low 0.32 - 0.55 I Low 0.56 - 1.40 II Moderate 1.41 - 3.90 III High 3.91 - 19.00 IV Very High 19.01 - 100.00 V Very High >100.00 Very High Performed By: #### M 100.637, L7400.3300, M600.5000, L7000.0750, L7000.0700, M100.0605 #### [facility] [address] [place], [address] CORN <0.10 Normal Class 0 [facility] Comment on above: Performed By: #### M 100.637, L7400.3300, M600.5000, L7000.0750, L7000.0700, M100.0605 #### [facility] [address] [place], [place], [id number] EGG, WHOLE <0.10 Normal Class 0 [facility] Comment on above: Result Comment: Perf ormed at: [facility] [address] [id number] Pharmacy Billing Adjudicator: Jack Arnold PhD, Phone: [phone] Performed at: [facility] [address] [id number] Pharmacy Billing Adjudicator: Eve Green MD, Phone: [phone] Performed By: #### M 100.637, L7400.3300, M600.5000, L7000.0750, L7000.0700, M100.0605 #### [facility] [address] [place], [place], [id number] MILK (COW) <0.10 Normal Class 0 [facility] Comment on above: Performed By: #### M 100.637, L7400.3300, M600.5000, L7000.0750, L7000.0700, M100.0605 #### [facility] [address] [place], [place], [id number] [phone] MUSSELS <0.10 Normal Class 0 [facility] Comment on above: Performed By: #### M 100.637, L7400.3300, M600.5000, L7000.0750, L7000.0700, M100.0605 #### [facility] [address] [place], [address] PEANUT <0.10 Normal Class 0 [facility] Comment on above: Performed By: #### M 100.637, L7400.3300, M600.5000, L7000.0750, L7000.0700, M100.0605 #### [facility] [address] [place], [address] PORK <0.10 Normal Class 0 [facility] Comment on above: Performed By: #### M 100.637, L7400.3300, M600.5000, L7000.0750, L7000.0700, M100.0605 #### [facility] [address] [place], [address] SALMON <0.10 Normal Class 0 [facility] Comment on above: Performed By: #### M 100.637, L7400.3300, M600.5000, L7000.0750, L7000.0700, M100.0605 #### [facility] [address] [place], [address] SHRIMP <0.10 Normal Class 0 [facility] Comment on above: Performed By: #### M 100.637, L7400.3300, M600.5000, L7000.0750, L7000.0700, M100.0605 #### [facility] [address] [place], [address] SOYBEAN <0.10 Normal Class 0 [facility] Comment on above: Performed By: #### M 100.637, L7400.3300, M600.5000, L7000.0750, L7000.0700, M100.0605 #### [facility] [address] [place], [address] TUNA <0.10 Normal Class 0 [facility] Comment on above: Performed By: #### M 100.637, L7400.3300, M600.5000, L7000.0750, L7000.0700, M100.0605 #### [facility] [address] [place], [address] WHEAT <0.10 Normal Class 0 [facility] Comment on above: Performed By: #### M 100.637, L7400.3300, M600.5000, L7000.0750, L7000.0700, M100.0605 #### [facility] [address] [place], [place], [id number] [phone] Calprotectin, Stoolon [address] 26 ug/g Normal 0-120 [facility] Comment on above: Result Comment: Conc entration Interpretation Follow-Up < 5 - 50 ug/g Normal None >50 -120 ug/g Borderline Re-evaluate in 4-6 weeks >120 ug/g Abnormal Repeat as clinically indicated Performed at: [address] [id number] Pharmacy Billing Adjudicator: Eve Green MD, Phone: [phone] Performed By: #### M 100.637, L7400.3300, M600.5000, L7000.0750, L7000.0700, M100.0605 #### [facility] [address] [place], [place], [id number] Giardia Lamblia, Stool EIAon 07-02-2024 Giardia Stool Negative Normal Negative [facility] Comment on above: Result Comment: Perf ormed at: [address] [id number] Pharmacy Billing Adjudicator: Eve Green MD, Phone: [phone] Performed at: [facility] - [address] [id number] Pharmacy Billing Adjudicator: Jack Arnold PhD, Phone: [phone] Performed By: #### M 100.637, L7400.3300, M600.5000, L7000.0750, L7000.0700, M100.0605 #### [facility] [address] [place], [address] L7000.0750on 07-02-2024 P ELASTASE,FECA > 800 Normal >200 [facility] Comment on above: Result Comment: Resu lt Units: ug Elast./g Severe Pancreatic Insufficiency: <100 Moderate Pancreatic Insufficiency: 100 - 200 Normal: >200 Performed By: #### M 100.637, L7400.3300, M600.5000, L7000.0750, L7000.0700, M100.0605 #### [facility] [address] [place], [address] CBC W/Diff, Automatedon 06-09 Absolute Lymph 2.69 X10 3/uL Normal 0.83-4.51 [facility] Comment on above: Performed By: #### M 100.637, L7400.3300, M600.5000, L7000.0750, L7000.0700, M100.0605 #### [facility] [address] [place], [address] Absolute Neut 3.1 X10 3/uL Normal 2.0-7.7 [facility] Comment on above: Performed By: #### M 100.637, L7400.3300, M600.5000, L7000.0750, L7000.0700, M100.0605 #### [facility] [address] [place], [address] Basophils/100 WBC (Bld) 1.3 % High 0-1 [facility] Comment on above: Performed By: #### M 100.637, L7400.3300, M600.5000, L7000.0750, L7000.0700, M100.0605 #### [facility] [address] [place], [address] Eosinophils/100 WBC (Bld) 5.1 % High 0-5 [facility] Comment on above: Performed By: #### M 100.637, L7400.3300, M600.5000, L7000.0750, L7000.0700, M100.0605 #### [facility] [address] [place], [address] Erythrocyte distribution width (RBC) [Ratio] 13.5 % Normal 11.6-14.6 [facility] Comment on above: Performed By: #### M 100.637, L7400.3300, M600.5000, L7000.0750, L7000.0700, M100.0605 #### [facility] [address] [place], [address] Hematocrit (Bld) [Volume fraction] 45.1 % Normal 37-47 [facility] Comment on above: Performed By: #### M 100.637, L7400.3300, M600.5000, L7000.0750, L7000.0700, M100.0605 #### [facility] [address] [place], [address] Hemoglobin (Bld) [Mass/Vol] 15.3 g/dL High 12.0-15.0 [facility] Comment on above: Performed By: #### M 100.637, L7400.3300, M600.5000, L7000.0750, L7000.0700, M100.0605 #### [facility] [address] [place], [address] IG% 0.300 Normal 0.0-0.9 [facility] Comment on above: Result Comment: IG% - Immature Granulocytes (promyelocytes, myelocytes and metamyelocytes) > 1% indicates that a LEFT SHIFT is Present. Performed By: #### M 100.637, L7400.3300, M600.5000, L7000.0750, L7000.0700, M100.0605 #### [facility] [address] [place], [address] Lymphocytes/100 WBC (Bld) 39.0 % Normal 19-41 [facility] Comment on above: Performed By: #### M 100.637, L7400.3300, M600.5000, L7000.0750, L7000.0700, M100.0605 #### [facility] [address] [place], [address] MCH (RBC) [Entitic mass] 28.8 pg Normal 27.0-32.0 [facility] Comment on above: Performed By: #### M 100.637, L7400.3300, M600.5000, L7000.0750, L7000.0700, M100.0605 #### [facility] [address] [place], [address] MCHC (RBC) [Mass/Vol] 33.9 g/dL Normal 32-36 [facility] Comment on above: Performed By: #### M 100.637, L7400.3300, M600.5000, L7000.0750, L7000.0700, M100.0605 #### [facility] [address] [place], [address] MCV (RBC) [Entitic vol] 84.8 fL Normal 81-99 [facility] Comment on above: Performed By: #### M 100.637, L7400.3300, M600.5000, L7000.0750, L7000.0700, M100.0605 #### [facility] [address] [place], [address] Monocytes/100 WBC (Bld) 8.7 % Normal 0-10 [facility] Comment on above: Performed By: #### M 100.637, L7400.3300, M600.5000, L7000.0750, L7000.0700, M100.0605 #### [facility] [address] [place], [address] Neutrophils/100 WBC (Bld) 45.6 % Low 47-70 [facility] Comment on above: Performed By: #### M 100.637, L7400.3300, M600.5000, L7000.0750, L7000.0700, M100.0605 #### [facility] [address] [place], [address] Nucleated RBC (Bld) [#/Vol] 0 10*3/uL Normal 0-5 [facility] Comment on above: Performed By: #### M 100.637, L7400.3300, M600.5000, L7000.0750, L7000.0700, M100.0605 #### [facility] [address] [place], [address] Platelet mean volume (Bld) [Entitic vol] 10.5 fL Normal 6.2-12.0 [facility] Comment on above: Performed By: #### M 100.637, L7400.3300, M600.5000, L7000.0750, L7000.0700, M100.0605 #### [facility] [address] [place], [address] Platelets (Bld) [#/Vol] 319 10*3/uL Normal 150-450 [facility] Comment on above: Performed By: #### M 100.637, L7400.3300, M600.5000, L7000.0750, L7000.0700, M100.0605 #### [facility] Laboratory [address] [place], [address] RBC (Bld) [#/Vol] 5.32 10*6/uL Normal 4.2-5.4 [facility] Comment on above: Performed By: #### M 100.637, L7400.3300, M600.5000, L7000.0750, L7000.0700, M100.0605 #### [facility] [address] [place], [address] RDW SD 41.9 fl Normal 35.1-43.9 [facility] Comment on above: Performed By: #### M 100.637, L7400.3300, M600.5000, L7000.0750, L7000.0700, M100.0605 #### [facility] [address] [place], [address] WBC (Bld) [#/Vol] 6.9 10*3/uL Normal 4.4-11.0 [facility] Comment on above: Performed By: #### M 100.637, L7400.3300, M600.5000, L7000.0750, L7000.0700, M100.0605 #### [facility] [address] [place], [address] CRPon 06-28-2024 C-REACTIVE PROT 7.51 mg/L High 0.0-3.0 [facility] Comment on above: Order Comment: UNK Result Comment: C-Re active Protein (CRP) provides useful information for the diagnosis, therapy and monitoring of inflammatory processes and associated diseases. For the evaluation of Relative Risk for Cardiovascular Disease, a High Sensitivity CRP (HSCRP) should be ordered. Performed By: #### L 3410.2350, L101.9900, L100.0100, L501.6710, L5500.0550, L3100.5440, L3200.1100, L2100.0000, L3300.1200, L500.4050 #### [facility] [address] [place], [address] Comprehensive Metabolic Prof ilon 06-28-2024 Albumin [Mass/Vol] 4.1 g/dL Normal 3.2-5.0 [facility] Comment on above: Order Comment: UNK Performed By: #### L 3410.2350, L101.9900, L100.0100, L501.6710, L5500.0550, L3100.5440, L3200.1100, L2100.0000, L3300.1200, L500.4050 #### [facility] [address] [place], [address] Albumin/Globulin [Mass ratio] 1.1 {ratio} Normal 0.9-2.4 [facility] Comment on above: Order Comment: UNK Performed By: #### L 3410.2350, L101.9900, L100.0100, L501.6710, L5500.0550, L3100.5440, L3200.1100, L2100.0000, L3300.1200, L500.4050 #### [facility] [address] [place], [address] ALK P 82 U/L Normal 45-117 [facility] Comment on above: Order Comment: UNK Performed By: #### L 3410.2350, L101.9900, L100.0100, L501.6710, L5500.0550, L3100.5440, L3200.1100, L2100.0000, L3300.1200, L500.4050 #### [facility] [address] [place], [address] ALT [Catalytic activity/Vol] 30 U/L Normal 13-56 [facility] Comment on above: Order Comment: UNK Performed By: #### L 3410.2350, L101.9900, L100.0100, L501.6710, L5500.0550, L3100.5440, L3200.1100, L2100.0000, L3300.1200, L500.4050 #### [facility] [address] [place], [address] AST [Catalytic activity/Vol] 22 U/L Normal 15-37 [facility] Comment on above: Order Comment: UNK Performed By: #### L 3410.2350, L101.9900, L100.0100, L501.6710, L5500.0550, L3100.5440, L3200.1100, L2100.0000, L3300.1200, L500.4050 #### [facility] [address] [place], [address] Bilirubin [Mass/Vol] 0.50 mg/dL Normal 0.20-1.00 [facility] Comment on above: Order Comment: UNK Result Comment: For patients on eltrombopag therapy, use of Dimension Byron TBIL is not recommended. Performed By: #### L 3410.2350, L101.9900, L100.0100, L501.6710, L5500.0550, L3100.5440, L3200.1100, L2100.0000, L3300.1200, L500.4050 #### [facility] [address] [place], [address] BUN/CRE 11.7 RATIO Normal 10-20 [facility] Comment on above: Order Comment: UNK Performed By: #### L 3410.2350, L101.9900, L100.0100, L501.6710, L5500.0550, L3100.5440, L3200.1100, L2100.0000, L3300.1200, L500.4050 #### [facility] [address] [place], [address] CA,Total 9.4 mg/dL Normal 8.5-10.1 [facility] Comment on above: Order Comment: UNK Performed By: #### L 3410.2350, L101.9900, L100.0100, L501.6710, L5500.0550, L3100.5440, L3200.1100, L2100.0000, L3300.1200, L500.4050 #### [facility] [address] [place], [address] Chloride [Moles/Vol] 107 mmol/L Normal 98-107 [facility] Comment on above: Order Comment: UNK Performed By: #### L 3410.2350, L101.9900, L100.0100, L501.6710, L5500.0550, L3100.5440, L3200.1100, L2100.0000, L3300.1200, L500.4050 #### [facility] [address] [place], [address] CO2 [Moles/Vol] 27.0 mmol/L Normal 21.0-32.0 [facility] Comment on above: Order Comment: UNK Performed By: #### L 3410.2350, L101.9900, L100.0100, L501.6710, L5500.0550, L3100.5440, L3200.1100, L2100.0000, L3300.1200, L500.4050 #### [facility] [address] [place], [address] Creatinine [Mass/Vol] 0.77 mg/dL Normal 0.55-1.02 [facility] Comment on above: Order Comment: UNK Result Comment: The validity of the calculated GFR GFRAA in patients over 70 years has not been determined. Clinical correlation is essential. Performed By: #### L 3410.2350, L101.9900, L100.0100, L501.6710, L5500.0550, L3100.5440, L3200.1100, L2100.0000, L3300.1200, L500.4050 #### [facility] [address] [place], [address] EST GFR - AA 108 mL/min Normal >60 [facility] Comment on above: Order Comment: UNK Result Comment: Afri can Martiniquais GFR Calc Performed By: #### L 3410.2350, L101.9900, L100.0100, L501.6710, L5500.0550, L3100.5440, L3200.1100, L2100.0000, L3300.1200, L500.4050 #### [facility] [address] [place], [place], [id number] (350) GAP 5 Normal 5-15 [facility] Comment on above: Order Comment: UNK Performed By: #### L 3410.2350, L101.9900, L100.0100, L501.6710, L5500.0550, L3100.5440, L3200.1100, L2100.0000, L3300.1200, L500.4050 #### [facility] [address] [place], [place], [id number] (986) GFR/1.73 sq M.predicted among non-blacks MDRD (S/P/Bld) [Vol rate/Area] 89 mL/min/{1.73_m2} Normal >60 [facility] Comment on above: Order Comment: UNK Result Comment: Non- GFR Calc Performed By: #### L 3410.2350, L101.9900, L100.0100, L501.6710, L5500.0550, L3100.5440, L3200.1100, L2100.0000, L3300.1200, L500.4050 #### [facility] [address] [place], [place], [id number] (521) Globulin (S) [Mass/Vol] 3.8 g/dL Normal 2.2-4.2 [facility] Comment on above: Order Comment: UNK Performed By: #### L 3410.2350, L101.9900, L100.0100, L501.6710, L5500.0550, L3100.5440, L3200.1100, L2100.0000, L3300.1200, L500.4050 #### [facility] [address] [place], [place], [id number] (366) Glucose [Mass/Vol] 98 mg/dL Normal 74-106 [facility] Comment on above: Order Comment: UNK Performed By: #### L 3410.2350, L101.9900, L100.0100, L501.6710, L5500.0550, L3100.5440, L3200.1100, L2100.0000, L3300.1200, L500.4050 #### [facility] [address] [place], [address] Potassium [Moles/Vol] 4.0 mmol/L Normal 3.5-5.1 [facility] Comment on above: Order Comment: UNK Performed By: #### L 3410.2350, L101.9900, L100.0100, L501.6710, L5500.0550, L3100.5440, L3200.1100, L2100.0000, L3300.1200, L500.4050 #### [facility] [address] [place], [address] Sodium [Moles/Vol] 139 mmol/L Normal 136-145 [facility] Comment on above: Order Comment: UNK Performed By: #### L 3410.2350, L101.9900, L100.0100, L501.6710, L5500.0550, L3100.5440, L3200.1100, L2100.0000, L3300.1200, L500.4050 #### [facility] [address] [place], [address] T PROT 7.9 g/dL Normal 6.4-8.2 [facility] Comment on above: Order Comment: UNK Performed By: #### L 3410.2350, L101.9900, L100.0100, L501.6710, L5500.0550, L3100.5440, L3200.1100, L2100.0000, L3300.1200, L500.4050 #### [facility] [address] [place], [address] Urea nitrogen [Mass/Vol] 9 mg/dL Normal 7-18 [facility] Comment on above: Order Comment: UNK Performed By: #### L 3410.2350, L101.9900, L100.0100, L501.6710, L5500.0550, L3100.5440, L3200.1100, L2100.0000, L3300.1200, L500.4050 #### [facility] [address] [place], [place], [id number] ENTERIC PATHOGEN PANEL STOOL on 06-28-2024 EP PANEL Normal Reference Ran ge = Not Detected GI pathogens Pnl Stl MARTIN+probe Nucleic acid amplification test method Not detected for Campylobacter group, Salmonella species, Shigella species, Vibrio Group, Yersinia enterocolitica, EHEC (Shiga Toxin 1, Shiga Toxin 2), Norovirus Gl/Gll, and Rotavirus A. Other common stool pathogens are not detected on this panel include: Aeromonas/Plesiomonas or parasites. Order testing for these organisms separately if suspected. This is an amplified DNA test which makes it both specific and sensitive. CAMPYLOBACTER Not Detected Norovirus Not Detected Rotavirus Not Detected Salmonella Not Detected Shiga Toxin Not Detected Shigella sp. Not Detected VIBRIO Not Detected Yersinia Not Detected Normal [facility] Comment on above: Performed By: #### M 100.637, L7400.3300, M600.5000, L7000.0750, L7000.0700, M100.0605 #### [facility] [address] [place], [place], [id number] Erythrocyte Sed Rateon 06-28 SED RATE 5 mm/hr Normal 0-30 [facility] Comment on above: Performed By: #### L 3410.2350, L101.9900, L100.0100, L501.6710, L5500.0550, L3100.5440, L3200.1100, L2100.0000, L3300.1200, L500.4050 #### [facility] [address] [place], [place], [id number] Gastroenterology Visit Repor ton 06-28-2024 Gastroenterology Visit Report [facility] [address] [place] [address] OFFICE VISIT Date of Service: 06/28/24 MR#: [id number] Acct: [id number] Name: ELIZA VALLADARES Rep #: [id number] : 1985 Provider: DONALD Ho Age/Sex: 38/F Location: [facility] Status: Signed Intake Vital Signs 05/30/24 11:10 06/22/24 09:24 Height 5 ft 2 in 5 ft 2 in Weight: 155 lb BMI 28.3 BP 136/79 H Intake Visit Reasons: Abdominal pain Chief Complaint: Abdominal pain, idigestion Allergies ketorolac tromethamine (From Toradol) Allergy (Verified 06/28/24 08:30) Hives sumatriptan (From Imitrex) Allergy (Verified 06/28/24 08:30) Anaphylaxis sumatriptan succinate (From Imitrex) Allergy (Verified 06/28/24 08:30) Anaphylaxis tramadol HCl (From Ultram) Allergy (Verified 06/28/24 08:30) Hives epinephrine Adverse Reaction (Verified 06/28/24 08:30) Other morphine Adverse Reaction (Verified 06/28/24 08:30) Other procaine (From Novocain) Adverse Reaction (Verified 06/28/24 08:30) Other Medications ???Medication ???Instructions ???Recorded ???Confirmed ???Type acetaminophen 500 mg tablet 1,000 mg PO BID PRN 07/07/23 06/28/24 History (Tylenol Extra Strength) ibuprofen 200 mg tablet 400 mg PO Q6H PRN 07/07/23 06/28/24 History lorazepam 1 mg tablet (Ativan) 1 mg PO BID PRN anxiety #10 tabs 05/08/24 06/28/24 Rx famotidine 10 mg tablet 10 mg PO QDAY 05/30/24 06/28/24 History lamotrigine 25 mg tablet 25 mg PO QDAY 14 days #46 tabs 06/22/24 06/28/24 Rx propranolol 10 mg tablet 10 mg PO TID PRN anxiety #60 tabs 06/22/24 06/28/24 Rx pantoprazole 40 mg tablet,delayed 40 mg PO QDAY #90 tabs 06/28/24 06/28/24 Rx release Nurse's Note: Pt reports IBS sx for many years. Increased abdominal pain, bloating and indigestion. Currently taking Famotidine 40mg AM and PM but says it doesn't last her through the day. Will have epigastric pain with reflux and nausea. Some morning she wakes up with RUQ pain that feels like a gallbladder attack. She had her gallbladder removed several years ago. Reports early satiety. Alternating BMs. Sometimes will have urgent postprandial diarrhea followed by not being able to go the next day. Stools are loose and watery. Has seen blood mixed with stools twice last month. Has seen general surgery a couple years ago for hemorrhoids. [facility] Medical History Urinary frequency Hematuria Postauricular lymphadenopathy Contact with and (suspected) exposure to other viral communicable diseases Acute sinusitis, unspecified Contact with and (suspected) exposure to other viral communicable diseases Cervical lymphadenitis Cephalgia URI (upper respiratory infection) Cellulitis of lower back Right shoulder strain Cervical strain Wears dentures Depression Anemia Migraine headache History of IBS Smoker History of echocardiogram Hx of sinus tachycardia Cardiology follow-up encounter Nausea Abdominal pain of unknown etiology BRBPR (bright red blood per rectum) PTSD (post-traumatic stress disorder) Nicotine dependence Migraine Situational depression GERD (gastroesophageal reflux disease) Anxiety Surgical History Hx of colonoscopy Hx laparoscopic cholecystectomy History of shoulder surgery History of left oophorectomy History of colonoscopy History of right oophorectomy History of bilateral salpingectomy History of cholecystectomy H/O: hysterectomy Family History Mother Hypertension High cholesterol Grandmother Diabetes Hypertension afib Father Hypertension High cholesterol Grandfather Cancer skin Hypertension Afib Grandmother Hypertension afib Colon cancer Diabetes Social History number of children: 2 Smoking Status: Current every day smoker tobacco type: cigarettes Tobacco: How many years used: 8 second hand exposure: Yes alcohol intake: never substance use type: does not use caffeine: Yes (2) Type: carbonated beverages what type of physical activity do you participate in: none seatbelt use: always do you feel safe at home: Yes 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 Pt has a PMHx of MDD, PHILIP, and nicotine dependence. Pt was referred here to us from OBGYN for abdominal pain. For years pt has had issues with urgent diarrhea and abdominal discomfort. She was told she has IBS but has never had a full GI work up for IBD. She has upwards of 10 loose stools per day that are bright yellow. Sh (more content not included)... Normal [facility] Stool Lactoferrin/WBCon 06-09 WBCST Normal Reference Ran ge = Negative Fecal WBC Lactoferrin Negative: No Fecal WBC Lactoferrin present Normal [facility] Comment on above: Performed By: #### M 100.637, L7400.3300, M600.5000, L7000.0750, L7000.0700, M100.0605 #### [facility] [address] [place], [place], [id number] MR/BMS.BPon 06-22-2024 /BMS.BP [address], [address] [place] [address] OFFICE VISIT Date of Service: 06/22/24 MR#: [id number] Acct: [id number] Name: ELIZA VALLADARES Rep #: [id number] : 1985 Provider: REYNOLD renee Age/Sex: 38/F Location: [facility] [place].[facility] Status: Signed Intake Vital Signs 05/30/24 11:10 06/22/24 09:24 Height 5 ft 2 in 5 ft 2 in Weight: 155 lb 156 lb BMI 28.3 28.5 BP 136/79 H 135/82 H Blood Pressure Location Rt brachial Position Sitting Respiration 16 Pulse 103 H Pulse Source Monitor BP Intake Visit Reasons: Anxiety/ Depression Accompanied by: Self Allergies ketorolac tromethamine (From Toradol) Allergy (Verified 06/22/24 09:28) Hives sumatriptan (From Imitrex) Allergy (Verified 06/22/24 09:28) Anaphylaxis sumatriptan succinate (From Imitrex) Allergy (Verified 06/22/24 09:28) Anaphylaxis tramadol HCl (From Ultram) Allergy (Verified 06/22/24 09:28) Hives epinephrine Adverse Reaction (Verified 06/22/24 09:28) Other morphine Adverse Reaction (Verified 06/22/24 09:28) Other procaine (From Novocain) Adverse Reaction (Verified 06/22/24 09:28) Other Medications ???Medication ???Instructions ???Recorded ???Confirmed ???Type acetaminophen 500 mg tablet 1,000 mg PO BID PRN 07/07/23 06/22/24 History (Tylenol Extra Strength) ibuprofen 200 mg tablet 400 mg PO Q6H PRN 07/07/23 06/22/24 History lorazepam 1 mg tablet (Ativan) 1 mg PO BID PRN anxiety #10 tabs 05/08/24 06/22/24 Rx famotidine 10 mg tablet 10 mg PO QDAY 05/30/24 06/22/24 History lamotrigine 25 mg tablet 25 mg PO QDAY 14 days #46 tabs 06/22/24 06/22/24 Rx propranolol 10 mg tablet 10 mg PO TID PRN anxiety #60 tabs 06/22/24 06/22/24 Rx PFSH Medical History Urinary frequency Hematuria Postauricular lymphadenopathy Contact with and (suspected) exposure to other viral communicable diseases Acute sinusitis, unspecified Contact with and (suspected) exposure to other viral communicable diseases Cervical lymphadenitis Cephalgia URI (upper respiratory infection) Cellulitis of lower back Right shoulder strain Cervical strain Wears dentures Depression Anemia Migraine headache History of IBS Smoker History of echocardiogram Hx of sinus tachycardia Cardiology follow-up encounter Nausea Abdominal pain of unknown etiology BRBPR (bright red blood per rectum) PTSD (post-traumatic stress disorder) Nicotine dependence Migraine Situational depression GERD (gastroesophageal reflux disease) Anxiety Surgical History Hx of colonoscopy Hx laparoscopic cholecystectomy History of shoulder surgery History of left oophorectomy History of colonoscopy History of right oophorectomy History of bilateral salpingectomy History of cholecystectomy H/O: hysterectomy Family History Mother Hypertension High cholesterol Grandmother Diabetes Hypertension afib Father Hypertension High cholesterol Grandfather Cancer skin Hypertension Afib Grandmother Hypertension afib Colon cancer Diabetes Social History number of children: 2 Smoking Status: Current every day smoker tobacco type: cigarettes Tobacco: How many years used: 8 second hand exposure: Yes alcohol intake: never substance use type: does not use caffeine: Yes (2) Type: carbonated beverages what type of physical activity do you participate in: none seatbelt use: always do you feel safe at home: Yes 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 Patient presents today as she was recommended to come in by her OBGYN as they have been trying to manage her mental health medications without success. Sleep: Reports napping frequently, 3-4x/week. Does sometimes take Benadryl to help fall asleep at times. Does have difficulty falling asleep. Denies issues staying asleep. 7-8 hours per night. Admits to infrequent nightmares. Interest: Does find norris in things like spending time with her children and working and getting to be creative at work. Admits to feelings of depression less than half the days of the week. Energy: Does not wake up feeling well rested. Is able to complete her daily tasks but if she doesn't need to do anything she does not. At baseline feels fatigue. Admits to a sometimes lack of motivation with heightened anxiety. Guilt: Admits to sometimes feelings of guilt, hopelessness, and worthlessness. States these are more of a general feeling than being about somet (more content not included)... Normal [facility] CNOVon 04-24-2024 CNOV Office Visit ([facility] ) ELIZA [id number]) 1985 F Date Time Provider Department 04/24/24 9:45 AM JANI ESCAMILLA [facility] During your visit today, we recorded the following information about you: Temperature Pulse Respiration Blood pressure 97.8 degrees 149/minute 18/minute 148/93 Weight 69 kg Jani Escamilla APRN.TALENT SOURCING SPECIALIST 04/24/2024 9:56 AM Signed Subjective HPI Nontoxic-appearing female presents urgent care chief complaint cough sweating weakness. States has been sick for greater than 9 days. Is currently on amoxicillin. Symptoms are not improving. States just not feeling well today. .No chief complaint on file. PAST MEDICAL HISTORY Diagnosis Date Anxiety SHERRI III (cervical intraepithelial neoplasia grade III) with severe dysplasia 2006 needs paps until 2026 DDD (degenerative disc disease), cervical 11/28/2023 Encounter for gynecological examination 11/28/[address] Douglas [facility]. Gastroesophageal reflux disease without esophagitis 11/28/2023 Irritable bowel syndrome with diarrhea 11/28/2023 KIDNEY INFECTION HOSPITALIZED FOR 5 DAYS 09/2010 Marijuana use 07/05/2017 Positive urine tox in ER at [facility] 07/03/2017 Palpitations 01/23/[address] Zayas Spinal stenosis, cervical region 11/28/2023 Well adult exam 11/28/2023 Last done: 11/28/2023 PAST SURGICAL HISTORY Procedure Laterality Date CHOLECYSTECTOMY 04/08/2011 COLONOSCOPY 05/20/2021 repeat age 46 COLONOSCOPY FLX DX W/COLLJ SPEC WHEN PFRMD 01/28/2016 Colonoscopy mac ESSURE 2013 HYSTERECTOMY HX 07/2014 TVH then exp lap for postop bleeding OFFICE LEEP [facility] office PAST SURGICAL HISTORY OF Right 08/22/2019 shoulder debredement, biceps tenotomy and acromioplasty SALPINGECTOMY 11/2013 bilateral sec to post essure pain VAGINOSCOPY 2007 Dr Gagnon ALLERGIES Imitrex [Sumatriptan Succinate], Toradol [Ketorolac Tromethamine], Ultram [Tramadol], Buspar [Buspirone Hcl], Imodium [Loperamide Hcl], and Morphine MEDICATIONS amoxicillin (AMOXIL) 875 mg tablet Take 1 tablet by mouth two times a day for 7 days. famotidine (PEPCID) 20 mg tablet Take 1 tablet by mouth two times a day. hydrOXYzine HCl (ATARAX) 10 mg tablet Take 1 tablet by mouth three times a day as needed for anxiety. (Patient not taking: Reported on 04/17/2024) ibuprofen (MOTRIN) 600 mg tablet Take 600 mg by mouth three times daily as needed. FAMILY HISTORY Problem Relation Age of Onset Hypertension Mother Lipids Mother COPD Mother other (over dose) Mother passed 2020 Hypertension Father COPD Father Diabetes Brother Diabetes Maternal Grandmother Colon Cancer Maternal Grandmother other (ITP) Son Social History Tobacco Use Smoking status: Every Day Current packs/day: 0.25 Average packs/day: 0.3 packs/day for 9.0 years (2.3 ttl pk-yrs) Types: Cigarettes Smokeless tobacco: Never Tobacco comments: less than a 1/2 pack per day Vaping Use Vaping status: Never Used Substance Use Topics Alcohol use: No Drug use: Yes Types: Marijuana BP 148/93 Pulse (!) 149 Temp 36.6 ?C (97.8 ?F) Resp 18 Wt 69 kg (152 lb 1.9 oz) LMP 06/28/2014 SpO2 100% BMI 26.95 kg/m? Review of Systems Constitutional: Positive for malaise/fatigue. Negative for chills and fever. HENT: Negative for congestion, ear discharge, ear pain, sinus pain and sore throat. Eyes: Negative for blurred vision, pain, discharge and redness. Respiratory: Positive for cough. Negative for hemoptysis, sputum production, shortness of breath, wheezing and stridor. Cardiovascular: Negative for chest pain. Gastrointestinal: Negative for abdominal pain, diarrhea, nausea and vomiting. Musculoskeletal: Positive for myalgias. Skin: Negative for itching and rash. Neurological: Negative for dizziness and headaches. Objective Physical Exam Constitutional: General: She is not in acute distress. Appearance: She is not diaphoretic. HENT: Head: Normocephalic. Eyes: Conjunctiva/sclera: Conjunctivae normal. Pupils: Pupils are equal, round, and reactive to light. Cardiovascular: Rate and Rhythm: Regular rhythm. Tachycardia present. Heart sounds: Normal heart sounds. Pulmonary: Effort: Pulmonary effort is normal. No tachypnea, accessory muscle usage or respiratory distress. Breath sounds: Normal breath sounds. No stridor. No wheezing, rhonchi or rales. Musculoskeletal: Cervical back: Normal range of motion and neck supple. No edema or erythema. No pain with movement. Normal range of motion. Skin: General: Skin is warm and dry. Neurological: Mental Status: She is alert and oriented to person, place, and time. ASSESSMENT/PLAN: 1. Tachycardia - ICD9: 785.0, ICD10: R00.0 Patient mildly diaphoretic. Tachycardic on evaluation. Initially patient was 157. Heart rate did go down to 149. With presenting sympto (more content not included)... Normal [facility] CNOVon 04-17-2024 CNOV Office Visit ([facility] ) ELIZA VALLADARES ([id number]) 1985 F Date Time Provider Department 04/17/24 10:45 AM KELSI TEE [facility] During your visit today, we recorded the following information about you: Temperature Pulse Respiration Blood pressure 98.1 degrees 120/minute 18/minute 128/80 Weight 69.2 kg Kelsi Tee APRN.TALENT SOURCING SPECIALIST 04/17/2024 10:59 AM Signed This note was created using indicoriter. Subjective Eliza Irizarry Celena is a 38 year old female. Patient presents with sinus congestion, sinus pressure and left ear pain for 3 days Smoker. Denies hx of asthma or COPD Review of Systems Constitutional: Negative for chills and fever. HENT: Positive for congestion, ear pain and sinus pain. Negative for sore throat. Respiratory: Negative for cough, shortness of breath and wheezing. Gastrointestinal: Positive for nausea and vomiting. Negative for abdominal pain and diarrhea. Objective BP 128/80 Pulse 120 Temp 36.7 ?C (98.1 ?F) Resp 18 Wt 69.2 kg (152 lb 8.9 oz) LMP 06/28/2014 SpO2 99% BMI 27.02 kg/m? Physical Exam Constitutional: General: She is not in acute distress. Appearance: Normal appearance. She is not toxic-appearing. HENT: Head: Normocephalic and atraumatic. Right Ear: Tympanic membrane and ear canal normal. Left Ear: Ear canal normal. A middle ear effusion is present. Tympanic membrane is erythematous. Tympanic membrane is not retracted or bulging. Nose: Congestion present. No rhinorrhea. Mouth/Throat: Pharynx: Posterior oropharyngeal erythema present. No oropharyngeal exudate. Eyes: Conjunctiva/sclera: Conjunctivae normal. Cardiovascular: Rate and Rhythm: Normal rate and regular rhythm. Heart sounds: Normal heart sounds. Pulmonary: Effort: Pulmonary effort is normal. Breath sounds: Normal breath sounds. Lymphadenopathy: Cervical: No cervical adenopathy. Neurological: Mental Status: She is alert. Assessment and Plan ASSESSMENT/PLAN: 1. Acute otitis media, left - ICD9: 382.9, ICD10: H66.92 (primary diagnosis) - Will begin treatment with as per antibiotic as written, see orders - Supportive care with plenty of fluids, rest, and analgesia prn. - Follow up in 3-5 days if symptoms persist or worsen. - AMOXICILLIN 875 MG TABLET 2. Viral URI with cough - ICD9: 465.9, ICD10: J06.9 - Discussed viral etiology and rationale for treatment. - Symptomatic treatment with prn analgesia - Supportive care with fluids and rest - Follow up in 3-5 days if symptoms persist or sooner if worsening of symptoms Kelsi Tee APRN.Kelsi Samuel APRN.CNP 04/17/2024 10:36 AM Signed [facility] PATIENT INFO COMMON COLD OVERVIEW The common cold is one of the most frequent illnesses in the [place]. Although most colds are mild and resolve within a short time period, colds cost billions of dollars per year, mostly due to lost time at work and school. COMMON COLD CAUSES The common cold is a group of symptoms caused by one of a large number of viruses. Rhinoviruses cause the greatest number of colds; there are more than 100 different varieties of rhinovirus. Most viruses cause a person to be ill only once. However, due to the large number of viruses, a person can have a cold multiple times throughout his or her lifetime. The average adult experiences two to three colds per year, while children average 8 to 12 colds per year. Colds are transmitted from [id number]. Less often, the virus can be transmitted by touching a surface. Direct contact -- People with colds typically carry the cold virus on their hands. The virus may remain alive on the skin and capable of infecting another person for at least two hours. Thus, if a sick person shakes someone's hand and that individual then touches his eye, nose, or mouth, the virus can be transmitted and later infect that person. Infection from particles on surfaces -- Some cold viruses can live on surfaces (such as a counter top, door handle, or phone) for several hours. Inhaling viral particles -- Droplets containing viral particles can be breathed, coughed, or sneezed into the air by a person with a cold. The virus can be transmitted to others if another person is standing close (a few feet) and the droplet touches that person?s eye, nose, or mouth. Covering the mouth while coughing or sneezing greatly reduces this risk. Most cold viruses are not spread by saliva. Thus, kissing itself is not likely to transmit the common cold, but close direct contact can. Colds are not caused by cold climates or being exposed to cold air. However, some types of virus cause more colds during certain seasons (eg, fall and winter versus spring). COMMON COLD SIGNS AND SYMPTOMS The common cold usually causes nasal congestion, runny nose, and sneezing. A sore throat may be present on the first day but usually resolves quickly (more content not included)... Normal [facility] CNOVon 02-06-2024 CNOV Office Visit (UCWSTR ) ELIZA VALLADARES ([id number]) 1985 F Date Time Provider Department 02/06/24 8:30 AM MEAGAN MEJIA [facility] During your visit today, we recorded the following information about you: Temperature Pulse Respiration Blood pressure 97.1 degrees 87/minute 16/minute 128/76 Weight 63.9 kg Meagan Mejia PA 02/06/2024 9:14 AM Signed This note was created using indicoriter. Subjective Eliza Valladares is a 38 year old female. HPI 38-year-old female presents for left toe pain. Patient states that she was walking down the stairs yesterday carrying somethin and tripped and stubbed her toe. She is having pain and bruising of her left fourth toe. She states that pain is worse with walking. She has not taken anything for the pain. No history of injury to this toe in the past. She has no foot or ankle pain. No other complaints or injuries. PAST MEDICAL HISTORY Diagnosis Date Anxiety SHERRI III (cervical intraepithelial neoplasia grade III) with severe dysplasia 2006 needs paps until 2026 DDD (degenerative disc disease), cervical 11/28/2023 Encounter for gynecological examination 11/28/[address] Douglas [facility]. Gastroesophageal reflux disease without esophagitis 11/28/2023 Irritable bowel syndrome with diarrhea 11/28/2023 KIDNEY INFECTION HOSPITALIZED FOR 5 DAYS 09/2010 Marijuana use 07/05/2017 Positive urine tox in ER at [facility] 07/03/2017 Palpitations 01/23/[address] Zayas Spinal stenosis, cervical region 11/28/2023 Well adult exam 11/28/2023 Last done: 11/28/2023 PAST SURGICAL HISTORY Procedure Laterality Date CHOLECYSTECTOMY 04/08/2011 COLONOSCOPY 05/20/2021 repeat age 46 COLONOSCOPY FLX DX W/COLLJ SPEC WHEN PFRMD 01/28/2016 Colonoscopy mac ESSURE 2013 HYSTERECTOMY HX 07/2014 TVH then exp lap for postop bleeding OFFICE LEEP [facility] PAST SURGICAL HISTORY OF Right 08/22/2019 shoulder debredement, biceps tenotomy and acromioplasty SALPINGECTOMY 11/2013 bilateral sec to post essure pain VAGINOSCOPY 2007 Dr Gagnon ALLERGIES Imitrex [Sumatriptan Succinate], Toradol [Ketorolac Tromethamine], Ultram [Tramadol], Buspar [Buspirone Hcl], Imodium [Loperamide Hcl], and Morphine MEDICATIONS famotidine (PEPCID) 20 mg tablet Take 1 tablet by mouth two times a day. hydrOXYzine HCl (ATARAX) 10 mg tablet Take 1 tablet by mouth three times a day as needed for anxiety. ibuprofen (MOTRIN) 600 mg tablet Take 600 mg by mouth three times daily as needed. FAMILY HISTORY Problem Relation Age of Onset Hypertension Mother Lipids Mother COPD Mother other (over dose) Mother passed 2020 Hypertension Father COPD Father Diabetes Brother Diabetes Maternal Grandmother Colon Cancer Maternal Grandmother other (ITP) Son Social History Tobacco Use Smoking status: Every Day Packs/day: 0.25 Years: 9.00 Additional pack years: 0.00 Total pack years: 2.25 Types: Cigarettes Smokeless tobacco: Never Tobacco comments: less than a 1/2 pack per day Vaping Use Vaping Use: Never used Substance Use Topics Alcohol use: No Drug use: Yes Types: Marijuana Review of Systems Constitutional: Negative for chills and fever. HENT: Negative for congestion, ear pain and sore throat. Respiratory: Negative for cough and shortness of breath. Cardiovascular: Negative for chest pain. Gastrointestinal: Negative for diarrhea and vomiting. Musculoskeletal: + Left toe pain Objective BP 128/76 Pulse 87 Temp 36.2 ?C (97.1 ?F) (Tympanic) Resp 16 Wt 63.9 kg (140 lb 14 oz) LMP 06/28/2014 SpO2 100% BMI 24.95 kg/m? Physical Exam Vitals and nursing note reviewed. Constitutional: General: She is not in acute distress. Appearance: Normal appearance. She is not toxic-appearing. Musculoskeletal: Left foot: Normal capillary refill. Swelling, tenderness and bony tenderness present. Normal pulse. Comments: Swelling and bruising noted to left fourth toe. Tenderness over the PIP and DIP joint. Able to move the toe, but reports pain with movement. Cap refill less than 2 seconds. Normal sensation. Nontender other digits. Nontender metatarsals. Nontender ankle. Able to ambulate. DP and PT pulses 2+. Skin: General: Skin is warm and dry. Neurological: Mental Status: She is alert. Assessment and Plan ASSESSMENT/PLAN: 1. Pain in left toe(s) - ICD9: 729.5, ICD10: M79.675 - XR TOE AP/LAT/OBL LEFT-no acute process. -Recommend rest, ice, elevation, Tylenol/Motrin. -Follow-up if no improvement. Diagnosis and treatment plan were discussed and questions were answered to the patient's satisfaction. Pt acknowledged understanding of concepts and follow up plan. Specific signs and symptoms that would indicate the need for higher level of care were discussed in detail warranting prompt ER evaluation. Mary Wilkes (more content not included)... Normal [facility] XR TOE 3V AP/LAT/OBL LTon XR TOE 3V AP/LAT/OBL LT * * *Final Report* * * DATE OF EXAM: Feb 06 2024 9:05AM WOX [id number] - XR TOE 3V AP/LAT/OBL LT / PROCEDURE REASON: Pain in left toe(s) * * * * Physician Interpretation * * * * History: Left toe pain FINDINGS: Multiple views of the fourth and fifth toes of been obtained. There is no acute fracture. No DIP joint of the fifth digit visualized. Joint spaces of the fourth digit maintained. No gross soft tissue abnormality is seen. IMPRESSION: No acute process is seen. Ticketer: NISSA Transcribe Date/Time: Feb 06 2024 9:07A Dictated by : DANIEL GORDILLO MD This examination was interpreted and the report reviewed and electronically signed by: DANIEL GORDILLO MD on Feb 06 2024 9:09AM EST [id number] Normal [facility] XR Toes - left 3 Viewson IMPRESSION: No acute process is seen. Ticketer: [employer] Transcribe Date/Time: Feb 06 2024 9:07A Dictated by : DANIEL GORDILLO MD This examination was interpreted and the report reviewed and electronically signed by: DANIEL GORDILLO MD on Feb 06 2024 9:09AM EST DIVISION OF RADIOLOGY * * *Final Report* * * DATE OF EXAM: Feb 06 2024 9:05AM WOX [id number] - XR TOE 3V AP/LAT/OBL LT / PROCEDURE REASON: Pain in left toe(s) * * * * Physician Interpretation * * * * History: Left toe pain FINDINGS: Multiple views of the fourth and fifth toes of been obtained. There is no acute fracture. No DIP joint of the fifth digit visualized. Joint spaces of the fourth digit maintained. No gross soft tissue abnormality is seen. DIVISION OF RADIOLOGY Provider, Cielo Hogan - 02/06/2024 * * *Final Report* * * DATE OF EXAM: Feb 06 2024 9:05AM WOX 5268 - XR TOE 3V AP/LAT/OBL LT / PROCEDURE REASON: Pain in left toe(s) * * * * Physician Interpretation * * * * History: Left toe pain FINDINGS: Multiple views of the fourth and fifth toes of been obtained. There is no acute fracture. No DIP joint of the fifth digit visualized. Joint spaces of the fourth digit maintained. No gross soft tissue abnormality is seen. IMPRESSION IMPRESSION: No acute process is seen. Ticketer: PSCB Transcribe Date/Time: Feb 06 2024 9:07A Dictated by : DANIEL GORDILLO MD This examination was interpreted and the report reviewed and electronically signed by: DANIEL GORDILLO MD on Feb 06 2024 9:09AM EST [facility] Radiology Study observation (narrative) [facility] XR Toes - left 3 ViewsOrdere d By: [facility] Provider on 02-06-2024 [facility] CBC W Auto Differential pane l (Bld)on 11-28-2023 Basophils (Bld) [#/Vol] 0.12 10*3/uL High [facility] Basophils/100 WBC (Bld) 1.2 % [facility] Differential cell count method Nom (Bld) Auto [facility] Eosinophils (Bld) [#/Vol] 0.26 10*3/uL [facility] Eosinophils/100 WBC (Bld) 2.7 % [facility] Erythrocyte distribution width (RBC) [Ratio] 13.5 % 11.5 - 15.0 % [facility] Hematocrit (Bld) [Volume fraction] 45.9 % 36.0 - 46.0 % [facility] Hemoglobin (Bld) [Mass/Vol] 15.2 g/dL 11.5 - 15.5 g/dL [facility] Immature granulocytes (Bld) [#/Vol] 0.04 10*3/uL [facility] Immature granulocytes/100 WBC (Bld) 0.4 % [facility] Interpretation and review of laboratory results Abnormal [facility] Lymphocytes (Bld) [#/Vol] 3.32 10*3/uL [facility] Lymphocytes/100 WBC (Bld) 34.0 % [facility] MCH (RBC) [Entitic mass] 28.8 pg 26.0 - 34.0 pg [facility] MCHC (RBC) [Mass/Vol] 33.1 g/dL 30.5 - 36.0 g/dL [facility] MCV (RBC) [Entitic vol] 86.9 fL 80.0 - 100.0 fL [facility] Monocytes (Bld) [#/Vol] 0.63 10*3/uL [facility] Monocytes/100 WBC (Bld) 6.4 % [facility] Neutrophils (Bld) [#/Vol] 5.40 10*3/uL [facility] Neutrophils/100 WBC (Bld) 55.3 % [facility] Nucleated RBC (Bld) [#/Vol] NINF [facility] Nucleated RBC/100 WBC (Bld) [Ratio] 0.0 % /100 WBC [facility] Platelet mean volume (Bld) [Entitic vol] 10.5 fL 9.0 - 12.7 fL [facility] Platelets (Bld) [#/Vol] 351 10*3/uL [facility] RBC (Bld) [#/Vol] 5.28 10*6/uL High 3.90 - 5.2 0 m/uL [facility] WBC (Bld) [#/Vol] 9.77 10*3/uL [facility] HbA1c (Bld)on 11-28-2023 Average glucose Estimated from glycated hemoglobin (Bld) [Mass/Vol] 103 mg/dL [facility] Comment on above: eAG: (Estimated aver age glucose) is a calculated value from HgbA1c and is senior outside sales representative of the average blood glucose level in the last 2-3 month period. HbA1c (Bld) [Mass fraction] 5.2 % 4.3 - 5.6 % [facility] Comment on above: [place] Diabetes As sociation guidelines indicate that patients with HgbA1c in the range 5.7-6.4% are at increased risk for development of diabetes, and intervention by lifestyle modification may be beneficial. HgbA1c greater or equal to 6.5% is considered diagnostic of diabetes. [facility] LIPID PANEL, NONFASTINGon Cholesterol [Mass/Vol] 186 mg/dL NINF - 200 mg/dL [facility] Comment on above: <200 mg/dL, Desirabl e 200-239 mg/dL, Borderline high >239 mg/dL, High HDL Cholesterol, Nonfasting 49 mg/dL 39 - PINF mg/dL [facility] Comment on above: 40-59 mg/dL, Accepta ble >59 mg/dL, High: Negative risk factor for coronary heart disease <40 mg/dL, Low: Positive risk factor for coronary heart disease Interpretation and review of laboratory results Abnormal [facility] LDL Cholesterol, Nonfasting 112 mg/dL High NINF - 100 mg/dL [facility] Comment on above: <100 mg/dL, Optimal 100-129 mg/dL, Near optimal/above optimal 130-159 mg/dL, Borderline high 160-189 mg/dL, High >189 mg/dL, Very high Secondary prevention optimal LDL Cholesterol levels are recommended to be < 70 mg/dL LDL/HDL Ratio, Nonfasting 2.29 mg/dL NINF - 2.54 mg/dL [facility] Comment on above: Reference: 1. National Cholesterol Education Program ATP III Guideline At-A-Glance Quick Desk Reference: National Heart, Lung, and [place]. National Institutes of Health. 2001: NIH Publication No. 01-3305. 2. An International Atherosclerosis Society position paper: global recommendations for the management of dyslipidemia: executive summary, Atherosclerosis. 2014: 232(2):410-413. Non HDL Cholesterol, Nonfasting 137 mg/dL High NINF - 130 mg/dL [facility] Comment on above: <130 mg/dL, Optimal 130-159 mg/dL, Near optimal/above optimal 160-189 mg/dL, Borderline high 190-219 mg/dL, High >219 mg/dL, Very high Secondary prevention optimal non HDL Cholesterol levels are recommended to be <100 mg/dL Total Chol/HDL Ratio, Nonfasting 3.80 mg/dL NINF - 5.10 mg/dL [facility] Triglycerides, Nonfasting 126 mg/dL NINF - 150 mg/dL [facility] Comment on above: <150 mg/dL, Normal 150-199 mg/dL, Borderline high 200-499 mg/dL, High >499 mg/dL, Very high VLDL Cholesterol, Nonfasting 25 mg/dL NINF - 30 mg/dL [facility] THYROID STIMULATING HORMONEo n 11-28-2023 TSH Qn 1.360 m[IU]/L [facility] Comment on above: If the patient is pr egnant, TSH reference range varies by gestational period: First Trimester (weeks 9-12): 0.180-2.990 mIU/L Second Trimester: 0.110-3.980 mIU/L Third Trimester: 0.480-4.710 mIU/L Sourav Lee et al. A Practical Approach for the Verifications and Determination of Site- and Trimester-Specific Reference Intervals for Thyroid Function tests in . Thyroid, 2019:29:3:412-420. Álvaro Demarco, et al. 2017 Guidelines of the [place] Thyroid Association for the Diagnosis and Management of Thyroid Disease during and the . Thyroid, 2017:27:3:315-389. TSH Qnon 11-28-2023 Interpretation and review of laboratory results Normal [facility] STREP A MOLECULAR (POC)on Procedural Control Valid [facility] Strep A (POCT) Negative Negative [facility] Absolute lymphocyte countOrd ered By: Devyn Lizarraga on 05-08-2023 Lymphocytes Auto (Unsp spec) [#/Vol] 3.19 10*3/uL 0.83-4.51 [facility] Basophil percentageOrdered B y: Devyn Lizarraga on 05-08-2023 Basophils/100 WBC (Bld) 0.7 % 0-1 [facility] Chloride [Moles/Vol] 107 mmol/L 98-107 [facility] Eosinophils/100 WBC (Bld) 3.1 % 0-5 [facility] Glucose [Mass/Vol] 111 mg/dL 74-106 [facility] Comment on above: Fasting Glucose resu lt from 100 to 125 mg/dL suggests IMPAIRED HOMEOSTASIS per A.D.A. criteria. Neutrophils (Bld) [#/Vol] 4.5 10*3/uL 2.0-7.7 [facility] Neutrophils/100 WBC (Bld) 52.5 % 47-70 [facility] Potassium [Moles/Vol] 3.5 mmol/L 3.5-5.1 [facility] Sodium [Moles/Vol] 140 mmol/L 136-145 [facility] WBC (Bld) [#/Vol] 8.6 10*3/uL 4.4-11.0 [facility] Blood erythrocytes count (nu mber/volume)Ordered By: Devyn Lizarraga on 05-08-2023 RBC (Bld) [#/Vol] 5.50 10*6/uL 4.2-5.4 [facility] Blood hemoglobin measurement (mass/volume)Ordered By: Devyn Lizarraga on 05-08-2023 Hemoglobin (Bld) [Mass/Vol] 15.5 g/dL 12.0-15.0 [facility] Blood lymphocytes/100 leukoc ytesOrdered By: Devyn Lizarraga on 05-08-2023 Lymphocytes/100 WBC (Bld) 37.0 % 19-41 [facility] Blood monocytes/100 leukocyt esOrdered By: Devyn Lizarraga on 05-08-2023 Monocytes/100 WBC (Bld) 6.5 % 0-10 [facility] Blood platelet mean volumeOr dered By: Devyn Lizarraga on 05-08-2023 Platelet mean volume (Bld) [Entitic vol] 10.0 fL 6.2-12.0 [facility] Determination of erythrocyte mean corpuscular volume (MCV)Ordered By: Devyn Lizarraga on 05-08-2023 MCV (RBC) [Entitic vol] 84.9 fL 81-99 [facility] Hematocrit Auto (Bld) [Volum e fraction]Ordered By: Devynkarolina Lizarraga on 05-08-2023 Hematocrit (Bld) [Volume fraction] 46.7 % 37-47 [facility] Laboratory - Chemistry and C hemistry - challengeOrdered By: Devynkarolina Lizarraga on 05-08-2023 CO2 [Moles/Vol] 29.0 mmol/L 21.0-32.0 [facility] Urea nitrogen/Creatinine [Mass ratio] 14.5 mg/mg 10-20 [facility] - Hematology and Cell countsOrdered By: Devynkarolina Lizarraga on 05-08-2023 Erythrocyte distribution width (RBC) [Entitic vol] 41.0 fL 35.1-43.9 [facility] Erythrocyte distribution width (RBC) [Ratio] 13.2 % 11.6-14.6 [facility] Immature granulocytes/100 WBC (Bld) 0.200 % 0.0-0.9 [facility] Comment on above: IG% - Immature Granu locytes (promyelocytes, myelocytes and metamyelocytes) > 1% indicates that a LEFT SHIFT is Present. MCH (RBC) [Entitic mass] 28.2 pg 27.0-32.0 [facility] Nucleated RBC/100 WBC (Bld) [Ratio] 0 % 0-5 [facility] MCHC Auto (RBC) [Mass/Vol]Or dered By: Devyn Lizarraga on 05-08-2023 MCHC (RBC) [Mass/Vol] 33.2 g/dL 32-36 [facility] No Panel InformationOrdered By: Devyn Lizarraga on 05-08-2023 Estimated GFR (MDRD) Amer 110 mL/min >60 [facility] Comment on above: GFR Calc Estimated GFR (MDRD) Non-Af Amer 91 mL/min >60 [facility] Comment on above: Non- GFR Calc Platelets bldOrdered By: Devyn Lizarraga on 05-08-2023 Platelets (Bld) [#/Vol] 313 10*3/uL 150-450 [facility] Serum or plasma calcium justina urement (mass/volume)Ordered By: Devyn Lizarraga on 05-08-2023 Calcium [Mass/Vol] 9.5 mg/dL 8.5-10.1 [facility] Serum or plasma creatinine m easurement (mass/volume)Ordered By: Devyn Lizarraga on 05-08-2023 Creatinine [Mass/Vol] 0.76 mg/dL 0.55-1.02 [facility] Comment on above: The validity of the calculated GFR & GFRAA in patients over 70 years has not been determined. Clinical correlation is essential. Serum or plasma urea nitroge n measurement (mass/volume)Ordered By: Devyn Lizarraga on 05-08-2023 Urea nitrogen [Mass/Vol] 11 mg/dL 7-18 [facility] Thin prep Papanicolaou smear with manual screeningOrdered By: Devyn Lizarraga on 05-08-2023 Thin prep Papanicolaou smear with manual screening 4 5-15 [facility] COVID NAAT, UPPER RESPIRATOR Y, ROUTINEon 05-05-2023 SARS-CoV-2 (COVID-19) RNA MARTIN+probe Ql (Resp) Not detected See comment [facility] ROUTINE FLU A/B + RSVon 04-09 FLUAV RNA MARTIN+probe Ql (Unsp spec) Not detected Not Detected [facility] FLUBV RNA MARTIN+probe Ql (Unsp spec) Not detected Not Detected [facility] RSV A RNA MARTIN+probe Ql (Unsp spec) Not detected Not Detected [facility] STREP A MOLECULAR (POC)on Procedural Control Valid [facility] Strep A (POCT) Negative Negative [facility] Laboratory - Chemistry and C hemistry - challengeon 05-03-2023 HCG ( test) Ql (U) Negative [facility] Bilirubin Ql (U) Negative [facility] Glucose Ql (U) Negative [facility] Ketones Ql (U) Negative [facility] pH (U) 6.5 [pH] [facility] Specific gravity (U) [Rel density] 1.010 [facility] Urobilinogen (U) [Mass/Vol] Negative [facility] Laboratory - Hematology and Cell countson 05-03-2023 Hemoglobin Ql (U) Moderate [facility] Laboratory - Specimen inform ationon 05-03-2023 Clarity (U) Clear [facility] Color (U) Yellow [facility] Laboratory - Urinalysison Nitrite Ql (U) Negative [facility] Protein Ql (U) Negative [facility] No Panel Informationon 05-03 Urine Leukocytes Negatve [facility] Urine Non-Hemolyzed Blood [facility] No Panel Informationon 02-10 Prepped toe [facility] Nursing Communicationon 01-07 Prepped toe [facility] Serum or plasma prolactin me asurement (mass/volume)Ordered By: Dr. Rdz on 08-30-2022 Prolactin [Mass/Vol] 5.8 ng/mL [facility] Comment on above: NORMAL REFERENCE RAN GES FEMALE NON- 2.2 - 30.3 ng/mL 8.1 - 347.6 ng/mL POST-MENOPAUSAL 0.7 - 31.5 ng/mL MALE 2.5 - 17.4 ng/mL Laboratory - Microbiology an d Antimicrobial susceptibilityon 08-12-2022 SARS-CoV-2 (COVID-19) RNA MARTIN+probe Ql (Unsp spec) Not detected [facility] No Panel Informationon 08-12 Influenza Types A,B Rapid (Clinic) Not detected [facility] CBC AND DIFFERENTIALon 08-08 % AUTOMATED IMMATURE GRAN 0.3 % Normal 0.0 - 0.9 [facility] Comment on above: Result Comment: Sheree ture Granulocyte Count (IG) includes promyelocytes, myelocytes and metamyelocytes but does not include bands. Percent differential counts (%) should be interpreted in the context of the absolute cell counts (cells/L). Performed By: #### C BCDF #### [address] [address] Basophils (Bld) [#/Vol] 0.08 10*3/uL Normal 0.00 - 0.10 [facility] Comment on above: Performed By: #### C BCDF #### [address] [address] Basophils/100 WBC (Bld) 1.4 % Normal 0.0 - 2.0 [facility] Comment on above: Performed By: #### C BCDF #### [address] [address] Eosinophils (Bld) [#/Vol] 0.13 10*3/uL Normal 0.00 - 0.70 [facility] Comment on above: Performed By: #### C BCDF #### [address] [address] [address] Eosinophils/100 WBC (Bld) 2.2 % Normal 0.0 - 6.0 [facility] Comment on above: Performed By: #### C BCDF #### [address] [address] Erythrocyte distribution width (RBC) [Ratio] 14.1 % Normal 11.5 - 14.5 [facility] Comment on above: Performed By: #### C BCDF #### [address] [address] Hematocrit (Bld) [Volume fraction] 46.9 % High 36.0 - 46.0 [facility] Comment on above: Performed By: #### C BCDF #### [address] [address] Hemoglobin (Bld) [Mass/Vol] 15.5 g/dL Normal 12.0 - 16.0 [facility] Comment on above: Performed By: #### C BCDF #### [address] [address] Lymphocytes (Bld) [#/Vol] 1.30 10*3/uL Normal 1.20 - 4.80 [facility] Comment on above: Performed By: #### C BCDF #### [address] [address] Lymphocytes/100 WBC (Bld) 22.0 % Normal 13.0 - 44.0 [facility] Comment on above: Performed By: #### C BCDF #### [address] [address] MCHC (RBC) [Mass/Vol] 33.0 g/dL Normal 32.0 - 36.0 [facility] Comment on above: Performed By: #### C BCDF #### [address] [address] MCV (RBC) [Entitic vol] 86 fL Normal 80 - 100 [facility] Comment on above: Performed By: #### C BCDF #### [address] [address] Monocytes (Bld) [#/Vol] 0.81 10*3/uL Normal 0.10 - 1.00 [facility] Comment on above: Performed By: #### C BCDF #### [address] [address] Monocytes/100 WBC (Bld) 13.7 % Normal 2.0 - 10.0 [facility] Comment on above: Performed By: #### C BCDF #### [address] [address] Neutrophils (Bld) [#/Vol] 3.57 10*3/uL Normal 1.20 - 7.70 [facility] Comment on above: Result Comment: Perc ent differential counts (%) should be interpreted in the context of the absolute cell counts (cells/L). Performed By: #### C BCDF #### [place] [id number] Neutrophils/100 WBC (Bld) 60.4 % Normal 40.0 - 80.0 [facility] Comment on above: Performed By: #### C BCDF #### [place] [id number] Platelets (Bld) [#/Vol] 277 10*3/uL Normal 150 - 450 [facility] Comment on above: Performed By: #### C BCDF #### [place] [id number] RBC 5.46 x10E12/L High 4.00 - 5.20 [facility] Comment on above: Performed By: #### C BCDF #### [place] [id number] WBC (Bld) [#/Vol] 5.9 10*3/uL Normal 4.4 - 11.[address] [facility] Comment on above: Performed By: #### C BCDF #### [place] [address] COMPREHENSIVE PANELon 2022 Albumin [Mass/Vol] 4.9 g/dL Normal 3.4 - 5.[address] [facility] Comment on above: Performed By: #### C MP #### [place] [id number] ALP [Catalytic activity/Vol] 78 U/L Normal 33 - 110 [facility] Comment on above: Performed By: #### C MP #### [place] [id number] ALT [Catalytic activity/Vol] 15 U/L Normal 7 - 45 [facility] Comment on above: Result Comment: Jessica ents treated with Sulfasalazine may generate falsely decreased results for ALT. Performed By: #### C MP #### [place] [id number] Anion gap [Moles/Vol] 13 mmol/L Normal 10 - 20 [facility] Comment on above: Performed By: #### C MP #### [place] [id number] AST [Catalytic activity/Vol] 19 U/L Normal 9 - 39 [facility] Comment on above: Performed By: #### C MP #### [address] [address] Bilirubin [Mass/Vol] 0.4 mg/dL Normal 0.0 - 1.2 [facility] Comment on above: Performed By: #### C MP #### [address] [address] Calcium [Mass/Vol] 9.8 mg/dL Normal 8.6 - 10.[address] [facility] Comment on above: Performed By: #### C MP #### [address] [address] Chloride [Moles/Vol] 105 mmol/L Normal 98 - 107 [facility] Comment on above: Performed By: #### C MP #### [address] [address] Creatinine [Mass/Vol] 0.78 mg/dL Normal 0.50 - 1.05 [facility] Comment on above: Performed By: #### C MP #### [address] [address] eGFR FEMALE >90 Normal >90 [facility] Comment on above: Result Comment: CALC ULATIONS OF ESTIMATED GFR ARE PERFORMED USING THE 2020 CKD-EPI STUDY REFIT EQUATION WITHOUT THE RACE VARIABLE FOR THE IDMS-TRACEABLE CREATININE METHODS. https://jasn.asnjournals.org/content//ASN.06935 27482 Performed By: #### C MP #### [address] [address] Glucose [Mass/Vol] 98 mg/dL Normal 74 - [address] [facility] Comment on above: Performed By: #### C MP #### [address] [address] HCO3 (Bld) [Moles/Vol] 26 mmol/L Normal 21 - 32 [facility] Comment on above: Performed By: #### C MP #### [address] [address] Potassium [Moles/Vol] 3.9 mmol/L Normal 3.5 - 5.3 [facility] Comment on above: Performed By: #### C MP #### [address] [address] Protein [Mass/Vol] 8.0 g/dL Normal 6.4 - 8.[address] [facility] Comment on above: Performed By: #### C MP #### [address] [address] Sodium [Moles/Vol] 140 mmol/L Normal 136 - [address] [facility] Comment on above: Performed By: #### C MP #### [address] [address] Urea nitrogen [Mass/Vol] 5 mg/dL Low 6 - 23 [facility] Comment on above: Performed By: #### C MP #### [address] [address] [address] ABDOMEN AND PELVIS WO CON TRASTon 08-08-2022 CT ABDOMEN AND PELVIS WO CONTRAST STUDY: CT Abdomen and Pelvis without IV Contrast; 08/08/2022, 4:06 PM. INDICATION: Left flank pain for one week. COMPARISON: None Available. ACCESSION NUMBER(S): [id number] ORDERING CLINICIAN: BESSIE CLARKE CNP TECHNIQUE: CT of the abdomen and pelvis was performed. Contiguous axial images were obtained at 3 mm slice thickness through the abdomen and pelvis. Coronal and sagittal reconstructions at 3 mm slice thickness were performed. No intravenous contrast was administered. Automated mA/kV exposure control was utilized and patient examination was performed in strict accordance with principles of ALARA. FINDINGS: Please note that the evaluation of vessels, lymph nodes and organs is limited without intravenous contrast. LOWER CHEST: No cardiomegaly. No pericardial effusion. Lung bases are clear. ABDOMEN: LIVER: No hepatomegaly. Smooth surface contour. Normal attenuation. BILE DUCTS: No intrahepatic or extrahepatic biliary ductal dilatation. GALLBLADDER: The gallbladder is absent. STOMACH: No abnormalities identified. PANCREAS: No masses or ductal dilatation. SPLEEN: No splenomegaly or focal splenic lesion. ADRENAL GLANDS: No thickening or nodules. KIDNEYS AND URETERS: Kidneys are normal in size and location. No renal or ureteral calculi. PELVIS: BLADDER: No abnormalities identified. REPRODUCTIVE ORGANS: No abnormalities identified. BOWEL: No abnormalities identified. Appendix is normal. VESSELS: No abnormalities identified. Abdominal aorta is normal in caliber. PERITONEUM/RETROPERITON EUM/LYMPH NODES: No free fluid. No pneumoperitoneum. No lymphadenopathy. ABDOMINAL WALL: No abnormalities identified. SOFT TISSUES: No abnormalities identified. BONES: No acute fracture or aggressive osseous lesion. IMPRESSION: No acute process. No renal/ureteral calculi. Signed by Alba Pompa MD Electronically signed by: ALBA POMPA MD Normal [facility] LACTATEon 08-08-2022 Lactate [Moles/Vol] 0.7 mmol/L Normal 0.4 - 2.0 [facility] Comment on above: Result Comment: Wanda puncture immediately after or during the administration of Metamizole may lead to falsely low results. Testing should be performed immediately prior to Metamizole dosing. Performed By: #### L ACT #### [address] [address] LIPASEon 08-08-2022 Lipase [Catalytic activity/Vol] 8 U/L Low 9 - 82 [facility] Comment on above: Result Comment: Wanda puncture immediately after or during the administration of Metamizole may lead to falsely low results. Testing should be performed immediately prior to Metamizole dosing. G-ztwybg-e-benzoquinone imine (metabolite of Acetaminophen) will generate erroneously low results in samples for patients that have taken toxic doses of acetaminophen. Performed By: #### L IPAS #### [address] [address] Provider Note - ED v3on Provider Note - ED v3 Provider Note: Chart Review: HISTORY OF PRESENTING ILLNESS ELIZA is a 36 year old Female and was seen by me at 08-Aug-2022 15:11 for a chief complaint of flank pain (Patient to ED reference left side flank pain that radiates into her hips and legs with the feeling of not being able to empty her bladder for a week. Yesterday she started having a headache with nausea and a fever.)(1). Triage Information: Most recent Vital Sign Value Date Temp (F): 99.6 08-08-2022 15:08 Temp (C): 37.5 08-08-2022 15:08 Heart Rate (beats/min): 96 08-08-2022 15:08 Respirations (breaths/min): 17 08-08-2022 15:08 SpO2 (%): 98 08-08-2022 15:08 BP Systolic (mm Hg): 136 08-08-2022 15:08 BP Diastolic (mm Hg): 70 08-08-2022 15:08 PAST MEDICAL HISTORY ALLERGIES/INTOLERANCES: Allergy Allergen: Imitrex Type: Drug Reaction: Other HEALTH HISTORY: No documented data. OUTPATIENT MEDICATIONS: Home Medications Review Status for Reconciliation: N/A Med Status: N/A No documented data. SIGNIFICANT EVENTS: No documented data. CRITICAL CARE RESULTS: Recent Lab Results: I have reviewed these laboratory results: Complete Blood Count + Differential 08-Aug-2022 15:50:00 ResultValue White Blood Cell Count 5.9 Red Blood Cell Count 5.46 H HGB 15.5 HCT 46.9 H MCV 86 MCHC 33.0 PLT 277 RDW-CV 14.1 Neutrophil % 60.4 Immature Granulocytes % 0.3 Lymphocyte % 22.0 Monocyte % 13.7 Eosinophil % 2.2 Basophil % 1.4 Neutrophil Count 3.57 Lymphocyte Count 1.30 Monocyte Count 0.81 Eosinophil Count 0.13 Basophil Count 0.08 Comprehensive Metabolic Panel 08-Aug-2022 15:50:00 ResultValue Glucose, Serum 98 NA 140 K 3.9 CL 105 Bicarbonate, Serum 26 Anion Gap, Serum 13 BUN 5 L CREAT 0.78 GFR Female >90 Calcium, Serum 9.8 ALB 4.9 ALKP 78 T Pro 8.0 T Bili 0.4 Alanine Aminotransferase, Serum 15 Aspartate Transaminase, Serum 19 Urinalysis with Culture if Indicated 08-Aug-2022 15:50:00 ResultValue Color, Urine Straw Reference Range: STRAW,YELLOW Appearance, Urine CLEAR Specific [place], Urine 1.005 pH, Urine 7.0 Protein, Urine NEGATIVE Glucose, Urine NEGATIVE Blood, Urine NEGATIVE Ketones, Urine NEGATIVE Bilirubin, Urine NEGATIVE Urobilinogen, Urine <2.0 Nitrite, Urine Negative Leukocyte Esterase, Urine NEGATIVE Lactate, Level 08-Aug-2022 15:50:00 ResultValue Lactate, Level 0.7 Lipase, Serum 08-Aug-2022 15:50:00 ResultValue Lipase, Serum 8 L Radiology Results: Impression: No acute process. No renal/ureteral calculi. Signed by Alba Pompa MD CT Abdomen and Pelvis without Contrast [Aug 08 2022 4:30PM] VITAL SIGNS: T PRBP SpO2O2(LPM) %FiO2 Method 08-Aug-2022 16:10:[id number] 97 room air, no respiratory support 08-Aug-2022 15:08:[id number]/70 98 room air, no respiratory support MDM MDM/ED COURSE: PMH: Reviewed PSH: Reviewed Social History: Reviewed. Allergies reviewed. HPI: This is a 36 year old female with history of hysterectomy who presents to the ED today with complaints of left flank pain. Patient states that her pain started on the left flank about a week ago. States that she feels that she is not completely emptying her bladder. No hematuria. States she is now having headache, nausea, fever up to 101 at home. Those symptoms restarted yesterday. No injury or trauma to her lower back. No known flu or COVID exposure. REVIEW OF SYSTEMS: All other systems reviewed and negative except as listed in HPI. PHYSICAL EXAM: GENERAL: Vitals noted, no distress. Alert and oriented x 3. Non-toxic. EENT: TMs clear. Posterior oropharynx unremarkable. EOMI, no nystagmus noted. NECK: Supple. No masses. No midline tenderness. No meningeal signs. CARDIAC: Regular rate, rhythm. No murmurs rubs or gallops. No JVD. PULMONARY: Lungs clear and equal bilaterally. No wheezes rales or rhonchi. No respiratory distress. ABDOMEN: Soft, nondistended, and nontender. No peritoneal signs. Bowel sounds are present and normoactive in all 4 quadrants. No pulsatile masses. Left CVA tenderness. EXTREMITIES: No peripheral edema. SKIN: No rash. Warm, dry, and intact. NEURO: No focal neurologic deficits. ED COURSE: This patient was seen and examined by myself independently. She declined flu/covid testing. IV established. Labs drawn and noted above. Hydrated normal saline 1 L bolus. Medicated Toradol and Zofran. States pain is not really improved. No evidence of kidney stones on her CT scan. Given Flexeril and Tylenol p.o. and recommended follow-up care from her primary care physician. Considered influenza causing her body aches and fever, but again she declined testing. Recommended she return to the ED for any new or worsening symptoms. She is discharged home in stable condition with computer instructions given. DIAGNOSTIC IMPRESSION: #1 left flank pain (more content not included)... [facility] Risk Screen - Adult Emergenc yon 08-08-2022 Risk Screen - Adult Emergency Preferred Language: Preferred Language: Preferred Language for Discussing Health Care (patient/designee)Alf dela cruz Patient Preferred Pharmacy: Patient Preferred Pharmacy Statement: I have reviewed and updated the patient's preferred pharmacy selection for today's visit. Advanced Directives: Advance Directive/DNRno Family Violence Adult: Abuse Screen: Are you or have you been threatened or abused physically, emotionally, or sexually by anyoneno Learning Assessment (Patient): Learning Assessment (Patient): Patient is Able to be Assessed for Learningyes Factors Influencing Readiness to Learnacuteness of illness Factors that Impact Ability to Learnnone Devices/Methods Used to Communicatenone Learning Preferencesaudio Cultural Considerationsnone Developmental Considerationsnone Adventism Considerationsnone Learning Assessment (Other Learner): Learning Assessment (Other Learner): Other learner availableno Pressure Injury/TB/Substance: Pressure Injury: Do you have a coughno Smoking Statusmoderate user (uses 11-30 cig/day, OR 0.5-1.5 ppd, OR 2-3 cans/pouches loose leaf tobacco per week, OR 0.5-1.5 vape pods per day) Tobacco Cessation Education (provide if tobacco use within the last 12 mos) patient declined Alcohol Usedenies Drug Usedenies Admission Risk Screen: Significant IndicatorsComplete CAGE: CAGE: Is this an injured patient at a Trauma Center ([facility]/[place]): no Electronic Signatures: Maria De Jesus Zuñiga (MACHO) (Signed 08-Aug-2022 15:16) Authored: Preferred Language, Patient Preferred Pharmacy, Advanced Directives, Family Violence Adult, Learning Assessment (Patient), Learning Assessment (Other Learner), Pressure Injury/TB/Substance, Pressure Injury, CAGE Last Updated: 08-Aug-2022 15:16 by Maria De Jesus Zuñiga (MACHO) [facility] Triage - EDon 08-08-2022 Triage - ED Quick Triage: Are You no Have You Given In The Last 6 Weeksno Are You Currently Breastfeedingno The patient and/or guardian verbally acknowledges placement for services into the following (when Urgent Care Service hours are operating):emergency department Chart Review: ARRIVAL INFORMATION Mode of Arrival: private vehicle CHIEF COMPLAINT ELIZA VALLADARES is a Female patient with a chief complaint of flank pain (Patient to ED reference left side flank pain that radiates into her hips and legs with the feeling of not being able to empty her bladder for a week. Yesterday she started having a headache with nausea and a fever.). Triage Date/Time: 08-Aug-2022 15:08 SHONNA: 3 Pain Rating (0-10): 6 = Moderate Vital Signs: Temperature: 99.6F ( 37.5C) taken temporal Blood Pressure: 136/70 Mean: Heart Rate: 96 Respiratory Rate: 17 Pulse Oximetry: 98% on room air, no respiratory support. Height: 5 feet 1.00 inches. 154.9 CM Weight: 135.1 pounds. Calculated 61.3 kg. (stated) Calculated BMI (kg/m2): 25.548 Calculated BSA (m2) 1.62 Ward Coma Scale: Best Eye Response: (E4) spontaneous Best Motor Response: (M6) obeys commands Best Verbal Response: (V5) oriented Ward Score: 15 [place] Assessment Qualifiers: patient not sedated/intubated Cough lasting greater than 3 weeks: no Allergies: yes Mask applied: yes [employer] History: hysterectomy Patient has homicidal thoughts: no Symptoms Are Negative For: anorexia, chills, dysuria, fever, flank pain, frequency, hematuria, malaise, nausea and urgency. Risk Screens Suicide Risk Screen In the Past Month: Have you wished you were or wished you could go to sleep and not wake up no In the Past Month: Have you had any actual thoughts of killing yourself no In Your Lifetime: Have you ever done anything, started to do anything, or prepared to do anything to end your life no Perales Fall Scale Screening Has the patient fallen before (or is the patient in the ED as a result of a fall) has not had a fall Does the patient have an impaired gait does not have impaired gait Is the patient cognitively impaired not cognitively impaired Interventions: Perales Fall Interventions: LOW INTERVENTIONS: *patient oriented to surroundings and call system, * patient/family falls education completed and documented, *patients fall status communicated during bedside handoff, *whiteboard updated, *mode of toileting discussed with patient, *bed in low position with brakes locked, *call light in reach, * non-skid footwear TRAVEL HISTORY Travel History Coronavirus Screening: no exposure or symptoms Travel Exposure History: NO travel to International locations in the past 30 days PAIN Pain Scale Used: KALYN Pain Rating (0-10): 6 = Moderate Past Medical History: Past Medical History Reviewedyes Electronic Signatures: Maria De Jesus Zuñiga (RN) (Signed 08-Aug-2022 15:16) Authored: Quick Triage, Chart Review, Past Medical History Kvng Mar (EMT-P) (Signed 08-Aug-2022 15:14) Entered: Risk Screens, Pain, Travel History, Chart Review, Scores Authored: Quick Triage, Risk Screens, Pain, Travel History, Chart Review, Scores Last Updated: 08-Aug-2022 15:16 by Maria De Jesus Zuñiga (RN) Normal [facility] URINALYSIS WITH CULTURE IF I NDICATEDon 08-08-2022 Appearance (U) CLEAR Normal CLEAR [facility] Comment on above: Performed By: #### U ARFX #### [address] [address] Bilirubin Ql (U) Negative Normal NEGATIVE [facility] Comment on above: Performed By: #### U ARFX #### [address] [address] Color (U) Straw Normal STRAW,YELLOW [facility] Comment on above: Performed By: #### U ARFX #### [address] [address] Glucose Ql (U) Negative Normal NEGATIVE [facility] Comment on above: Performed By: #### U ARFX #### [address] [address] Hemoglobin Ql (U) Negative Normal NEGATIVE [facility] an [facility] Comment on above: Performed By: #### U ARFX #### [address] [address] Ketones Ql (U) Negative Normal NEGATIVE [facility] Comment on above: Performed By: #### U ARFX #### [address] [address] Leukocyte esterase Test strip Ql (U) Negative Normal NEGATIVE [facility] Comment on above: Performed By: #### U ARFX #### [address] [address] Nitrite Ql (U) Negative Normal NEGATIVE [facility] Comment on above: Performed By: #### U ARFX #### [address] [address] pH (U) 7.0 [pH] Normal 5.0 - 8.0 [facility] Comment on above: Performed By: #### U ARFX #### [address] [address] Protein Ql (U) Negative Normal NEGATIVE [facility] Comment on above: Performed By: #### U ARFX #### [address] [address] Specific gravity (U) [Rel density] 1.005 Normal 1.005 - 1.035 [facility] Comment on above: Performed By: #### U ARFX #### [address] [address] Urobilinogen (U) [Mass/Vol] mg/dL Normal 0.0 - 1.9 [facility] Comment on above: Performed By: #### U ARFX #### [address] [address] No Panel Informationon 05-10 [facility] No Panel Informationon 05-05 POC SARS CoV-2 Antigen Negative [facility] Work Phone: XR FOOT GENERAL 3V AP/LAT/OB L RIGHTon 04-28-2022 [facility] XR Foot - right AP and Later al and obliqueon 04-28-2022 IMPRESSION: No acute osseous abnormality. Ticketer: NISSA Transcribe Date/Time: Apr 28 2022 3:37P Dictated by : MARGARITA US DO This examination was interpreted and the report reviewed and electronically signed by: MARGARITA US DO on Apr 28 2022 3:39PM EST DIVISION OF RADIOLOGY * * *Final Report* * * DATE OF EXAM: Apr 28 2022 3:33PM WOX [id number] - XR FOOT 3V AP/LAT/OBL RT / PROCEDURE REASON: Foot pain, right * * * * Physician Interpretation * * * * EXAMINATION: XR FOOT 3V AP/LAT/OBL RT PATIENT/TECHNOLOGIST PROVIDED HISTORY: right foot pain x 6 weeks. No known injury. Pain is mostly along lateral side of foot below pinky toe. CLINICAL INFORMATION: 36 years old Female with Foot pain, right TECHNIQUE: XR FOOT 3V AP/LAT/OBL RT Laterality: RIGHT Number of different views (projections): 3 COMPARISON: None RESULT: No fracture or dislocation. Joint spaces are maintained. Bony mineralization is normal. No erosions or other significant abnormality. DIVISION OF RADIOLOGY Provider, Cielo [facility] - 04/28/2022 * * *Final Report* * * DATE OF EXAM: Apr 28 2022 3:33PM WOX [id number] - XR FOOT 3V AP/LAT/OBL RT / PROCEDURE REASON: Foot pain, right * * * * Physician Interpretation * * * * EXAMINATION: XR FOOT 3V AP/LAT/OBL RT PATIENT/TECHNOLOGIST PROVIDED HISTORY: right foot pain x 6 weeks. No known injury. Pain is mostly along lateral side of foot below pinky toe. CLINICAL INFORMATION: 36 years old Female with Foot pain, right TECHNIQUE: XR FOOT 3V AP/LAT/OBL RT Laterality: RIGHT Number of different views (projections): 3 COMPARISON: None RESULT: No fracture or dislocation. Joint spaces are maintained. Bony mineralization is normal. No erosions or other significant abnormality. IMPRESSION IMPRESSION: No acute osseous abnormality. Ticketer: NISSA Transcribe Date/Time: Apr 28 2022 3:37P Dictated by : MARGARITA US DO This examination was interpreted and the report reviewed and electronically signed by: MARGARITA US DO on Apr 28 2022 3:39PM [facility] Radiology Study observation (narrative) [facility] XR Foot - right AP and Later al and obliqueOrdered By: Ccf Provider on 04-28-2022 [facility] No Panel Informationon 12-30 [facility] Absolute lymphocyte counton 12-25-2021 Lymphocytes Auto (Unsp spec) [#/Vol] 1.71 10*3/uL 0.83-4.51 [facility] Work Phone: Basophil percentageon 2021 Basophil percentage 0-5 SEEN /hpf Wo [facility] Work Phone: Basophils/100 WBC (Bld) 0.8 % 0-1 [facility] Work Phone: [phone] Chloride [Moles/Vol] 105 mmol/L 98-107 [facility]: [phone] Eosinophils/100 WBC (Bld) 0.8 % 0-5 [facility] Work Phone: Glucose [Mass/Vol] 111 mg/dL 74-106 [facility] Work Phone: [phone] Comment on above: Fasting Glucose resu lt from 100 to 125 mg/dL suggests IMPAIRED HOMEOSTASIS per A.D.A. criteria. Neutrophils (Bld) [#/Vol] 4.8 10*3/uL 2.0-7.7 [facility] Work Phone: [phone] Neutrophils/100 WBC (Bld) 64.3 % 47-70 [facility] Work Phone: Potassium [Moles/Vol] 3.3 mmol/L 3.5-5.1 [facility] Work Phone: Sodium [Moles/Vol] 139 mmol/L 136-145 [facility] Work Phone: [phone] WBC (Bld) [#/Vol] 7.5 10*3/uL 4.4-11.0 [facility] Work Phone: Bilirubin Test strip Ql (U)o n 12-25-2021 Bilirubin Ql (U) Negative Negative [facility] Work Phone: Blood erythrocytes count (nu mber/volume)on 12-25-2021 RBC (Bld) [#/Vol] 5.58 10*6/uL 4.2-5.4 [facility] Work Phone: Blood hemoglobin measurement (mass/volume)on 12-25-2021 Hemoglobin (Bld) [Mass/Vol] 15.8 g/dL 12.0-15.0 [facility] Work Phone: Blood lymphocytes/100 leukoc yteson 12-25-2021 Lymphocytes/100 WBC (Bld) 22.7 % 19-41 [facility] Work Phone: Blood monocytes/100 leukocyt eson 12-25-2021 Monocytes/100 WBC (Bld) 10.9 % 0-10 [facility] Work Phone: Blood platelet mean volumeon 12-25-2021 Platelet mean volume (Bld) [Entitic vol] 9.8 fL 6.2-12.0 [facility] Work Phone: Determination of erythrocyte mean corpuscular volume (MCV)on 12-25-2021 MCV (RBC) [Entitic vol] 82.8 fL 81-99 [facility] Work Phone: Hematocrit Auto (Bld) [Volum e fraction]on 12-25-2021 Hematocrit (Bld) [Volume fraction] 46.2 % 37-47 [facility] Work Phone: Ketones Test strip Ql (U)on 12-25-2021 Ketones Ql (U) 5 mg/dl Negative [facility] Work Phone: Laboratory - Chemistry and C hemistry - challengeon 12-25-2021 CO2 [Moles/Vol] 28.0 mmol/L 21.0-32.0 [facility] Work Phone: Urea nitrogen/Creatinine [Mass ratio] 9.0 mg/mg - [facility] Work Phone: Laboratory - Hematology and Cell countson 12-25-2021 Erythrocyte distribution width (RBC) [Entitic vol] 43.2 fL 35.1-43.9 [facility] Work Phone: Erythrocyte distribution width (RBC) [Ratio] 14.5 % 11.6-14.6 [facility] Work Phone: Immature granulocytes/100 WBC (Bld) 0.500 % 0.0-0.9 [facility] Work Phone: Comment on above: IG% - Immature Granu locytes (promyelocytes, myelocytes and metamyelocytes) > 1% indicates that a LEFT SHIFT is Present. MCH (RBC) [Entitic mass] 28.3 pg 27.0-32.0 [facility] Work Phone: Nucleated RBC/100 WBC (Bld) [Ratio] 0 % 0-5 [facility] Work Phone: MCHC Auto (RBC) [Mass/Vol]on 12-25-2021 MCHC (RBC) [Mass/Vol] 34.2 g/dL 32-36 [facility] Work Phone: Mucus LM Ql (Urine sed)on Mucus Ql (Urine sed) 0 SEEN /hpf [facility] Work Phone: Nitrite Test strip Ql (U)on 12-25-2021 Nitrite Ql (U) Negative Negative [facility] Work Phone: No Panel Informationon 12-25 Estimated Creatinine Clearance Calc 75.96 ml/min [facility] Work Phone: Estimated GFR (MDRD) Amer 109 mL/min >60 [facility] Work Phone: Comment on above: GFR Calc Estimated GFR (MDRD) Non-Af Amer 90 mL/min >60 [facility] Work Phone: Comment on above: Non- GFR Calc Platelets bldon 12-25-2021 Platelets (Bld) [#/Vol] 285 10*3/uL 150-450 [facility] Work Phone: Protein Test strip Ql (U)on 12-25-2021 Protein Ql (U) 15 mg/dl Negative [facility] Work Phone: Serum or plasma calcium justina urement (mass/volume)on 12-25-2021 Calcium [Mass/Vol] 9.3 mg/dL 8.5-10.1 [facility] Work Phone: Serum or plasma creatinine m easurement (mass/volume)on 12-25-2021 Creatinine [Mass/Vol] 0.78 mg/dL 0.55-1.02 [facility] Work Phone: Comment on above: The validity of the calculated GFR & GFRAA in patients over 70 years has not been determined. Clinical correlation is essential. Serum or plasma urea nitroge n measurement (mass/volume)on 12-25-2021 Urea nitrogen [Mass/Vol] 7 mg/dL 7-18 [facility] Work Phone: Squamous epithelial cells de tection in urine sediment by light microscopyon 12-25-2021 Epithelial cells.squamous LM Ql (Urine sed) 0-5 SEEN /hpf [facility] Work Phone: Thin prep Papanicolaou smear with manual screeningon 12-25-2021 Thin prep Papanicolaou smear with manual screening 6 5-15 [facility] Work Phone: Urine blood detectionon 12-07 RBC Ql (U) 25 /ul Negative [facility] Work Phone: RBC Ql (U) 0-5 SEEN /hpf [facility] Work Phone: Urine clarityon 12-25-2021 Clarity (U) Sl. Cloudy Clear [facility] Work Phone: Urine color determinationon 12-25-2021 Color (U) Yellow Yellow [facility] Work Phone: Urine glucose detectionon Glucose Ql (U) Normal mg/dl Normal [facility] Work Phone: Urine leukocyte esterase det ection by dipstickon 12-25-2021 Leukocyte esterase Test strip Ql (U) 25 /ul Negative [facility] Work Phone: Urine pHon 12-25-2021 pH (U) 6.0 [pH] [facility] Work Phone: Urine sediment bacteria coun t by microscopy (number/high power field)on 12-25-2021 Bacteria LM.HPF (Urine sed) [#/Area] 0 /[HPF] None Seen [facility] Work Phone: Urine specific gravity measu rementon 12-25-2021 Specific gravity (U) [Rel density] 1.020 [facility] Work Phone: Urobilinogen Auto test strip Ql (U)on 12-25-2021 Urobilinogen Ql (U) Normal mg/dl Normal [facility] Work Phone: XR Wrist Right 3+ Views (Sta ndard)Ordered By: Timothy Starks on 02-14-2021 FINDINGS/ No radiographic evidence of acute osseous abnormality of the right wrist. Suggestion of positive ulnar variance. Workstation ID: [id number] [facility] EXAMINATION: XR WRIST RIGHT 3+ VIEWS (STANDARD) HISTORY: ORDERING SYSTEM PROVIDED HISTORY: fall, pain, TECHNOLOGIST PROVIDED HISTORY: Injury/Trauma Reason for exam: fall, pain Cancer History: n Surgery, RadiationHistory: n Encounter Type: Initial Mechanism of injury: fall ORDERING SYSTEM PROVIDED DIAGNOSIS CODES: COMPARISON: No relevant prior study available at time of interpretation. [facility] Yon Alberto In Brandin ji Speechq - 02/14/2021 5:14 PM EDT EXAMINATION: XR WRIST RIGHT 3+ VIEWS (STANDARD) HISTORY: ORDERING SYSTEM PROVIDED HISTORY: fall, pain, TECHNOLOGIST PROVIDED HISTORY: Injury/Trauma Reason for exam: fall, pain Cancer History: n Surgery, RadiationHistory: n Encounter Type: Initial Mechanism of injury: fall ORDERING SYSTEM PROVIDED DIAGNOSIS CODES: COMPARISON: No relevant prior study available at time of interpretation. IMPRESSION: FINDINGS/ No radiographic evidence of acute osseous abnormality of the right wrist. Suggestion of positive ulnar variance. Workstation ID: [id number] [facility] Auto Diffon 2017 Basophils #/vol (Bld) 0.1 E3/mcL Normal 0.0-0.2 [facility] Comment on above: Order Comment: Order Added by Discern Expert. Performed By: #### 2 [id number] #### [facility] [address] [place] [address] Basophils/100 WBC (Bld) 0.8 % Normal 0.0-2.0 [facility] Comment on above: Order Comment: Order Added by Discern Expert. Performed By: #### 2 [id number] #### [facility] [employer] [address] [place] [address] Eos Absolute 0.3 E3/mcL Normal 0.0-0.7 [facility] Comment on above: Order Comment: Order Added by Discern Expert. Performed By: #### 2 [id number] #### [facility] [employer] [address] [place] [address] Eosinophils/100 WBC (Bld) 1.4 % Normal 0.0-11.0 [facility] Comment on above: Order Comment: Order Added by Discern Expert. Performed By: #### 2 [id number] #### [facility] [employer] [address] [place] [address] Lymphocytes #/vol (Bld) 3.0 E3/mcL Normal 1.2-3.4 [facility] Comment on above: Order Comment: Order Added by Discern Expert. Performed By: #### 2 [id number] #### [facility] [employer] [address] [place] [address] Lymphocytes/100 WBC (Bld) 16.5 % Low 20.0-55.0 [facility] Comment on above: Order Comment: Order Added by Discern Expert. Performed By: #### 2 [id number] #### [facility] [employer] [address] [place] [address] [place] Absolute 1.1 E3/mcL High 0.0-0.7 [facility] Comment on above: Order Comment: Order Added by Discern Expert. Performed By: #### 2 [id number] #### [facility] [employer] [address] [place] [address] Monocytes/100 WBC (Bld) 6.1 % Normal 0.0-10.0 [facility] Comment on above: Order Comment: Order Added by Discern Expert. Performed By: #### 2 [id number] #### [facility] [employer] [address] [place] [address] Neutro Absolute 13.5 E3/mcL High 1.4-6.5 [facility] Comment on above: Order Comment: Order Added by Discern Expert. Performed By: #### 2 [id number] #### [facility] [employer] [address] [place] [address] Neutro Auto 75.2 % High 37.0-75.0 [facility] Comment on above: Order Comment: Order Added by Discern Expert. Performed By: #### 2 [id number] #### [facility] [employer] [address] [place] [address] BMPon 2017 Creatinine mass conc 0.6 mg/dL Normal 0.6-1.[address] [facility] Comment on above: Performed By: #### 2 [id number] #### [facility] [address] [place] [address] Urea nitrogen mass conc 9 mg/dL Normal 7-18 [facility] Comment on above: Performed By: #### 2 [id number] #### [facility] [employer] [address] [place] [address] Urea nitrogen/Creatinine mass ratio 15.0 ratio Normal 5.4-30.0 [facility] Comment on above: Performed By: #### 2 [id number] #### [facility] [address] [place] [address] Calcium mass conc 9.5 mg/dL Normal 8.4-10.2 [facility] Comment on above: Performed By: #### 2 [id number] #### [facility] [employer] [address] [place] [address] Chloride molar conc 105 mmol/L Normal 98-107 [facility] Comment on above: Performed By: #### 2 [id number] #### [facility] [employer] [address] [place] [address] CO2 molar conc 24.7 mmol/L Normal 24.0-30.0 [facility] Comment on above: Performed By: #### 2 [id number] #### [facility] [employer] [address] [place] [address] Glucose mass conc 107 mg/dL High 70-99 [facility] Comment on above: Performed By: #### 2 [id number] #### [facility] [address] [place] [address] Potassium molar conc 3.4 mmol/L Low 3.5-5.[address] [facility] Comment on above: Performed By: #### 2 [id number] #### [facility]NA [employer] [facility] [place] [address] Sodium molar conc 138 mmol/L Normal 136-145 [facility] Comment on above: Performed By: #### 2 [id number] #### [facility] [employer] [address] [place] [address] CBC w/ Auto Diffon 8 Erythrocyte distribution width Ratio (RBC) 13.4 % Normal 11.5-14.5 [facility] Comment on above: Performed By: #### 2 [id number] #### ANA Moore[facility] [address] [place], [place] [id number] Hematocrit Volume Fraction (Bld) 47.3 % Normal 36.0-48.0 [facility] Comment on above: Performed By: #### 2 [id number] #### [facility] [employer] [address] [place], [place] [address] Hemoglobin mass conc (Bld) 16.4 g/dL High 12.0-16.0 [facility] Comment on above: Performed By: #### 2 [id number] #### [facility] [employer] [address] [place], [place] [id number] MCH Entitic mass (RBC) 29.8 pg Normal 27.0-31.0 [facility] Comment on above: Performed By: #### 2 [id number] #### ANA Tinoco[employer] [address] [place] [id number] MCHC mass conc (RBC) 34.7 g/dL Normal 33.0-37.[address] [facility] Comment on above: Performed By: #### 2 [id number] #### ANA Tin[employer]emo [address] [place] [address] MCV Entitic volume (RBC) 85.8 fL Normal 78.0-100.0 [facility] Comment on above: Performed By: #### 2 [id number] #### [facility]NA [employer] [address] [place] [address] Platelet mean volume Entitic volume (Bld) 8.1 fL Normal 7.4-11.0 [facility] Comment on above: Performed By: #### 2 [id number] #### [facility]NA [employer] [address] [place] [address] Platelets #/vol (Bld) 253 E3/mcL Normal 130-400 [facility] Comment on above: Performed By: #### 2 [id number] #### ANA Tinoco[employer] [address] [place] [address] RBC #/vol (Bld) 5.51 E6/mcL High 3.90-5.40 [facility] Comment on above: Performed By: #### 2 [id number] #### ANA [employer] [address] [place] [address] WBC #/vol (Bld) 18.0 E3/mcL High 3.6-11.0 [facility] Comment on above: Performed By: #### 2 [id number] #### [facility] [employer] [address] [place] [address] Hep Func Panelon 2017 Albumin mass conc 5.1 g/dL High 3.2-5.0 [facility] Comment on above: Performed By: #### 2 [id number] #### [facility] [employer] [address] [place] [address] Albumin/Globulin mass ratio 1.5 {ratio} Normal 1.1-1.9 [facility] Comment on above: Performed By: #### 2 [id number] #### [facility] [employer] [address] [place] [address] Alk Phos 58 Int._Unit/L Normal 42-121 [facility] Comment on above: Performed By: #### 2 [id number] #### [facility] [employer] [address] [place] [address] ALT enzyme act/vol 30 Int._Unit/L Normal 10-40 [facility] Comment on above: Performed By: #### 2 [id number] #### [facility] [employer] [address] [place] [address] AST enzyme act/vol 21 Int._Unit/L Normal 10-42 [facility] Comment on above: Performed By: #### 2 [id number] #### ANA Starkey [facility] [place] [address] Bili Direct <.10 Normal .00-.20 [facility] Comment on above: Performed By: #### 2 [id number] #### [facility] [place] [address] [place] [address] Bili Indirect >0.3 Normal [facility] Comment on above: Result Comment: No e stablished ranges available for the Indirect Biliruben. Performed By: #### 2 [id number] #### ANA Starkey [address] [place], [place] [address] Bili Total 0.4 mg/dL Normal 0.2-1.0 [facility] Comment on above: Performed By: #### 2 [id number] #### ANA [address] [address] Globulin mass conc (S) 3.4 g/dL Normal 2.0-4.0 [facility] Comment on above: Performed By: #### 2 [id number] #### [place] [place] [id number] Protein mass conc 8.5 g/dL High 6.4-8.3 [facility] Comment on above: Performed By: #### 2 [id number] #### ANA [address] [address] Influenza A&B Agon 8 Influenzae A Ag Negative Normal Negative [facility] Comment on above: Result Comment: A ne gative test result does not exclude infection with influenza A and B. Therefore, the results obtained should be used in conjunction with clinical findings to make an accurate diagnosis. Performed By: #### 1 [id number] #### ANAHarini Simpsonc Micro SubSection , Influenzae B Ag Negative Normal Negative [facility] Comment on above: Performed By: #### 1 [id number] #### ANA [employer] Micro SubSection , Lipase Levelon 2017 Lipase Lvl 31 U/L Normal 8-57 [facility] Comment on above: Performed By: #### 2 [id number] #### [facility] [place] [address] [place] [address] UA Completeon 2017 Color Nom (U) Straw Normal Yellow [facility] Comment on above: Performed By: #### 8 [id number] #### ANA Urinalysis Automated Subsection [facility] [place] [address] Glucose mass conc (U) Negative Normal Negative [facility] Comment on above: Performed By: #### 8 [id number] #### ANA Urinalysis Automated Subsection [facility] [place] [address] Ketones Ql (U) Negative Normal Negative [facility] Comment on above: Performed By: #### 8 [id number] #### ANA Urinalysis Automated Subsection [address] [place] [address] RBC #/vol (U) 5-10 Abnormal 0-3 [facility] Comment on above: Performed By: #### 8 [id number] #### ANA Urinalysis Automated Subsection [address] [place] [address] UA Blood 1+ Abnormal Negative [facility] Comment on above: Performed By: #### 8 [id number] #### ANA Urinalysis Automated Subsection [address] [place] [address] UA Clarity Clear Normal Clear [facility] Comment on above: Performed By: #### 8 [id number] #### ANA Urinalysis Automated Subsection [address] [place] [address] UA Leuk Est Negative Normal Negative [facility] Comment on above: Performed By: #### 8 [id number] #### ANA Urinalysis Automated Subsection [facility] [place] [address] UA Nitrite Negative Normal Negative [facility] Comment on above: Performed By: #### 8 [id number] #### ANA Urinalysis Automated Subsection [address] [place] [address] UA pH 6.0 Normal 4.6-8.0 [facility] Comment on above: Performed By: #### 8 [id number] #### ANA Urinalysis Automated Subsection [address] [place] [address] UA Protein Negative Normal Negative [facility] Comment on above: Performed By: #### 8 [id number] #### ANA Urinalysis Automated Subsection [address] [place] [address] UA Spec Grav 1.005 Normal 1.003-1.030 [facility] Comment on above: Performed By: #### 8 [id number] #### ANA Urinalysis Automated Subsection [address] [place] [address] UA Sperm FEW Normal [facility] Comment on above: Performed By: #### 8 [id number] #### ANA Urinalysis Automated Subsection [address] [place] [address] UA Squam Epithelial 0-5 Normal 0-5 [facility] Comment on above: Performed By: #### 8 [id number] #### ANA Urinalysis Automated Subsection [facility] [place] [address] UA Urobilinogen Negative Normal [facility] Comment on above: Performed By: #### 8 [id number] #### ANA Urinalysis Automated Subsection [address] [place] [address] UA WBC 0-5 Normal 0-5 [facility] Comment on above: Performed By: #### 8 [id number] #### ANA Urinalysis Automated Subsection [facility] [place] [id number] Urobilinogen Qn (U) Negative Normal Negative [facility] Comment on above: Performed By: #### 8 [id number] #### ANA Urinalysis Automated Subsection [facility] [place] [id number] eGFRon 2017 GFR/1.73 sq M predicted among non-blacks MDRD vol rate/area (S/P/Bld) mL/min/{1.73_m2} Normal [facility] Comment on above: Order Comment: Order added by Discern Expert. Performed By: #### 1 [id number] #### [facility] [address] [place] [address] Vital Signs Date Time Vital Sign Value Performing Clinician Facility 04-24-2024 09:40-0400 Body mass index (BMI) [Ratio] 26.95 kg/m2 Jani Escamilla APRN.CNP Work Phone: [facility] 04-24-2024 09:40-0400 Body temperature 97.81 [degF] Jani Escamilla APRN.CNP Work Phone: [facility] 04-24-2024 09:40-0400 [facility] CASTING MACHINE OPERATOR HELPER.TALENT SOURCING SPECIALIST Work Phone: [facility] 04-24-2024 09:40-0400 Diastolic blood pressure 93 mm[Hg] [facility] CASTING MACHINE OPERATOR HELPER.TALENT SOURCING SPECIALIST Work Phone: [facility] 04-24-2024 09:40-0400 Heart rate 149 /min [facility] CASTING MACHINE OPERATOR HELPER.TALENT SOURCING SPECIALIST Work Phone: [facility] 04-24-2024 09:40-0400 Respiratory rate 18 /min [facility] CASTING MACHINE OPERATOR HELPER.TALENT SOURCING SPECIALIST Work Phone: [facility] 04-24-2024 09:40-0400 SaO2% (BldA) [Mass fraction] 100 % [facility] CASTING MACHINE OPERATOR HELPER.TALENT SOURCING SPECIALIST Work Phone: [facility] 04-24-2024 09:40-0400 Systolic blood pressure 148 mm[Hg] [facility] CASTING MACHINE OPERATOR HELPER.TALENT SOURCING SPECIALIST Work Phone: [facility] 04-17-2024 10:25-0400 Body mass index (BMI) [Ratio] 27.02 kg/m2 Kelsi Tee CASTING MACHINE OPERATOR HELPER.TALENT SOURCING SPECIALIST Work Phone: [facility] 04-17-2024 10:25-0400 Body temperature 98.1 [degF] Kelsi Tee CASTING MACHINE OPERATOR HELPER.TALENT SOURCING SPECIALIST Work Phone: [facility] 04-17-2024 10:25-0400 Body weight 69.2 kg Kelsi Tee CASTING MACHINE OPERATOR HELPER.TALENT SOURCING SPECIALIST Work Phone: [facility] 04-17-2024 10:25-0400 Diastolic blood pressure 80 mm[Hg] Kelsi Tee CASTING MACHINE OPERATOR HELPER.TALENT SOURCING SPECIALIST Work Phone: [facility] 04-17-2024 10:25-0400 Heart rate 120 /min Kelsi Tee CASTING MACHINE OPERATOR HELPER.TALENT SOURCING SPECIALIST Work Phone: [facility] 04-17-2024 10:25-0400 Respiratory rate 18 /min Kelsi Tee CASTING MACHINE OPERATOR HELPER.TALENT SOURCING SPECIALIST Work Phone: [facility] 04-17-2024 10:25-0400 SaO2% (BldA) [Mass fraction] 99 % Kelsi Tee APRN.TALENT SOURCING SPECIALIST Work Phone: [facility] 04-17-2024 10:25-0400 Systolic blood pressure 128 mm[Hg] Kelsi Tee APRN.TALENT SOURCING SPECIALIST Work Phone: [facility] 02-06-2024 08:29-0400 Body mass index (BMI) [Ratio] 24.95 kg/m2 Krislyn Aberegg PA Work Phone: [facility] 02-06-2024 08:29-0400 Body temperature 97.11 [degF] Krislyn Aberegg PA Work Phone: [facility] 02-06-2024 08:29-0400 Body weight 63.9 kg Krislyn Aberegg PA Work Phone: [facility] 02-06-2024 08:29-0400 Diastolic blood pressure 76 mm[Hg] Krislyn Aberegg PA Work Phone: [facility] 02-06-2024 08:29-0400 Heart rate 87 /min Krislyn Aberegg PA Work Phone: [facility] 02-06-2024 08:29-0400 Respiratory rate 16 /min Krislyn Aberegg PA Work Phone: [facility] 02-06-2024 08:29-0400 SaO2% (BldA) [Mass fraction] 100 % Krislyn Aberegg PA Work Phone: [facility] 02-06-2024 08:29-0400 Systolic blood pressure 128 mm[Hg] Krislyn Aberegg PA Work Phone: [facility] 11-28-2023 13:14-0400 Body height 160 cm Jani Starkey MD Work Phone: [facility] 11-28-2023 13:14-0400 Body mass index (BMI) [Ratio] 25.69 kg/m2 Jani Starkey MD Work Phone: [facility] 11-28-2023 13:14-0400 Body weight 65.77 kg Jani Starkey MD Work Phone: [facility] 11-28-2023 13:14-0400 Diastolic blood pressure 80 mm[Hg] Jani Starkey MD Work Phone: [facility] 11-28-2023 13:14-0400 Heart rate 84 /min Jani Starkey MD Work Phone: [facility] 11-28-2023 13:14-0400 Systolic blood pressure 116 mm[Hg] Jani Starkey MD Work Phone: [facility] 10-07-2023 07:27-0500 Body temperature 97.59 [degF] Asha Segal APRN.TALENT SOURCING SPECIALIST Work Phone: [facility] 10-07-2023 07:27-0500 Body weight 65.32 kg Asha Segal APRN.TALENT SOURCING SPECIALIST Work Phone: [facility] 10-07-2023 07:27-0500 Diastolic blood pressure 77 mm[Hg] Asha Segal APRN.TALENT SOURCING SPECIALIST Work Phone: [facility] 10-07-2023 07:27-0500 Heart rate 92 /min Asha Segal APRN.TALENT SOURCING SPECIALIST Work Phone: [facility] 10-07-2023 07:27-0500 Respiratory rate 18 /min Asha Segal APRN.TALENT SOURCING SPECIALIST Work Phone: [facility] 10-07-2023 07:27-0500 SaO2% (BldA) [Mass fraction] 100 % Asha Segal APRN.TALENT SOURCING SPECIALIST Work Phone: [facility] 10-07-2023 07:27-0500 Systolic blood pressure 121 mm[Hg] Asha Segal APRN.TALENT SOURCING SPECIALIST Work Phone: [facility] 05-08-2023 01:04-0400 Body height 154.[address] Jani Starkey Work Phone: 3(965)[phone] [place] [address] 05-08-2023 01:04-0400 Body temperature 97.9 [degF] Dr. Jani Starkey Work Phone: [facility] 05-08-2023 01:04-0400 Diastolic blood pressure 72 mm[Hg] Dr. Jani Starkey Work Phone: 2(667)424-468903 [place] [address] 05-08-2023 01:04-0400 Heart rate 102 /min Dr. Jani Starkey Work Phone: 8(977)[phone] [place] [address] 05-08-2023 01:04-0400 Respiratory rate 15 /min Dr. Jani Starkey Work Phone: 6(889)235-017626 [place] [address] 05-08-2023 01:04-0400 SaO2% (BldA) [Mass fraction] 100 % Dr. Jani Starkey Work Phone: 0(525)[phone] [place] [address] 05-08-2023 01:04-0400 Systolic blood pressure 143 mm[Hg] Dr. Jani Starkey Work Phone: [facility] 05-05-2023 10:50-0400 Body temperature 98.71 [degF] Jani Starkey MD Work Phone: [facility] 05-05-2023 10:50-0400 Body weight 63.5 kg Jani Starkey MD Work Phone: [facility] 05-05-2023 10:50-0400 Diastolic blood pressure 92 mm[Hg] Jani Starkey MD Work Phone: [facility] 05-05-2023 10:50-0400 Heart rate 101 /min Jani Starkey MD Work Phone: [facility] 05-05-2023 10:50-0400 SaO2% (BldA) [Mass fraction] 99 % Jani Starkey MD Work Phone: [facility] 05-05-2023 10:50-0400 Systolic blood pressure 130 mm[Hg] Jani Starkey MD Work Phone: [facility] 05-03-2023 09:29-0400 Body mass index (BMI) [Ratio] 27 kg/m2 Dr. Jani Starkey Work Phone: [facility] 05-03-2023 09:29-0400 Body temperature 98.6 [degF] Dr. Jani Starkey Work Phone: [facility] 05-03-2023 09:29-0400 Body weight 64.[address] Jani Starkey Work Phone: [facility] 05-03-2023 09:29-0400 Diastolic blood pressure 87 mm[Hg] Dr. Jani Starkey Work Phone: [facility] 05-03-2023 09:29-0400 Heart rate 99 /min Dr. Jani Starkey Work Phone: [facility] 05-03-2023 09:29-0400 Respiratory rate 16 /min Dr. aJni Starkey Work Phone: [facility] 05-03-2023 09:29-0400 SaO2% (BldA) [Mass fraction] 97 % Dr. Jani Starkey Work Phone: [facility] 05-03-2023 09:29-0400 Systolic blood pressure 130 mm[Hg] Dr. Jani Starkey Work Phone: [facility] 02-10-2023 12:54-0400 Body temperature 97.9 [degF] Scott Mcknight DPM Work Phone: [facility] 02-10-2023 12:54-0400 Diastolic blood pressure 76 mm[Hg] Scott Mcknight DPM Work Phone: [facility] 02-10-2023 12:54-0400 Heart rate 90 /min Scott Mcknight DPM Work Phone: [facility] 02-10-2023 12:54-0400 Systolic blood pressure 119 mm[Hg] Scott Mcknight DPM Work Phone: [facility] 01-27-2023 11:05-0400 Body temperature 98.1 [degF] Scott Mcknight DPM Work Phone: [facility] 01-27-2023 11:05-0400 Diastolic blood pressure 84 mm[Hg] Scott Mcknight DPM Work Phone: [facility] 01-27-2023 11:05-0400 Heart rate 96 /min Scott Mcknight DPM Work Phone: [facility] 01-27-2023 11:05-0400 Systolic blood pressure 137 mm[Hg] Scott Mcknight DPM Work Phone: [facility] 01-20-2023 15:42-0400 Body mass index (BMI) [Ratio] 26.8 kg/m2 Dr. Jani Starkey Work Phone: [facility] 01-20-2023 15:42-0400 Body temperature 98 [degF] Dr. Jani Starkey Work Phone: [facility] 01-20-2023 15:42-0400 Body weight 64.[address] Jani Starkey Work Phone: [facility] 01-20-2023 15:42-0400 Diastolic blood pressure 72 mm[Hg] Dr. Jani Starkey Work Phone: [facility] 01-20-2023 15:42-0400 Heart rate 85 /min Dr. Jani Starkey Work Phone: [facility] 01-20-2023 15:42-0400 Respiratory rate 16 /min Dr. Jani Starkey Work Phone: [facility] 01-20-2023 15:42-0400 SaO2% (BldA) [Mass fraction] 98 % Dr. Jani Starkey Work Phone: [facility] 01-20-2023 15:42-0400 Systolic blood pressure 108 mm[Hg] Dr. aJni Starkey Work Phone: [facility] 08-30-2022 12:59-0500 Body height 154.[address] Jani Starkey Work Phone: [facility] 08-30-2022 12:59-0500 Body mass index (BMI) [Ratio] 27.9 kg/m2 Dr. Jani Starkey Work Phone: [facility] 08-30-2022 12:59-0500 Body weight 67.[address] Jani Starkey Work Phone: [facility] 08-30-2022 12:59-0500 Diastolic blood pressure 78 mm[Hg] Dr. Jani Starkey Work Phone: [facility] 08-30-2022 12:59-0500 Systolic blood pressure 124 mm[Hg] Dr. Jani Starkey Work Phone: [facility] 08-24-2022 15:12-0500 Body temperature 98.4 [degF] Jani Escamilla CASTING MACHINE OPERATOR HELPER.TALENT SOURCING SPECIALIST Work Phone: [facility] 08-24-2022 15:12-0500 Body weight 67.95 kg Jani Escamilla CASTING MACHINE OPERATOR HELPER.TALENT SOURCING SPECIALIST Work Phone: [facility] 08-24-2022 15:12-0500 Diastolic blood pressure 84 mm[Hg] Jani Escamilla CASTING MACHINE OPERATOR HELPER.TALENT SOURCING SPECIALIST Work Phone: [facility] 08-24-2022 15:12-0500 Heart rate 94 /min Jani Escamilla CASTING MACHINE OPERATOR HELPER.TALENT SOURCING SPECIALIST Work Phone: [facility] 08-24-2022 15:12-0500 Respiratory rate 16 /min Jani Escamilla CASTING MACHINE OPERATOR HELPER.TALENT SOURCING SPECIALIST Work Phone: [facility] 08-24-2022 15:12-0500 SaO2% (BldA) [Mass fraction] 98 % Jani Escamilla CASTING MACHINE OPERATOR HELPER.TALENT SOURCING SPECIALIST Work Phone: [facility] 08-24-2022 15:12-0500 Systolic blood pressure 122 mm[Hg] Jani Escamilla CASTING MACHINE OPERATOR HELPER.TALENT SOURCING SPECIALIST Work Phone: [facility] 08-12-2022 08:17-0500 Body temperature 98.3 [degF] Dr. Jani Starkey Work Phone: [facility] 08-12-2022 08:17-0500 Diastolic blood pressure 72 mm[Hg] Dr. Jani Starkey Work Phone: [facility] 08-12-2022 08:17-0500 Heart rate 86 /min Dr. Jani Starkey Work Phone: [facility] 08-12-2022 08:17-0500 Respiratory rate 14 /min Dr. Jani Starkey Work Phone: [facility] 08-12-2022 08:17-0500 SaO2% (BldA) [Mass fraction] 99 % Dr. Jani Starkey Work Phone: [facility] 08-12-2022 08:17-0500 Systolic blood pressure 124 mm[Hg] Dr. Jani Starkey Work Phone: [facility] 08-08-2022 18:10-0500 Diastolic blood pressure 62 mm[Hg] [facility] 08-08-2022 18:10-0500 Heart rate 85 /min [facility] 08-08-2022 18:10-0500 Respiratory rate 16 /min [facility] 08-08-2022 18:10-0500 SaO2% (BldA) [Mass fraction] 97 % [facility] 08-08-2022 18:10-0500 Systolic blood pressure 107 mm[Hg] [facility] 08-08-2022 17:08-0500 Body height 154.9 cm [facility] 08-08-2022 17:08-0500 Body temperature 99.5 [degF] [facility] 08-08-2022 17:08-0500 Body weight 61.3 kg [facility] 06-21-2022 09:03-0500 Body temperature 99.5 [degF] Dr. Jani Starkey Work Phone: [facility] 06-18-2022 22:30-0500 Body temperature 97.5 [degF] Dr. Jani Starkey Work Phone: 9(803)049-041226 [place] [address] 06-18-2022 22:30-0500 Diastolic blood pressure 81 mm[Hg] Dr. Jani Starkey Work Phone: 6(131)100-469726 [place] [address] 06-18-2022 22:30-0500 Heart rate 103 /min Dr. Jani Starkey Work Phone: 9(479)594-187926 [place] [address] 06-18-2022 22:30-0500 Respiratory rate 16 /min Dr. Jani Starkey Work Phone: 8(466)980-152826 [place] [address] 06-18-2022 22:30-0500 SaO2% (BldA) [Mass fraction] 99 % Dr. Jani Starkey Work Phone: 8(772)758-075326 [place] [address] 06-18-2022 22:30-0500 Systolic blood pressure 131 mm[Hg] Dr. Jani Starkey Work Phone: 2(994)730-048626 [place] [address] 06-18-2022 22:28-0500 Body height 154.[address] Jani Starkey Work Phone: 4(307)745-855926 [place] [address] Work Phone: 06-18-2022 22:28-0500 Body mass index (BMI) [Ratio] 28 kg/m2 Dr. Jani Starkey Work Phone: 4(283)823-503626 [place] [address] 06-18-2022 22:28-0500 Body weight 67.[address] Jani Starkey Work Phone: 6(609)500-057926 [place] [address] 05-14-2022 14:18-0400 Body mass index (BMI) [Ratio] 28.1 kg/m2 Dr. Jani Starkey Work Phone: 5(518)483-511026 [place] [address] 05-14-2022 14:18-0400 Body weight 67.[address] Jani Starkey Work Phone: 8(871)807-699526 [place] [address] 05-14-2022 14:18-0400 Diastolic blood pressure 79 mm[Hg] Dr. Jani Starkey Work Phone: 5(424)300-231626 [place] [address] 05-14-2022 14:18-0400 Systolic blood pressure 127 mm[Hg] Dr. Jani Starkey Work Phone: [facility] 05-05-2022 14:12-0400 Body temperature 98.1 [degF] Dr. Jani Starkey Work Phone: [facility] Work Phone: 05-05-2022 14:12-0400 Diastolic blood pressure 64 mm[Hg] Dr. Jani Starkey Work Phone: [facility] Work Phone: 05-05-2022 14:12-0400 Heart rate 84 /min Dr. Jani Starkey Work Phone: [facility] Work Phone: 05-05-2022 14:12-0400 Respiratory rate 14 /min Dr. Jani Starkey Work Phone: [facility] Work Phone: 05-05-2022 14:12-0400 SaO2% (BldA) [Mass fraction] 98 % Dr. Jani Starkey Work Phone: [facility] Work Phone: 05-05-2022 14:12-0400 Systolic blood pressure 114 mm[Hg] Dr. Jani Starkey Work Phone: [facility] Work Phone: 04-28-2022 15:09-0400 Body temperature 98.29 [degF] Diane Athy PA-C Work Phone: [facility] 04-28-2022 15:09-0400 Body weight 69.49 kg Diane Athy PA-C Work Phone: [facility] 04-28-2022 15:09-0400 Diastolic blood pressure 82 mm[Hg] Diane Athy PA-C Work Phone: [facility] 04-28-2022 15:09-0400 Heart rate 93 /min Diane Athy PA-C Work Phone: [facility] 04-28-2022 15:09-0400 Respiratory rate 18 /min Diane Athy PA-C Work Phone: [facility] 04-28-2022 15:09-0400 SaO2% (BldA) [Mass fraction] 96 % Diane Athy PA-C Work Phone: [facility] 04-28-2022 15:09-0400 Systolic blood pressure 116 mm[Hg] Diane Athy PA-C Work Phone: [facility] 12-31-2021 12:11-0400 Body temperature 97.9 [degF] Shelbi Whitfield PA-C Work Phone: [facility] 12-31-2021 12:11-0400 Body weight 70.76 kg Shelbi Whitfield PA-C Work Phone: [facility] 12-31-2021 12:11-0400 Diastolic blood pressure 80 mm[Hg] Shelbi Whitfield PA-C Work Phone: [facility] 12-31-2021 12:11-0400 Heart rate 84 /min Shelbi Whitfield PA-C Work Phone: [facility] 12-31-2021 12:11-0400 Respiratory rate 16 /min Shelbi Whitfield PA-C Work Phone: [facility] 12-31-2021 12:11-0400 Systolic blood pressure 110 mm[Hg] Shelbi Whitfield PA-C Work Phone: [facility] 12-25-2021 21:55-0400 Heart rate 108 /min Dr. Jani Starkey Work Phone: [facility] Work Phone: 12-25-2021 21:55-0400 Respiratory rate 16 /min Dr. Jani Starkey Work Phone: [facility] Work Phone: 12-25-2021 21:55-0400 SaO2% (BldA) [Mass fraction] 97 % Dr. Jani Starkey Work Phone: [facility] Work Phone: 12-25-2021 18:51-0400 Body height 154.[address] Jani Starkey Work Phone: [facility] Work Phone: 12-25-2021 18:51-0400 Body mass index (BMI) [Ratio] 28.7 kg/m2 Dr. Jani Starkey Work Phone: [facility] Work Phone: 12-25-2021 18:51-0400 Body temperature 99 [degF] Dr. Jani Starkey Work Phone: [facility] Work Phone: 12-25-2021 18:51-0400 Body weight 68.[address] Jani Starkey Work Phone: [facility] Work Phone: 12-25-2021 18:51-0400 Diastolic blood pressure 90 mm[Hg] Dr. aJni Starkey Work Phone: [facility] Work Phone: 12-25-2021 18:51-0400 Systolic blood pressure 137 mm[Hg] Dr. Jani Starkey Work Phone: [facility] Work Phone: 12-25-2021 18:25-0400 Body temperature 99 [degF] Asha eSgal APRN.TALENT SOURCING SPECIALIST Work Phone: [facility] 12-25-2021 18:25-0400 Body weight 68.95 kg Asha Segal APRN.TALENT SOURCING SPECIALIST Work Phone: [facility] 12-25-2021 18:25-0400 Diastolic blood pressure 76 mm[Hg] Asha Segal APRN.TALENT SOURCING SPECIALIST Work Phone: [facility] 12-25-2021 18:25-0400 Heart rate 136 /min Asha Segal APRN.TALENT SOURCING SPECIALIST Work Phone: [facility] 12-25-2021 18:25-0400 SaO2% (BldA) [Mass fraction] 99 % Asha Segal APRN.TALENT SOURCING SPECIALIST Work Phone: [facility] 12-25-2021 18:25-0400 Systolic blood pressure 128 mm[Hg] Asha Segal APRN.TALENT SOURCING SPECIALIST Work Phone: [facility] 12-23-2021 12:44-0400 Body temperature 98 [degF] Dr. Jani Starkey Work Phone: [facility] Work Phone: 12-23-2021 12:44-0400 Diastolic blood pressure 74 mm[Hg] Dr. Jani Starkey Work Phone: [facility] Work Phone: 12-23-2021 12:44-0400 Heart rate 96 /min Dr. Jani Starkey Work Phone: [facility] Work Phone: 12-23-2021 12:44-0400 Respiratory rate 14 /min Dr. Jani Starkey Work Phone: [facility] Work Phone: 12-23-2021 12:44-0400 SaO2% (BldA) [Mass fraction] 98 % Dr. Jani Starkey Work Phone: [facility] Work Phone: 12-23-2021 12:44-0400 Systolic blood pressure 116 mm[Hg] Dr. Jani Starkey Work Phone: [facility] Work Phone: 12-14-2021 13:17-0400 Body weight 70.76 kg Zonia Bal APRN.TALENT SOURCING SPECIALIST Work Phone: [facility] 12-14-2021 13:17-0400 Diastolic blood pressure 80 mm[Hg] Zonia Bal APRN.TALENT SOURCING SPECIALIST Work Phone: [facility] 12-14-2021 13:17-0400 Heart rate 95 /min Zonia Bal CASTING MACHINE OPERATOR HELPER.TALENT SOURCING SPECIALIST Work Phone: [facility] 12-14-2021 13:17-0400 Respiratory rate 16 /min Zonia Bal CASTING MACHINE OPERATOR HELPER.TALENT SOURCING SPECIALIST Work Phone: [facility] 12-14-2021 13:17-0400 SaO2% (BldA) [Mass fraction] 98 % Zonia Bal CASTING MACHINE OPERATOR HELPER.TALENT SOURCING SPECIALIST Work Phone: [facility] 12-14-2021 13:17-0400 Systolic blood pressure 130 mm[Hg] Zonia Bal CASTING MACHINE OPERATOR HELPER.TALENT SOURCING SPECIALIST Work Phone: [facility] 12-05-2021 03:36-0400 Heart rate 74 /min Dr. Jani Starkey Work Phone: [facility] Work Phone: 12-05-2021 03:36-0400 Respiratory rate 15 /min Dr. Jani Starkey Work Phone: [facility] Work Phone: 12-05-2021 03:36-0400 SaO2% (BldA) [Mass fraction] 99 % Dr. Jani Starkey Work Phone: [facility] Work Phone: 12-04-2021 23:50-0400 Body height 154.[address] Jani Starkey Work Phone: [facility] Work Phone: 12-04-2021 23:50-0400 Body mass index (BMI) [Ratio] 30.4 kg/m2 Dr. Jani Starkey Work Phone: [facility] Work Phone: 12-04-2021 23:50-0400 Body temperature 97.9 [degF] Dr. Jani Starkey Work Phone: [facility] Work Phone: 12-04-2021 23:50-0400 Body weight 73.[address] Jani Starkey Work Phone: [facility] Work Phone: 12-04-2021 23:50-0400 Diastolic blood pressure 90 mm[Hg] Dr. Jani Starkey Work Phone: [facility] Work Phone: 12-04-2021 23:50-0400 Systolic blood pressure 157 mm[Hg] Dr. Jani Starkey Work Phone: [facility] Work Phone: 11-04-2021 12:06-0400 Body mass index (BMI) [Ratio] 29.5 kg/m2 Dr. Jani Starkey Work Phone: [facility] Work Phone: 11-04-2021 12:06-0400 Body temperature 98.6 [degF] Dr. Jani tSarkey Work Phone: [facility] Work Phone: 11-04-2021 12:06-0400 Body weight 70.[address] Jani Starkey Work Phone: [facility] Work Phone: 11-04-2021 12:06-0400 Diastolic blood pressure 78 mm[Hg] Dr. Jani Starkey Work Phone: [facility] Work Phone: 11-04-2021 12:06-0400 Heart rate 93 /min Dr. Jani Starkey Work Phone: [facility] Work Phone: 11-04-2021 12:06-0400 Respiratory rate 16 /min Dr. Jani Starkey Work Phone: [facility] Work Phone: 11-04-2021 12:06-0400 SaO2% (BldA) [Mass fraction] 98 % Dr. Jani Starkey Work Phone: [facility] Work Phone: 11-04-2021 12:06-0400 Systolic blood pressure 114 mm[Hg] Dr. Jani Starkey Work Phone: [facility] Work Phone: 02-14-2021 16:51-0400 Body height 154.9 cm Timothy Starks MD Work Phone: [facility] 02-14-2021 16:51-0400 Body mass index (BMI) [Ratio] 24.56 kg/m2 Timothy Starks MD Work Phone: [facility] 02-14-2021 16:51-0400 Body temperature 98.29 [degF] Timothy Starks MD Work Phone: [facility] 02-14-2021 16:51-0400 Body weight 58.97 kg Timothy Starks MD Work Phone: [facility] 02-14-2021 16:51-0400 Diastolic blood pressure 81 mm[Hg] Timothy Starks MD Work Phone: [facility] 02-14-2021 16:51-0400 Heart rate 88 /min Timothy Starks MD Work Phone: [facility] 02-14-2021 16:51-0400 Respiratory rate 16 /min Timothy Starks MD Work Phone: [facility] 02-14-2021 16:51-0400 SaO2% (BldA) [Mass fraction] 96 % Timothy Starks MD Work Phone: [facility] 02-14-2021 16:51-0400 Systolic blood pressure 127 mm[Hg] Timothy Starks MD Work Phone: [facility] Encounters Encounter Date Encounter Type Care Provider Facility Start: 06-24-2025 ambulatory Karrie Strong [facility]ity:[facility] Start: 06-10-2025 End: 06-10-2025 ambulatory Clarisse BENNETT Facility:[facility] Start: 05-22-2025 End: 05-22-2025 Emergency department patient visit NICHOLAS CALLEJAS TEJEDA [facility] Start: 04-16-2025 End: 04-16-2025 ambulatory Claire Burt Facility:[facility] Start: 02-28-2025 End: 02-28-2025 Emergency department patient visit JANI STARKEY [facility] Start: 08-20-2024 End: 08-20-2024 Chart abstracting Jani Starkey MD Work Phone: [facility] Comment on above: Outside H&P Start: 08-20-2024 ambulatory Jani Starkey Facility :[facility] Start: 08-20-2024 End: 08-20-2024 ambulatory Jani Emey Facility:[facility] Start: 08-10-2024 End: 08-10-2024 Chart abstracting Jani Starkey MD Work Phone: [facility] Comment on above: Outside Fcjx-Fsl-ZZY Ordered Start: 07-09-2024 End: 07-09-2024 Chart abstracting Jani Starkey MD Work Phone: [facility] Comment on above: Outside Njdw-Egc-ICU Ordered Start: 07-02-2024 End: 07-02-2024 Chart abstracting Frances Segal MA [facility] Comment on above: Results (LAB outside ) Start: 06-29-2024 End: 06-29-2024 Chart abstracting Jani Starkey MD Work Phone: [facility] Comment on above: Outside Zxaq-Hyy-HXI Ordered Start: 06-28-2024 End: 06-28-2024 Chart abstracting Jani Starkey MD Work Phone: [facility] Start: 06-28-2024 End: 06-28-2024 ambulatory [facility] Facility:[facility] Start: 06-28-2024 End: 06-28-2024 ambulatory [facility] Facility:[facility] Start: 06-22-2024 End: 06-22-2024 ambulatory Karrie Rdz Facility:[facility] Start: 04-24-2024 End: 04-24-2024 Chart abstracting Jani Starkey MD Work Phone: [facility] Comment on above: ER Discharge Summary Start: 04-24-2024 End: 04-24-2024 ambulatory JANI STARKEY Facility:[facility] Start: 04-24-2024 End: 04-24-2024 Office outpatient visit 15 minutes Jani Escamilla APRN.TALENT SOURCING SPECIALIST Work Phone: [facility] Comment on above: Tachycardia (Primary Dx) Start: 04-17-2024 End: 04-17-2024 ambulatory JANI STARKEY Facility:[facility] Start: 04-17-2024 End: 04-17-2024 Patient encounter procedure Kelsi Tee APRN.TALENT SOURCING SPECIALIST Work Phone: [facility] Comment on above: Acute otitis media, left (Primary Dx); Viral URI with cough Start: 02-06-2024 End: 02-06-2024 Subsequent hospital visit by physician Tonie [facility] Work Phone: Radiology Comment on above: Pain in left toe(s) [M79.675] Start: 02-06-2024 End: 02-06-2024 ambulatory JANI STARKEY Facility:[facility] Start: 02-06-2024 End: 02-06-2024 Patient encounter procedure Meagan BENNETT Work Phone: [facility] Comment on above: Pain in left toe(s) (Primary Dx) Start: 11-29-2023 Telephone encounter Jani Starkey MD Work Phone: [facility] [place] Comment on above: Results Start: 11-28-2023 End: 11-28-2023 Patient encounter procedure Jani Starkey MD Work Phone: [facility] Comment on above: Well adult exam (Syeda gary Dx); Anxiety; Palpitations; Gastroesophageal reflux disease without esophagitis; Lymphadenopathy; Marijuana use; Irritable bowel syndrome with diarrhea; DDD (degenerative disc disease), cervical; Spinal stenosis, cervical region; Encounter for screening for diabetes mellitus; Encounter for lipid screening for cardiovascular disease; Medication management Start: 11-28-2023 End: 11-28-2023 Patient encounter status Jani Starkey MD Work Phone: [facility] Work Phone: Start: 10-07-2023 End: 10-07-2023 Patient encounter procedure Asha Segal TALENT SOURCING SPECIALIST Work Phone: [facility] Comment on above: URI, acute (Primary Dx); Sore throat Start: 07-08-2023 Chart abstracting Jani uribe MD Work Phone: [facility] [place] Comment on above: Outside Ortho Start: 07-02-2023 End: 07-02-[address] Jani Starkey Work Phone: [facility] Work Phone: Start: 07-02-2023 End: 07-02-[address] Jani Starkey Work Phone: [facility] Work Phone: Start: 06-23-2023 Chart abstracting Jani uribe MD Work Phone: [facility] [place] Comment on above: Outside EMG/NCS Start: 06-22-2023 Non-patient / Non-visit Dr. Tripp Starkey Work Phone: [facility] Start: 06-22-2023 End: 06-22-[address] Jani Starkey Work Phone: [facility] Work Phone: Start: 06-22-2023 End: 06-22-[address] Jani Starkey Work Phone: [facility] Work Phone: Start: 06-02-2023 End: 06-02-[address] Jani Starkey Work Phone: [facility] Work Phone: Start: 05-08-2023 End: 05-08-2023 Emergency department patient visit Dr. Jani Starkey Work Phone: [facility] Work Phone: Start: 05-05-2023 End: 05-05-2023 Patient encounter procedure Jani Starkey MD Work Phone: [facility] [place] Comment on above: URI, acute (Primary Dx); Gastroenteritis; Pharyngitis, unspecified etiology; Suspected COVID-19 virus infection Start: 05-03-2023 End: 05-03-[address] Jani Starkey Work Phone: [facility] Work Phone: Start: 02-10-2023 End: 02-10-2023 ambulatory JANI STARKEY [facility] Start: 02-10-2023 End: 02-10-2023 Follow-up encounter Scott Mcknight DPM Work Phone: [facility] Comment on above: Ingrown right greate r toenail (Primary Dx); Open wound of great toe, left, sequela Start: 01-27-2023 End: 01-27-2023 ambulatory SCOTT MCKNIGHT [facility] Ambulatory Start: 01-27-2023 End: 01-27-2023 Office outpatient new 30 minutes Scott Mcknight DPM Work Phone: [facility] Comment on above: Ingrown left greater toenail (Primary Dx); Syndactyly of toes of both feet Start: 01-20-2023 End: 01-20-[address] Jani Starkey Work Phone: [facility] Work Phone: Start: 08-30-2022 End: 08-30-[address] Jani Starkey Work Phone: [facility] Work Phone: Start: 08-30-2022 End: 08-30-[address] Jani Starkey Work Phone: [facility] Start: 08-28-2022 Telephone encounter Isa howard CASTING MACHINE OPERATOR HELPER.TALENT SOURCING SPECIALIST Work Phone: [facility] Comment on above: Results Start: 08-24-2022 End: 08-24-2022 Office outpatient visit 15 minutes Jani Escamilla APRN.CNP Work Phone: [facility] Comment on above: Pustule (Primary Dx) Start: 08-16-2022 Telephone encounter Jani Starkey MD Work Phone: [facility] Comment on above: Patient Question Start: 08-12-2022 End: 08-12-[address] Jani Starkey Work Phone: [facility] Start: 08-08-2022 End: 08-08-2022 Emergency department patient visit Bessie Tricia [facility] Emergency 09 Start: 08-08-2022 ambulatory Carolyn Singer RN NURS E [employer] Comment on above: Flank Pain Start: 06-22-2022 ambulatory Eliana Mott RN NURSE O N CALL Comment on above: Information Start: 06-21-2022 End: 06-21-[address] Jani Starkey Work Phone: [facility] Start: 06-18-2022 End: 06-18-2022 Emergency department patient visit Dr. Jani tSarkey Work Phone: [facility] Start: 05-27-2022 End: 05-27-[address] Jani Starkey Work Phone: [facility] Start: 05-14-2022 End: 05-14-[address] Jani Starkey Work Phone: [facility] Start: 05-10-2022 End: 05-10-2022 Subsequent hospital visit by physician Tonie [facility] Work Phone: Radiology Comment on above: Foot pain, right [M7 9.671] Start: 05-10-2022 End: 05-10-2022 Patient encounter procedure Steven Mejía Work Phone: Podiatry Comment on above: Repetitive stress in jury (Primary Dx); Foot pain, right; Pes cavus Start: 05-05-2022 End: 05-05-[address] Jani Starkey Work Phone: [facility] Start: 04-28-2022 End: 04-28-2022 Patient encounter procedure Diane Rivera PA-C Work Phone: [facility] Comment on above: Foot pain, right (Pr imary Dx) Start: 04-28-2022 End: 04-28-2022 Subsequent hospital visit by physician Xr [facility] Work Phone: Radiology Comment on above: Foot pain, right [M7 9.671] Start: 04-07-2022 End: 04-07-[address] Jani Starkey Work Phone: [facility] Start: 03-30-2022 Telephone encounter Shelbi rodriguez PA-C Work Phone: [facility] Comment on above: Medication Request Start: 01-01-2022 Telephone encounter Shelbi rodriguez PA-C Work Phone: [facility] Comment on above: Results Start: 12-31-2021 End: 12-31-2021 Patient encounter procedure Shelbi Whitfield PA-C Work Phone: [facility] Comment on above: Proteinuria, unspeci fied type (Primary Dx); Encounter for lipid screening for cardiovascular disease; Screening for diabetes mellitus; Need for hepatitis C screening test Start: 12-30-2021 Telephone encounter Zonia Cho nhof CASTING MACHINE OPERATOR HELPER.TALENT SOURCING SPECIALIST Work Phone: [facility] Comment on above: Orders Results Start: 12-30-2021 End: 12-30-2021 Subsequent hospital visit by physician [facility] [employer] [facility] (I-Stat/1.5t) Work Phone: Radiology Comment on above: Acute intractable he adache, unspecified headache type [R51.9] Start: 12-28-2021 Telephone encounter Jani Starkey MD Work Phone: [facility] Comment on above: Patient Question; Pa tient Update Start: 12-25-2021 End: 12-25-2021 Emergency department patient [facility] Start: 12-25-2021 End: 12-25-2021 Patient encounter procedure Asha Segal CASTING MACHINE OPERATOR HELPER.TALENT SOURCING SPECIALIST Work Phone: [facility] Comment on above: Fever, unspecified f ever cause (Primary Dx) Start: 12-23-2021 End: 12-23-[address] Jani Starkey Work Phone: [facility] Start: 12-14-2021 End: 12-14-2021 Patient encounter procedure Zonia Bal CASTING MACHINE OPERATOR HELPER.TALENT SOURCING SPECIALIST Work Phone: [facility] Comment on above: Hospital discharge f ollow-up (Primary Dx); Acute intractable headache, unspecified headache type; Chronic mixed headache syndrome Start: 12-04-2021 End: 12-05-2021 Emergency department patient [facility] Start: 11-04-2021 End: 11-04-[address] Jani Starkey Work Phone: [facility] Start: 02-14-2021 End: 02-14-2021 Emergency department patient visit Timothy Starks MD Work Phone: [facility] Emergency Department Start: 11-11-2020 End: 11-11-2020 Emergency department patient visit Physician Paula Fields [facility] Start: 11-11-2020 End: 11-11-2020 Emergency department patient visit [facility] Start: 10-08-2018 End: 10-09-2018 Emergency department patient visit Jani Starkey Facility:[facility] Start: 10-08-2018 Patient encounter procedure Facility:[id number] Start: 08-09-2018 End: 08-09-2018 Emergency department patient visit Jani Starkey Facility:[facility] Start: 08-08-2018 Patient encounter procedure Facility:[id number] Start: 2017 End: 2017 Emergency department patient visit Sanchez Jimenez Facility:[facility] Procedures Date Procedure Procedure Detail Performing Clinician Start: 02-06-2024 Radex toe minimum 2 views Meagan BENNETT Work Phone: Start: 10-07-2023 STREP A MOLECULAR (POC) [facility] Provider Start: 07-02-2023 MRI of cervical spine Edie Starkey Work Phone: Start: 06-02-2023 Plain x-ray of wrist Dr Ana Starkey Work Phone: Start: 05-05-2023 COVID & INFLUENZA A/ B & RSV NAAT, ROUTINE Jani Starkey MD Work Phone: Start: 05-05-2023 Iadna respiratry pro be & rev trnscr 3-5 targets Jani Starkey MD Work Phone: Start: 05-05-2023 Sars-cov-2 detection by dna/rna Jani Starkey MD Work Phone: Start: 05-05-2023 STREP A MOLECULAR (POC) Jani Starkey MD Work Phone: Start: 02-10-2023 NURSING COMMUNICATIO N- RITUXAN REACTION Scott Mcknight DPM Work Phone: Start: 01-27-2023 NURSING COMMUNICATIO N- RITUXAN REACTION Scott Mcknight DPM Work Phone: Start: 05-27-2022 Plain X-ray of shoulder Dr. Jani Starkey Work Phone: Start: 05-27-2022 X-ray of cervical spine Dr. Jani Starkey Work Phone: Start: 05-10-2022 Radex foot complete minimum 3 views Steven Mejía Work Phone: Start: 04-28-2022 Radex foot complete minimum 3 views Diane Rivera PA-C Work Phone: Start: 04-07-2022 Radiologic examinati on of knee Dr. Jani Starkey Work Phone: Start: 12-30-2021 Mra head w/o contrst material Zonia Bal CASTING MACHINE OPERATOR HELPER.TALENT SOURCING SPECIALIST Work Phone: Start: 12-14-2021 Adult depression scr eening assessment Zonia Bal CASTING MACHINE OPERATOR HELPER.TALENT SOURCING SPECIALIST Work Phone: Start: 12-05-2021 CT angiography of he ad and neck Dr. Jani Starkey Work Phone: Start: 02-14-2021 Radex wrist complete minimum 3 views Timothy Starks MD Work Phone: Plan of Treatment Date Care Activity Detail Author Start: 11-07-2051 Pneumococcal vaccination Pneum ococcal Vaccine (1 of 2 - PCV) [facility] Comment on above: Postponed from 10/31 (Postponed To Appropriate Date) Postponed from 10/31 (Postponed To Appropriate Date) Start: 11-27-2024 Urine microalbumin profile DTa P,Tdap,Td Vaccine (6 - Tdap) [facility] Comment on above: Postponed from 06/29 (Declined at this time) Start: 11-27-2024 End: 11-27-2024 Patient encounter procedure 11/27/2024 9:20 AM EDT Office Visit Family [facility] [address] [place] [address] Jani Starkey MD [address] [place], [place] [id number] Physical [facility] [place] Comment on above: Physical Start: 04-08-2024 Influenza vaccination [facility] Start: 08-08-2023 Depression Assessment Depression Ass essment [facility] Start: 06-28-2023 Tetanus vaccination Tetanus: Every 1 0yrs [facility] Start: 04-08-2023 Influenza vaccination [facility] Start: 02-24-2023 End: 02-24-2023 Follow-up encounter 02/24/2023 8:30 AM EDT Follow-Up [facility] [address] [place] [address] Scott Mcknight, KIKI [address] [place] [address] [facility] Physician [facility] Start: 02-10-2023 End: 02-10-2023 Follow-up encounter 02/10/2023 1:00 PM EDT Follow-Up [facility] [address] [place] [address] Scott Mcknight, KIKI [address] [place] [address] [facility] Start: 12-14-2022 Adult depression scr eening assessment DEPRESSION SCREENING [facility] Start: 08-08-2022 DEPRESSION ASSESSMENT DEPRESSION ASS ESSMENT [facility] Start: 04-08-2022 Influenza vaccination C [facility] Start: 12-31-2021 End: 03-02-2022 Comprehensive metabolic 2000 panel - Serum or Plasma [facility] Work Phone: Comment on above: Expected: 12/31/2021 , Expires: 03/02/2022 Start: 12-31-2021 End: 03-02-2022 Hemoglobin A1c/Hemoglobin.total in Blood [facility] Work Phone: Comment on above: Expected: 12/31/2021 , Expires: 03/02/2022 Start: 12-31-2021 End: 03-02-2022 Hepatitis C virus Ab [Presence] in Serum [facility] Work Phone: Comment on above: Expected: 12/31/2021 , Expires: 03/02/2022 Start: 12-31-2021 End: 03-02-2022 LIPID PANEL, NONFASTING [facility] Work Phone: Comment on above: Expected: 12/31/2021 , Expires: 03/02/2022 Start: 12-31-2021 End: 03-02-2022 Urinalysis complete panel - Urine [facility] Work Phone: Comment on above: Expected: 12/31/2021 , Expires: 03/02/2022 Start: 08-08-2021 DEPRESSION ASSESSMENT DEPRESSION ASS ESSMENT [facility] Start: 04-08-2021 Influenza vaccination [facility] Work Phone: Start: 06-29-2013 Urine microalbumin profile [facility] Start: 2005 ONE PNEUMOVAX PRIOR TO AGE 65 ONE PNEUMOVAX PRIOR TO AGE 65 [facility] Start: 2004 Depression Screening Depression Scre ening [facility] Start: 2004 Hepatitis C screening Hepatitis C [facility] Start: 2004 HEPATITIS C SCREENING HEPATITIS C [facility] Start: 2004 HIV SCREENING HIV SCREENING [facility] Start: 2004 HIV screening HIV Screening [facility] Start: 2002 COVID-19 Vaccine (1) COVID-19 Vaccin e (1) [facility] Work Phone: Start: 2001 HIV screening HIV Screening [facility] Start: 09-17-1999 HEPATITIS B (3 of 3 - 3-dose series) HEPATITIS B (3 of 3 - 3-dose series) [facility] Start: 09-17-1999 Hepatitis B Vaccine (3 of 3 - 3-dose series) Hepatitis B Vaccine (3 of 3 - 3-dose series) [facility] Start: 1998 COVID-19 Vaccine (1) COVID-19 Vaccin e (1) [facility] Start: 1998 Depression screening using PHQ-9 (Patient Health Questionnaire 9) score [facility] Start: 1992 PNEUMOCOCCAL (1 - PCV) PNEUMOCOCCAL (1 - PCV) [facility] Start: 1992 Pneumococcal vaccination [facility] Start: 1992 Pneumococcal Vaccine : Ped or At-Risk (1 - PCV) Pneumococcal Vaccine: Ped or At-Risk (1 - PCV) [facility] Start: 1992 Pneumococcal Vaccine : Ped or At-Risk (1 of 2 - PPSV23) Pneumococcal Vaccine: Ped or At-Risk (1 of 2 - PPSV23) [facility] Start: 11-01-1991 COVID-19 VACCINE (#1) COVID-19 VACCI NE (#1) [facility] Start: 1989 History and physical examination, annual for health maintenance Wellness Visit [facility] Start: 05-03-1987 COVID-19 VACCINE (#1) COVID-19 VACCI NE (#1) [facility] Bacteria identified in Wound by Culture WOUND CULTURE AND GRAM STAIN Microbiology Routine 08/24/2022 3:47 PM EST [facility] Work Phone: Gastrointestinal pat hogens panel - Stool by MARTIN with probe detection [facility] Lactoferrin [Presenc e] in Stool by Immunoassay [facility] MR Cervical spine [facility] End: 01-13-2023 Mra head w/o & w/contrast material MRA BRAIN WO/W IVCON Radiology Routine Acute intractable headache, unspecified headache type 1 Occurrences starting 12/14/2021 until 01/13/2023 [facility] Work Phone: Comment on above: 1 Occurrences starti ng 12/14/2021 until 01/13/2023 Patient Education [facility] Work Phone: Patient referral [facility] Work Phone: [facility] Immunizations Immunization Date Immunization Notes Care Provider Fatemeh frances 06-29-2019 influenza virus vaccine, unspecified formulation Jani Starkey MD Work Phone: [facility] 06-28-2013 tetanus and diphther ia toxoids, adsorbed, preservative free, for adult use (2 Lf of tetanus toxoid and 2 Lf of diphtheria toxoid) Zonia Bal APRN.TALENT SOURCING SPECIALIST Work Phone: [facility] 07-08-1999 hepatitis B vaccine, pediatric or pediatric/adolescent dosage Zonia Bal APRN.TALENT SOURCING SPECIALIST Work Phone: [facility] Work Phone: 07-08-1999 influenza virus vaccine, unspecified formulation Zonia Bal APRN.TALENT SOURCING SPECIALIST Work Phone: [facility] Work Phone: 07-08-1999 hepatitis B vaccine, unspecified formulation Shelbi Whitfield PA-C Work Phone: [facility] 05-28-1999 hepatitis B vaccine, pediatric or pediatric/adolescent dosage Zonia Bal APRN.TALENT SOURCING SPECIALIST Work Phone: [facility] Work Phone: 05-28-1999 measles, mumps and rubella virus vaccine Zonia Bal CASTING MACHINE OPERATOR HELPER.[facility] Work Phone: [facility] Work Phone: 07-08-1995 diphtheria and tetan us toxoids, adsorbed for pediatric use Zonia Bal CASTING MACHINE OPERATOR HELPER.[facility] Work Phone: [facility] Work Phone: 07-08-1995 trivalent poliovirus vaccine, live, oral Zonia Bal CASTING MACHINE OPERATOR HELPER.[facility] Work Phone: [facility] Work Phone: 03-28-1990 haemophilus influenz ae type b vaccine, HbOC conjugate Zonia Bal CASTING MACHINE OPERATOR HELPER.[facility] Work Phone: [facility] Work Phone: 04-27-1988 diphtheria, tetanus toxoids and pertussis vaccine Zonia Myersf CASTING MACHINE OPERATOR HELPER.[facility] Work Phone: [facility] Work Phone: 04-27-1988 measles, mumps and rubella virus vaccine Zonia Myersf CASTING MACHINE OPERATOR HELPER.[facility] Work Phone: [facility] Work Phone: 04-27-1988 trivalent poliovirus vaccine, live, oral Zonia Bal CASTING MACHINE OPERATOR HELPER.[facility] Work Phone: [facility] Work Phone: 11-10-1987 tuberculin skin test ; purified protein derivative solution, intradermal Xr [place] Work Phone: [facility] 05-27-1987 diphtheria, tetanus toxoids and pertussis vaccine Zonia Bal CASTING MACHINE OPERATOR HELPER.[facility] Work Phone: [facility] Work Phone: 03-25-1987 trivalent poliovirus vaccine, live, oral Zonia Tannhof CASTING MACHINE OPERATOR HELPER.TALENT SOURCING SPECIALIST Work Phone: [facility] Work Phone: 03-24-1987 diphtheria, tetanus toxoids and pertussis vaccine Zonia Tannhof CASTING MACHINE OPERATOR HELPER.TALENT SOURCING SPECIALIST Work Phone: [facility] Work Phone: 01-21-1987 diphtheria, tetanus toxoids and pertussis vaccine Zonia Tannhof CASTING MACHINE OPERATOR HELPER.TALENT SOURCING SPECIALIST Work Phone: [facility] Work Phone: 01-21-1987 trivalent poliovirus vaccine, live, oral Zonia Tannhof CASTING MACHINE OPERATOR HELPER.TALENT SOURCING SPECIALIST Work Phone: [facility] Work Phone: Payers Date Payer Category Payer Self-pay [id number] 2019 Unknown [id number] 2019 Medicaid [id number] 2018 Medicaid [id number] 2018 Medicaid [id number] 2017 Unknown 1986 Unknown [id number] 2.16.84 [id number] 1986 Unknown [id number] 2.16.84 [id number] 1986 Unknown [id number] 2.16.84 [id number] 1986 Unknown [id number] 2.16. [id number] 1986 Unknown [id number] 2.16. [id number] 1986 Unknown [id number] 2.16. [id number] 1986 Unknown [id number] 2.16.8 [id number] 1986 Unknown [id number] 2.16. [id number] 1986 Unknown [id number] 2.16. 840.1.677509.3.579.2.903 1986 Unknown [id number] 2.16. 840.1.376937.3.579.2.902 1986 Unknown [id number] 2.16. [id number] Unknown [id number] 2.16.8 [id number] Unknown [id number] 2.16.8 [id number] Unknown [id number] 2.16.8 [id number] Unknown [id number] 2.16.8 [id number] Unknown [id number] 2.16.8 [id number] Unknown [id number] 2.16.8 [id number] Unknown [id number] 2.16.8 [id number] Unknown [id number] 2.16.8 [id number] Social History Date Type Detail [facility] Phone: Start: 1985 Sex Assigned At Not on file [facility] Phone: Start: 02-14-2021 End: 04-17-2024 Tobacco smoking status DEIS Current every day smoker [facility] Start: 02-14-2021 End: 04-17-2024 Tobacco use and exposure Never used [facility] Start: 02-14-2021 End: 02-10-2023 Alcohol intake Lifetime non-drinker (finding) [facility] Start: 02-14-2021 End: 06-24-2021 History SDOH Alcohol Frequency 1 [facility] Start: 12-04-2021 End: 05-10-2022 Exposure to SARS-CoV-2 (event) Not sure [facility] Start: 12-04-2021 End: 06-02-2023 Tobacco smoking status DEIS Unknown if ever smoked [facility] Start: 12-31-2018 None [facility] Start: 05-19-2020 Cigarettes [facility] Start: 1985 Sex Assigned At Female [facility] Start: 10-29-2015 End: 11-08-2023 Cigarettes smoked current (pack per day) - Reported 0.5 [facility] Start: 12-14-2021 End: 04-24-2024 Alcohol intake Current non-drinker of alcohol (finding) [facility] Start: 06-24-2021 History SDOH Alcohol Frequency 2 [facility] Start: 06-24-2021 History SDOH Social Connections Living 3 [facility] Start: 06-24-2021 History SDOH Stress 5 [facility] Start: 06-24-2021 History SDOH Financial 4 [facility] Start: 06-26-2019 Education 11 [facility] Start: 06-24-2016 End: 04-28-2022 Tobacco Comment less than a 1/2 pack per day [facility] History of tobacco use Cigarette Smoker C [facility] Work Phone: Start: 10-15-2022 End: 11-08-2023 Tobacco use panel [facility] Start: 06-27-2019 Gender identity Identifies as female gender (finding) [facility] Start: 06-27-2019 Sexual orientation Heterosexual (fin cathie) [facility] Do you belong to any clubs or organizations such as hinduism groups, unions, fraternal or athletic groups, or school groups? No [facility] Are you now , , , , never or living with a partner? [facility] How often to you hav e a drink containing alcohol? Monthly or less [facility] How many standard drinks containing alcohol do you have on a typical day? 1 or 2 [facility] How often do you hav e 6 or more drinks on 1 occasion? Never [facility] How hard is it for y ou to pay for the very basics like food, housing, medical care, and heating Not very hard [facility] Adult Depression Screening Assessment 2 [facility] Do you feel stress - tense, restless, nervous, or anxious, or unable to sleep at night because your mind is troubled all the time - these days [OSQ] Very much [facility] (I/We) worried bryanth er (my/our) food would run out before (I/we) got money to buy more. Never true [facility] How often to you hav e a drink containing alcohol? 2-4 times a month [facility] How often do you hav e 6 or more drinks on 1 occasion? Less than monthly [facility] Do you feel stress - tense, restless, nervous, or anxious, or unable to sleep at night because your mind is troubled all the time - these days [OSQ] Rather much [facility] In the past 12 month s, was there a time when you were not able to pay the mortgage or rent on time? Yes [facility] NEGATED: Highlighted row [facility] Medical Equipment Procedure Code Equipment Code Equipment Origin al Text Equipment Identifier Dates DEISY 3GRM HEMOSTAT ABS FDA Start: 05-27-2020 DRESSING,INTERCE ED 3X4 FDA Start: 05-27-2020 SEALANT,FLOSEAL HEMOSTATIC 5ML FDA Start: 05-27-2020 Sys Ctrl Gela 2 Dev - [id number] Start: 03-27-2013 Comment on above: Description: Essure DEISY 3GRM HEMOSTAT ABS FDA Start: 05-27-2020 DRESSING,INTERCE ED 3X4 FDA Start: 05-27-2020 SEALANT,FLOSEAL HEMOSTATIC 5ML FDA Start: 05-27-2020 DEISY 3GRM HEMOSTAT ABS FDA Start: 05-27-2020 DRESSING,INTERCE ED 3X4 FDA Start: 05-27-2020 SEALANT,FLOSEAL HEMOSTATIC 5ML FDA Start: 05-27-2020 DEISY 3GRM HEMOSTAT ABS FDA Start: 05-27-2020 DRESSING,INTERCE ED 3X4 FDA Start: 05-27-2020 SEALANT,FLOSEAL HEMOSTATIC 5ML FDA Start: 05-27-2020 DEISY 3GRM HEMOSTAT ABS FDA Start: 05-27-2020 DRESSING,INTERCE ED 3X4 FDA Start: 05-27-2020 SEALANT,FLOSEAL HEMOSTATIC 5ML FDA Start: 05-27-2020 DEISY 3GRM HEMOSTAT ABS FDA Start: 05-27-2020 DRESSING,INTERCE ED 3X4 FDA Start: 05-27-2020 SEALANT,FLOSEAL HEMOSTATIC 5ML FDA Start: 05-27-2020 DEISY 3GRM HEMOSTAT ABS FDA Start: 05-27-2020 DRESSING,INTERCE ED 3X4 FDA Start: 05-27-2020 SEALANT,FLOSEAL HEMOSTATIC 5ML FDA Start: 05-27-2020 Clinical Notes 10-29-2015 to 08-20-2024 Tanya Johnson LPN - 08/20/2024 11:03 AM Tanya Tenorio LPN - 08/10/2024 7:16 AM Tanya Tenorio LPN - 07/09/2024 11:03 AM Frances Cates MA - 07/02/2024 4:07 PM EST Note Date & Type Note Facility 08-20-2024 Note HNO ID: [id number] Author: TANYA JOHNSON LPN Service: ? Author Type: LICENSED NURSE Type: Progress Notes Filed: 08/20/2024 11:04 Note Text: Scan on 08/20/2024 9:59 AM by Jean Sher PA-C [facility] 08-20-2024 History of Presen t illness Narrative Scan on 08/20/2024 9:59 AM by Jean Sher PA-C documented in this encounter [facility] 08-20-2024 Note [facility] Medical Records Department [address] [place] [address] History Physical Exam 08/20/24 0937 MR#: [id number] Acct: [id number] Name: ELIZA VALLADARES Rep #: [id number] : 1985 38 From: Seymour Rocha DO PCP: Dr. Jani Starkey MD Status[facility] Location: [facility]18-1 HPI - General General Date of Admission: 08/20/24 Date of Service: 08/20/24 Chief Complaint: Abdominal pain HPI Narrative ELIZA VALLADARES, is a 38 F who presents today for evaluation of abdominal pain. Pt reports IBS sx for many years. Increased abdominal pain, bloating and indigestion. Currently taking Famotidine 40mg AM and PM but says it doesn't last her through the day. She will have epigastric pain with reflux and nausea. Some mornings she wakes up with RUQ pain that feels like a gallbladder attack. She had her gallbladder removed several years ago. She reports early satiety. She also complains of alternating BMs. Sometimes will have urgent postprandial diarrhea followed by not being able to go the next day. Stools are loose and watery. Has seen blood mixed with stools twice last month. She has seen general surgery a couple years ago for hemorrhoids. t was referred here to us from OBGYN for abdominal pain. For years pt has had issues with urgent diarrhea and abdominal discomfort. She was told she has IBS but has never had a full GI work up for IBD. She has upwards of 10 loose stools per day that are bright yellow. She is s/p cholecystectomy 15 years ago but these issues were present before. She has bright red blood within her stools. She is also having a lot of heartburn. She takes famotidine 40 mg BID this has not helped. SHe has never had an upper scope before. She is nauseous on most days but does not vomit. Colonoscopy 05.20.21; Hemorrhoids found on perianal exam. - Non-bleeding internal hemorrhoids. - Nodular ileal mucosa. Biopsied. - The examination was otherwise normal. I [facility] Medical History Wears glasses Gastric reflux History of irregular heartbeat Urinary frequency Hematuria Postauricular lymphadenopathy Contact with and (suspected) exposure to other viral communicable diseases Acute sinusitis, unspecified Contact with and (suspected) exposure to other viral communicable diseases Cervical lymphadenitis Cephalgia URI (upper respiratory infection) Cellulitis of lower back Right shoulder strain Cervical strain Wears dentures Depression Anemia Migraine headache History of IBS Smoker History of echocardiogram Hx of sinus tachycardia Cardiology follow-up encounter Nausea Abdominal pain of unknown etiology BRBPR (bright red blood per rectum) PTSD (post-traumatic stress disorder) Nicotine dependence Migraine Situational depression GERD (gastroesophageal reflux disease) Anxiety Home Medications ???Medication ???Instructions ???Recorded ???Last Taken ???Type acetaminophen 500 mg tablet 1,000 mg PO BID PRN pain 07/07/23 Unknown History (Tylenol Extra Strength) ibuprofen 200 mg tablet 400 mg PO Q6H PRN pain 07/07/23 Unknown History pantoprazole 40 mg tablet,delayed 40 mg PO QDAY #90 tabs 06/28/24 Unknown Rx release magnesium 200 mg tablet 200 mg PO BID 08/15/24 Unknown History Allergy/AdvReac Type Severity Reaction Status Date / Time ketorolac tromethamine (From Allergy Hives Verified 08/20/24 08:42 Toradol) sumatriptan (From Imitrex) Allergy Anaphylaxis Verified 08/20/24 08:42 sumatriptan succinate (From Allergy Anaphylaxis Verified 08/20/24 08:42 Imitrex) tramadol HCl (From Ultram) Allergy Hives Verified 08/20/24 08:42 epinephrine AdvReac Other Verified 08/20/24 08:42 morphine AdvReac Other Verified 08/20/24 08:42 procaine (From Novocain) AdvReac Other Verified 08/20/24 08:42 Family History Mother Hypertension High cholesterol Grandmother Diabetes Hypertension afib Father Hypertension High cholesterol Grandfather Cancer skin Hypertension Afib Grandmother Hypertension afib Colon cancer Diabetes Surgical History Hx of colonoscopy Hx laparoscopic cholecystectomy History of shoulder surgery History of left oophorectomy History of colonoscopy History of right oophorectomy History of bilateral salpingectomy History of cholecystectomy H/O: hysterectomy Social History number of children: 2 Smoking Status: Current every day smoker tobacco type: cigarettes Tobacco: How many years used: 8 second hand exposure: Yes alcohol intake: never substance use type: does not use caffein (more content not included)... [facility] 08-10-2024 Note HNO ID: [id number] Author: TANYA JOHNSON LPN Service: ? Author Type: LICENSED NURSE Type: Progress Notes Filed: 08/10/2024 07:16 Note Text: Scan on 08/09/2024 3:34 PM by Jean Sher PA-C: Microbiology [facility] 08-10-2024 History of Presen t illness Narrative Scan on 08/09/2024 3:34 PM by Jean Sher PA-C: Microbiology documented in this encounter [facility] 07-09-2024 Note HNO ID: [id number] Author: TANYA JOHNSON LPN Service: ? Author Type: LICENSED NURSE Type: Progress Notes Filed: 07/09/2024 11:04 Note Text: Scan on 07/06/2024 3:11 PM by Jean Sher PA-C: Miscellaneous Lab [facility] 07-09-2024 History of Presen t illness Narrative Scan on 07/06/2024 3:11 PM by Jean Sher PA-C: Miscellaneous Lab documented in this encounter [facility] 07-02-2024 Note HNO ID: [id number] Author: FRANCES SEGAL MA Service: ? Author Type: Radio Board Operator Announcer Type: Progress Notes Filed: 07/02/2024 16:08 Note Text: Scan on 07/02/2024 6:26 AM by Jean Sher PA-C: Martha Segal MA [facility] 07-02-2024 History of Presen t illness Narrative Scan on 07/02/2024 6:26 AM by Jean Sher PA-C: Martha Segal MA documented in this encounter [facility] 06-29-2024 Note HNO ID: [id number] Author: TANYA JOHNSON LPN Service: ? Author Type: LICENSED NURSE Type: Progress Notes Filed: 06/29/2024 09:00 Note Text: Scan on 06/28/2024 4:39 PM by ProviderJean PA-C: Hematology Scan on 06/28/2024 5:49 PM by ProviderJean, AZAELC: Microbiology Scan on 06/28/2024 6:01 PM by ProviderJean PA-C: Microbiology [facility] 06-29-2024 History of Presen t illness Narrative Scan on 06/28/2024 4:39 PM by Jean Sher PA-C: Hematology Scan on 06/28/2024 5:49 PM by Jean Sher PA-C: Microbiology Scan on 06/28/2024 6:01 PM by ProviderJean PA-C: Microbiology documented in this encounter [facility] 06-28-2024 Note HNO ID: [id number] Author: CLAIRE MELCHOR MA Service: ? Author Type: Radio Board Operator Announcer Type: Progress Notes Filed: 06/28/2024 15:34 Note Text: Scan on 06/28/2024 3:29 PM by Jean Sher PA-C: CMP [facility] 06-28-2024 History of Presen t illness Narrative Scan on 06/28/2024 3:29 PM by Jean Sher PA-C: CMP documented in this encounter [facility] 04-24-2024 Note HNO ID: [id number] Author: TANYA JOHNSON LPN Service: ? Author Type: LICENSED NURSE Type: Progress Notes Filed: 04/24/2024 12:50 Note Text: Scan on 04/24/2024 12:28 PM by Jean Sher PA-C: Consultation - Emergency Medicine [facility] 04-24-2024 History of Presen t illness Narrative Scan on 04/24/2024 12:28 PM by Provider, NOREEN Pena: Consultation - Emergency Medicine documented in this encounter [facility] 04-24-2024 Note HNO ID: [id number] Author: JANI ESCAMILLA APRN.TALENT SOURCING SPECIALIST Service: ? Author Type: Nurse Practitioner Type: Progress Notes Filed: 04/24/2024 09:56 Note Text: Subjective HPI Nontoxic-appearing female presents urgent care chief complaint cough sweating weakness. States has been sick for greater than 9 days. Is currently on amoxicillin. Symptoms are not improving. States just not feeling well today. .No chief complaint on file. PAST MEDICAL HISTORY Diagnosis Date Anxiety SHERRI III (cervical intraepithelial neoplasia grade III) with severe dysplasia 2006 needs paps until 2026 DDD (degenerative disc disease), cervical 11/28/2023 Encounter for gynecological examination 11/28/[address] Doulgas [facility]. Gastroesophageal reflux disease without esophagitis 11/28/2023 Irritable bowel syndrome with diarrhea 11/28/2023 KIDNEY INFECTION HOSPITALIZED FOR 5 DAYS 09/2010 Marijuana use 07/05/2017 Positive urine tox in ER at [facility] 07/03/2017 Palpitations 01/23/[address] Zayas Spinal stenosis, cervical region 11/28/2023 Well adult exam 11/28/2023 Last done: 11/28/2023 PAST SURGICAL HISTORY Procedure Laterality Date CHOLECYSTECTOMY 04/08/2011 COLONOSCOPY 05/20/2021 repeat age 46 COLONOSCOPY FLX DX W/COLLJ SPEC WHEN PFRMD 01/28/2016 Colonoscopy mac ESSURE 2013 HYSTERECTOMY HX 07/2014 [facility] then exp lap for postop bleeding OFFICE LEEP [facility] PAST SURGICAL HISTORY OF Right 08/22/2019 shoulder debredement, biceps tenotomy and acromioplasty SALPINGECTOMY 11/2013 bilateral sec to post essure pain VAGINOSCOPY 2007 Dr Gagnon ALLERGIES Imitrex [Sumatriptan Succinate], Toradol [Ketorolac Tromethamine], Ultram [Tramadol], Buspar [Buspirone Hcl], Imodium [Loperamide Hcl], and Morphine MEDICATIONS amoxicillin (AMOXIL) 875 mg tablet Take 1 tablet by mouth two times a day for 7 days. famotidine (PEPCID) 20 mg tablet Take 1 tablet by mouth two times a day. hydrOXYzine HCl (ATARAX) 10 mg tablet Take 1 tablet by mouth three times a day as needed for anxiety. (Patient not taking: Reported on 04/17/2024) ibuprofen (MOTRIN) 600 mg tablet Take 600 mg by mouth three times daily as needed. FAMILY HISTORY Problem Relation Age of Onset Hypertension Mother Lipids Mother COPD Mother other (over dose) Mother passed 2020 Hypertension Father COPD Father Diabetes Brother Diabetes Maternal Grandmother Colon Cancer Maternal Grandmother other (ITP) Son Social History Tobacco Use Smoking status: Every Day Current packs/day: 0.25 Average packs/day: 0.3 packs/day for 9.0 years (2.3 ttl pk-yrs) Types: Cigarettes Smokeless tobacco: Never Tobacco comments: less than a 1/2 pack per day Vaping Use Vaping status: Never Used Substance Use Topics Alcohol use: No Drug use: Yes Types: Marijuana BP 148/93 Pulse (!) 149 Temp 36.6 ?C (97.8 ?F) Resp 18 Wt 69 kg (152 lb 1.9 oz) LMP 06/28/2014 SpO2 100% BMI 26.95 kg/m? Review of Systems Constitutional: Positive for malaise/fatigue. Negative for chills and fever. HENT: Negative for congestion, ear discharge, ear pain, sinus pain and sore throat. Eyes: Negative for blurred vision, pain, discharge and redness. Respiratory: Positive for cough. Negative for hemoptysis, sputum production, shortness of breath, wheezing and stridor. Cardiovascular: Negative for chest pain. Gastrointestinal: Negative for abdominal pain, diarrhea, nausea and vomiting. Musculoskeletal: Positive for myalgias. Skin: Negative for itching and rash. Neurological: Negative for dizziness and headaches. Objective Physical Exam Constitutional: General: She is not in acute distress. Appearance: She is not diaphoretic. HENT: Head: Normocephalic. Eyes: Conjunctiva/sclera: Conjunctivae normal. Pupils: Pupils are equal, round, and reactive to light. Cardiovascular: Rate and Rhythm: Regular rhythm. Tachycardia present. Heart sounds: Normal heart sounds. Pulmonary: Effort: Pulmonary effort is normal. No tachypnea, accessory muscle usage or respiratory distress. Breath sounds: Normal breath sounds. No stridor. No wheezing, rhonchi or rales. Musculoskeletal: Cervical back: Normal range of motion and neck supple. No edema or erythema. No pain with movement. Normal range of motion. Skin: General: Skin is warm and dry. Neurological: Mental Status: She is alert and oriented to person, place, and time. ASSESSMENT/PLAN: 1. Tachycardia - ICD9: 785.0, ICD10: R00.0 Patient mildly diaphoretic. Tachycardic on evaluation. Initially patient was 157. Heart rate did go down to 149. With presenting symptoms recommend patient be seen in ED for further evaluation care. EMS transport recommended. Patient declined. Will be seen at [facility]. Jani Escamilla APRN.[facility] 04-24-2024 History of Presen t illness Narrative Subjective HPI Nontoxic-appearing female presents urgent care chief complaint cough sweating weakness. States has been sick for greater than 9 days. Is currently on amoxicillin. Symptoms are not improving. States just not feeling well today. .No chief complaint on file. PAST MEDICAL HISTORY Diagnosis Date Anxiety SHERRI III (cervical intraepithelial neoplasia grade III) with severe dysplasia 2006 needs paps until 2026 DDD (degenerative disc disease), cervical 11/28/2023 Encounter for gynecological examination 11/28/[address] Douglas [facility]. Gastroesophageal reflux disease without esophagitis 11/28/2023 Irritable bowel syndrome with diarrhea 11/28/2023 KIDNEY INFECTION HOSPITALIZED FOR 5 DAYS 09/2010 Marijuana use 07/05/2017 Positive urine tox in ER at [facility] 07/03/2017 Palpitations 01/23/[address] Zayas Spinal stenosis, cervical region 11/28/2023 Well adult exam 11/28/2023 Last done: 11/28/2023 PAST SURGICAL HISTORY Procedure Laterality Date CHOLECYSTECTOMY 04/08/2011 COLONOSCOPY 05/20/2021 repeat age 46 COLONOSCOPY FLX DX W/COLLJ SPEC WHEN PFRMD 01/28/2016 Colonoscopy mac ESSURE 2013 HYSTERECTOMY HX 07/2014 [facility] then exp lap for postop bleeding OFFICE LEEP 2007 [facility] office PAST SURGICAL HISTORY OF Right 08/22/2019 shoulder debredement, biceps tenotomy and acromioplasty SALPINGECTOMY 11/2013 bilateral sec to post essure pain VAGINOSCOPY 2006 Dr Gagnon ALLERGIES Imitrex [Sumatriptan Succinate], Toradol [Ketorolac Tromethamine], Ultram [Tramadol], Buspar [Buspirone Hcl], Imodium [Loperamide Hcl], and Morphine MEDICATIONS amoxicillin (AMOXIL) 875 mg tablet Take 1 tablet by mouth two times a day for 7 days. famotidine (PEPCID) 20 mg tablet Take 1 tablet by mouth two times a day. hydrOXYzine HCl (ATARAX) 10 mg tablet Take 1 tablet by mouth three times a day as needed for anxiety. (Patient not taking: Reported on 04/17/2024) ibuprofen (MOTRIN) 600 mg tablet Take 600 mg by mouth three times daily as needed. FAMILY HISTORY Problem Relation Age of Onset Hypertension Mother Lipids Mother COPD Mother other (over dose) Mother passed 2020 Hypertension Father COPD Father Diabetes Brother Diabetes Maternal Grandmother Colon Cancer Maternal Grandmother other (ITP) Son Social History Tobacco Use Smoking status: Every Day Current packs/day: 0.25 Average packs/day: 0.3 packs/day for 9.0 years (2.3 ttl pk-yrs) Types: Cigarettes Smokeless tobacco: Never Tobacco comments: less than a 1/2 pack per day Vaping Use Vaping status: Never Used Substance Use Topics Alcohol use: No Drug use: Yes Types: Marijuana BP 148/93 Pulse (!) 149 Temp 36.6 C (97.8 F) Resp 18 Wt 69 kg (152 lb 1.9 oz) LMP 06/28/2014 SpO2 100% BMI 26.95 kg/m Review of Systems Constitutional: Positive for malaise/fatigue. Negative for chills and fever. HENT: Negative for congestion, ear discharge, ear pain, sinus pain and sore throat. Eyes: Negative for blurred vision, pain, discharge and redness. Respiratory: Positive for cough. Negative for hemoptysis, sputum production, shortness of breath, wheezing and stridor. Cardiovascular: Negative for chest pain. Gastrointestinal: Negative for abdominal pain, diarrhea, nausea and vomiting. Musculoskeletal: Positive for myalgias. Skin: Negative for itching and rash. Neurological: Negative for dizziness and headaches. Objective Physical Exam Constitutional: General: She is not in acute distress. Appearance: She is not diaphoretic. HENT: Head: Normocephalic. Eyes: Conjunctiva/sclera: Conjunctivae normal. Pupils: Pupils are equal, round, and reactive to light. Cardiovascular: Rate and Rhythm: Regular rhythm. Tachycardia present. Heart sounds: Normal heart sounds. Pulmonary: Effort: Pulmonary effort is normal. No tachypnea, accessory muscle usage or respiratory distress. Breath sounds: Normal breath sounds. No stridor. No wheezing, rhonchi or rales. Musculoskeletal: Cervical back: Normal range of motion and neck supple. No edema or erythema. No pain with movement. Normal range of motion. Skin: General: Skin is warm and dry. Neurological: Mental Status: She is alert and oriented to person, place, and time. ASSESSMENT/PLAN: 1. Tachycardia - ICD9: 785.0, ICD10: R00.0 Patient mildly diaphoretic. Tachycardic on evaluation. Initially patient was 157. Heart rate did go down to 149. With presenting symptoms recommend patient be seen in ED for further evaluation care. EMS transport recommended. Patient declined. Will be seen at [facility]. Jani Escamilla APRN.JAH documented in this encounter [facility] 04-17-2024 Instructions Kelsi Tee APRN.JAH - 04/17/2024 10:36 AM EDT [facility] PATIENT INFO COMMON COLD OVERVIEW The common cold is one of the most frequent illnesses in the [place]. Although most colds are mild and resolve within a short time period, colds cost billions of dollars per year, mostly due to lost time at work and school. COMMON COLD CAUSES The common cold is a group of symptoms caused by one of a large number of viruses. Rhinoviruses cause the greatest number of colds; there are more than 100 different varieties of rhinovirus. Most viruses cause a person to be ill only once. However, due to the large number of viruses, a person can have a cold multiple times throughout his or her lifetime. The average adult experiences two to three colds per year, while children average 8 to 12 colds per year. Colds are transmitted from mopyla-tf-[id number]. Less often, the virus can be transmitted by touching a surface. Direct contact -- People with colds typically carry the cold virus on their hands. The virus may remain alive on the skin and capable of infecting another person for at least two hours. Thus, if a sick person shakes someone's hand and that individual then touches his eye, nose, or mouth, the virus can be transmitted and later infect that person. Infection from particles on surfaces -- Some cold viruses can live on surfaces (such as a counter top, door handle, or phone) for several hours. Inhaling viral particles -- Droplets containing viral particles can be breathed, coughed, or sneezed into the air by a person with a cold. The virus can be transmitted to others if another person is standing close (a few feet) and the droplet touches that person s eye, nose, or mouth. Covering the mouth while coughing or sneezing greatly reduces this risk. Most cold viruses are not spread by saliva. Thus, kissing itself is not likely to transmit the common cold, but close direct contact can. Colds are not caused by cold climates or being exposed to cold air. However, some types of virus cause more colds during certain seasons (eg, fall and winter versus spring). COMMON COLD SIGNS AND SYMPTOMS The common cold usually causes nasal congestion, runny nose, and sneezing. A sore throat may be present on the first day but usually resolves quickly. If a cough occurs, it generally develops on about the fourth or fifth day of symptoms, typically when congestion and runny nose are usually resolving. COMMON COLD COMPLICATIONS In most cases, colds do not cause serious illness. Most colds last for three to seven days, although many people continue to have symptoms (coughing, sneezing, congestion) for up to two weeks. Some viruses that cause the common cold can also depress the immune system or cause swelling in the lining of the nose or airways; this can, in turn, lead to a new viral infection or bacterial infection. One of the more common complications is sinusitis, which is usually caused by viruses and rarely (about 2 percent of the time) by bacteria. However, it can be difficult to distinguish bacterial sinusitis from sinusitis caused by a cold because the signs and symptoms can be similar Having thick or yellow to green-colored nasal discharge does not mean that bacterial sinusitis has developed; discolored nasal discharge is a normal phase of the common cold. Lower respiratory infections, such as pneumonia or bronchitis, may develop following a cold. Infection of the middle ear, or otitis media, can accompany or follow a cold. The influenza virus, which causes the flu, can also cause features similar to those of a cold. However, the flu usually causes other signs and symptoms (fever, body aches) and is more serious than a cold. COMMON COLD TREATMENT There is no specific treatment for the viruses that cause the common cold. Most treatments are aimed at relieving some of the symptoms of the cold, but do not shorten or cure the cold. Antibiotics are not useful for treating the common cold; antibiotics are only used to treat illnesses caused by bacteria, not viruses. The symptoms of a cold will resolve over time, even without any treatment. The following are treatments that may reduce the symptoms caused by the common cold. People with underlying medical conditions and those who use other wtrm-mjc-nmhycwz or prescription medications should speak with their healthcare provider or pharmacist to ensure that it is safe to use these treatments. Runny nose and nasal congestion -- Runny nose and congestion may improve with the use of decongestants. Pseudoephedrine is a decongestant that can improve nasal congestion. Most drugstores in the [place] carry pseudoephedrine behind the counter, so it must be requested from the pharmacist (a prescription is not required). Antihistamines such as diphenhydramine (Benadryl ) may also help, but can cause side effects such as drowsiness and drying of the eyes, nose, and mouth. Nasal inhalers, including ipratropium bromide (Atrovent , available by prescription) may relieve runny nose and sneezing while cromolyn sodium (NasalCrom , a non-prescription medicine) may relieve runny nose, cough, and sneezing. Other nasal sprays such an oxymetazoline (Afrin and others) can also give temporary relief of nasal congestion. However, these sprays should never be used for more than two to three days; use for more than three days use can worsen congestion. Nasal irrigation and saline sprays -- Rinsing the nose with a salt-water (saline) solution is called nasal irrigation or nasal lavage. Saline is also available in a standard nasal spray, although this is not as effective as using larger amounts of water in an irrigation. Nasal irrigation is particularly useful for treating drainage down the back of the throat, sneezing, nasal dryness, and congestion. The treatment helps by rinsing out allergens and irritants from the nose. Saline rinses also clean the nasal lining and can be used before applying sprays containing medications, to get a better effect from the medication. Nasal lavage with warmed saline can be performed as needed, once per day, or twice daily for increased symptoms. Nasal lavage carries few risks when performed correctly. Saline nasal sprays and irrigation kits can be purchased sflh-rgq-gwxjzwx. Saline mixes can also be purchased or patients can make their own solution. A variety of devices, including bulb syringes, Neti pots, and bottle sprayers, may be used to perform nasal lavage; instructions for nasal lavage are provided in the table. At least 200 mL (about 3/4 cup) of fluid is recommended for each nostril. Sore throat and headache -- Sore throat and headache are best treated with a mild pain reliever such as acetaminophen (Tylenol ) or a non-steroidal anti-inflammatory agent such as ibuprofen or naproxen (Motrin or Aleve ). Cough -- Common cough medicine ingredients include guaifenesin and dextromethorphan; these are often combined with other medications in tjwg-hve-vbxzpsf cold formulas. However, the benefit of cough medicines is likely to be small to non-existent. In clinical trials, cough suppressants were no more effective in reducing the duration or severity of coughing due to cold than a placebo (a non-drug substitute). Antibiotics -- Antibiotics should not be used to treat an uncomplicated common cold. As noted above, colds are caused by viruses. Antibiotics treat bacterial, not viral infections. Alternative treatments -- Heated, humidified air can improve symptoms of nasal congestion and runny nose, and causes few to no side effects. PREVENTION Hand washing is an essential and highly effective way to prevent the spread of infection. Hands should be wet with water and plain soap, and rubbed together for 15 to 30 seconds. Special attention should be paid to the fingernails, between the fingers, and the wrists. Hands should be rinsed thoroughly, and dried with a single use towel. Alcohol-based hand rubs are a good alternative for disinfecting hands if a sink is not available. Hand rubs should be spread over the entire surface of hands, fingers, and wrists until dry, and may be used several times. These rubs can be used repeatedly without skin irritation or loss of effectiveness. Hand rubs are available as a liquid or wipe in small, portable sizes that are easy to carry in a pocket or handbag. When a sink is available, visibly soiled hands should be washed with soap and water. Hands should be washed before preparing food and eating, and after coughing, blowing the nose, or sneezing. While it is not always possible to limit contact with people who may be infected with a cold, touching the eyes, nose, or mouth after direct contact should be avoided when possible. In addition, tissues should be used to cover the mouth when sneezing or coughing. These used tissues should be disposed of promptly. Sneezing/coughing into the sleeve of one's clothing (at the inner elbow) is another means of containing sprays of saliva and secretions and does not contaminate the hands. SUMMARY The average adult experiences two to three colds per year, while children average 8 to 12 colds per year. Symptoms of the common cold usually include nasal congestion, runny nose, and sneezing. They typically last for three to seven days, although many people have symptoms (coughing, sneezing, congestion) for up to two weeks. People with colds typically carry the cold virus on their hands, where it can infect another person for at least two hours. Some cold viruses can live on surfaces (such as a counter top, door handle, or phone) for several hours. Droplets containing viral particles can be breathed, coughed, or sneezed into the air. There is no specific treatment for colds. Treatment may reduce some of the symptoms of the cold, but do not shorten or cure the cold. Antibiotics are not useful for treating the common cold. Hand washing can prevent the spread of infection. Hands should be wet with water and plain soap, and rubbed together for 15 to 30 seconds. Alcohol-based hand rubs are a good alternative for disinfecting hands if a sink is not available documented in this encounter [facility] 04-17-2024 Note HNO ID: [id number] Author: KELSI TEE APRN.JAH Service: ? Author Type: Nurse Practitioner Type: Progress Notes Filed: 04/17/2024 10:59 Note Text: This note was created using NoteWriter. Subjective Eliza Valladares is a 38 year old female. Patient presents with sinus congestion, sinus pressure and left ear pain for 3 days Smoker. Denies hx of asthma or COPD Review of Systems Constitutional: Negative for chills and fever. HENT: Positive for congestion, ear pain and sinus pain. Negative for sore throat. Respiratory: Negative for cough, shortness of breath and wheezing. Gastrointestinal: Positive for nausea and vomiting. Negative for abdominal pain and diarrhea. Objective BP 128/80 Pulse 120 Temp 36.7 ?C (98.1 ?F) Resp 18 Wt 69.2 kg (152 lb 8.9 oz) LMP 06/28/2014 SpO2 99% BMI 27.02 kg/m? Physical Exam Constitutional: General: She is not in acute distress. Appearance: Normal appearance. She is not toxic-appearing. HENT: Head: Normocephalic and atraumatic. Right Ear: Tympanic membrane and ear canal normal. Left Ear: Ear canal normal. A middle ear effusion is present. Tympanic membrane is erythematous. Tympanic membrane is not retracted or bulging. Nose: Congestion present. No rhinorrhea. Mouth/Throat: Pharynx: Posterior oropharyngeal erythema present. No oropharyngeal exudate. Eyes: Conjunctiva/sclera: Conjunctivae normal. Cardiovascular: Rate and Rhythm: Normal rate and regular rhythm. Heart sounds: Normal heart sounds. Pulmonary: Effort: Pulmonary effort is normal. Breath sounds: Normal breath sounds. Lymphadenopathy: Cervical: No cervical adenopathy. Neurological: Mental Status: She is alert. Assessment and Plan ASSESSMENT/PLAN: 1. Acute otitis media, left - ICD9: 382.9, ICD10: H66.92 (primary diagnosis) - Will begin treatment with as per antibiotic as written, see orders - Supportive care with plenty of fluids, rest, and analgesia prn. - Follow up in 3-5 days if symptoms persist or worsen. - AMOXICILLIN 875 MG TABLET 2. Viral URI with cough - ICD9: 465.9, ICD10: J06.9 - Discussed viral etiology and rationale for treatment. - Symptomatic treatment with prn analgesia - Supportive care with fluids and rest - Follow up in 3-5 days if symptoms persist or sooner if worsening of symptoms Kelsi Tee APRN.TALENT SOURCING SPECIALIST [facility] 04-17-2024 History of Presen t illness Narrative This note was created using indicoriter. Subjective Eliza Valladares is a 38 year old female. Patient presents with sinus congestion, sinus pressure and left ear pain for 3 days Smoker. Denies hx of asthma or COPD Review of Systems Constitutional: Negative for chills and fever. HENT: Positive for congestion, ear pain and sinus pain. Negative for sore throat. Respiratory: Negative for cough, shortness of breath and wheezing. Gastrointestinal: Positive for nausea and vomiting. Negative for abdominal pain and diarrhea. Objective BP 128/80 Pulse 120 Temp 36.7 C (98.1 F) Resp 18 Wt 69.2 kg (152 lb 8.9 oz) LMP 06/28/2014 SpO2 99% BMI 27.02 kg/m Physical Exam Constitutional: General: She is not in acute distress. Appearance: Normal appearance. She is not toxic-appearing. HENT: Head: Normocephalic and atraumatic. Right Ear: Tympanic membrane and ear canal normal. Left Ear: Ear canal normal. A middle ear effusion is present. Tympanic membrane is erythematous. Tympanic membrane is not retracted or bulging. Nose: Congestion present. No rhinorrhea. Mouth/Throat: Pharynx: Posterior oropharyngeal erythema present. No oropharyngeal exudate. Eyes: Conjunctiva/sclera: Conjunctivae normal. Cardiovascular: Rate and Rhythm: Normal rate and regular rhythm. Heart sounds: Normal heart sounds. Pulmonary: Effort: Pulmonary effort is normal. Breath sounds: Normal breath sounds. Lymphadenopathy: Cervical: No cervical adenopathy. Neurological: Mental Status: She is alert. Assessment and Plan ASSESSMENT/PLAN: 1. Acute otitis media, left - ICD9: 382.9, ICD10: H66.92 (primary diagnosis) - Will begin treatment with as per antibiotic as written, see orders - Supportive care with plenty of fluids, rest, and analgesia prn. - Follow up in 3-5 days if symptoms persist or worsen. - AMOXICILLIN 875 MG TABLET 2. Viral URI with cough - ICD9: 465.9, ICD10: J06.9 - Discussed viral etiology and rationale for treatment. - Symptomatic treatment with prn analgesia - Supportive care with fluids and rest - Follow up in 3-5 days if symptoms persist or sooner if worsening of symptoms Kelsi Tee APRN.TALENT SOURCING SPECIALIST documented in this encounter [facility] 02-06-2024 History of Presen t illness Narrative Radiology Service Progress Note PATIENT NAME: Eliza Valladares DATE OF SERVICE: February 06, 2024 TIME: 8:57 AM PATIENT IDENTITY VERIFICATION COMPLETED USING TWO (2) IDENTIFIERS: Name and Date of confirmed by patient verbally. FALL SCREENING: Has the patient had 2 falls in the last year or 1 fall with injury or currently using an Ambulatory Assistive Device (Walker, Cane, Wheelchair, Crutches, etc.)? No PATIENT GENDER DATA: Female. status: : No status: NO. PATIENT RELEVANT IMPLANT DATA REVIEWED: Yes PATIENT PRESENTS WITH AN IMPLANTABLE OR ATTACHED COFFEE MAKER SERVICER: No RADIOLOGY DEPARTMENT: General X-ray: Exam(s) Completed: Lower Extremity X-Ray(s): Toes, Left 4th PERIPHERAL IV DATA: Not applicable SIGNED BY: RT Moe(Carlos) February 06, 2024 8:57 AM documented in this encounter [facility] 02-06-2024 Note HNO ID: [id number] Author: ERICK JENKINS RT(R) Service: Radiology Author Type: Technologist Type: Progress Notes Filed: 02/06/2024 09:05 Note Text: Radiology Service Progress Note PATIENT NAME: Eliza Valladares DATE OF SERVICE: February 06, 2024 TIME: 8:57 AM PATIENT IDENTITY VERIFICATION COMPLETED USING TWO (2) IDENTIFIERS: Name and Date of confirmed by patient verbally. FALL SCREENING: Has the patient had 2 falls in the last year or 1 fall with injury or currently using an Ambulatory Assistive Device (Walker, Cane, Wheelchair, Crutches, etc.)? No PATIENT GENDER DATA: Female. status: : No status: NO. PATIENT RELEVANT IMPLANT DATA REVIEWED: Yes PATIENT PRESENTS WITH AN IMPLANTABLE OR ATTACHED COFFEE MAKER SERVICER: No RADIOLOGY DEPARTMENT: General X-ray: Exam(s) Completed: Lower Extremity X-Ray(s): Toes, Left 4th PERIPHERAL IV DATA: Not applicable SIGNED BY: Erick Jenkins RT(R) February 06, 2024 8:[address] [facility] 02-06-2024 Note HNO ID: [id number] Author: MEAGAN MEJIA PA Service: ? Author Type: Physician Clinical Administrator Type: Progress Notes Filed: 02/06/2024 09:14 Note Text: This note was created using NoteWriter. Subjective Eliza Valladares is a 38 year old female. HPI 38-year-old female presents for left toe pain. Patient states that she was walking down the stairs yesterday carrying somethin and tripped and stubbed her toe. She is having pain and bruising of her left fourth toe. She states that pain is worse with walking. She has not taken anything for the pain. No history of injury to this toe in the past. She has no foot or ankle pain. No other complaints or injuries. PAST MEDICAL HISTORY Diagnosis Date Anxiety SHERRI III (cervical intraepithelial neoplasia grade III) with severe dysplasia 2006 needs paps until 2026 DDD (degenerative disc disease), cervical 11/28/2023 Encounter for gynecological examination 11/28/[address] Douglas [facility]. Gastroesophageal reflux disease without esophagitis 11/28/2023 Irritable bowel syndrome with diarrhea 11/28/2023 KIDNEY INFECTION HOSPITALIZED FOR 5 DAYS 09/2010 Marijuana use 07/05/2017 Positive urine tox in ER at [facility] 07/03/2017 Palpitations 01/23/[address] Zayas Spinal stenosis, cervical region 11/28/2023 Well adult exam 11/28/2023 Last done: 11/28/2023 PAST SURGICAL HISTORY Procedure Laterality Date CHOLECYSTECTOMY 04/08/2011 COLONOSCOPY 05/20/2021 repeat age 46 COLONOSCOPY FLX DX W/COLLJ SPEC WHEN PFRMD 01/28/2016 Colonoscopy mac ESSURE 2013 HYSTERECTOMY HX 07/2014 [facility] then exp lap for postop bleeding OFFICE LEEP Yasir sierra PAST SURGICAL HISTORY OF Right 08/22/2019 shoulder debredement, biceps tenotomy and acromioplasty SALPINGECTOMY 11/2013 bilateral sec to post essure pain VAGINOSCOPY 2007 Dr Gagnon ALLERGIES Imitrex [Sumatriptan Succinate], Toradol [Ketorolac Tromethamine], Ultram [Tramadol], Buspar [Buspirone Hcl], Imodium [Loperamide Hcl], and Morphine MEDICATIONS famotidine (PEPCID) 20 mg tablet Take 1 tablet by mouth two times a day. hydrOXYzine HCl (ATARAX) 10 mg tablet Take 1 tablet by mouth three times a day as needed for anxiety. ibuprofen (MOTRIN) 600 mg tablet Take 600 mg by mouth three times daily as needed. FAMILY HISTORY Problem Relation Age of Onset Hypertension Mother Lipids Mother COPD Mother other (over dose) Mother passed 2020 Hypertension Father COPD Father Diabetes Brother Diabetes Maternal Grandmother Colon Cancer Maternal Grandmother other (ITP) Son Social History Tobacco Use Smoking status: Every Day Packs/day: 0.25 Years: 9.00 Additional pack years: 0.00 Total pack years: 2.25 Types: Cigarettes Smokeless tobacco: Never Tobacco comments: less than a 1/2 pack per day Vaping Use Vaping Use: Never used Substance Use Topics Alcohol use: No Drug use: Yes Types: Marijuana Review of Systems Constitutional: Negative for chills and fever. HENT: Negative for congestion, ear pain and sore throat. Respiratory: Negative for cough and shortness of breath. Cardiovascular: Negative for chest pain. Gastrointestinal: Negative for diarrhea and vomiting. Musculoskeletal: + Left toe pain Objective BP 128/76 Pulse 87 Temp 36.2 ?C (97.1 ?F) (Tympanic) Resp 16 Wt 63.9 kg (140 lb 14 oz) LMP 06/28/2014 SpO2 100% BMI 24.95 kg/m? Physical Exam Vitals and nursing note reviewed. Constitutional: General: She is not in acute distress. Appearance: Normal appearance. She is not toxic-appearing. Musculoskeletal: Left foot: Normal capillary refill. Swelling, tenderness and bony tenderness present. Normal pulse. Comments: Swelling and bruising noted to left fourth toe. Tenderness over the PIP and DIP joint. Able to move the toe, but reports pain with movement. Cap refill less than 2 seconds. Normal sensation. Nontender other digits. Nontender metatarsals. Nontender ankle. Able to ambulate. DP and PT pulses 2+. Skin: General: Skin is warm and dry. Neurological: Mental Status: She is alert. Assessment and Plan ASSESSMENT/PLAN: 1. Pain in left toe(s) - ICD9: 729.5, ICD10: M79.675 - XR TOE AP/LAT/OBL LEFT-no acute process. -Recommend rest, ice, elevation, Tylenol/Motrin. -Follow-up if no improvement. Diagnosis and treatment plan were discussed and questions were answered to the patient's satisfaction. Pt acknowledged understanding of concepts and follow up plan. Specific signs and symptoms that would indicate the need for higher level of care were discussed in detail warranting prompt ER evaluation. DONALD Wilkes [facility] 02-06-2024 History of Presen t illness Narrative This note was created using indicoriter. Subjective Eliza Valladares is a 38 year old female. HPI 38-year-old female presents for left toe pain. Patient states that she was walking down the stairs yesterday carrying somethin and tripped and stubbed her toe. She is having pain and bruising of her left fourth toe. She states that pain is worse with walking. She has not taken anything for the pain. No history of injury to this toe in the past. She has no foot or ankle pain. No other complaints or injuries. PAST MEDICAL HISTORY Diagnosis Date Anxiety SHERRI III (cervical intraepithelial neoplasia grade III) with severe dysplasia 2006 needs paps until 2026 DDD (degenerative disc disease), cervical 11/28/2023 Encounter for gynecological examination 11/28/[address] Douglas [facility]. Gastroesophageal reflux disease without esophagitis 11/28/2023 Irritable bowel syndrome with diarrhea 11/28/2023 KIDNEY INFECTION HOSPITALIZED FOR 5 DAYS 09/2010 Marijuana use 07/05/2017 Positive urine tox in ER at [facility] 07/03/2017 Palpitations 01/23/[address] Zayas Spinal stenosis, cervical region 11/28/2023 Well adult exam 11/28/2023 Last done: 11/28/2023 PAST SURGICAL HISTORY Procedure Laterality Date CHOLECYSTECTOMY 04/08/2011 COLONOSCOPY 05/20/2021 repeat age 46 COLONOSCOPY FLX DX W/COLLJ SPEC WHEN PFRMD 01/28/2016 Colonoscopy mac ESSURE 2013 HYSTERECTOMY HX 07/2014 [facility] then exp lap for postop bleeding OFFICE LEEP 2007 [facility] office PAST SURGICAL HISTORY OF Right 08/22/2019 shoulder debredement, biceps tenotomy and acromioplasty SALPINGECTOMY 11/2013 bilateral sec to post essure pain VAGINOSCOPY 2007 Dr Gagnon ALLERGIES Imitrex [Sumatriptan Succinate], Toradol [Ketorolac Tromethamine], Ultram [Tramadol], Buspar [Buspirone Hcl], Imodium [Loperamide Hcl], and Morphine MEDICATIONS famotidine (PEPCID) 20 mg tablet Take 1 tablet by mouth two times a day. hydrOXYzine HCl (ATARAX) 10 mg tablet Take 1 tablet by mouth three times a day as needed for anxiety. ibuprofen (MOTRIN) 600 mg tablet Take 600 mg by mouth three times daily as needed. FAMILY HISTORY Problem Relation Age of Onset Hypertension Mother Lipids Mother COPD Mother other (over dose) Mother passed 2020 Hypertension Father COPD Father Diabetes Brother Diabetes Maternal Grandmother Colon Cancer Maternal Grandmother other (ITP) Son Social History Tobacco Use Smoking status: Every Day Packs/day: 0.25 Years: 9.00 Additional pack years: 0.00 Total pack years: 2.25 Types: Cigarettes Smokeless tobacco: Never Tobacco comments: less than a 1/2 pack per day Vaping Use Vaping Use: Never used Substance Use Topics Alcohol use: No Drug use: Yes Types: Marijuana Review of Systems Constitutional: Negative for chills and fever. HENT: Negative for congestion, ear pain and sore throat. Respiratory: Negative for cough and shortness of breath. Cardiovascular: Negative for chest pain. Gastrointestinal: Negative for diarrhea and vomiting. Musculoskeletal: + Left toe pain Objective BP 128/76 Pulse 87 Temp 36.2 C (97.1 F) (Tympanic) Resp 16 Wt 63.9 kg (140 lb 14 oz) LMP 06/28/2014 SpO2 100% BMI 24.95 kg/m Physical Exam Vitals and nursing note reviewed. Constitutional: General: She is not in acute distress. Appearance: Normal appearance. She is not toxic-appearing. Musculoskeletal: Left foot: Normal capillary refill. Swelling, tenderness and bony tenderness present. Normal pulse. Comments: Swelling and bruising noted to left fourth toe. Tenderness over the PIP and DIP joint. Able to move the toe, but reports pain with movement. Cap refill less than 2 seconds. Normal sensation. Nontender other digits. Nontender metatarsals. Nontender ankle. Able to ambulate. DP and PT pulses 2+. Skin: General: Skin is warm and dry. Neurological: Mental Status: She is alert. Assessment and Plan ASSESSMENT/PLAN: 1. Pain in left toe(s) - ICD9: 729.5, ICD10: M79.675 - XR TOE AP/LAT/OBL LEFT-no acute process. -Recommend rest, ice, elevation, Tylenol/Motrin. -Follow-up if no improvement. Diagnosis and treatment plan were discussed and questions were answered to the patient's satisfaction. Pt acknowledged understanding of concepts and follow up plan. Specific signs and symptoms that would indicate the need for higher level of care were discussed in detail warranting prompt ER evaluation. DONALD Wilkes documented in this encounter [facility] 11-29-2023 Telephone encounter Note Patient notified and voiced understanding. Frances Segal MA [facility] 11-29-2023 Miscellaneous Notes Patient notified and voiced understanding. Frances Segal MA Let patient know recent labs were all ok. documented in this encounter [facility] 11-29-2023 Telephone encounter Note Let patient know recent labs were all ok. [facility] 11-28-2023 History of Presen t illness Narrative Chief Complaint Patient presents with: Physical HPI Eliza Valladares is a 38 year old female who presents here today for Physical. Patient is today for a physical. Patient has only been seen for acute issues. Last visit 05/05/2023 for acute URI. No new issues at this time. Still smokes marijuana on occasion. Past medical history, appointments, medications, allergies reviewed. Previous Medical History PAST MEDICAL HISTORY Diagnosis Date Anxiety SHERRI III (cervical intraepithelial neoplasia grade III) with severe dysplasia 2006 needs paps until 2026 KIDNEY INFECTION HOSPITALIZED FOR 5 DAYS 09/2010 Palpitations 01/23/[address] Zayas Previous Surgical History PAST SURGICAL HISTORY Procedure Laterality Date CHOLECYSTECTOMY 04/08/2011 COLONOSCOPY 05/20/2021 repeat age 46 COLONOSCOPY FLX DX W/COLLJ SPEC WHEN PFRMD 01/28/2016 Colonoscopy mac ESSURE 2013 HYSTERECTOMY HX 07/2014 [facility] then exp lap for postop bleeding OFFICE LEEP 2007 [facility] PAST SURGICAL HISTORY OF Right 08/22/2019 shoulder debredement, biceps tenotomy and acromioplasty SALPINGECTOMY 11/2013 bilateral sec to post essure pain VAGINOSCOPY 2006 Dr Gagnon Family History FAMILY HISTORY Problem Relation Age of Onset Hypertension Mother Lipids Mother COPD Mother Hypertension Father COPD Father Diabetes Maternal Grandmother other (ITP) Son Patient Allergies ALLERGIES Allergen Reactions Imitrex [Sumatripta* Swelling Swelling of throat Toradol [Ketorolac * Hives, Itching Ultram [Tramadol] Hives, Itching Buspar [Buspirone H* Other: See Comments Increased HR and shakey Imodium [Loperamide* GI Upset abdominal cramping and bloating Morphine GI Upset severe pain in stomach Current Medications Current Outpatient Medications on File Prior to Visit Medication Sig cefADROxil (DURICEF) 500 mg capsule Take 1 capsule by mouth twice daily. (Patient not taking: Reported on 10/07/2023) ibuprofen (MOTRIN) 600 mg tablet Take 600 mg by mouth three times daily as needed. cyclobenzaprine (FLEXERIL) 5 mg tablet Take 1 tablet by mouth at bedtime as needed. (Patient not taking: Reported on 08/24/2022) hydrOXYzine HCl (ATARAX) 25 mg tablet Take 1 tablet by mouth every 6 hours as needed for anxiety. (Patient not taking: No sig reported) MULTIVITAMIN ORAL Take by mouth. (Patient not taking: Reported on 05/05/2023) FLUoxetine (PROZAC) 10 mg capsule Take 1 capsule by mouth once daily. (Patient not taking: Reported on 05/10/2022) No current facility-administered medications on file prior to visit. 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 No changes in hearing or vision, no nose bleeds or other nasal problems NECK: Negative for goiter. Every so often will get what she thinks are swollen lymph nodes on the right side of her neck. Typical will resolve. Last episode was about a month ago. There will be shira when enlarged. RESPIRATORY: Negative for cough, hemoptysis, wheezing, COPD, dyspnea or shortness of breath CARDIOVASCULAR: Negative for chest pain, leg swelling, hypertension, CHF or changes in her palpitations with her anxiety. GI: No nausea, vomiting, or changes in her typical IBS diarrhea and No heartburn or reflux symptoms as long as she takes the Pepcid regularly. No blood : No history of dysuria, frequency or blood MUSCULOSKELETAL: has cervical neck disease that causes neck pain at times. SKIN: Negative for lesions, rash, and itching PSYCH: Negative for sleep disturbance, mood disorder and recent psychosocial stressors. May have an anxiety attack 2-3 times a month. HEMATOLOGY/LYMPHOLOGY: Negative for prolonged bleeding, bruising easily or swollen nodes ENDOCRINE: Negative for cold or heat intolerance, polyuria, and goiter. Some polydipsia NEURO: No history of headaches, syncope, paralysis, seizures or tremors EXAM: BP 116/80 (BP Site: Right Arm, BP Position: Sitting, BP Cuff Size: Regular Adult) Pulse 84 Ht 160 cm (5' 3) Wt 65.8 kg (145 lb) LMP 06/28/2014 BMI 25.69 kg/m Last 5 Encounter Wt Readings: Date: Wt: 11/28/2023 65.8 kg (145 lb) 10/07/2023 65.3 kg (144 lb) 05/05/2023 63.5 kg (140 lb) 08/24/2022 67.9 kg (149 lb 12.8 oz) 04/28/2022 69.5 kg (153 lb 3.2 oz) General Appearance: Well appearing, alert, in no acute distress, well-hydrated, well nourished.. Skin: Skin color, texture, turgor normal, no suspicious rashes or lesions. Has some bruises on her anterior thighs that are almost resolved. Head: Normocephalic, no masses, lesions, tenderness or abnormalities. Eyes: Anicteric sclera. Pupils are equally round and reactive to light. Extraocular movements are intact. . Ears: External ears, TM's normal, canals clear. Nose/Sinuses: Nares normal, septum midline, mucosa normal, no drainage or sinus tenderness. Oropharynx: Lips, mucosa, and tongue normal, teeth and gums normal, oropharynx normal. Neck: Supple, no adenopathy; thyroid symmetric, normal size, no bruits. Lungs: Lungs clear to auscultation. No wheezing, rhonchi, rales.. Heart: RRR without murmur, gallop, or rubs. No ectopy. Abdomen: Normal abdominal exam, Abdomen soft, non-tender. Bowel sounds normal. No masses, organomegaly. Extremities: No deformities, edema, skin discoloration, Good capillary refill. . Musculoskeletal: Spine range of motion normal. Muscular strength intact, No joint swelling, deformity, or tenderness. Peripheral Pulses: Normal. Neurologic: Gait normal. Reflexes normal and symmetric. Sensation to light touchy and crainal nerves 2-12 intact.. Health Maintenance List Pneumococcal Vaccine(1 of 2 - PCV) Never done Hepatitis B Vaccine(3 of 3 - 3-dose series) due on 09/17/1999 HIV Screening Never done DTaP,Tdap,Td Vaccine(6 - Tdap) due on 06/29/2013 Covid-19 Vaccine(2022- season) Never done Influenza Vaccine(Season Ended) due on 04/08/2024 Behavioral Health Screening Completed Hepatitis C Screening Completed HPV Vaccine Aged Out Pap Testing Discontinued HPV Testing Discontinued Data reviewed A/P ASSESSMENT/PLAN: 1. Well adult exam - ICD9: V70.0, ICD10: Z00.00 (primary diagnosis) - Counseled on healthy diet and regular exercise - Follow up for annual exam in one year - discussed Tdap: patient declined today. Check - HEMOGLOBIN A1C - LIPID PANEL, NONFASTING 2. Anxiety - ICD9: 300.00, ICD10: F41.9 - for the most part does ok with not being on a daily medication. - has a panic attack 2-3 times a month. Will put on Atarax prn. Check - THYROID STIMULATING HORMONE 3. Palpitations - ICD9: 785.1, ICD10: R00.2 - Anxiety related. 4. Gastroesophageal reflux disease without esophagitis - ICD9: 530.81, ICD10: K21.9 - Continue treatment with Pepcid 20 mg QD 5. Lymphadenopathy - ICD9: 785.6, ICD10: R59.1 Check - COMPLETE BLOOD COUNT AND DIFFERENTIAL 6. Marijuana use - ICD9: 305.20, ICD10: F12.90 - patient advised on health hazards. 7. Irritable bowel syndrome with diarrhea - ICD9: 564.1, ICD10: K58.0 - stable no changes. 8. DDD (degenerative disc disease), cervical - ICD9: 722.4, ICD10: M50.30 - stable 9. Spinal stenosis, cervical region - ICD9: 723.0, ICD10: M48.02 Stable 10. Encounter for screening for diabetes mellitus - ICD9: V77.1, ICD10: Z13.1 Check - HEMOGLOBIN A1C 11. Encounter for lipid screening for cardiovascular disease - ICD9: V77.91, V81.2, ICD10: Z13.220, Z13.6 Check - LIPID PANEL, NONFASTING 12. Medication management - ICD9: V58.69, ICD10: Z79.899 Check - COMPLETE BLOOD COUNT AND DIFFERENTIAL - THYROID STIMULATING HORMONE Requested Prescriptions Signed Prescriptions Disp Refills famotidine (PEPCID) 20 mg tablet Sig: Take 1 tablet by mouth two times a day. hydrOXYzine HCl (ATARAX) 10 mg tablet 90 tablet 1 Sig: Take 1 tablet by mouth three times a day as needed for anxiety. F/u in a year or sooner if needed. Jani Starkey MD documented in this encounter [facility] 10-07-2023 History of Presen t illness Narrative CC: Patient presents with: Sore Throat: Headache, gland pain on R side, nausea, fatigue, chills x 2 days HPI: Eliza Valladares is a 37 year old female who presents to the office with complaint of head congestion, sore throat, and chills for a few days. Symptoms are staying the same. Associated symptoms includes headache and body aches. Denies nausea, vomiting , and diarrhea. Treatments tried include nothing so far. with no relief of symptoms. Sick contacts: unknown. History of asthma, frequent episodes of bronchitis, chronic bronchitis, bronchiectasis or COPD: No Smoker: No Seasonal/environmental allergies: No The ROS is otherwise negative. The patient's pmh, medications, allergies, and past visits are reviewed. PHYSICAL EXAM: BP 121/77 Pulse 92 Temp 36.4 C (97.6 F) Resp 18 Wt 65.3 kg (144 lb) LMP 06/28/2014 SpO2 100% BMI 26.77 kg/m General appearance: alert, cooperative, pleasant, in no acute distress Head: Normocephalic Eyes: EOM's intact, conjunctiva pink and moist, no icterus, sclera white, non-injected Ears: Right ear: External ear/canal- Normal, TM - clear with good landmarks. Left ear: External ear/canal- Normal, TM - clear with good landmarks Oropharynx:mild erythema, without exudates present Neck:mild cervic al adenopathy Heart: Negative. RRR without obvious murmur, gallop, or rubs. No ectopy. Lungs: clear to auscultation, without rales or wheeze, good air exchange PAST MEDICAL HISTORY Diagnosis Date Anxiety SHERRI III (cervical intraepithelial neoplasia grade III) with severe dysplasia 2006 needs paps until 2026 KIDNEY INFECTION HOSPITALIZED FOR 5 DAYS 09/2010 Palpitations 01/23/[address] Zayas PAST SURGICAL HISTORY Procedure Laterality Date CHOLECYSTECTOMY 04/08/2011 COLONOSCOPY 05/20/2021 repeat age 46 COLONOSCOPY FLX DX W/COLLJ SPEC WHEN PFRMD 01/28/2016 Colonoscopy mac ESSURE 2013 HYSTERECTOMY HX 07/2014 [facility] then exp lap for postop bleeding OFFICE LEEP Yasir sierra PAST SURGICAL HISTORY OF Right 08/22/2019 shoulder debredement, biceps tenotomy and acromioplasty SALPINGECTOMY 11/2013 bilateral sec to post essure pain VAGINOSCOPY 2007 Dr Gagnon ALLERGIES Imitrex [Sumatriptan Succinate], Toradol [Ketorolac Tromethamine], Ultram [Tramadol], Buspar [Buspirone Hcl], Imodium [Loperamide Hcl], and Morphine MEDICATIONS ibuprofen (MOTRIN) 600 mg tablet Take 600 mg by mouth three times daily as needed. cefADROxil (DURICEF) 500 mg capsule Take 1 capsule by mouth twice daily. (Patient not taking: Reported on 10/07/2023) cyclobenzaprine (FLEXERIL) 5 mg tablet Take 1 tablet by mouth at bedtime as needed. (Patient not taking: Reported on 08/24/2022) hydrOXYzine HCl (ATARAX) 25 mg tablet Take 1 tablet by mouth every 6 hours as needed for anxiety. (Patient not taking: No sig reported) MULTIVITAMIN ORAL Take by mouth. (Patient not taking: Reported on 05/05/2023) FLUoxetine (PROZAC) 10 mg capsule Take 1 capsule by mouth once daily. (Patient not taking: Reported on 05/10/2022) FAMILY HISTORY Problem Relation Age of Onset Hypertension Mother Lipids Mother COPD Mother Hypertension Father COPD Father Diabetes Maternal Grandmother other (ITP) Son Social History Tobacco Use Smoking status: Every Day Packs/day: 0.25 Years: 9.00 Additional pack years: 0.00 Total pack years: 2.25 Types: Cigarettes Smokeless tobacco: Never Tobacco comments: less than a 1/2 pack per day Vaping Use Vaping Use: Never used Substance Use Topics Alcohol use: No Drug use: No ASSESSMENT/PLAN: 1. URI, acute - ICD9: 465.9, ICD10: J06.9 (primary diagnosis) Declines viral testing at this time. 2. Sore throat - ICD9: 462, ICD10: J02.9 Strep neg Potential red flag symptoms discussed with the patient. Reviewed appropriate action plan to take if red flag symptoms occur. Patient agreeable to treatment plan. Asha Segal APRN.JAH documented in this encounter [facility] 07-08-2023 History of Presen t illness Narrative Scan on 07/07/2023 4:07 PM by Provider, External, PAAsterC: Consultation - Orthopedics documented in this encounter [facility] 06-23-2023 History of Presen t illness Narrative Scan on 06/22/2023 12:59 PM by Provider, NOREEN Pena: Neurology documented in this encounter [facility] 06-22-2023 Procedure note [facility] 05-05-2023 History of Presen t illness Narrative Chief Complaint Patient presents with: Sore Throat HPI Eliza Valladares is a 37 year old female who presents here today for swollen glands, diarrhea and sore throat, fever, Nausea. [facility] and they did UA showed traces of blood. Patient did have a ear pierced about 3 weeks ago on left ear for headaches after than she notices pain on left side of neck and behind ear, which has now spread around her neck onto the right side as well. Patient had gallbladder removed but is still having pain in that location off and on. She will eat a few bites and feel full and now is having diarhea right after she eats. Patient does have IBS but this feels different. This is watery and yellow with no blood. Has some general tenderness. Has not vomited. Has some body aches but may be related to daily life activities. No wheezing or shortness of breath and no changes in taste or smell. When it start? Two days ago Any fever? Yes Nausea/vomiting? Nausea - yes - no vomiting Any exposure to COVID? None Past medical history, appointments, medications, allergies reviewed. Previous Medical History PAST MEDICAL HISTORY Diagnosis Date Anxiety SHERRI III (cervical intraepithelial neoplasia grade III) with severe dysplasia 2006 needs paps until 2026 KIDNEY INFECTION HOSPITALIZED FOR 5 DAYS 09/2010 Palpitations 01/23/[address] Zayas Previous Surgical History PAST SURGICAL HISTORY Procedure Laterality Date CHOLECYSTECTOMY 04/08/2011 COLONOSCOPY 05/20/2021 repeat age 46 COLONOSCOPY FLX DX W/COLLJ SPEC WHEN PFRMD 01/28/2016 Colonoscopy mac ESSURE 2013 HYSTERECTOMY HX 07/2014 [facility] then exp lap for postop bleeding OFFICE LEEP 2007 [facility] PAST SURGICAL HISTORY OF Right 08/22/2019 shoulder debredement, biceps tenotomy and acromioplasty SALPINGECTOMY 11/2013 bilateral sec to post essure pain VAGINOSCOPY 2006 Dr Gagnon Family History FAMILY HISTORY Problem Relation Age of Onset Hypertension Mother Lipids Mother COPD Mother Hypertension Father COPD Father Diabetes Maternal Grandmother other (ITP) Son Patient Allergies ALLERGIES Allergen Reactions Buspar [Buspirone H* Other: See Comments Increased HR and shakey Imitrex [Sumatripta* Swelling Swelling of throat Imodium [Loperamide* GI Upset abdominal cramping and bloating Morphine GI Upset severe pain in stomach Toradol [Ketorolac * Hives, Itching Ultram [Tramadol] Hives, Itching Current Medications Current Outpatient Medications on File Prior to Visit Medication Sig ibuprofen (MOTRIN) 600 mg tablet Take 600 mg by mouth three times daily as needed. cyclobenzaprine (FLEXERIL) 5 mg tablet Take 1 tablet by mouth at bedtime as needed. (Patient not taking: Reported on 08/24/2022) hydrOXYzine HCl (ATARAX) 25 mg tablet Take 1 tablet by mouth every 6 hours as needed for anxiety. (Patient not taking: No sig reported) amoxicillin-clavulanic acid (AUGMENTIN) 875-125 mg per tablet Take by mouth. (Patient not taking: No sig reported) MULTIVITAMIN ORAL Take by mouth. FLUoxetine (PROZAC) 10 mg capsule Take 1 capsule by mouth once daily. (Patient not taking: Reported on 05/10/2022) No current facility-administered medications on file prior to visit. Social History Social History Tobacco Use Smoking status: Every Day Packs/day: 0.25 Years: 9.00 Additional pack years: 0.00 Total pack years: 2.25 Types: Cigarettes Smokeless tobacco: Never Tobacco comments: less than a 1/2 pack per day Vaping Use Vaping Use: Never used Substance Use Topics Alcohol use: No Drug use: No Review of Symptoms REVIEW OF SYSTEMS See HPI EXAM: BP 130/92 (BP Site: Left Arm, BP Position: Sitting, BP Cuff Size: Regular Adult) Pulse 101 Temp 37.1 C (98.7 F) (Right Tympanic) Wt 63.5 kg (140 lb) LMP 06/28/2014 SpO2 99% BMI 26.02 kg/m General Appearance: Well appearing, alert, in no acute distress, well-hydrated, well nourished.. Eyes: Anicteric sclera. Pupils are equally round and reactive to light. Extraocular movements are intact. . Ears: External ears, TM's normal, canals clear. Nose/Sinuses: Nares normal, septum midline, mucosa normal, no drainage or sinus tenderness. Oropharynx: Negative findings: lips normal without lesions, buccal mucosa normal, palate normal, tongue midline and normal, soft palate, uvula, and tonsils normal, palpation of salivary glands negative and Positive findings: moderate oropharyngeal erythema. Neck: Supple, no adenopathy; thyroid symmetric, normal size, no bruits. There is tenderness to palpation of the neck muscle on the left and mild tenderness to palpation behind the left ear. Lungs: Lungs clear to auscultation. No wheezing, rhonchi, rales.. Heart: RRR without murmur, gallop, or rubs. No ectopy. Abdomen: Abdomen soft, mildly tender in the mid epigastric area with no guarding or rebound pain. . Bowel sounds normal. No masses, organomegaly. Health Maintenance List Covid-19 Vaccine(1) Never done Pneumococcal Vaccine(1 - PCV) Never done Hepatitis B Vaccine(3 of 3 - 3-dose series) due on 09/17/1999 HIV Screening Never done DTaP,Tdap,Td Vaccine(6 - Tdap) due on 06/29/2013 Depression Assessment Never done Influenza Vaccine(1) due on 04/08/2023 Hepatitis C Screening Completed HPV Vaccine Aged Out Pap Testing Discontinued HPV Testing Discontinued Data reviewed Component Latest Ref Rng & Units 05/05/2023 Strep A (POCT) Negative Negative Procedural Control Valid A/P ASSESSMENT/PLAN: 1. URI, acute - ICD9: 465.9, ICD10: J06.9 (primary diagnosis) - Symptomatic treatment with prn analgesia - Supportive care with fluids and rest - - will treat with duricef 500 mg twice a day for 10 days. 2. Gastroenteritis - ICD9: 558.9, ICD10: K52.9 - discussed care. 3. Pharyngitis, unspecified etiology - ICD9: 462, ICD10: J02.9 - antibiotic as written - STREP A MOLECULAR (POC) 4. Suspected COVID-19 virus infection - ICD9: V01.79, ICD10: Z20.822 Check - COVID & INFLUENZA A/B & RSV NAAT, ROUTINE - COVID NAAT, UPPER RESPIRATORY, ROUTINE - ROUTINE FLU A/B + RSV - discussed self quarantining until test back. If positive patient may not want treated if symptoms continue to be mild. Jani Starkey MD documented in this encounter [facility] 02-10-2023 Note Addended by: SCOTT PINTO on: 02/10/2023 02:07 PM Modules accepted: Orders [facility] 02-10-2023 Note Addended by: SCOTT PINTO on: 02/10/2023 02:07 PM Modules accepted: Orders [facility] 02-10-2023 Miscellaneous Notes Addended by: SCOTT MCKNIGHT on: 02/10/2023 02:07 PM Modules accepted: Orders documented in this encounter [facility] 02-10-2023 History of Presen t illness Narrative Toenail Avulsion Procedure Note Pre-operative Diagnosis: 1. Ingrown right greater toenail 2. Open wound of great toe, left, sequela Post-operative Diagnosis: Same Indications: Patient complains of a painful ingrown right great toenail. Patient is also for follow-up of a left great toenail surgery with some postoperative infection. Patient relates the toe on the left does feel markedly improved but believes she may need an antibiotic. Patient like to have the right great toenail removed. Anesthesia: Local Procedure Details History of allergy to iodine: no The risks (including bleeding and infection) and benefits of the procedure and Written informed consent obtained. After digital block of 3cc of 2% lidocaine plain anesthesia was obtained, a tourniquet was applied for hemostasis during the procedure. After prepping with Betadine, the offending medial edge of the nail was freed from the nailbed and perionychium, and then cut with a combination of a estonian nail anvil/ #61 blade and then removed with forceps. All visible granulation tissue is debrided. I applied 89% phenol with a cotton tip applicator stick for 30 seconds x 3 to the medial border of the right great toenail. Flushed the wound with saline. A antibiotic and bulky dressing was applied. Findings: Integument-the medial border of the right great toenail is incurvated painful sore and swollen. Patient's medial border the left great toenail had some erythema warmth and edema. The medial border of the nail has been removed from previous procedure. Neuro sensation intact bilateral feet Vascular-DP PT pulses are palpable bilateral feet Complications: none. Plan: 1. Soak the foot twice daily with luke warm water and epsom salts twice daily and cover with a wound gel or antibiotic ointment until healed over. 2. Warning signs of infection were reviewed. Patient was placed on Keflex for the left great toenail. Patient was told to let the air get to the left great toe at night. 3. Recommended that the patient use OTC acetaminophen as needed for pain. 4. Return in 2 weeks. 5. Postop wound instruction sheet dispensed. documented in this encounter [facility] 01-27-2023 History of Presen t illness Narrative Toenail Avulsion Procedure Note Pre-operative Diagnosis: 1. Ingrown left greater toenail 2. Syndactyly of toes of both feet Post-operative Diagnosis: Same Indications: Patient a 37-year-old female complains of painful ingrown hallux toenails bilateral. Patient has been to 2 different urgent care centers where antibiotics and procedures were attempted without improvement. Patient like to have the left ingrown great toenail removed today if possible. Anesthesia: Local Procedure Details History of allergy to iodine: no The risks (including bleeding and infection) and benefits of the procedure and Written informed consent obtained. After digital block of 3cc of 2% lidocaine plain anesthesia was obtained, a tourniquet was applied for hemostasis during the procedure. After prepping with Betadine, the offending medial edge of the nail was freed from the nailbed and perionychium, and then cut with a combination of a estonian nail anvil/ #61 blade and then removed with forceps. All visible granulation tissue is debrided. I applied 89% phenol with a cotton tip applicator stick for 30 seconds 3 times to the medial border the left great toe. Flushed the wound with saline a antibiotic and bulky dressing was applied. Findings: Integument-the medial border of the left great toenail was incurvated painful sore and swollen. There is some mild erythema noted with it. The medial border of the right great toenail looked the same but not as painful Neuro sensation intact bilateral feet Vascular-DP PT pulses are palpable bilateral feet. Complications: none. Plan: 1. Soak the foot twice daily with luke warm water and epsom salts twice daily and cover with a wound gel or antibiotic ointment until healed over. I did prescribe cephalexin to take for 1 week 2. Warning signs of infection were reviewed. 3. Recommended that the patient use OTC acetaminophen as needed for pain. 4. Return in 2 weeks for possible nail surgery on the right great toe 5. Postop wound instruction sheet dispensed. documented in this encounter [facility] 01-27-2023 Instructions Dede Benito, TECHNOLOGIST - 01/27/2023 11:22 AM EDT POST NAIL SURGERY INSTRUCTIONS: General Information: Stay off your feet as much as possible today. You may wear any shoe, sandal, or open toe footwear that does not squeeze or constrict your toe. Your toe may remain numb for up to 6-10 hours after the procedure. Bleeding/ Drainage: Slight bleeding, discoloration and/ or red, pink, orange drainage is normal. Discomfort: You can elevate your foot to help alleviate minor swelling, bleeding and discomfort. You may also take aspirin, Tylenol or other over- the- counter pain relievers as directed on the package. If pain is not controlled to your comfort, please contact our office. Removing the surgical bandage/ dressing: The day after the surgery, carefully remove the dressing and shower/ bathe as normal. If the gauze or dressing sticks to the surgical area, dampen it with water or shower/ bathe with the dressing in place. This will make the dressing easier to remove with minimal discomfort. Blot dry with a clean cloth. A band-aid and antibiotic ointment should be changed twice daily on the surgical area until your follow-up appointment with the provider. Soaking Instructions Remove the dressing the day after your procedure and shower/ bathe as normal. Blot dry with a clean cloth. Soak the foot twice daily in warm soapy water or use a mixture of 1 quart warm water with cup Epsom salts. After soaking, apply antibiotic ointment and a Band-Aid twice daily until follow-up appointment. documented in this encounter [facility] 08-28-2022 Miscellaneous Notes Patient given results and verbalized understanding of instructions given. Stephany Carlton Your wound culture does not reveal growth. You can continue to use the topical ATB cream. Follow up with PCP if symptoms continue. documented in this encounter [facility] 08-24-2022 History of Presen t illness Narrative Images from the original note were not included. Subjective HPI Nontoxic-appearing female presents urgent care chief complaint rash. Duration of symptoms on and off last few months. Patient states has been diagnosed with cellulitis of multiple times over the last few months. This feels similar. Presents today with lesion on face and lower back. States they are painful. Slightly red. Has not used any OTC medications. Denies any significant pain currently. States decreased pain if she pushes over the area. Denies history of MRSA. Denies any fever body aches chills productive cough chest pain shortness of breath pleuritic pain hemoptysis nausea vomiting abdominal pain change in bowel or bladder habits. Past medical history prescription medication use and allergies reviewed. .Patient presents with: Rash: Pt reported raised, red area located on lower mouth, reported same areas intermittent on leg, groin, eyebrow, x2 mths. PAST MEDICAL HISTORY Diagnosis Date Anxiety SHERRI III (cervical intraepithelial neoplasia grade III) with severe dysplasia 2006 needs paps until 2026 KIDNEY INFECTION HOSPITALIZED FOR 5 DAYS 09/2010 Palpitations 01/23/[address] Zayas PAST SURGICAL HISTORY Procedure Laterality Date CHOLECYSTECTOMY 04/08/2011 COLONOSCOPY 05/20/2021 repeat age 46 COLONOSCOPY FLX DX W/COLLJ SPEC WHEN PFRMD 01/28/2016 Colonoscopy mac ESSURE 2013 HYSTERECTOMY HX 07/2014 [facility] then exp lap for postop bleeding OFFICE LEEP 2007 [facility] PAST SURGICAL HISTORY OF Right 08/22/2019 shoulder debredement, biceps tenotomy and acromioplasty SALPINGECTOMY 11/2013 bilateral sec to post essure pain VAGINOSCOPY 2006 Dr Gagnon ALLERGIES Buspar [Buspirone Hcl], Imitrex [Sumatriptan Succinate], Imodium [Loperamide Hcl], Morphine, Toradol [Ketorolac Tromethamine], and Ultram [Tramadol] MEDICATIONS ibuprofen (MOTRIN) 600 mg tablet Take 600 mg by mouth three times daily as needed. MULTIVITAMIN ORAL Take by mouth. cyclobenzaprine (FLEXERIL) 5 mg tablet Take 1 tablet by mouth at bedtime as needed. (Patient not taking: Reported on 08/24/2022) hydrOXYzine HCl (ATARAX) 25 mg tablet Take 1 tablet by mouth every 6 hours as needed for anxiety. (Patient not taking: No sig reported) amoxicillin-clavulanic acid (AUGMENTIN) 875-125 mg per tablet Take by mouth. (Patient not taking: No sig reported) FLUoxetine (PROZAC) 10 mg capsule Take 1 capsule by mouth once daily. (Patient not taking: Reported on 05/10/2022) FAMILY HISTORY Problem Relation Age of Onset Hypertension Mother Lipids Mother COPD Mother Hypertension Father COPD Father Diabetes Maternal Grandmother other (ITP) Son Social History Tobacco Use Smoking status: Every Day Packs/day: 0.25 Years: 9.00 Pack years: 2.25 Types: Cigarettes Smokeless tobacco: Never Tobacco comments: less than a 1/2 pack per day Vaping Use Vaping Use: Never used Substance Use Topics Alcohol use: No Drug use: No BP 122/84 Pulse 94 Temp 36.9 C (98.4 F) (Tympanic) Resp 16 Wt 67.9 kg (149 lb 12.8 oz) LMP 06/28/2014 SpO2 98% BMI 27.85 kg/m Review of Systems Constitutional: Negative for chills, fever and malaise/fatigue. HENT: Negative for congestion, ear discharge, ear pain, sinus pain and sore throat. Eyes: Negative for blurred vision, pain, discharge and redness. Respiratory: Negative for cough, hemoptysis, sputum production, shortness of breath, wheezing and stridor. Cardiovascular: Negative for chest pain. Gastrointestinal: Negative for abdominal pain, diarrhea, nausea and vomiting. Musculoskeletal: Negative for myalgias. Skin: Negative for itching and rash. Neurological: Negative for dizziness and headaches. Objective Physical Exam Constitutional: General: She is not in acute distress. Appearance: She is not diaphoretic. HENT: Head: Normocephalic. Mouth/Throat: Mouth: Mucous membranes are moist. Pharynx: Oropharynx is clear. No oropharyngeal exudate or posterior oropharyngeal erythema. Eyes: Conjunctiva/sclera: Conjunctivae normal. Pupils: Pupils are equal, round, and reactive to light. Cardiovascular: Rate and Rhythm: Normal rate and regular rhythm. Heart sounds: Normal heart sounds. Pulmonary: Effort: Pulmonary effort is normal. No tachypnea, accessory muscle usage or respiratory distress. Breath sounds: Normal breath sounds. No stridor. No wheezing, rhonchi or rales. Abdominal: Palpations: Abdomen is soft. Tenderness: There is no abdominal tenderness. Musculoskeletal: Cervical back: Normal range of motion and neck supple. No rigidity or tenderness. Lymphadenopathy: Cervical: No cervical adenopathy. Skin: General: Skin is warm and dry. Comments: 0.25 cm x 0.2 size centimeters area of erythema noted. Slightly raised papule noted. Some fluctuance noted. No remote redness. No adenopathy. No mucosal membrane involvement. No palms or soles involvement. Neurological: Mental Status: She is alert and oriented to person, place, and time. ASSESSMENT/PLAN: 1. Pustule - ICD9: 686.9, ICD10: L08.9 Patient diagnosed with pustule. Wound culture obtained. Placed on mupirocin topical ointment.Follow-up with PCP 3 to 5 days reevaluation. Patient was educated on supportive therapies. Patient was instructed to immediately proceed to emergency room for any new, worsening, or symptoms lasting longer than anticipated. The patient's clinical presentation is otherwise unremarkable at this time. Based on exam and clinical finding, the patient is stable for discharge. Plan of care was discussed with patient. Patient verbalizes understanding and agrees to plan of care. This note was generated using [employer] software. It may contain errors in wording, punctuation, or spelling. Jani Escamilla APRN.JAH documented in this encounter [facility] 08-16-2022 Miscellaneous Notes Patient cancelled appointment. Phoned patient to inquire what ER she was seen in so records could be obtained. Message left for her to return call and update. documented in this encounter [facility] 08-08-2022 Miscellaneous Notes Reason for Call: pt with flank pain, fever, nausea, lower abdominal pain Outcome: advised to be seen within 24 hours, pt will go to [facility]. Reason for Disposition MODERATE pain (e.g., interferes with normal activities or awakens from sleep) Answer Assessment - Initial Assessment Questions 1. LOCATION: Lower back all the way across and into hips 2. ONSET: A week ago 3. SEVERITY: 6/10, motrin and tylenol 4. PATTERN: Constant 5. CAUSE: Kidney infection 6. OTHER SYMPTOMS: Do you have any other symptoms? (e.g., fever, abdominal pain, vomiting, leg weakness, burning with urination, blood in urine) Fever 100.4 oral 1350, nausea, lower abdominal pain 7. : Is there any chance you are ? When was your last menstrual period? N/a, LMP hysterectomy Protocols used: Flank [id number] documented in this encounter [facility] 06-22-2022 Miscellaneous Notes Working on obtaining records as requested. Noted and agree. As nurse noted. We offered to still see patient as a cellulitis follow up but wanted to make sure she understood that I may not be able do what she was asking, given that she was on the antibiotic and could give us false culture results. She elected to cancel the appointment. Will get records from specialists. (Ortho and case packer- dr. Rdz) Also, I only see 1 ER visit in scanned documents related to a cellulitis. please see if there are more visits in [facility] portal please. Shelbi Whitfield PA-C Spoke with pt. 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 Pt advises her ortho had told her to see her pcp. Pt sees Dr Marco Gray at [place]. States she has had cellulitis in multiple body areas and keeps getting put on atb but as soon as she finishes one it returns. Pt is frustrated and is wanting to find answers. Advised pt wouldn't be able to be tested for MRSA at this time d/t being on atb and results wouldn't be accurate. Pt reoprts she started atb on 06/18 in the evening after [facility] ER visit. Pt verbalizes understanding. Offered to still see pt today for an ER f/u of the MRSA. Pt states that she was just seen yesterday by Ortho for cellulitis f/u. Pt declines to keep appointment. Advised pt to call back for a f/u appointment once finished with atb. Pt verbalizes understanding. Advised pt would get Ortho and ER report to review. Tanya Johnson LPN Advise patient her orthopedist needs to place the order if he is wanting this tested. We Haven't seen her for this issue nor have we received any input from the orthopedist she is seeing. Reason for call: Patient calling with request for lab work. Patient denies any new or worsening symptoms of which a provider is not aware: Yes. Patient calling and states she saw Orthopedic physician yesterday who requested that she have labs completed which included MRSA. Patient has been having ongoing cellulitis flares for the last couple of months. Outcome: Informed patient that I would send a note to Dr. Starkey's office with her requesting. I encouraged her to follow up as needed. documented in this encounter [facility] 05-10-2022 History of Presen t illness Narrative Radiology Service Progress Note PATIENT NAME: Eliza Valladares DATE OF SERVICE: May 10, 2022 TIME: 11:20 AM PATIENT IDENTITY VERIFICATION COMPLETED USING TWO (2) IDENTIFIERS: Name and Date of confirmed by patient verbally. FALL SCREENING: Has the patient had 2 falls in the last year or 1 fall with injury or currently using an Ambulatory Assistive Device (Walker, Cane, Wheelchair, Crutches, etc.)? No PATIENT GENDER DATA: Female. status: : No status: NO. PATIENT RELEVANT IMPLANT DATA REVIEWED: Not Applicable RADIOLOGY DEPARTMENT: General X-ray: Exam(s) Completed: Lower Extremity X-Ray(s): Foot, Right and Wt. Bearing PERIPHERAL IV DATA: Not applicable SIGNED BY: RT Gayle(R) May 10, 2022 11:20 AM documented in this encounter [facility] 05-10-2022 History of Presen t illness Narrative Per Dr. Mejía, Eliza was provided with Original powerstep inserts, size 6-6.5 womens, and instructed/educated in its application, wear, and care. All questions were answered, and patient was able to demonstrate competence with the necessary skills to utilize the above equipment. Eliza Covarrubias RN Consultation requested by Dr. Rivera for an opinion regarding right foot pain. My final recommendations will be communicated back to the requesting physician by way of shared Medical record or letter to requesting physician via US mail. Initial Podiatric Office Visit: Chief Complaint: This 36 year old female who presents with chief complaint:right foot pain HPI Patient presents to clinic for evaluation of her right foot. She complains of pain to the lateral aspect of right foot. This pain has been present for over 6 weeks. The pain is worse whenever she is standing or walking on her foot. She denies any injury. Patient takes ibuprofen if the pain is really bad She has done epsom salts soaks as well Patient states that rest does help. PAIN EVALUATION 05/10/2022 1035 Pain Level: 4 Pain Location: Foot-Right Description: Aching;Dull Duration Amount of Time: 7 Duration Units: Weeks Frequency: Continuous Intervention/Comfort measure: Reposition;Relaxation;Distracti ons Hemoglobin A1C (%) Date Value 12/31/2021 5.5 06/29/2019 5.0 PCP: Jani Starkey MD PAST MEDICAL HISTORY Diagnosis Date Anxiety SHERRI III (cervical intraepithelial neoplasia grade III) with severe dysplasia 2006 needs paps until 2026 KIDNEY INFECTION HOSPITALIZED FOR 5 DAYS 09/2010 Palpitations 01/23/[address] Zayas Current Outpatient Medications Medication Sig ibuprofen (MOTRIN) 600 mg tablet Take 600 mg by mouth three times daily as needed. cyclobenzaprine (FLEXERIL) 5 mg tablet Take 1 tablet by mouth at bedtime as needed. MULTIVITAMIN ORAL Take by mouth. hydrOXYzine HCl (ATARAX) 25 mg tablet Take 1 tablet by mouth every 6 hours as needed for anxiety. (Patient not taking: No sig reported) amoxicillin-clavulanic acid (AUGMENTIN) 875-125 mg per tablet Take by mouth. (Patient not taking: No sig reported) FLUoxetine (PROZAC) 10 mg capsule Take 1 capsule by mouth once daily. (Patient not taking: Reported on 05/10/2022) No current facility-administered medications for this visit. ALLERGIES Allergen Reactions Buspar [Buspirone H* Other: See Comments Increased HR and shakey Imitrex [Sumatripta* Swelling Swelling of throat Imodium [Loperamide* GI Upset abdominal cramping and bloating Morphine GI Upset severe pain in stomach Toradol [Ketorolac * Hives, Itching Ultram [Tramadol] Hives, Itching PAST SURGICAL HISTORY Procedure Laterality Date CHOLECYSTECTOMY 04/08/2011 COLONOSCOPY 05/20/2021 repeat age 46 COLONOSCOPY FLX DX W/COLLJ SPEC WHEN PFRMD 01/28/2016 Colonoscopy mac ESSURE 2013 HYSTERECTOMY HX 07/2014 [facility] then exp lap for postop bleeding OFFICE LEEP 2007 [facility] PAST SURGICAL HISTORY OF Right 08/22/2019 shoulder debredement, biceps tenotomy and acromioplasty SALPINGECTOMY 11/2013 bilateral sec to post essure pain VAGINOSCOPY 2006 Dr Gagnon FAMILY HISTORY Problem Relation Age of Onset Hypertension Mother Lipids Mother COPD Mother Hypertension Father COPD Father Diabetes Maternal Grandmother other (ITP) Son Social History Tobacco Use Smoking status: Every Day Packs/day: 0.25 Years: 9.00 Pack years: 2.25 Types: Cigarettes Smokeless tobacco: Never Tobacco comments: less than a 1/2 pack per day Vaping Use Vaping Use: Never used Substance Use Topics Alcohol use: No Drug use: No REVIEW OF SYSTEMS GENERAL: Negative for Malaise, significant weight loss, fever RESPIRATORY: Negative for cough, wheezing and shortness of breath CARDIOVASCULAR: Negative for chest pain, leg swelling and palpitations GI: Negative for abdominal discomfort, blood in stools or black stools and change in bowel habits : Negative for dysuria, frequency and incontinence MUSCULOSKELETAL: Negative for joint pain or swelling, back pain, and muscle pain. SKIN: Negative for lesions, rash, and itching. HEMATOLOGY/LYMPHOLOGY Negative for prolonged bleeding, bruising easily, and swollen nodes. ENDOCRINE: Negative for cold or heat intolerance, polyuria, polydipsia and goiter. NEURO: negative Physical Exam: Constitutional: Pt is a well developed 36 year old female who is alert, oriented and cooperative Eyes: Following during examination. No redness or drainage. Respiratory: RR normal and nonlabored. Even breathing. No evidence of distress or shortness of breath. Psychology: Patient is engaged during conversation. Normal affect and mood. Does not appear depressed or anxious during encounter. Vascular: Dorsalis pedis and posterior tibial pulses palpable right Capillary Fill time < 5 seconds to digits 1-5 right Skin temperature warm to warm proximal to distal right Hair growth present to digits Neurological: intact light touch/epicritic sensation intact protective sensation no significant neurological deficits Dermatological: Nails 1-5 right appear normal. Webspaces clean and dry 1-4 right. Skin appears well hydrated and supple. good color, texture, turgor. No open lesions present. No callosities present. Musculoskeletal/Orthopaedic: Patient has pain to palpation of right 5th metatarsal shaft Foot type is cavus structurally AJ ROM is full with knee extended and flexed 1st MPJ is full when loaded and no pain or crepitus are noted with ROM. MTJ, STJ are full and free of pain and crepitus. +5/5 muscle strength dorsiflexion, plantarflexion, inversion, eversion right Radiographs: 3 views right foot reviewed May 10, 2022: I have personally reviewed and interpreted these XR myself: no acute fracture ASSESSMENT: (X50.3XXA) Repetitive stress injury (primary encounter diagnosis) (M79.671) Foot pain, right (Q66.70) Pes cavus PLAN: 1. History and physical examination performed. 2. XR reviewed with patient and interpreted today 3. I do have concerns for possible stress injury. Will repeat xrays to assure no stress fracture 4. If stress fracture present, will place her in boot 5. Offered boot today but she chose to try powerstep inserts 6. Recommend increasing vitamin d. Offered testing today but she declined this. Steven Mejía DPM Podiatry [address] [facility] [id number] Dept: [phone] Dept AMB ROOMING INTAKE FLOWSHEET DATA Risk Screening Do you have concerns about personal safety or safety in the home?: No Pain Pain Level: 4 Pain Location: Foot-Right Description: Aching, Dull Duration Amount of Time: 7 Duration Units: Weeks Frequency: Continuous Intervention/Comfort measure: Reposition, Relaxation, Distractions Patient presents with: Right Foot - New, Pain Patient presents for right foot pain x3 weeks. Denies injury. X-Ray done 04/28- No acute osseous abnormality. Patient states that elevation helps as well as soaking in epsom salt. Eliza Covarrubias RN documented in this encounter [facility] 05-10-2022 Instructions Steven Mejía - 05/10/2022 11:07 AM EDT Powerstep Original Full length. Can purchase at [employer] here in [place], [employer] in [place] or [place]. Also can find in [employer] in [facility]. Powersteps can also be purchased online, starting around $25.00 If you have a metatarsal or dancer pad for your feet apply the pad directly to the insole so you can interchange between your shoes. Find a shoe with a removable insole and take this out and replace with your powerstep insole. Always bring powersteps with you when shopping for shoes so that you can make sure that everything fits well together documented in this encounter [facility] 04-28-2022 History of Presen t illness Narrative This note was created using [employer]. Subjective Eliza Valladares is a 36 year old female. HPI Patient presents with a chief complaint of right foot pain for 6 weeks. She denies any injury or trauma. She does stand on her feet for long periods of time. 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 She has since gotten a new job in the past couple weeks. She did try an insole and wears tennis shoes. She states it is more painful to walk on. She tried ibuprofen [id number]. No problems with the foot previously. Review of Systems Musculoskeletal: Right foot pain All other systems reviewed and are negative. PAST MEDICAL HISTORY Diagnosis Date Anxiety SHERRI III (cervical intraepithelial neoplasia grade III) with severe dysplasia 2006 needs paps until 2026 KIDNEY INFECTION HOSPITALIZED FOR 5 DAYS 09/2010 Palpitations 01/23/[address] Zayas Current Outpatient Medications Medication Sig Dispense Refill MULTIVITAMIN ORAL Take by mouth. predniSONE (DELTASONE) 20 mg tablet Take 2 tablets by mouth once daily for 5 days. 10 tablet 0 hydrOXYzine HCl (ATARAX) 25 mg tablet Take 1 tablet by mouth every 6 hours as needed for anxiety. (Patient not taking: Reported on 04/28/2022) 30 tablet 2 amoxicillin-clavulanic acid (AUGMENTIN) 875-125 mg per tablet Take by mouth. (Patient not taking: Reported on 12/31/2021 ) FLUoxetine (PROZAC) 10 mg capsule Take 1 capsule by mouth once daily. (Patient taking differently: Take 20 mg by mouth once daily. ) 30 capsule 0 No current facility-administered medications for this visit. PAST SURGICAL HISTORY Procedure Laterality Date CHOLECYSTECTOMY 04/08/2011 COLONOSCOPY 05/20/2021 repeat age 46 COLONOSCOPY FLX DX W/COLLJ SPEC WHEN PFRMD 01/28/2016 Colonoscopy mac ESSURE 2013 HYSTERECTOMY HX 07/2014 TV[facility] then exp lap for postop bleeding OFFICE LEEP [facility] office PAST SURGICAL HISTORY OF Right 08/22/2019 shoulder debredement, biceps tenotomy and acromioplasty SALPINGECTOMY 11/2013 bilateral sec to post essure pain VAGINOSCOPY 2007 Dr Gagnon FAMILY HISTORY Problem Relation Age of Onset Hypertension Mother Lipids Mother COPD Mother Hypertension Father COPD Father Diabetes Maternal Grandmother other (ITP) Son Social History Tobacco Use Smoking status: Every Day Packs/day: 0.50 Years: 9.00 Pack years: 4.50 Types: Cigarettes Smokeless tobacco: Never Tobacco comments: less than a 1/2 pack per day Substance Use Topics Alcohol use: No Drug use: No Objective BP 116/82 Pulse 93 Temp 36.8 C (98.3 F) Resp 18 Wt 69.5 kg (153 lb 3.2 oz) LMP 06/28/2014 SpO2 96% BMI 28.48 kg/m Physical Exam Vitals reviewed. Constitutional: Appearance: Normal appearance. HENT: Head: Normocephalic and atraumatic. Musculoskeletal: Comments: Patient tender along the mid to distal lateral foot right . No dorsal tenderness. Pedal pulses 2+. No redness. Mild swelling. No sign of foreign body. No induration or sign of cellulitis. Full range of motion of the foot. More pain with walking. Skin: General: Skin is warm and dry. Findings: No rash. Neurological: General: No focal deficit present. Mental Status: She is alert and oriented to person, place, and time. Assessment and Plan ASSESSMENT/PLAN: 1. Foot pain, right - ICD9: 729.5, ICD10: M79.671 X-rays are unremarkable. Likely more of a tendinitis. Recommended rest, ice, given prednisone for 5 days. Follow-up with podiatry if not improving. Patient agreeable. - XR FOOT GENERAL 3V AP/LAT/OBL RIGHT - CONSULT TO PODIATRY Diane Rivera PA-C documented in this encounter [facility] 03-31-2022 Miscellaneous Notes Left detailed message for patient. Frances Segal MA. I will send in vistaril. She can schedule a VV if necessary. Pt calls to report that her cousin and pt is not doing well. Pt reports her mother in November and having her cousin has set her anxiety off. Pt reports she is having a hard time wanting to leave her house. Pt is asking if she can be prescribed something for anxiety to help her at this time. Pt reports she has been on vistaril in the past. Med hx shows pt has taken lorazepam also. CAll pt with provider message. Shanon Daniels LPN documented in this encounter [facility] 01-01-2022 Miscellaneous Notes Patient notified of results and provider's instructions. Patient verbalizes understanding. Pt will call back to schedule 6 month f/u as she is at work right now and cannot schedule appt. Tanya Johnson LPN Urine is normal. Metabolic panel is normal. a1c is wnl. No diabetes Cholesterol levels are good. Trigs are only mildly elevated. No recommended changes currently. Hep c still in process. Will call if abnormal. Let us know if any questions. She'll be due for routine visit in 6 months. Shelbi Whitfield PA-C documented in this encounter [facility] 12-31-2021 History of Presen t illness Narrative Chief Complaint Patient presents with: ER F/U: [facility] HPI Elizadevin Valladares is a 36 year old female who presents here today for ER Follow Up.. Patient was in ER on 12/25/2021 for fever and some diarrhea. Originally present to [facility] care who sent to ER> ER did labs and urine. Urine shows small amount of blood and leuks. As well as ketones and protein. She was having diarrhea however states that this is her normal. She was d/c for ER with cipro for potential infectious process. Patient did not do a stool culture as she states this is her norm. She no longer is running fevers. Past medical history, appointments, medications, allergies reviewed. Previous Medical History PAST MEDICAL HISTORY Diagnosis Date Anxiety SHERRI III (cervical intraepithelial neoplasia grade III) with severe dysplasia 2006 needs paps until 2026 KIDNEY INFECTION HOSPITALIZED FOR 5 DAYS 09/2010 Palpitations 01/23/[address] Zayas Previous Surgical History PAST SURGICAL HISTORY Procedure Laterality Date CHOLECYSTECTOMY 04/08/2011 COLONOSCOPY 05/20/2021 repeat age 46 COLONOSCOPY FLX DX W/COLLJ SPEC WHEN PFRMD 01/28/2016 Colonoscopy mac ESSURE 2013 HYSTERECTOMY HX 07/2014 TV[facility] then exp lap for postop bleeding OFFICE [facility] PAST SURGICAL HISTORY OF Right 08/22/2019 shoulder debredement, biceps tenotomy and acromioplasty SALPINGECTOMY 11/2013 bilateral sec to post essure pain VAGINOSCOPY 2007 Dr Gagnon Family History FAMILY HISTORY Problem Relation Age of Onset Hypertension Mother Lipids Mother COPD Mother Hypertension Father COPD Father Diabetes Maternal Grandmother other (ITP) Son Patient Allergies ALLERGIES Allergen Reactions Buspar [Buspirone H* Other: See Comments Increased HR and shakey Imitrex [Sumatripta* Swelling Swelling of throat Imodium [Loperamide* GI Upset abdominal cramping and bloating Morphine GI Upset severe pain in stomach Toradol [Ketorolac * Hives, Itching Ultram [Tramadol] Hives, Itching Current Medications Current Outpatient Medications on File Prior to Visit Medication Sig MULTIVITAMIN ORAL Take by mouth. FLUoxetine (PROZAC) 10 mg capsule Take 1 capsule by mouth once daily. (Patient taking differently: Take 20 mg by mouth once daily. ) amoxicillin-clavulanic acid (AUGMENTIN) 875-125 mg per tablet Take by mouth. (Patient not taking: Reported on 12/31/2021 ) hydrOXYzine HCl (ATARAX) 25 mg tablet Take 1 tablet by mouth every 6 hours as needed for anxiety. (Patient not taking: Reported on 12/14/2021 ) No current facility-administered medications on file prior to visit. Social History Social History Tobacco Use Smoking status: Current Every Day Smoker Packs/day: 0.50 Years: 9.00 Pack years: 4.50 Smokeless tobacco: Never Used Tobacco comment: less than a 1/2 pack per day Substance Use Topics Alcohol use: No Drug use: No Review of Symptoms REVIEW OF SYSTEMS GENERAL: No weight loss, malaise or fevers NECK: Negative for lumps, goiter, pain and significant neck swelling RESPIRATORY: Negative for cough, hemoptysis, wheezing, COPD, dyspnea or shortness of breath CARDIOVASCULAR: Negative for chest pain, leg swelling, hypertension, CHF or palpitations SEE HPI EXAM: BP 110/80 (BP Site: Left Arm, BP Position: Sitting, BP Cuff Size: Large Adult) Pulse 84 Temp 36.6 C (97.9 F) Resp 16 Wt 70.8 kg (156 lb) LMP 06/28/2014 BMI 29.00 kg/m General Appearance: Well appearing, alert, in no acute distress, well-hydrated, well nourished.. Neck: Supple, no adenopathy; thyroid symmetric, normal size, no bruits. Lungs: Lungs clear to auscultation. No wheezing, rhonchi, rales.. Heart: RRR without murmur, gallop, or rubs. No ectopy. Extremities: No deformities, edema, skin discoloration, clubbing or cyanosis. Good capillary refill. . Peripheral Pulses: Normal. Health Maintenance List COVID-19 VACCINE(1) Never done PNEUMOCOCCAL(1 - PCV) Never done HEPATITIS C SCREENING Never done HIV SCREENING Never done DTAP,TDAP,TD(6 - Tdap) due on 06/29/2013 INFLUENZA(Season Ended) due on 04/08/2022 DEPRESSION SCREENING due on 12/14/2022 PAP TESTING Discontinued HPV TESTING Discontinued Data reviewed See notes above. ASSESSMENT/PLAN: 1. Encounter for lipid screening for cardiovascular disease - ICD9: V77.91, V81.2, ICD10: Z13.220, Z13.6 (primary diagnosis) check - LIPID PANEL, NONFASTING 2. Screening for diabetes mellitus - ICD9: V77.1, ICD10: Z13.1 check - HGB A1C - COMP METABOLIC PANEL 3. Proteinuria, unspecified type - ICD9: 791.0, ICD10: R80.9 check - URINALYSIS, WITH MICROSCOPIC 4. Need for hepatitis C screening test - ICD9: V73.89, ICD10: Z11.59 check. - HEP C AB IA W/CONF SCRN F/u routine visit. Shelbi Whitfield PA-C documented in this encounter [facility] 12-30-2021 Miscellaneous Notes Pt notified of results via [employer]. Jennyfer Ramirez Ma Can you please call the patient and let her know that I reviewed her MRA results. Imaging was all normal no signs of aneurysm or filling defects. Please let me know if she has any questions. Thank you. Zonia Bal APRN.JAH documented in this encounter [facility] 12-30-2021 History of Presen t illness Narrative Radiology Service Progress Note PATIENT NAME: Eliza Valladares DATE OF SERVICE: December 30, 2021 TIME: 10:28 AM PATIENT IDENTITY VERIFICATION COMPLETED USING TWO (2) IDENTIFIERS: Name and Date of confirmed by patient verbally. FALL SCREENING: Has the patient had 2 falls in the last year or 1 fall with injury or currently using an Ambulatory Assistive Device (Walker, Cane, Wheelchair, Crutches, etc.)? No PATIENT GENDER DATA: Female. status: : No status: NO. PATIENT RELEVANT IMPLANT DATA REVIEWED: Yes RADIOLOGY DEPARTMENT: MR; Exam(s) Completed: Head: [place] [facility] [place] MRA PERIPHERAL IV DATA: Not applicable SIGNED BY: RT Tomi(Carlos) December 30, 2021 10:28 AM documented in this encounter [facility] 12-30-2021 Miscellaneous Notes Radiology request for order change. MRA Brain W/O contrast. Order entered. Zonia Bal APRN.TALENT SOURCING SPECIALIST documented in this encounter [facility] 12-28-2021 Miscellaneous Notes Patient notified and scheduled. Frances Segal MA Have patient make an appt. Pt called in and reports she was in [facility] ER over the weekend. She has a laceration on her side that she though it was getting infected, she states they told her it wasn't infected but sent her home on Cipro and are waiting on the blood cultures. Pt is questioning the UA she says it came back with ketones, protein, and blood. Pt is not a diabetic, denies UTI symptoms, and kidney issues. They never brought these results up to the Pt and she was worrying. Offered to get Pt in for a office visit with the provider, but she wanted to wait until the provider got back to her. Please call or send a [employer] message and advise. documented in this encounter [facility] 12-25-2021 History of Presen t illness Narrative Patient came in with complaints of feeling feverish, diarrhea, nausea, and shakiness. Patient said she was cleaning out her chicken coop a week ago and backed into a metal shelf covered in chicken dander and feces. patient did clean wound and tried to go to an urgent care earlier in the week. Patient last tetanus was 2012. At this time patient is being referred to the ER for full evaluation due to heavy risk factors. Wound: has redness around it and still visibly deep at a week out after healing. documented in this encounter [facility] 12-14-2021 Instructions Zonia Bal APRN.CNP - 12/14/2021 1:42 PM EDT 1.) Schedule appointment for MRA 2.) May continue to use ibuprofen 600-800 mg every 6-8 hours as needed for pain. 3.) Try not to sleep in left side if possible. 4.) May continue with heat. 5.) Red flag symptoms go to ER. 6.) Follow pending test results or sooner as needed. documented in this encounter [facility] 12-14-2021 History of Presen t illness Narrative This is a 36 year old female who presents today with: Patient presents with: Acute Visit: neck pain and headaches HISTORY OF PRESENT ILLNESS: Eliza Valladares is a 36 year old female. Patient presents with: Acute Visit: neck pain and headaches Patient of Dr. Starkey here in the office for hospital follow-up. HOSPITAL/ER FOLLOW UP: Reason for visit: Headache and left-sided neck pain. Which facility: [facility] ER Date of visit: 12/05/2021 Diagnosis: Cervical strain Testing done: CTA head and neck with contrast. Negative CTA head and neck. Small subcutaneous soft tissue contusion anterior to the left maxilla. Treatment given: None Smoking. Patient had an abnormal CT at an outside facility which the ER doctor reviewed and noted no conclusive findings. Current symptoms: Initially went to [facility], CT head was abnormal per patient. They wanted to her go to [place] for MRI and then recommended going to [place]. Patient got scared and left. Left with IV in place, home visitor came to verify story. Patient then went to [facility] ER for evaluation. Concerns for possible artery dissection or aneurysm per radi[facility]. Still having headache but ibuprofen has been helpful. Pain is at base of skull that radiates into left side of neck. Has been using Ibuprofen 400 mg BID as needed. Will get random episodes of dizziness with position changes. Symptoms last seconds. Will improve with rest. No issues with balance. PAST MEDICAL HISTORY: PAST MEDICAL HISTORY Diagnosis Date Anxiety SHERRI III (cervical intraepithelial neoplasia grade III) with severe dysplasia 2006 needs paps until 2026 KIDNEY INFECTION HOSPITALIZED FOR 5 DAYS 09/2010 Palpitations 01/23/[address] Zayas PAST SURGICAL HISTORY Procedure Laterality Date COLONOSCOP W/ OR W/O [facility] SPEC 01/28/2016 Colonoscopy mac COLONOSCOPY 05/20/2021 repeat age 46 ESSURE 2013 HYSTERECTOMY HX 07/2014 TV[facility] then exp lap for postop bleeding OFFICE LEEP [facility] PAST SURGICAL HISTORY OF Right 08/22/2019 shoulder debredement, biceps tenotomy and acromioplasty REMOVAL GALLBLADDER 04/08/2011 SALPINGECTOMY 11/2013 bilateral sec to post essure pain VAGINOSCOPY 2007 Dr Gagnon ALLERGIES Buspar [Buspirone Hcl], Imitrex [Sumatriptan Succinate], Imodium [Loperamide Hcl], Morphine, Toradol [Ketorolac Tromethamine], and Ultram [Tramadol] MEDICATIONS Current Outpatient Medications Medication Sig FLUoxetine (PROZAC) 10 mg capsule Take 1 capsule by mouth once daily. IRAIS 0.05 mg/24 hr apply 1 patch two times a week as directed (1 PATCH FOR 4 DAYS ALTERNATING WITH 1 PATCH FOR 3 DAYS) hydrOXYzine HCl (ATARAX) 25 mg tablet Take 1 tablet by mouth every 6 hours as needed for anxiety. No current facility-administered medications for this visit. FAMILY HISTORY Problem Relation Age of Onset Hypertension Mother Lipids Mother COPD Mother Hypertension Father COPD Father Diabetes Maternal Grandmother other (ITP) Son Social History Tobacco Use Smoking status: Current Every Day Smoker Packs/day: 0.50 Years: 9.00 Pack years: 4.50 Smokeless tobacco: Never Used Tobacco comment: less than a 1/2 pack per day Substance Use Topics Alcohol use: No Drug use: No REVIEW OF SYSTEMS GENERAL: No weight loss, malaise or fevers/chills HEENT: Negative for frequent or significant headaches, No changes in hearing or vision. NECK: Negative for lumps, goiter, pain and significant neck swelling RESPIRATORY: Negative for cough, hemoptysis, wheezing, dyspnea or shortness of breath CARDIOVASCULAR: Negative for chest pain, leg swelling, orthopnea, or palpitations GI: No nausea, vomiting, or diarrhea/constipation. No hematochezia/melena. No heartburn or reflux symptoms. : No history of dysuria, frequency or incontinence MUSCULOSKELETAL: Negative for joint pain or swelling. SKIN: Negative for lesions, rash, and itching ENDOCRINE: Negative for cold or heat intolerance, polyuria, polydipsia and goiter NEURO: + Headache/neck pain MOOD: Negative for depression, anxiety, or suicidal ideation. EXAM: BP 130/80 Pulse 95 Resp 16 Wt 70.8 kg (156 lb) LMP 06/28/2014 SpO2 98% BMI 29.00 kg/m PHYSICAL EXAM: General Appearance: Well appearing, alert, in no acute distress, well-hydrated, well nourished. Skin: Skin color, texture, turgor normal, no suspicious rashes or lesions. Head: Normocephalic, no masses, lesions, tenderness or abnormalities. Eyes: Anicteric sclera. Pupils are equally round and reactive to light. Extraocular movements are intact. Ears: External ears normal, canals clear. TM's pearly fuchs. Neck: Supple, no adenopathy; thyroid symmetric, normal size, no bruits. Lungs: Lungs clear to auscultation. No wheezing, rhonchi, rales. Heart: RRR without murmur, gallop, or rubs. No ectopy. Extremities: No deformities, edema, skin discoloration, clubbing or cyanosis. Good capillary refill. Musculoskeletal: Tenderness noted along left side of neck, decreased ROM. No swelling or color change noted. Peripheral Pulses: Normal, Capillary refill <2secs, strong peripheral pulses, Pulses palpable. Neurologic: Gait normal. Reflexes normal and symmetric. Sensation grossly intact. ASSESSMENT/PLAN: 1. Hospital discharge follow-up - ICD9: V67.59, ICD10: Z09 (primary diagnosis) - Still having ongoing neck pain/headaches. 2. Acute intractable headache, unspecified headache type - ICD9: 784.0, ICD10: R51.9 - Get MRA Brain completed as recommended from radiology. - May continue to use Ibuprofen as needed for pain. - Red flag symptoms given to patient, she verbalizes understanding when to seek emergency care. - MRA BRAIN WO/W IVCON - IV CONTRAST (RADIOLOGY PROCEDURE) Follow-up pending test results or sooner as needed. Discussed treatment plan and patient voices understanding. Patient's questions answered appropriately. Medications and potential side effects were discussed and patient voices understanding. Zonia Bal APRN.JAH This note was partially generated using [employer] voice recognition system. Note was reviewed for accuracy. There may be minor misspellings or grammar miscues with [employer] voice recognition. documented in this encounter [facility] 02-14-2021 Emergency department Note [facility] ED Attending Note: ED Site: [facility] EMERGENCY DEPARTMENT NAME: Eliza Valladares 35 y.o. CSN: [id number] PCP: No primary care provider on file. History: Chief Complaint: Wrist Pain HPI: The history was obtained from the patient. Eliza is a 35 y.o. female who presents with a chief complaint of Wrist Pain. Wrist Pain Associated symptoms: tenderness Associated symptoms: no fatigue and no fever This is a 35-year-old female, she was in her usual state of health today, when she was wheeling a large trash can out from the curb. She states that she tripped over the leg, lost her footing, and fell. She fell on her outstretched right hand, and is now having pain on the radial side of her wrist, proximal to the thumb. She states that this is an isolated extremity injury, and that she does not have any other pain anywhere else. In particular, she also denies headache, dizziness, lightheadedness, syncope, near syncope, neck pain, head pain, or loss of consciousness. She states that she remembers the entirety of the events. The pain does not really radiate anywhere, although certain movements of the thumb and wrist do cause the pain to worsen. This happened just about 30 minutes prior to arrival, and she has not tried anything for it yet. She denies any numbness or tingling anywhere. She states that the pain seems to be worse on the palmar side of the wrist and points towards the lateral anterior aspect. PMHx: Past Medical History: Diagnosis Date Chronic headaches PMSx: Past Surgical History: Procedure Laterality Date CHOLECYSTECTOMY HYSTERECTOMY (CERVIX REMOVED) ORTHOPEDIC SURGERY rt shoulder FAM. Hx: History reviewed. No pertinent family history. SOC. Hx: Social History Socioeconomic History Marital status: Spouse name: Not on file Number of children: Not on file Years of education: Not on file Highest education level: Not on file Occupational History Not on file Tobacco Use Smoking status: Current Every Day Smoker Smokeless tobacco: Never Used Substance and Sexual Activity Alcohol use: Never Drug use: Never Sexual activity: Not on file Other Topics Concern Not on file Social History Narrative Not on file Social Determinants of Health Financial Resource Strain: Difficulty of Paying Living Expenses: Food Insecurity: Worried About Running Out of Food in the Last Year: Ran Out of Food in the Last Year: Transportation Needs: Lack of Transportation (Medical): Lack of Transportation (Non-Medical): Physical Activity: Days of Exercise per Week: Minutes of Exercise per Session: Stress: Feeling of Stress : Social Connections: Frequency of Communication with Friends and Family: Frequency of Social Gatherings with Friends and Family: Attends [employer] Services: Active Member of Clubs or Organizations: Attends Club or Organization Meetings: Marital Status: MEDs: Previous Medications Medication Sig estradioL (VIVELLE-DOT,DAVID) 0.05 mg/[address] 1 patch on the skin twice weekly . ALL: No Known Allergies ROS: Review of Systems Constitutional: Negative for activity change, appetite change, fatigue and fever. HENT: Negative for congestion and rhinorrhea. Eyes: Negative for photophobia, pain, redness and visual disturbance. Respiratory: Negative for apnea, chest tightness, shortness of breath and wheezing. Cardiovascular: Negative for chest pain and palpitations. Gastrointestinal: Negative for abdominal pain, constipation, diarrhea, nausea and vomiting. Genitourinary: Negative for difficulty urinating and hematuria. Musculoskeletal: Positive for arthralgias. Negative for gait problem and joint swelling. Skin: Negative for color change, rash and wound. Allergic/Immunologic: Negative for environmental allergies and food allergies. Neurological: Negative for dizziness, syncope, light-headedness, numbness and headaches. Psychiatric/Behavioral: Negative for behavioral problems and confusion. Positives and pertinent negatives as per HPI. All other systems were reviewed and are negative. Physical Exam: Patient Vitals for the past 24 hrs: BP Temp Temp src Pulse Resp SpO2 Height Weight 02/14/21 1651 127/81 98.3 F (36.8 C) Temporal 88 16 96 % 5' 1 59 kg (130 lb) Physical Exam Constitutional: General: She is not in acute distress. Appearance: She is not ill-appearing or diaphoretic. Comments: The patient is well-appearing, and in no acute distress HENT: Head: Normocephalic and atraumatic. Right Ear: External ear normal. Left Ear: External ear normal. Eyes: General: No scleral icterus. Neck: Vascular: No JVD. Trachea: No tracheal deviation. Cardiovascular: Rate and Rhythm: Normal rate and regular rhythm. Pulses: Normal pulses. Heart sounds: Normal heart sounds. No murmur heard. No friction rub. No gallop. Pulmonary: Effort: Pulmonary effort is normal. No respiratory distress. Breath sounds: Normal breath sounds. No wheezing or rales. Chest: Chest wall: No tenderness. Musculoskeletal: General: Tenderness present. No deformity. Comments: There is tenderness to the radial side of the wrist joint, that is generalized throughout the lateral right wrist. In particular, she also seems to have some tenderness over the thenar eminence, however, there is no anatomical snuffbox tenderness. Certain motions of the thumb do cause her pain to get worse, however, she has full active and passive range of motion of all of her digits as well as the wrist. Skin: General: Skin is warm. Findings: No erythema. Neurological: General: No focal deficit present. Mental Status: She is alert and oriented to person, place, and time. Sensory: No sensory deficit. Psychiatric: Mood and Affect: Mood normal. Behavior: Behavior normal. Laboratory & Radiological Imaging (if done): Labs Reviewed - No data to display XR Wrist Right 3+ Views (Standard) Final Result FINDINGS/ No radiographic evidence of acute osseous abnormality of the right wrist. Suggestion of positive ulnar variance. Workstation ID: [id number] Procedures: Procedures ED Course / Medical Decision Making: This is a 35-year-old female, suffering a fall onto an outstretched hand as described above. I have low no suspicion for any other concurrent traumatic injuries, she is not complaining of pain anywhere else, had no loss of consciousness, did not hit her head or her neck. Given that she is having some tenderness over the thenar eminence, I wonder if this may be a soft tissue injury, however, we will need to obtain plain films to look for any osseous injury such as fractures, dislocations, or subluxations. X-ray was ordered by nursing triage protocol, and I reviewed the images when they are available. There is no obvious fracture that is seen on my interpretation of the x-ray images. Once the radiologist's report is available, I reviewed this as well, it shows no radiographic evidence of acute osseous abnormality of the right wrist. We discussed the results of the work up in the emergency department. Likely, she has suffered a sprain of her right wrist, and we did discuss RICE, [id number] analgesia, as well as the possibility of adding a wrist splint for stability. Patient declines need for wrist splint right now, but does request an Tee wrap, which we will provide for her. We did discuss the possibility of an radiographically occult fracture, and she understands that if she has continued to have a lot of pain, or if it persists past 1 to 2 weeks, that she may benefit from having it reimaged. The patient should follow-up with her PCP in the same timeframe. We did discuss return precautions, she understands when to come back urgently for reevaluation. I provided verbal discharge instructions regarding the emergency department diagnosis. Prognosis, expected clinical course, and return precautions were reviewed. I answered her questions and re-iterated the importance of returning to the emergency department immediately for any new or worsening symptoms. The patient expressed understanding of the instructions and reported that all of her questions had been answered. MDM Number of Diagnoses or Management Options Sprain of right wrist, initial encounter: new, needed workup Amount and/or Complexity of Data Reviewed Tests in the radiology section of CPT : ordered and reviewed Independent visualization of images, tracings, or specimens: yes Clinical Impression: 1. Sprain of right wrist, initial encounter Disposition: discharged to home Timothy Starks M.D. Attending Physician [facility] Emergency Departments 02/14/2021 Portions of this note may have been dictated utilizing voice recognition software. Unfortunately this leads to occasional typographical errors. If questions arise please do not hesitate to contact my office for clarification. (Please note that portions of this note have been completed with a voice recognition software. Efforts were made to correct any errors, but occasionally words are mis-transcribed.) Timothy Starks MD 02/14/21 1724 C/o right wrist pain after trip and fall landing onto wrist. Incident approx 30min ago. documented in this encounter [facility] 10-29-2015 History of Past i llness Narrative Problem Noted Date Resolved Date Generalized abdominal pain 10/29/201512/07 Weight loss 10/29/2015 12/07/2016 Night sweats 10/29/2015 12/07/2016 Hemorrhagic ovarian cyst 01/24/2015 017 Incisional pain 09/11/2014 12/07/2016 Post-op bleeding 07/14/2014 09/11/2014 Uterine size date discrepancy 01/02/2013 Overview: Growth us ordered January 02, 2013 arrhythmia 11/29/2012 04/11/2013 Overview: Diagnosed 29 weeks- PAC seen in [place] for this also, spontaneously resolved and has been normal since, normal US Hydronephrosis 09/04/2012 11/19/2013 Right flank pain 09/04/2012 11/19/2013 Microscopic hematuria 09/04/2012 11/19/2013 Supervision of other normal 07/20/2012 04/11/2013 History of labor 06/15/2012 014 Overview: Delivered at 39 weeks 06/15/2012 Her previous child was delivered by Dr. Gagnon. She was hospitalized for one week at 7 months gestation for labor at [facility]. Patient signed a release of records to obtain her OB records from from her previous . H/O kidney disease 06/15/2012 04/11/2013 Overview: 08/17/12 - admitted to [facility] on 08/06 for pyelonephritis - KK 06/15/2012Patient states she was hospitalized for 5 days September 2010 for a kidney infection at [facility] in [place]. Discussed importance of reporting the onset of any symptoms of a UTI/kidney infection should it occur during . Patient states she had a backache yesterday. She denies any dysuria. She denies any pain today. Urine culture obtained per order of Dr. Rdz. Immunization due 06/15/2012 04/11/2013 Overview: 06/15/2012Tetanus vaccine is not up to date documented as of this encounter (statuses as of 12/14/2021) [facility] History of Past illness Narrative* Problem Noted Date Resolved Date Generalized abdominal pain 10/29/201512/07 Weight loss 10/29/2015 12/07/2016 Night sweats 10/29/2015 12/07/2016 Hemorrhagic ovarian cyst 01/24/2015 017 Incisional pain 09/11/2014 12/07/2016 Post-op bleeding 07/14/2014 09/11/2014 Uterine size date discrepancy 01/02/2013 Overview: Growth us ordered January 02, 2013 arrhythmia 11/29/2012 04/11/2013 Overview: Diagnosed 29 weeks- PAC seen in [place] for this also, spontaneously resolved and has been normal since, normal US Hydronephrosis 09/04/2012 11/19/2013 Right flank pain 09/04/2012 11/19/2013 Microscopic hematuria 09/04/2012 11/19/2013 Supervision of other normal 07/20/2012 04/11/2013 History of labor 06/15/2012 014 Overview: Delivered at 39 weeks 06/15/2012 Her previous child was delivered by Dr. Gagnon. She was hospitalized for one week at 7 months gestation for labor at [facility]. Patient signed a release of records to obtain her OB records from from her previous . H/O kidney disease 06/15/2012 04/11/2013 Overview: 08/17/12 - admitted to [facility] on 08/06 for pyelonephritis - KK 06/15/2012Patient states she was hospitalized for 5 days September 2010 for a kidney infection at [facility] in [place]. Discussed importance of reporting the onset of any symptoms of a UTI/kidney infection should it occur during . Patient states she had a backache yesterday. She denies any dysuria. She denies any pain today. Urine culture obtained per order of Dr. Rdz. Immunization due 06/15/2012 04/11/2013 Overview: 06/15/2012Tetanus vaccine is not up to date documented as of this encounter (statuses as of 12/25/2021) [facility] History of Past illness Narrative* Problem Noted Date Resolved Date Generalized abdominal pain 10/29/201512/07 Weight loss 10/29/2015 12/07/2016 Night sweats 10/29/2015 12/07/2016 Hemorrhagic ovarian cyst 01/24/2015 017 Incisional pain 09/11/2014 12/07/2016 Post-op bleeding 07/14/2014 09/11/2014 Uterine size date discrepancy 01/02/2013 Overview: Growth us ordered January 02, 2013 arrhythmia 11/29/2012 04/11/2013 Overview: Diagnosed 29 weeks- PAC seen in [place] for this also, spontaneously resolved and has been normal since, normal US Hydronephrosis 09/04/2012 11/19/2013 Right flank pain 09/04/2012 11/19/2013 Microscopic hematuria 09/04/2012 11/19/2013 Supervision of other normal 07/20/2012 04/11/2013 History of labor 06/15/2012 014 Overview: Delivered at 39 weeks 06/15/2012 Her previous child was delivered by Dr. Gagnon. She was hospitalized for one week at 7 months gestation for labor at [facility]. Patient signed a release of records to obtain her OB records from from her previous . H/O kidney disease 06/15/2012 04/11/2013 Overview: 08/17/12 - admitted to [facility] on 08/06 for pyelonephritis - KK 06/15/2012Patient states she was hospitalized for 5 days September 2010 for a kidney infection at [facility] in [place]. Discussed importance of reporting the onset of any symptoms of a UTI/kidney infection should it occur during . Patient states she had a backache yesterday. She denies any dysuria. She denies any pain today. Urine culture obtained per order of Dr. Rdz. Immunization due 06/15/2012 04/11/2013 Overview: 06/15/2012Tetanus vaccine is not up to date documented as of this encounter (statuses as of 12/28/2021) [facility] History of Past illness Narrative* Problem Noted Date Resolved Date Generalized abdominal pain 10/29/201512/07 Weight loss 10/29/2015 12/07/2016 Night sweats 10/29/2015 12/07/2016 Hemorrhagic ovarian cyst 01/24/2015 017 Incisional pain 09/11/2014 12/07/2016 Post-op bleeding 07/14/2014 09/11/2014 Uterine size date discrepancy 01/02/2013 Overview: Growth us ordered January 02, 2013 arrhythmia 11/29/2012 04/11/2013 Overview: Diagnosed 29 weeks- PAC seen in [place] for this also, spontaneously resolved and has been normal since, normal US Hydronephrosis 09/04/2012 11/19/2013 Right flank pain 09/04/2012 11/19/2013 Microscopic hematuria 09/04/2012 11/19/2013 Supervision of other normal 07/20/2012 04/11/2013 History of labor 06/15/2012 014 Overview: Delivered at 39 weeks 06/15/2012 Her previous child was delivered by Dr. Gagnon. She was hospitalized for one week at 7 months gestation for labor at [facility]. Patient signed a release of records to obtain her OB records from from her previous . H/O kidney disease 06/15/2012 04/11/2013 Overview: 08/17/12 - admitted to [facility] on 08/06 for pyelonephritis - KK 06/15/2012Patient states she was hospitalized for 5 days September 2010 for a kidney infection at [facility] in [place]. Discussed importance of reporting the onset of any symptoms of a UTI/kidney infection should it occur during . Patient states she had a backache yesterday. She denies any dysuria. She denies any pain today. Urine culture obtained per order of Dr. Rdz. Immunization due 06/15/2012 04/11/2013 Overview: 06/15/2012Tetanus vaccine is not up to date documented as of this encounter (statuses as of 12/30/2021) [facility] History of Past illness Narrative* Problem Noted Date Resolved Date Generalized abdominal pain 10/29/201512/07 Weight loss 10/29/2015 12/07/2016 Night sweats 10/29/2015 12/07/2016 Hemorrhagic ovarian cyst 01/24/2015 017 Incisional pain 09/11/2014 12/07/2016 Post-op bleeding 07/14/2014 09/11/2014 Uterine size date discrepancy 01/02/2013 Overview: Growth us ordered January 02, 2013 arrhythmia 11/29/2012 04/11/2013 Overview: Diagnosed 29 weeks- PAC seen in [place] for this also, spontaneously resolved and has been normal since, normal US Hydronephrosis 09/04/2012 11/19/2013 Right flank pain 09/04/2012 11/19/2013 Microscopic hematuria 09/04/2012 11/19/2013 Supervision of other normal 07/20/2012 04/11/2013 History of labor 06/15/2012 014 Overview: Delivered at 39 weeks 06/15/2012 Her previous child was delivered by Dr. Gagnon. She was hospitalized for one week at 7 months gestation for labor at [facility]. Patient signed a release of records to obtain her OB records from from her previous . H/O kidney disease 06/15/2012 04/11/2013 Overview: 08/17/12 - admitted to [facility] on 08/06 for pyelonephritis - KK 06/15/2012Patient states she was hospitalized for 5 days September 2010 for a kidney infection at [facility] in [place]. Discussed importance of reporting the onset of any symptoms of a UTI/kidney infection should it occur during . Patient states she had a backache yesterday. She denies any dysuria. She denies any pain today. Urine culture obtained per order of Dr. Rdz. Immunization due 06/15/2012 04/11/2013 Overview: 06/15/2012Tetanus vaccine is not up to date documented as of this encounter (statuses as of 12/30/2021) [facility] History of Past illness Narrative* Problem Noted Date Resolved Date Generalized abdominal pain 10/29/201512/07 Weight loss 10/29/2015 12/07/2016 Night sweats 10/29/2015 12/07/2016 Hemorrhagic ovarian cyst 01/24/2015 017 Incisional pain 09/11/2014 12/07/2016 Post-op bleeding 07/14/2014 09/11/2014 Uterine size date discrepancy 01/02/2013 Overview: Growth us ordered January 02, 2013 arrhythmia 11/29/2012 04/11/2013 Overview: Diagnosed 29 weeks- PAC seen in [place] for this also, spontaneously resolved and has been normal since, normal US Hydronephrosis 09/04/2012 11/19/2013 Right flank pain 09/04/2012 11/19/2013 Microscopic hematuria 09/04/2012 11/19/2013 Supervision of other normal 07/20/2012 04/11/2013 History of labor 06/15/2012 014 Overview: Delivered at 39 weeks 06/15/2012 Her previous child was delivered by Dr. Gagnon. She was hospitalized for one week at 7 months gestation for labor at [facility]. Patient signed a release of records to obtain her OB records from from her previous . H/O kidney disease 06/15/2012 04/11/2013 Overview: 08/17/12 - admitted to [facility] on 08/06 for pyelonephritis - KK 06/15/2012Patient states she was hospitalized for 5 days September 2010 for a kidney infection at [facility] in [place]. Discussed importance of reporting the onset of any symptoms of a UTI/kidney infection should it occur during . Patient states she had a backache yesterday. She denies any dysuria. She denies any pain today. Urine culture obtained per order of Dr. Rdz. Immunization due 06/15/2012 04/11/2013 Overview: 06/15/2012Tetanus vaccine is not up to date documented as of this encounter (statuses as of 12/31/2021) [facility] History of Past illness Narrative* Problem Noted Date Resolved Date Generalized abdominal pain 10/29/201512/07 Weight loss 10/29/2015 12/07/2016 Night sweats 10/29/2015 12/07/2016 Hemorrhagic ovarian cyst 01/24/2015 017 Incisional pain 09/11/2014 12/07/2016 Post-op bleeding 07/14/2014 09/11/2014 Uterine size date discrepancy 01/02/2013 Overview: Growth us ordered January 02, 2013 arrhythmia 11/29/2012 04/11/2013 Overview: Diagnosed 29 weeks- PAC seen in [place] for this also, spontaneously resolved and has been normal since, normal US Hydronephrosis 09/04/2012 11/19/2013 Right flank pain 09/04/2012 11/19/2013 Microscopic hematuria 09/04/2012 11/19/2013 Supervision of other normal 07/20/2012 04/11/2013 History of labor 06/15/2012 014 Overview: Delivered at 39 weeks 06/15/2012 Her previous child was delivered by Dr. Gagnon. She was hospitalized for one week at 7 months gestation for labor at [facility]. Patient signed a release of records to obtain her OB records from from her previous . H/O kidney disease 06/15/2012 04/11/2013 Overview: 08/17/12 - admitted to [facility] on 08/06 for pyelonephritis - KK 06/15/2012Patient states she was hospitalized for 5 days September 2010 for a kidney infection at [facility] in [place]. Discussed importance of reporting the onset of any symptoms of a UTI/kidney infection should it occur during . Patient states she had a backache yesterday. She denies any dysuria. She denies any pain today. Urine culture obtained per order of Dr. Rdz. Immunization due 06/15/2012 04/11/2013 Overview: 06/15/2012Tetanus vaccine is not up to date documented as of this encounter (statuses as of 12/31/2021) [facility] History of Past illness Narrative* Problem Noted Date Resolved Date Generalized abdominal pain 10/29/201512/07 Weight loss 10/29/2015 12/07/2016 Night sweats 10/29/2015 12/07/2016 Hemorrhagic ovarian cyst 01/24/2015 017 Incisional pain 09/11/2014 12/07/2016 Post-op bleeding 07/14/2014 09/11/2014 Uterine size date discrepancy 01/02/2013 Overview: Growth us ordered January 02, 2013 arrhythmia 11/29/2012 04/11/2013 Overview: Diagnosed 29 weeks- PAC seen in [place] for this also, spontaneously resolved and has been normal since, normal US Hydronephrosis 09/04/2012 11/19/2013 Right flank pain 09/04/2012 11/19/2013 Microscopic hematuria 09/04/2012 11/19/2013 Supervision of other normal 07/20/2012 04/11/2013 History of labor 06/15/2012 014 Overview: Delivered at 39 weeks 06/15/2012 Her previous child was delivered by Dr. Gagnon. She was hospitalized for one week at 7 months gestation for labor at [facility]. Patient signed a release of records to obtain her OB records from from her previous . H/O kidney disease 06/15/2012 04/11/2013 Overview: 08/17/12 - admitted to [facility] on 08/06 for pyelonephritis - KK 06/15/2012Patient states she was hospitalized for 5 days September 2010 for a kidney infection at [facility] in [place]. Discussed importance of reporting the onset of any symptoms of a UTI/kidney infection should it occur during . Patient states she had a backache yesterday. She denies any dysuria. She denies any pain today. Urine culture obtained per order of Dr. Rdz. Immunization due 06/15/2012 04/11/2013 Overview: 06/15/2012Tetanus vaccine is not up to date documented as of this encounter (statuses as of 01/01/2022) [facility] History of Past illness Narrative* Problem Noted Date Resolved Date Generalized abdominal pain 10/29/201512/07 Weight loss 10/29/2015 12/07/2016 Night sweats 10/29/2015 12/07/2016 Hemorrhagic ovarian cyst 01/24/2015 017 Incisional pain 09/11/2014 12/07/2016 Post-op bleeding 07/14/2014 09/11/2014 Uterine size date discrepancy 01/02/2013 Overview: Growth us ordered January 02, 2013 arrhythmia 11/29/2012 04/11/2013 Overview: Diagnosed 29 weeks- PAC seen in [place] for this also, spontaneously resolved and has been normal since, normal US Hydronephrosis 09/04/2012 11/19/2013 Right flank pain 09/04/2012 11/19/2013 Microscopic hematuria 09/04/2012 11/19/2013 Supervision of other normal 07/20/2012 04/11/2013 History of labor 06/15/2012 014 Overview: Delivered at 39 weeks 06/15/2012 Her previous child was delivered by Dr. Gagnon. She was hospitalized for one week at 7 months gestation for labor at [facility]. Patient signed a release of records to obtain her OB records from from her previous . H/O kidney disease 06/15/2012 04/11/2013 Overview: 08/17/12 - admitted to [facility] on 08/06 for pyelonephritis - KK 06/15/2012Patient states she was hospitalized for 5 days September 2010 for a kidney infection at [facility] in [place]. Discussed importance of reporting the onset of any symptoms of a UTI/kidney infection should it occur during . Patient states she had a backache yesterday. She denies any dysuria. She denies any pain today. Urine culture obtained per order of Dr. Rdz. Immunization due 06/15/2012 04/11/2013 Overview: 06/15/2012Tetanus vaccine is not up to date documented as of this encounter (statuses as of 03/31/2022) [facility] History of Past illness Narrative* Problem Noted Date Resolved Date Generalized abdominal pain 10/29/201512/07 Weight loss 10/29/2015 12/07/2016 Night sweats 10/29/2015 12/07/2016 Hemorrhagic ovarian cyst 01/24/2015 017 Incisional pain 09/11/2014 12/07/2016 Post-op bleeding 07/14/2014 09/11/2014 Uterine size date discrepancy 01/02/2013 Overview: Growth us ordered January 02, 2013 arrhythmia 11/29/2012 04/11/2013 Overview: Diagnosed 29 weeks- PAC seen in [place] for this also, spontaneously resolved and has been normal since, normal US Hydronephrosis 09/04/2012 11/19/2013 Right flank pain 09/04/2012 11/19/2013 Microscopic hematuria 09/04/2012 11/19/2013 Supervision of other normal 07/20/2012 04/11/2013 History of labor 06/15/2012 014 Overview: Delivered at 39 weeks 06/15/2012 Her previous child was delivered by Dr. Gagnon. She was hospitalized for one week at 7 months gestation for labor at [facility]. Patient signed a release of records to obtain her OB records from from her previous . H/O kidney disease 06/15/2012 04/11/2013 Overview: 08/17/12 - admitted to [facility] on 08/06 for pyelonephritis - KK 06/15/2012Patient states she was hospitalized for 5 days September 2010 for a kidney infection at [facility] in [place]. Discussed importance of reporting the onset of any symptoms of a UTI/kidney infection should it occur during . Patient states she had a backache yesterday. She denies any dysuria. She denies any pain today. Urine culture obtained per order of Dr. Rdz. Immunization due 06/15/2012 04/11/2013 Overview: 06/15/2012Tetanus vaccine is not up to date documented as of this encounter (statuses as of 04/28/2022) [facility] History of Past illness Narrative* Problem Noted Date Resolved Date Generalized abdominal pain 10/29/201512/07 Weight loss 10/29/2015 12/07/2016 Night sweats 10/29/2015 12/07/2016 Hemorrhagic ovarian cyst 01/24/2015 017 Incisional pain 09/11/2014 12/07/2016 Post-op bleeding 07/14/2014 09/11/2014 Uterine size date discrepancy 01/02/2013 Overview: Growth us ordered January 02, 2013 arrhythmia 11/29/2012 04/11/2013 Overview: Diagnosed 29 weeks- PAC seen in [place] for this also, spontaneously resolved and has been normal since, normal US Hydronephrosis 09/04/2012 11/19/2013 Right flank pain 09/04/2012 11/19/2013 Microscopic hematuria 09/04/2012 11/19/2013 Supervision of other normal 07/20/2012 04/11/2013 History of labor 06/15/2012 014 Overview: Delivered at 39 weeks 06/15/2012 Her previous child was delivered by Dr. Gagnon. She was hospitalized for one week at 7 months gestation for labor at [facility]. Patient signed a release of records to obtain her OB records from from her previous . H/O kidney disease 06/15/2012 04/11/2013 Overview: 08/17/12 - admitted to [facility] on 08/06 for pyelonephritis - KK 06/15/2012Patient states she was hospitalized for 5 days September 2010 for a kidney infection at [facility] in [place]. Discussed importance of reporting the onset of any symptoms of a UTI/kidney infection should it occur during . Patient states she had a backache yesterday. She denies any dysuria. She denies any pain today. Urine culture obtained per order of Dr. Rdz. Immunization due 06/15/2012 04/11/2013 Overview: 06/15/2012Tetanus vaccine is not up to date documented as of this encounter (statuses as of 05/10/2022) [facility] History of Past illness Narrative* Problem Noted Date Resolved Date Generalized abdominal pain 10/29/201512/07 Weight loss 10/29/2015 12/07/2016 Night sweats 10/29/2015 12/07/2016 Hemorrhagic ovarian cyst 01/24/2015 017 Incisional pain 09/11/2014 12/07/2016 Post-op bleeding 07/14/2014 09/11/2014 Uterine size date discrepancy 01/02/2013 Overview: Growth us ordered January 02, 2013 arrhythmia 11/29/2012 04/11/2013 Overview: Diagnosed 29 weeks- PAC seen in [place] for this also, spontaneously resolved and has been normal since, normal US Hydronephrosis 09/04/2012 11/19/2013 Right flank pain 09/04/2012 11/19/2013 Microscopic hematuria 09/04/2012 11/19/2013 Supervision of other normal 07/20/2012 04/11/2013 History of labor 06/15/2012 014 Overview: Delivered at 39 weeks 06/15/2012 Her previous child was delivered by Dr. Gagnon. She was hospitalized for one week at 7 months gestation for labor at [facility]. Patient signed a release of records to obtain her OB records from from her previous . H/O kidney disease 06/15/2012 04/11/2013 Overview: 08/17/12 - admitted to [facility] on 08/06 for pyelonephritis - KK 06/15/2012Patient states she was hospitalized for 5 days September 2010 for a kidney infection at [facility] in [place]. Discussed importance of reporting the onset of any symptoms of a UTI/kidney infection should it occur during . Patient states she had a backache yesterday. She denies any dysuria. She denies any pain today. Urine culture obtained per order of Dr. Rdz. Immunization due 06/15/2012 04/11/2013 Overview: 06/15/2012Tetanus vaccine is not up to date documented as of this encounter (statuses as of 05/11/2022) [facility] History of Past illness Narrative* Problem Noted Date Resolved Date Generalized abdominal pain 10/29/201512/07 Weight loss 10/29/2015 12/07/2016 Night sweats 10/29/2015 12/07/2016 Hemorrhagic ovarian cyst 01/24/2015 017 Incisional pain 09/11/2014 12/07/2016 Post-op bleeding 07/14/2014 09/11/2014 Uterine size date discrepancy 01/02/2013 Overview: Growth us ordered January 02, 2013 arrhythmia 11/29/2012 04/11/2013 Overview: Diagnosed 29 weeks- PAC seen in [place] for this also, spontaneously resolved and has been normal since, normal US Hydronephrosis 09/04/2012 11/19/2013 Right flank pain 09/04/2012 11/19/2013 Microscopic hematuria 09/04/2012 11/19/2013 Supervision of other normal 07/20/2012 04/11/2013 History of labor 06/15/2012 014 Overview: Delivered at 39 weeks 06/15/2012 Her previous child was delivered by Dr. Gagnon. She was hospitalized for one week at 7 months gestation for labor at [facility]. Patient signed a release of records to obtain her OB records from from her previous . H/O kidney disease 06/15/2012 04/11/2013 Overview: 08/17/12 - admitted to [facility] on 08/06 for pyelonephritis - KK 06/15/2012Patient states she was hospitalized for 5 days September 2010 for a kidney infection at [facility] in [place]. Discussed importance of reporting the onset of any symptoms of a UTI/kidney infection should it occur during . Patient states she had a backache yesterday. She denies any dysuria. She denies any pain today. Urine culture obtained per order of Dr. Rdz. Immunization due 06/15/2012 04/11/2013 Overview: 06/15/2012Tetanus vaccine is not up to date documented as of this encounter (statuses as of 06/22/2022) [facility] History of Past illness Narrative* Problem Noted Date Resolved Date Generalized abdominal pain 10/29/201512/07 Weight loss 10/29/2015 12/07/2016 Night sweats 10/29/2015 12/07/2016 Hemorrhagic ovarian cyst 01/24/2015 017 Incisional pain 09/11/2014 12/07/2016 Post-op bleeding 07/14/2014 09/11/2014 Uterine size date discrepancy 01/02/2013 Overview: Growth us ordered January 02, 2013 arrhythmia 11/29/2012 04/11/2013 Overview: Diagnosed 29 weeks- PAC seen in [place] for this also, spontaneously resolved and has been normal since, normal US Hydronephrosis 09/04/2012 11/19/2013 Right flank pain 09/04/2012 11/19/2013 Microscopic hematuria 09/04/2012 11/19/2013 Supervision of other normal 07/20/2012 04/11/2013 History of labor 06/15/2012 014 Overview: Delivered at 39 weeks 06/15/2012 Her previous child was delivered by Dr. Gagnon. She was hospitalized for one week at 7 months gestation for labor at [facility]. Patient signed a release of records to obtain her OB records from from her previous . H/O kidney disease 06/15/2012 04/11/2013 Overview: 08/17/12 - admitted to [facility] on 08/06 for pyelonephritis - KK 06/15/2012Patient states she was hospitalized for 5 days September 2010 for a kidney infection at [facility] in [place]. Discussed importance of reporting the onset of any symptoms of a UTI/kidney infection should it occur during . Patient states she had a backache yesterday. She denies any dysuria. She denies any pain today. Urine culture obtained per order of Dr. Rdz. Immunization due 06/15/2012 04/11/2013 Overview: 06/15/2012Tetanus vaccine is not up to date documented as of this encounter (statuses as of 08/12/2022) [place] [id number] History of Past illness Narrative* Problem Noted Date Resolved Date Generalized abdominal pain 10/29/201512/07 Weight loss 10/29/2015 12/07/2016 Night sweats 10/29/2015 12/07/2016 Hemorrhagic ovarian cyst 01/24/2015 017 Incisional pain 09/11/2014 12/07/2016 Post-op bleeding 07/14/2014 09/11/2014 Uterine size date discrepancy 01/02/2013 Overview: Growth us ordered January 02, 2013 arrhythmia 11/29/2012 04/11/2013 Overview: Diagnosed 29 weeks- PAC seen in [place] for this also, spontaneously resolved and has been normal since, normal US Hydronephrosis 09/04/2012 11/19/2013 Right flank pain 09/04/2012 11/19/2013 Microscopic hematuria 09/04/2012 11/19/2013 Supervision of other normal 07/20/2012 04/11/2013 History of labor 06/15/2012 014 Overview: Delivered at 39 weeks 06/15/2012 Her previous child was delivered by Dr. Gagnon. She was hospitalized for one week at 7 months gestation for labor at [facility]. Patient signed a release of records to obtain her OB records from from her previous . H/O kidney disease 06/15/2012 04/11/2013 Overview: 08/17/12 - admitted to [facility] on 08/06 for pyelonephritis - KK 06/15/2012Patient states she was hospitalized for 5 days September 2010 for a kidney infection at [facility] in [place]. Discussed importance of reporting the onset of any symptoms of a UTI/kidney infection should it occur during . Patient states she had a backache yesterday. She denies any dysuria. She denies any pain today. Urine culture obtained per order of Dr. Rdz. Immunization due 06/15/2012 04/11/2013 Overview: 06/15/2012Tetanus vaccine is not up to date documented as of this encounter (statuses as of 08/24/2022) [facility] History of Past illness Narrative* Problem Noted Date Resolved Date Generalized abdominal pain 10/29/201512/07 Weight loss 10/29/2015 12/07/2016 Night sweats 10/29/2015 12/07/2016 Hemorrhagic ovarian cyst 01/24/2015 017 Incisional pain 09/11/2014 12/07/2016 Post-op bleeding 07/14/2014 09/11/2014 Uterine size date discrepancy 01/02/2013 Overview: Growth us ordered January 02, 2013 arrhythmia 11/29/2012 04/11/2013 Overview: Diagnosed 29 weeks- PAC seen in [place] for this also, spontaneously resolved and has been normal since, normal US Hydronephrosis 09/04/2012 11/19/2013 Right flank pain 09/04/2012 11/19/2013 Microscopic hematuria 09/04/2012 11/19/2013 Supervision of other normal 07/20/2012 04/11/2013 History of labor 06/15/2012 014 Overview: Delivered at 39 weeks 06/15/2012 Her previous child was delivered by Dr. Gagnon. She was hospitalized for one week at 7 months gestation for labor at [facility]. Patient signed a release of records to obtain her OB records from from her previous . H/O kidney disease 06/15/2012 04/11/2013 Overview: 08/17/12 - admitted to [facility] on 08/06 for pyelonephritis - KK 06/15/2012Patient states she was hospitalized for 5 days September 2010 for a kidney infection at [facility] in [place]. Discussed importance of reporting the onset of any symptoms of a UTI/kidney infection should it occur during . Patient states she had a backache yesterday. She denies any dysuria. She denies any pain today. Urine culture obtained per order of Dr. Rdz. Immunization due 06/15/2012 04/11/2013 Overview: 06/15/2012Tetanus vaccine is not up to date documented as of this encounter (statuses as of 08/27/2022) [facility] History of Past illness Narrative* Problem Noted Date Resolved Date Generalized abdominal pain 10/29/201512/07 Weight loss 10/29/2015 12/07/2016 Night sweats 10/29/2015 12/07/2016 Hemorrhagic ovarian cyst 01/24/2015 017 Incisional pain 09/11/2014 12/07/2016 Post-op bleeding 07/14/2014 09/11/2014 Uterine size date discrepancy 01/02/2013 Overview: Growth us ordered January 02, 2013 arrhythmia 11/29/2012 04/11/2013 Overview: Diagnosed 29 weeks- PAC seen in [place] for this also, spontaneously resolved and has been normal since, normal US Hydronephrosis 09/04/2012 11/19/2013 Right flank pain 09/04/2012 11/19/2013 Microscopic hematuria 09/04/2012 11/19/2013 Supervision of other normal 07/20/2012 04/11/2013 History of labor 06/15/2012 014 Overview: Delivered at 39 weeks 06/15/2012 Her previous child was delivered by Dr. Gagnon. She was hospitalized for one week at 7 months gestation for labor at [facility]. Patient signed a release of records to obtain her OB records from from her previous . H/O kidney disease 06/15/2012 04/11/2013 Overview: 08/17/12 - admitted to [facility] on 08/06 for pyelonephritis - KK 06/15/2012Patient states she was hospitalized for 5 days September 2010 for a kidney infection at [facility] in [place]. Discussed importance of reporting the onset of any symptoms of a UTI/kidney infection should it occur during . Patient states she had a backache yesterday. She denies any dysuria. She denies any pain today. Urine culture obtained per order of Dr. Rdz. Immunization due 06/15/2012 04/11/2013 Overview: 06/15/2012Tetanus vaccine is not up to date documented as of this encounter (statuses as of 08/28/2022) [facility] History of Past illness Narrative* Problem Noted Date Diagnosed Date Resolved Date Generalized abdominal pain 10/29/2015 0 12/07/2016 Weight loss 10/29/2015 12/07/2016 Night sweats 10/29/2015 12/07/2016 Hemorrhagic ovarian cyst 01/24/201509/2016 Incisional pain 09/11/2014 12/07/2016 Post-op bleeding 07/14/2014 09/11/2014 Uterine size date discrepancy 01/02/2013 04/11/2013 Overview: Growth us ordered January 02, 2013 arrhythmia 11/29/2012 04/11/2013 Overview: Diagnosed 29 weeks- PAC seen in [place] for this also, spontaneously resolved and has been normal since, normal US Hydronephrosis 09/04/2012 11/19/2013 Right flank pain 09/04/2012 11/19/2013 Microscopic hematuria 09/04/20122013 Supervision of other normal 07/20/2012 04/11/2013 History of labor 06/15/2012 Overview: Delivered at 39 weeks 06/15/2012 Her previous child was delivered by Dr. Gagnon. She was hospitalized for one week at 7 months gestation for labor at [facility]. Patient signed a release of records to obtain her OB records from from her previous . H/O kidney disease 06/15/2012 3 Overview: 08/17/12 - admitted to [facility] on 08/06 for pyelonephritis - KK 06/15/2012Patient states she was hospitalized for 5 days September 2010 for a kidney infection at [facility] in [place]. Discussed importance of reporting the onset of any symptoms of a UTI/kidney infection should it occur during . Patient states she had a backache yesterday. She denies any dysuria. She denies any pain today. Urine culture obtained per order of Dr. Rdz. Immunization due 06/15/2012 04/11/2013 Overview: 06/15/2012Tetanus vaccine is not up to date documented as of this encounter (statuses as of 05/06/2023) [facility] History of Past illness Narrative* Problem Noted Date Diagnosed Date Resolved Date Generalized abdominal pain 10/29/2015 0 12/07/2016 Weight loss 10/29/2015 12/07/2016 Night sweats 10/29/2015 12/07/2016 Hemorrhagic ovarian cyst 01/24/201509/2016 Incisional pain 09/11/2014 12/07/2016 Post-op bleeding 07/14/2014 09/11/2014 Uterine size date discrepancy 01/02/2013 04/11/2013 Overview: Growth us ordered January 02, 2013 arrhythmia 11/29/2012 04/11/2013 Overview: Diagnosed 29 weeks- PAC seen in [place] for this also, spontaneously resolved and has been normal since, normal US Hydronephrosis 09/04/2012 11/19/2013 Right flank pain 09/04/2012 11/19/2013 Microscopic hematuria 09/04/20122013 Supervision of other normal 07/20/2012 04/11/2013 History of labor 06/15/2012 Overview: Delivered at 39 weeks 06/15/2012 Her previous child was delivered by Dr. Gagnon. She was hospitalized for one week at 7 months gestation for labor at [facility]. Patient signed a release of records to obtain her OB records from from her previous . H/O kidney disease 06/15/2012 3 Overview: 08/17/12 - admitted to [facility] on 08/06 for pyelonephritis - KK 06/15/2012Patient states she was hospitalized for 5 days September 2010 for a kidney infection at [facility] in [place]. Discussed importance of reporting the onset of any symptoms of a UTI/kidney infection should it occur during . Patient states she had a backache yesterday. She denies any dysuria. She denies any pain today. Urine culture obtained per order of Dr. Rdz. Immunization due 06/15/2012 04/11/2013 Overview: 06/15/2012Tetanus vaccine is not up to date documented as of this encounter (statuses as of 06/25/2023) [facility] History of Past illness Narrative* Problem Noted Date Diagnosed Date Resolved Date Generalized abdominal pain 10/29/2015 0 12/07/2016 Weight loss 10/29/2015 12/07/2016 Night sweats 10/29/2015 12/07/2016 Hemorrhagic ovarian cyst 01/24/201509/2016 Incisional pain 09/11/2014 12/07/2016 Post-op bleeding 07/14/2014 09/11/2014 Uterine size date discrepancy 01/02/2013 04/11/2013 Overview: Growth us ordered January 02, 2013 arrhythmia 11/29/2012 04/11/2013 Overview: Diagnosed 29 weeks- PAC seen in [place] for this also, spontaneously resolved and has been normal since, normal US Hydronephrosis 09/04/2012 11/19/2013 Right flank pain 09/04/2012 11/19/2013 Microscopic hematuria 09/04/20122013 Supervision of other normal 07/20/2012 04/11/2013 History of labor 06/15/2012 Overview: Delivered at 39 weeks 06/15/2012 Her previous child was delivered by Dr. Gagnon. She was hospitalized for one week at 7 months gestation for labor at [facility]. Patient signed a release of records to obtain her OB records from from her previous . H/O kidney disease 06/15/2012 3 Overview: 08/17/12 - admitted to [facility] on 08/06 for pyelonephritis - KK 06/15/2012Patient states she was hospitalized for 5 days September 2010 for a kidney infection at [facility] in [place]. Discussed importance of reporting the onset of any symptoms of a UTI/kidney infection should it occur during . Patient states she had a backache yesterday. She denies any dysuria. She denies any pain today. Urine culture obtained per order of Dr. Rdz. Immunization due 06/15/2012 04/11/2013 Overview: 06/15/2012Tetanus vaccine is not up to date documented as of this encounter (statuses as of 07/09/2023) [facility] History of Past illness Narrative* Problem Noted Date Diagnosed Date Resolved Date Generalized abdominal pain 10/29/2015 0 12/07/2016 Weight loss 10/29/2015 12/07/2016 Night sweats 10/29/2015 12/07/2016 Hemorrhagic ovarian cyst 01/24/201509/2016 Incisional pain 09/11/2014 12/07/2016 Post-op bleeding 07/14/2014 09/11/2014 Uterine size date discrepancy 01/02/2013 04/11/2013 Overview: Growth us ordered January 02, 2013 arrhythmia 11/29/2012 04/11/2013 Overview: Diagnosed 29 weeks- PAC seen in [place] for this also, spontaneously resolved and has been normal since, normal US Hydronephrosis 09/04/2012 11/19/2013 Right flank pain 09/04/2012 11/19/2013 Microscopic hematuria 09/04/20122013 Supervision of other normal 07/20/2012 04/11/2013 History of labor 06/15/2012 Overview: Delivered at 39 weeks 06/15/2012 Her previous child was delivered by Dr. Gagnon. She was hospitalized for one week at 7 months gestation for labor at [facility]. Patient signed a release of records to obtain her OB records from from her previous . H/O kidney disease 06/15/2012 3 Overview: 08/17/12 - admitted to [facility] on 08/06 for pyelonephritis - KK 06/15/2012Patient states she was hospitalized for 5 days September 2010 for a kidney infection at [facility] in [place]. Discussed importance of reporting the onset of any symptoms of a UTI/kidney infection should it occur during . Patient states she had a backache yesterday. She denies any dysuria. She denies any pain today. Urine culture obtained per order of Dr. Rdz. Immunization due 06/15/2012 04/11/2013 Overview: 06/15/2012Tetanus vaccine is not up to date documented as of this encounter (statuses as of 10/07/2023) [facility] Liz[facility] May 08, 2023 5:55am Note Date/Time May 08, 2023 5: 55am [facility] Medical Records Department [address] [place] [address] Emergency Department Summary 05/08/23 MR#: [id number] Acct: [id number] Name: ELIZA VALLADARES Rep #:[id number] : 1985 37 From: Devyn Lizarraga MD PCP: Dr. Jani Starkey MD Status:REG ER Location: ED HPI HPI - GI History of Present Illness Chief Complaint: Diarrhea Detail of Chief Complaint: Pain and diarrhea Informant: patient Abdominal Pain/Flank Pain Onset: Weeks (1 week) Context: Sudden Onset Timing: Intermittent and Waxes and wanes Quality: Aching and Cramping Location: Epigastric and RUQ Current Severity: Moderate Maximum Severity: Severe Worsened by: Not Worsened By Car ride, Food or Movement Relieved by: Nothing; Not Relieved By Antacids, Food or Remaining Still Nausea/Vomiting/Emesis GI Symptom: Positive for Nausea; Negative for Vomiting Diarrhea/Melena/Hematochezia GI Symptom: Positive for Diarrhea; Negative for Melena or Hematochezia Onset: Weeks (Week. Between 5-8 times a day) Stool Quality: Positive for Loose, Watery and Mucous; Negative for Black, Maroonor BRB per rectum Severity: Moderate Associated Symptoms Associated Symptoms: Negative for Dysuria, Frequency, Hematuria or Urgency Narrative Narrative: Patient is a 37-year-old female who presents with abdominal discomfort that is in the right upper quadrant epigastric area. She states this reminds her of pain that she experienced prior to her cholecystectomy. She denies blood with her diarrhea. She does report mucus. She does have history of IBS. There is no family history nor does she have history of Crohn's disease or ulcerative colitis. She denies urologic symptoms. She denies dermatologic symptoms. She denies plaints. She states the diarrhea is worse if she eats. Prior similar symptoms: No Recent Illness/Hospitalization: No PFSH PFSH Medical History Abdominal pain of unknown etiology Acute sinusitis, unspecified Anemia Anxiety BRBPR (bright red blood per rectum) Cardiology follow-up encounter Cellulitis of lower back Cephalgia Cervical lymphadenitis Cervical strain Contact with and (suspected) exposure to other viral communicable diseases Contact with and (suspected) exposure to other viral communicable diseases Depression GERD (gastroesophageal reflux disease) Hematuria History of echocardiogram History of IBS Hx of sinus tachycardia Migraine Migraine headache Nausea Nicotine dependence Postauricular lymphadenopathy PTSD (post-traumatic stress disorder) Right shoulder strain Situational depression Smoker URI (upper respiratory infection) Urinary frequency Wears dentures Home Medications lorazepam 1 mg tablet (Ativan) 1 mg PO BID PRN anxiety #30 tabs 11/08/22 [Rx Last Taken Unknown] Allergy/AdvReac Type Severity Reaction Status Date / Time ketorolac tromethamine Allergy Hives Verified 05/08/23 01:12 [From Toradol] sumatriptan [From Imitrex] Allergy Anaphylaxis Verified 05/08/23 01:12 sumatriptan succinate Allergy Anaphylaxis Verified 05/08/23 01:12 [From Imitrex] tramadol HCl [From Ultram] Allergy Hives Verified 05/08/23 01:12 epinephrine AdvReac Other Verified 05/08/23 01:12 morphine AdvReac Other Verified 05/08/23 01:12 procaine [From Novocain] AdvReac Other Verified 05/08/23 01:12 Family History Mother Hypertension High cholesterol Grandmother Diabetes Hypertension afib Father Hypertension High cholesterol Grandfather Cancer skin Hypertension Afib Grandmother Hypertension afib Colon cancer Diabetes Surgical History H/O: hysterectomy History of bilateral salpingectomy History of cholecystectomy History of colonoscopy History of left oophorectomy History of right oophorectomy History of shoulder surgery Hx laparoscopic cholecystectomy Hx of colonoscopy Social History Smoking Status: Current every day smoker tobacco type: cigarettes Tobacco: How many years used: 8 second hand exposure: Yes alcohol intake: never substance use type: does not use caffeine: Yes (2) Type: carbonated beverages what type of physical activity do you participate in: none seatbelt use: always do you feel safe at home: Yes 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 difficile or infectious diarrhea. ; Denies constipation, melena or vomiting Genitourinary Genitourinary ED: Denies dysuria, hematuria or urinary frequency Musculoskeletal Musculoskeletal: Denies arthralgias or myalgias Integumentary Denies rash Neurologic Neurologic: Reports weakness; Denies headache(s) or paresthesias Endocrine Endocrinology: Denies polydipsia or polyphagia Hematologic/Lymphatic Hematologic/Lymphatic: Denies easy bleeding or easy bruising EXAM Physical Exam Const Vital Signs: 05/08/23 01:04 Temperature 97.9 F Temperature Source Temporal Pulse Rate 102 H Respiratory Rate 15 Blood Pressure 143/72 H Blood Pressure Mean 95 Pulse Ox 100 Oxygen Delivery Method Room Air Positive well nourished and well developed Constitutional Narrative: Does not appear well. She does not appear toxic. She does not appear to be in pain or distress at this time. General Appearance ED: well developed; Negative for pallor HEENT Reports TM's clear and dry mucous membranes normocephalic and atraumatic Tympanic Membrane ED: Yes TM's clear Mouth ED: Yes dry mucous membranes Mouth: dry mucous membranes Eyes PERRL and EOMs intact bilaterally General Eye ED: Negative for pale conjunctiva or scleral icterus Neck no lymphadenopathy, supple and no JVD Resp normal respiratory effort and clear to auscultation bilaterally Cardio regular rate, regular rhythm, S1 normal heart sound, S2 normal heart sound and no murmurs GI non-distended and no masses Auscultation: hypoactive bowel sounds Palpation: soft and tender RUQ Back/Spine no CVA tenderness Extremity full ROM General Extremety ED: Negative for edema or tenderness General Extremity: Negative for edema Neuro CN's II-XII intact bilaterally, moves all extremities and no sensory deficits noted Sensorium / Orientation: alert Motor Exam: strength 5/5 throughout Psych thought process normal Psych Narrative: Patient appears slightly depressed. Skin no wounds General Skin Exam: Negative for jaundice or pallor Lesions: no lesions Rashes: no rashes MDM MDM MDM Narrative Medical decision making narrative: This may represent inflammatory bowel disorder, infectious diarrhea including bacterial and viral. Patient may be slightly dehydrated. CBC was obtained to assess white count and determine if there is any eosinophilia which would increase likelihood of parasitic infection. If patient is able to give a stool specimen we will send for stool enteric pathogen since her diarrhea has been greater than 7 days. Basic metabolic panel was obtained assess electrolytes andfecal for hypokalemia as well as renal function. Patient's CV the normal. BMP is normal. Lab Data Attestation: I reviewed the patient's lab results. Lab results narrative: CBC is unremarkable. BMP is unremarkable. Glucose is 111 with normal CO2 aniongap. Labs: Laboratory Results - last 24 hr 05/08/23 01:30 WBC 8.6 RBC 5.50 H Hgb 15.5 H Hct 46.7 MCV 84.9 MCH 28.2 MCHC 33.2 RDW Std Deviation 41.0 RDW Coeff of Marian 13.2 Plt Count 313 MPV 10.0 Immature Gran % (Auto) 0.200 Neut % (Auto) 52.5 Lymph % (Auto) 37.0 [place] % (Auto) 6.5 Eos % (Auto) 3.1 Baso % (Auto) 0.7 Absolute Neuts (auto) 4.5 Absolute Lymphs (auto) 3.19 Nucleated RBC % 0 Sodium 140 Potassium 3.5 Chloride 107 Carbon Dioxide 29.0 Anion Gap 4 L BUN 11 Creatinine 0.76 Est GFR (MDRD) Af Amer 110 Est GFR (MDRD) Non-Af 91 BUN/Creatinine Ratio 14.5 Glucose 111 H Calcium 9.5 Treatment and Re-Evaluation :: Went to reassess her at 0546 was noted that she was not in the room and her gownwas on the chair next to her bed. Patient had left prior to me informing her that her blood work was unremarkable and that she will be discharged home to follow-up with her doctor. Discharge Plan Triage Chief Complaint: Diarrhea ED Provider: Devyn Lizarraga Dx/Rx/DC Orders Clinical Impression: Abdominal pain, Nicotine dependence, Diarrhea Instructions: ED Diarrhea, Unknown Cause Prescriptions: No Action lorazepam [Ativan] 1 mg tablet 1 mg PO BID PRN (Reason: anxiety) Qty: 30 0RF Primary Care Provider: Jani Starkey Referrals: Jani Starkey MD [Primary Care Provider] - 3-5 Days if not improving Disposition Disposition: Home, Self Care What to do if you have Problems For any increased pain, shortness of breath, bleeding, nausea or vomiting, chestpain, or any unexpected problems, contact your Primary Care Provider. Call [facility] ([phone]) or report to the closest Emergency Room. Call 911 if necessary. 05/08/23 0555 <Electronically signed by Devyn Lizarraga MD> Cosigner Signature (if applicable): CC: Dr. Jani Starkey MD ~ Signed [facility] Work Phone: evaluation note* Diagnosis Sprain of right wrist, initial encounter- Primary documented in this encounter [facility] note* Diagnosis Onset Date Resolution Status Cervical strain acute Right shoulder strain acute [facility] Work Phone: Evaluation note* Diagnosis Hospital discharge follow-up- Primary Other follow-up examination Acute intractable headache, unspecified headache type Chronic mixed headache syndrome Other headache syndromes documented in this encounter [facility] note* Diagnosis Onset Date Resolution Status Cervical strain acute Right shoulder strain acute Cellulitis of lower back acu te [facility] Work Phone: evaluation note* Diagnosis Fever, unspecified fever cause- Primary documented in this encounter [facility] note* Diagnosis Acute intractable headache, unspecified headache type- Primary documented in this encounter [facility] note* Diagnosis Acute intractable headache, unspecified headache type documented in this encounter [facility] note* Diagnosis Proteinuria, unspecified type- Primary Encounter for lipid screening for cardiovascular disease Screening for lipoid disorders Screening for diabetes mellitus Need for hepatitis C screening test Special screening examination for other specified viral diseases documented in this encounter [facility] note* Diagnosis Anxiety Anxiety state, unspecified documented in this encounter [facility] note* Diagnosis Foot pain, right- Primary Pain in limb documented in this encounter [facility] note* Diagnosis Repetitive stress injury- Primary Unspecified site of sprain and strain Foot pain, right Pain in limb Pes cavus Talipes cavus documented in this encounter [facility] note* Diagnosis Foot pain, right Pain in limb Repetitive stress injury Unspecified site of sprain and strain Pes cavus Talipes cavus documented in this encounter [facility] note* Diagnosis Onset Date Resolution Status Patellofemoral syndrome of left knee noneactive Cephalgia acute Cervical lymphadenitis acute Contact with and (suspected) exposure to other viral communicable diseases acute URI (upper respiratory infection) acute Cellulitis acute Cervical pain acute Cervical paraspinal muscle spasm acute Strain of right levator scapulae muscle acute [facility] Work Phone: Evaluation note* Diagnosis Pustule- Primary Unspecified local infection of skin and subcutaneous tissue documented in this encounter [facility] note* Diagnosis Onset Date Resolution Status Cellulitis acute Cervical pain acute Cervical paraspinal muscle spasm acute Strain of right levator scapulae muscle acute Pustule acute Acute sinusitis, unspecified acute Contact with and (suspected) exposure to other viral communicable diseases acute Encounter for routine gynecological examination noneactive [facility] Work Phone: Evaluation note* Diagnosis Ingrown left greater toenail- Primary Syndactyly of toes of both feet documented in this encounter [facility] note* Diagnosis Ingrown right greater toenail- Primary Open wound of great toe, left, sequela documented in this encounter [facility] note* Diagnosis URI, acute- Primary Acute upper respiratory infections of unspecified site Gastroenteritis Other and unspecified noninfectious gastroenteritis and colitis Pharyngitis, unspecified etiology Suspected COVID-19 virus infection documented in this encounter [facility] note* Diagnosis Onset Date Resolution Status Ingrown toenail of left foot acute Hematuria acute Postauricular lymphadenopathy acute Urinary frequency acute [facility] Work Phone: Evaluation note* Diagnosis Onset Date Resolution Status Hematuria acute Postauricular lymphadenopathy acute Urinary frequency acute Cervical radiculopathy nonea ctive [facility] Work Phone: Evaluation note* Diagnosis URI, acute- Primary Acute upper respiratory infections of unspecified site Sore throat Acute pharyngitis [facility] Diagnosis Well adult exam- Primary Routine general medical examination at a health care facility Anxiety Anxiety state, unspecified Palpitations Gastroesophageal reflux disease without esophagitis Esophageal reflux Lymphadenopathy Enlargement of lymph nodes Marijuana use Cannabis abuse, unspecified Irritable bowel syndrome with diarrhea Irritable bowel syndrome DDD (degenerative disc disease), cervical Degeneration of cervical intervertebral disc Spinal stenosis, cervical region Encounter for screening for diabetes mellitus Screening for diabetes mellitus Encounter for lipid screening for cardiovascular disease Screening for lipoid disorders Medication management Encounter for long-term (current) use of other medications [facility] Pain in left toe(s)- Primary Pain in left toe(s) [facility] Diagnosis Anxiety- Primary Anxiety state, unspecified Annual physical exam Routine general medical examination at a health care facility Pain in left toe(s) [facility] Anxiety- Primary Anxiety state, unspecified Annual physical exam Routine general medical examination at a health care facility Acute otitis media, left- Primary Unspecified otitis media Viral URI with cough Acute upper respiratory infections of unspecified site [facility] Diagnosis Anxiety- Primary Anxiety state, unspecified Annual physical exam Routine general medical examination at a health care facility Tachycardia- Primary Tachycardia, unspecified [facility] Diagnosis Anxiety- Primary Anxiety state, unspecified Annual physical exam Routine general medical examination at a health care facility Foot pain, right Pain in limb [facility] Attachments The following attachments cannot be sent through Care Everywhere. * Wrist Sprain (Grenadian) * RICE: General Info (Grenadian) [facility] Additional Instructions Please take your antibiotic as directed and if you notice worsening of the redness lymphangitic streaking or develop a fever over 100.4 despite being on antibiotics please [facility] the [facility] Diagnostic Procedure Only (Routine) - Closed Specialty Diagnoses / Procedures Referred By Contac t Referred To Contact XR IMAGING Diagnoses Foot pain, right Repetitive stress injury Pes cavus Procedures XR FOOT GENERAL 3V AP/LAT/OBL RIGHT RADEX FOOT COMPLETE MINIMUM 3 VIEWS Steven Mejía [address] [place] [address] Xr Imaging Referral ID Status Reason Start Date Expiration Date V isits Requested Visits Authorized [id number] Closed Auto-Generate d Referral 05/10/2022 06/09/2023 1 1 [facility] for referral (narrative)* Diagnostic Procedure Only (Routine) - Closed Specialty Diagnoses / Procedures Referred By Contac t Referred To Contact XR IMAGING Diagnoses Foot pain, right Repetitive stress injury Pes cavus Procedures XR FOOT GENERAL 3V AP/LAT/OBL RIGHT RADEX FOOT COMPLETE MINIMUM 3 VIEWS Steven Mejía [address] [place] [address] Xr Imaging Referral ID Status Reason Start Date Expiration Date V isits Requested Visits Authorized [id number] Closed Auto-Generate d Referral 05/10/2022 06/09/2023 1 1 [facility] for referral (narrative)* Diagnostic Procedure Only (Urgent) - Closed Specialty Diagnoses / Procedures Referred By Contac t Referred To Contact XR IMAGING Diagnoses Pain in left toe(s) Procedures XR TOE AP/LAT/OBL LEFT RADEX TOE MINIMUM 2 VIEWS Meagan Mejia PA [address] [place] [address] [place] [id number] Referral ID Status Reason Start Date Expiration Date V isits Requested Visits Authorized [id number] Closed Auto-Generate d Referral 02/06/2024 03/07/2025 1 1 [facility] for referral (narrative)* Diagnostic Procedure Only (Urgent) - Closed Specialty Diagnoses / Procedures Referred By Contac t Referred To Contact XR IMAGING Diagnoses Pain in left toe(s) Procedures XR TOE AP/LAT/OBL LEFT RADEX TOE MINIMUM 2 VIEWS Meagan Mejia PA [address] [place] [address] [place] [address] Referral ID Status Reason Start Date Expiration Date V isits Requested Visits Authorized [id number] Closed Auto-Generate d Referral 02/06/2024 03/07/2025 1 1 [facility] for referral (narrative)* Diagnostic Procedure Only (Urgent) - Closed Specialty Diagnoses / Procedures Referred By Contac t Referred To Contact XR IMAGING Diagnoses Foot pain, right Procedures XR FOOT GENERAL 3V AP/LAT/OBL RIGHT RADEX FOOT COMPLETE MINIMUM 3 VIEWS Diane Rivera PA-C [address] [place] [address] [place] [address] Referral ID Status Reason Start Date Expiration Date V isits Requested Visits Authorized [id number] Closed Auto-Generate d Referral 04/28/2022 05/28/2023 1 1 [facility] for visit Narrative* Diagnostic Procedure Only (Routine) - Closed Specialty Diagnoses / Procedures Referred By Contac t Referred To Contact XR IMAGING Diagnoses Foot pain, right Repetitive stress injury Pes cavus Procedures XR FOOT GENERAL 3V AP/LAT/OBL RIGHT RADEX FOOT COMPLETE MINIMUM 3 [place] [place] [place] [address] Xr Imaging Referral ID Status Reason Start Date Expiration Date V isits Requested Visits Authorized [id number] Closed Auto-Generate d Referral 05/10/2022 06/09/2023 1 1 [facility] for visit Narrative* Diagnostic Procedure Only (Urgent) - Closed Specialty Diagnoses / Procedures Referred By Contac t Referred To Contact XR IMAGING Diagnoses Pain in left toe(s) Procedures XR TOE AP/LAT/OBL LEFT RADEX TOE MINIMUM 2 VIEWS Meagan Mejia PA [address] [place] [address] [place] [address] Referral ID Status Reason Start Date Expiration Date V isits Requested Visits Authorized [id number] Closed Auto-Generate d Referral 02/06/2024 03/07/2025 [facility] Diagnostic Procedure Only (Urgent) - Closed Specialty Diagnoses / Procedures Referred By Contac t Referred To Contact XR IMAGING Diagnoses Foot pain, right Procedures XR FOOT GENERAL 3V AP/LAT/OBL RIGHT RADEX FOOT COMPLETE MINIMUM 3 VIEWS Diane Rivera PA-C [address] [place] [address] [place] [address] Referral ID Status Reason Start Date Expiration Date V isits Requested Visits Authorized [id number] Closed Auto-Generate d Referral 04/28/2022 05/28/2023 1 1 [facility] Summary Purpose Family History No Family History Records Found Relationship Condition Age at Onset Recorded Date/T tamim mother Hypertension Unknown High blood cholesterol Unknown grandmother Diabetes mellitus Unknown Hypertension Unknown father Hypertension Unknown grandfather Malignant neoplasm Unknown grandmother Hypertension Unknown Malignant neoplasm of colon Unknown Diabetes mellitus Unknown Advance Directives No Advanced Directives Records FoundDocuments on File Type Date Recorded Patient Etiologist Expl anation Advance Directives and Livin g Will 02/14/2021 5:07 PM Advance Directive Response Recorded Date/ Time Advance Directives No April 10:19am Living Will No December 04, 2021 11:53pm Power of Ergonomic Specialist No December 04 11:53pm Documents on File Type Date Recorded Patient Etiologist Expl anation Advance Directive(s) 01/28/2016 6:49 AM Advance Directive Response Recorded Date/ Time Advance Directives No April 10:19am Living Will No December 25, 2021 7 :07pm Power of Ergonomic Specialist No December 25, 2021 7:07pm Documents on File Type Date Recorded Patient Etiologist Expl anation Advance Directive(s) 01/28/2016 6:49 AM Advance Directive Response Recorded Date/ Time Advance Directives No April 9:19am Living Will No June 18 022 10:47pm Power of Ergonomic Specialist No June 18, 2022 10:47pm Advance Directive Response Recorded Date/ Time Advance Directives No April 10:19am Living Will No May 08 3 1:10am Power of Ergonomic Specialist No May 08 023 1:10am Advance Directive Response Recorded Date/ Time Advance Directives No April 9:19am Living Will No May 08 3 12:10am Power of Ergonomic Specialist No May 08 12:10am Chief Complaint and Reason for Visit Chief Complaint R SHOULDER PAIN HEADACHE Reason for Visit Cervical strain Right shoulder strain Chief Complaint R SHOULDER PAIN HEADACHE LACERATION LEFT FLANK WOUND Reason for Visit Cervical strain Right shoulder strain Cellulitis of lower back Chief Complaint LEFT KNEE KNOT IN NECK vaginal bumps with drainage RIGHT SHOULDER Rm 1 xray WOUND Reason for Visit Patellofemoral syndr ome of left knee Cephalgia Cervical lymphadenitis Contact with and (suspected) exposure to other viral communicable diseases URI (upper respiratory infection) Cellulitis Cervical pain Cervical paraspinal muscle spasm Strain of right levator scapulae muscle Chief Complaint vaginal bumps with d rainage RIGHT SHOULDER Rm 1 xray WOUND RIGHT KNEE 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) Reason for Visit Cellulitis Cervical pain Cervical paraspinal muscle spasm Strain of right levator scapulae muscle Pustule Acute sinusitis, unspecified Contact with and (suspected) exposure to other viral communicable diseases Encounter for routine gynecological examination Chief Complaint LEFT TOE INFECTION SORE THROAT/FEVER/LEFT EAR PAIN NAUSEA, DIARRHEA Reason for Visit Ingrown toenail of l eft foot Hematuria Postauricular lymphadenopathy Urinary frequency Chief Complaint SORE THROAT/FEVER/LE FT EAR PAIN NAUSEA, DIARRHEA RIGHT WRIST RM 2 CERVICAL RADICULOPATHY CERVICAL RADICULOPATHY Reason for Visit Hematuria Postauricular lymphadenopathy Urinary frequency Cervical radiculopathy Chief Complaint SORE THROAT/FEVER/LE FT EAR PAIN NAUSEA, DIARRHEA RIGHT WRIST RM 2 CERVICAL RADICULOPATHY CERVICAL RADICULOPATHY CERVICAL RAD Reason for Visit Hematuria Postauricular lymphadenopathy Urinary frequency Cervical radiculopathy Reason for Referral Specialty Diagnoses / Procedures Referred By Contac t Referred To Contact MR IMAGING Diagnoses Acute intractable headache, unspecified headache type Procedures MRA BRAIN WO/W IVCON MRA; HEAD W & WO CONTRAST Zonia Bal, ROC.TALENT SOURCING SPECIALIST [address] [place] [address] Mr Imaging Referral ID Status Reason Start Date Expiration Date Visits Requested Visits Authorized [id number] Additional Clinical Info Needed Auto-Generat ed Referral 12/14/2021 01/13/2023 1 1 Specialty Diagnoses / Procedures Referred By Contac t Referred To Contact MR IMAGING Diagnoses Acute intractable headache, unspecified headache type Procedures MRA BRAIN WO IVCON MRA, HEAD W/O CONTRAST Zonia Bal, CASTING MACHINE OPERATOR HELPER.TALENT SOURCING SPECIALIST [address] [place] [address] Mr Imaging Referral ID Status Reason Start Date Expiration Date V isits Requested Visits Authorized [id number] Closed Auto-Generate d Referral 12/15/2021 02/13/2022 1 1 Specialty Diagnoses / Procedures Referred By Contac t Referred To Contact Podiatry Diagnoses Foot pain, right Procedures CONSULT TO PODIATRY OFFICE/OUTPATIENT [facility] 60-74 MINUTES Diane Rivera PA-C [address] [place] [address] Referral ID Status Reason Start Date Expiration Date Visits Requested Visits Authorized [id number] Authorized PCP Requested Referral 04/28/2022 04/28/2023 1 1 Specialty Diagnoses / Procedures Referred By Contac t Referred To Contact XR IMAGING Diagnoses Foot pain, right Procedures XR FOOT GENERAL 3V AP/LAT/OBL RIGHT RADEX FOOT COMPLETE MINIMUM 3 VIEWS Diane Rivera PA-C [address] [place] [address] Xr Imaging Referral ID Status Reason Start Date Expiration Date V isits Requested Visits Authorized [id number] Closed Auto-Generate d Referral 04/28/2022 05/28/2023 1 1 Additional Source Comments INFORMATION SOURCE (unrecogn ized section and content) DATE CREATED AUTHOR 10/10/2018 [facility] DATE CREATED AUTHOR AUTHOR'S ORGANIZ ATION 10/12/2018 [facility] DATE CREATED AUTHOR AUTHOR'S ORGANIZ ATION 11/12/2020 [facility] DATE CREATED AUTHOR AUTHOR'S ORGANIZ ATION 12/07/2021 [facility] DATE CREATED AUTHOR AUTHOR'S ORGANIZ ATION 08/08/2022 [facility] DATE CREATED AUTHOR AUTHOR'S ORGANIZ ATION 02/11/2023 [facility] DATE CREATED AUTHOR AUTHOR'S ORGANIZ ATION 11/29/2024 [facility] DATE CREATED AUTHOR AUTHOR'S ORGANIZ ATION 06/07/2025 [facility] DATE CREATED AUTHOR AUTHOR'S ORGANIZ ATION 06/20/2025 [facility] Reason for Visit (unrecogniz ed section and content) Reason Comments Wrist Pain Reason Comments Acute Visit neck pain and headac hes Reason Comments Diarrhea Pt denied blood, muc us reported ER Visit [facility] Fever dizziness, nausea cu rrently ATB cellulitis Now Clinic Follow Up cut on (LT) flank x1 week pain w/ mvmt rated 9 Tdap 06/2013 Reason Comments Patient Question Patient Update Reason Comments Orders Reason Comments Results Specialty Diagnoses / Procedures Referred By Contac t Referred To Contact MR IMAGING Diagnoses Acute intractable headache, unspecified headache type R51.9 (ICD-10-CM) - Acute intractable headache, unspecified headache type Procedures MRA BRAIN WO/W IVCON MRA; HEAD W & WO CONTRAST MRA BRAIN WO/W IVCON Zonia Bal, ROC.TALENT SOURCING SPECIALIST [address] [place] [address] Mr Imaging Referral ID Status Reason Start Date Expiration Date V isits Requested Visits Authorized [id number] Closed Auto-Generate d Referral 12/15/2021 02/13/2022 1 1 Reason Comments ER F/U [facility] Reason Comments Medication Request Reason Comments Pain (foot) R foot pain x6 weeks , no known cause Reason Comments New Pain Specialty Diagnoses / Procedures Referred By Contac t Referred To Contact Podiatry Diagnoses Foot pain, right Procedures CONSULT TO PODIATRY OFFICE/OUTPATIENT NEW HIGH MDM 60-74 MINUTES Diane Rivera, PA-C [address] [place] [address] Referral ID Status Reason Start Date Expiration Date V isits Requested Visits Authorized [id number] Closed PCP Requested Referral 04/28/2022 04/28/2023 1 1 Reason Comments Information Reason Comments Flank Pain Reason Comments Rash Pt reported raised, red area located on lower mouth, reported same areas intermittent on leg, groin, eyebrow, x2 mths. Reason Comments Patient Question Reason Comments Ingrown Toenail L great toe nail ing rown and infected x 3 wks - pt states that the toe became painful and she went to urgent care and was on anitbiotics but it did not get better - pt went to different urgent care and they tried to remove some of the nail but couldn't and placed her on bactrim but pt has not picked it up yet Reason Comments Post-op Post op left hallux. Possible nail procedure on right hallux. Reason Comments Sore Throat Reason Comments Outside EMG/[facility] Reason Comments Outside Ortho Reason Comments Sore Throat Headache, gland pain on R side, nausea, fatigue, chills x 2 days Reason Comments Physical Reason Comments toe pain 3rd toe on left foot hurts-fell yesterday Reason Comments Sinus Problem sinus pressure, drai nage, fever x 3 days Reason Comments ER Discharge Summary Reason Comments Outside [facility] Ordered Reason Comments Results LAB outside Reason Comments Outside H&P Goals (unrecognized section and content) Goals may be documented in a n alternate sectionGoals may be documented in an alternate sectionGoals may be documented in an alternate sectionGoals may be documented in an alternate sectionGoals may be documented in an alternate sectionGoals may be documented in an alternate sectionGoals may be documented in an alternate section Source Comments (unrecognize d section and content) In the event this informatio n is protected by the Federal Confidentiality of Alcohol and Drug Abuse Patient Records regulations: The Federal rules restrict any use of the information to criminally investigate or prosecute any alcohol or drug abuse patient.[facility] Hospital[facility] the event this information is protected by the Federal Confidentiality of Alcohol and Drug Abuse Patient Records regulations: The Federal rules restrict any use of the information to criminally investigate or prosecute any alcohol or drug abuse patient.[facility] HospitalIn the event this information is protected by the Federal Confidentiality of Alcohol and Drug Abuse Patient Records regulations: The Federal rules restrict any use of the information to criminally investigate or prosecute any alcohol or drug abuse patient.[facility] HospitalIn the event this information is protected by the Federal Confidentiality of Alcohol and Drug Abuse Patient Records regulations: The Federal rules restrict any use of the information to criminally investigate or prosecute any alcohol or drug abuse patient.[facility] HospitalIn the event this information is protected by the Federal Confidentiality of Alcohol and Drug Abuse Patient Records regulations: The Federal rules restrict any use of the information to criminally investigate or prosecute any alcohol or drug abuse patient.[facility] HospitalIn the event this information is protected by the Federal Confidentiality of Alcohol and Drug Abuse Patient Records regulations: The Federal rules restrict any use of the information to criminally investigate or prosecute any alcohol or drug abuse patient.[facility] HospitalIn the event this information is protected by the Federal Confidentiality of Alcohol and Drug Abuse Patient Records regulations: The Federal rules restrict any use of the information to criminally investigate or prosecute any alcohol or drug abuse patient.[facility] HospitalIn the event this information is protected by the Federal Confidentiality of Alcohol and Drug Abuse Patient Records regulations: The Federal rules restrict any use of the information to criminally investigate or prosecute any alcohol or drug abuse patient.[facility] HospitalIn the event this information is protected by the Federal Confidentiality of Alcohol and Drug Abuse Patient Records regulations: The Federal rules restrict any use of the information to criminally investigate or prosecute any alcohol or drug abuse patient.[facility] HospitalIn the event this information is protected by the Federal Confidentiality of Alcohol and Drug Abuse Patient Records regulations: The Federal rules restrict any use of the information to criminally investigate or prosecute any alcohol or drug abuse patient.[facility] HospitalIn the event this information is protected by the Federal Confidentiality of Alcohol and Drug Abuse Patient Records regulations: The Federal rules restrict any use of the information to criminally investigate or prosecute any alcohol or drug abuse patient.[facility] HospitalIn the event this information is protected by the Federal Confidentiality of Alcohol and Drug Abuse Patient Records regulations: The Federal rules restrict any use of the information to criminally investigate or prosecute any alcohol or drug abuse patient.[facility] HospitalIn the event this information is protected by the Federal Confidentiality of Alcohol and Drug Abuse Patient Records regulations: The Federal rules restrict any use of the information to criminally investigate or prosecute any alcohol or drug abuse patient.[facility] HospitalIn the event this information is protected by the Federal Confidentiality of Alcohol and Drug Abuse Patient Records regulations: The Federal rules restrict any use of the information to criminally investigate or prosecute any alcohol or drug abuse patient.[facility] HospitalIn the event this information is protected by the Federal Confidentiality of Alcohol and Drug Abuse Patient Records regulations: The Federal rules restrict any use of the information to criminally investigate or prosecute any alcohol or drug abuse patient.[facility] HospitalIn the event this information is protected by the Federal Confidentiality of Alcohol and Drug Abuse Patient Records regulations: The Federal rules restrict any use of the information to criminally investigate or prosecute any alcohol or drug abuse patient.[facility] HospitalIn the event this information is protected by the Federal Confidentiality of Alcohol and Drug Abuse Patient Records regulations: The Federal rules restrict any use of the information to criminally investigate or prosecute any alcohol or drug abuse patient.[facility] HospitalIn the event this information is protected by the Federal Confidentiality of Alcohol and Drug Abuse Patient Records regulations: The Federal rules restrict any use of the information to criminally investigate or prosecute any alcohol or drug abuse patient.[facility] HospitalIn the event this information is protected by the Federal Confidentiality of Alcohol and Drug Abuse Patient Records regulations: The Federal rules restrict any use of the information to criminally investigate or prosecute any alcohol or drug abuse patient.[facility] HospitalIn the event this information is protected by the Federal Confidentiality of Alcohol and Drug Abuse Patient Records regulations: The Federal rules restrict any use of the information to criminally investigate or prosecute any alcohol or drug abuse patient.[facility] HospitalIn the event this information is protected by the Federal Confidentiality of Alcohol and Drug Abuse Patient Records regulations: The Federal rules restrict any use of the information to criminally investigate or prosecute any alcohol or drug abuse patient.[facility] HospitalIn the event this information is protected by the Federal Confidentiality of Alcohol and Drug Abuse Patient Records regulations: The Federal rules restrict any use of the information to criminally investigate or prosecute any alcohol or drug abuse patient.[facility] HospitalIn the event this information is protected by the Federal Confidentiality of Alcohol and Drug Abuse Patient Records regulations: The Federal rules restrict any use of the information to criminally investigate or prosecute any alcohol or drug abuse patient.[facility] HospitalIn the event this information is protected by the Federal Confidentiality of Alcohol and Drug Abuse Patient Records regulations: The Federal rules restrict any use of the information to criminally investigate or prosecute any alcohol or drug abuse patient.[facility] HospitalIn the event this information is protected by the Federal Confidentiality of Alcohol and Drug Abuse Patient Records regulations: The Federal rules restrict any use of the information to criminally investigate or prosecute any alcohol or drug abuse patient.[facility] HospitalIn the event this information is protected by the Federal Confidentiality of Alcohol and Drug Abuse Patient Records regulations: The Federal rules restrict any use of the information to criminally investigate or prosecute any alcohol or drug abuse patient.[facility] HospitalIn the event this information is protected by the Federal Confidentiality of Alcohol and Drug Abuse Patient Records regulations: The Federal rules restrict any use of the information to criminally investigate or prosecute any alcohol or drug abuse patient.[facility] HospitalIn the event this information is protected by the Federal Confidentiality of Alcohol and Drug Abuse Patient Records regulations: The Federal rules restrict any use of the information to criminally investigate or prosecute any alcohol or drug abuse patient.[facility] HospitalIn the event this information is protected by the Federal Confidentiality of Alcohol and Drug Abuse Patient Records regulations: The Federal rules restrict any use of the information to criminally investigate or prosecute any alcohol or drug abuse patient.[facility] HospitalIn the event this information is protected by the Federal Confidentiality of Alcohol and Drug Abuse Patient Records regulations: The Federal rules restrict any use of the information to criminally investigate or prosecute any alcohol or drug abuse patient.[facility] HospitalIn the event this information is protected by the Federal Confidentiality of Alcohol and Drug Abuse Patient Records regulations: The Federal rules restrict any use of the information to criminally investigate or prosecute any alcohol or drug abuse patient.[facility] HospitalIn the event this information is protected by the Federal Confidentiality of Alcohol and Drug Abuse Patient Records regulations: The Federal rules restrict any use of the information to criminally investigate or prosecute any alcohol or drug abuse patient.[facility] HospitalIn the event this information is protected by the Federal Confidentiality of Alcohol and Drug Abuse Patient Records regulations: The Federal rules restrict any use of the information to criminally investigate or prosecute any alcohol or drug abuse patient.[facility] HospitalIn the event this information is protected by the Federal Confidentiality of Alcohol and Drug Abuse Patient Records regulations: The Federal rules restrict any use of the information to criminally investigate or prosecute any alcohol or drug abuse patient.[facility] HospitalIn the event this information is protected by the Federal Confidentiality of Alcohol and Drug Abuse Patient Records regulations: The Federal rules restrict any use of the information to criminally investigate or prosecute any alcohol or drug abuse patient.[facility] Care Teams (unrecognized sec tion and content) [employer] Relationship Specialty Start Date End Date Jani Starkey MD [address], [place] [id number] PCP - General Family Practice 10/29/15 [employer] Relationship Specialty Start Date End Date Jani Starkey MD [address] [place] [address] PCP - General Family Practice 10/29/15 [employer] Relationship Specialty Start Date End Date Jani Starkey MD [address] [place] [address] PCP - General Family Practice 10/29/15 [employer] Relationship Specialty Start Date End Date Jani Starkey MD [address] [facility] [place] [address] PCP - General Family Practice 10/29/15 [employer] Relationship Specialty Start Date End Date Jani Starkey MD [facility] [place] [address] PCP - General Family Practice 10/29/15 [employer] Relationship Specialty Start Date End Date Jani Starkey MD [facility] [place] [address] PCP - General Family Practice 10/29/15 [employer] Relationship Specialty Start Date End Date Jani Starkey MD [facility] [place] [address] PCP - General Family Practice 10/29/15 [employer] Relationship Specialty Start Date End Date Jani Starkey MD [facility] [place] [address] PCP - General Family Practice 10/29/15 [employer] Relationship Specialty Start Date End Date Jani Starkey MD [facility] [place] [address] PCP - General Family Medicine 10/29/15 [employer] Relationship Specialty Start Date End Date Jani Starkey MD [facility] [place] [address] PCP - General Family Medicine 10/29/15 [employer] Relationship Specialty Start Date End Date Jani Starkey MD [address] [place] [address] PCP - General Family Medicine 10/29/15 [employer] Relationship Specialty Start Date End Date Jani Starkey MD [address] [place] [address] PCP - General Family Medicine 10/29/15 [employer] Relationship Specialty Start Date End Date Jani Starkey MD [address] [place] [address] PCP - General Family Medicine 10/29/15 [employer] Relationship Specialty Start Date End Date Jani Starkey MD [address] [place] [address] PCP - General Family Medicine 10/29/15 [employer] Relationship Specialty Start Date End Date Jani Starkey MD [address] [place] [address] PCP - General Family Medicine 10/29/15 Team Status: Active Member Role Status Dates Dr. Jani Starkey MD Family Provider Active Dr. Jani Starkey MD Primary Care Provider Active Team Status: Inactive Member Role Status Dates Dr. Jani Starkey MD Primary Care Provider, Referri ng Provider Active Dr. Karrie Rdz MD Attending Provider Active Team Status: Inactive Member Role Status Dates Dr. Jani Starkey MD Primary Care Provider, Referri ng Provider Active Steven BENNETT, PA Attending Provider Active Team Status: Inactive Member Role Status Dates Dr. Jani Starkey MD Primary Care Provider Active Dr. Raj Zayas MD Attending Provider Active Team Status: Inactive Member Role Status Dates Dr. Jani Starkey MD Primary Care Provider, Referri ng Provider Active Clarisse BENNETT, PA Attending Provider Active Team Status: Inactive Member Role Status Dates Dr. Jani Starkey MD Primary Care Provider Active Dr. Nimesh Stack DO Attending Provider, Emergency Pr ovider Active Team Status: Inactive Member Role Status Dates Dr. Jani Starkey MD Primary Care Provider Active Dr. Karrie Rdz MD Attending Provider, Referr ing Provider Active [employer] Relationship Specialty Start Date End Date Jani Starkey MD [address] [place] [address] [phone] (Work) PCP - General Family Medicine 02/14/21 [employer] Relationship Specialty Start Date End Date Jani Starkey MD [address] [place] [address] [phone] (Work) PCP - General Family Medicine 02/14/21 [employer] Relationship Specialty Start Date End Date Jani Starkey MD [address] [place] [address] PCP - General Family Medicine 10/29/15 Team Status: Inactive Member Role Status Dates Dr. Jani Starkey MD Primary Care Provider, Referri ng Provider Active Be BENNETT PA Attending Provider Active Team Status: Inactive Member Role Status Dates Dr. Jani Starkey MD Primary Care Provider Active Dr. Devyn Lizarraga MD Emergency Provider Active [employer] Relationship Specialty Start Date End Date Jani Starkey MD [address] [place] [address] PCP - General Family Medicine 10/29/15 Team Status: Inactive Member Role Status Dates Dr. Jani Starkey MD Primary Care Provider, Referri ng Provider Active DONALD Rene Attending Provider Active Team Status: Active Member Role Status Dates Dr. Jani Starkey MD Primary Care Provider Active DONALD Rene Referring Provider, Other Provider Active Dr. Beltran Peterson MD Attending Provider Active Team Status: Inactive Member Role Status Dates Dr. Jani Starkey MD Primary Care Provider Active Dr. Devyn Lizarraga MD Attending Provider, Emergency Provi ariadna Active Team Status: Inactive Member Role Status Dates Dr. Jani Starkey MD Primary Care Provider Active DONALD Rene Attending Provider, Referring Provi ariadna Active [employer] Relationship Specialty Start Date End Date Jani Starkey MD [address] [place] [address] PCP - General Family Medicine 10/29/15 [employer] Relationship Specialty Start Date End Date Jani Starkey MD [address] [place] [address] PCP - General Family Medicine 10/29/15 [employer] Relationship Specialty Start Date End Date Jani Starkey MD [address] [place] [address] PCP - General Family Medicine 10/29/15 [employer] Relationship Specialty Start Date End Date Jani Starkey MD [address] [place] [address] PCP - General Family Medicine 10/29/15 [employer] Relationship Specialty Start Date End Date Jani Starkey MD [address] [place] [address] PCP - General Family Medicine 10/29/15 [employer] Relationship Specialty Start Date End Date Jani Starkey MD [address] [place] [address] PCP - General Family Medicine 10/29/15 [employer] Relationship Specialty Start Date End Date Jani Starkey MD [address] [place] [address] PCP - General Family Medicine 10/29/15 [employer] Relationship Specialty Start Date End Date Jani Starkey MD [address] [place] [address] PCP - General Family Medicine 10/29/15 [employer] Relationship Specialty Start Date End Date Jani Starkey MD [address], [place] [id number] PCP - [facility] 10/29/15 [employer] Relationship Specialty Start Date End Date Jani Starkey MD [address], [place] [id number] PCP - [facility] 10/29/15 Sveta Suazo APRN.CNP [address] [place] [address] [facility] 07/14/24 Shelbi Whitfield PA-C [address] [place] [address] [facility] 07/14/24 <item> Privacy Markings (unrecogniz ed section and content) Section Author: Tracy Marquez PROHIBITION ON REDISCLOSURE OF CONFIDENTIAL INFORMATION This notice accompanies a disclosure of information concerning a client made to you with the consent of such client. FOR RECORDS PERTAINING TO PATIENTS WHO ARE OR HAVE BEEN ENROLLED IN A CHEMICAL DEPENDENCY/SUBSTANCEABUSE PROGRAM, SOME INFORMATION MAY BE OMITTED. This clinical summary was aggregated from multiple sources. Caution should be exercised in using it in the provision of clinical care. This summary normalizes information from multiple sources, and as a consequence, information in this document may materially change the coding, format and clinical context of patient data. In addition, data may be omitted in some cases. CLINICAL DECISIONS SHOULD BE BASED ON THE PRIMARY CLINICAL RECORDS. [facility] (?) [facility]. provides no warranty or guarantee of the accuracy or completeness of information in this document.
--- NOTE | 2025-07-05 09:30 | BI_ITS ---
EXAM: DIAG MAMM W/CAD, BILAT N/A CLINICAL HISTORY: F, Age 39 y/o , RIGHT BREAST DISCHARGE discharge was blackish in color then turn milky and now is bloody. She notices the discharge when she bumps the breast or squeezes the nipple area. TECHNIQUE: Procedure Code: [id number] Modality: MG Procedure: DIAG MAMM W/CAD, BILAT. COMPARISON: Prior exam(s) dated 11/13/2018. FINDINGS: TISSUE DENSITY: The breasts are almost entirely fatty. Bilateral Breast Mammographic Findings: There is a tubular structure in the lateral, far anterior aspect of the right breast which may be an ectatic duct. Further workup with ultrasound will be performed. This may be the cause of her nipple discharge. The right nipple and retroareolar region will be scanned. Benign round microcalcifications are seen in the right breast. No suspicious masses, suspicious cluster of microcalcifications, architectural distortion or secondary sign of malignancy is identified in the left breast. BI/DIAG MAMM W/CAD, BILAT IMPRESSION: There is a tubular structure in the lateral, far anterior aspect of the right b reast which may be an ectatic duct. Further workup with ultrasound will be performed. This may be the cause of her nipple d ischarge. The right nipple and retroareolar region will be scanned. OVERALL FINAL ASSESSMENT BI-RADS 0: INCOMPLETE - NEED ADDITIONAL IMAGING EVALUATION. RECOMMENDATION: Ultrasound Recommended Additional Recommendation none A letter with findings and recommendations will be mailed to the patient. Reading Location: [id number]
== END | disposition home or self-care (01) ==
LOC: OPBI 09:09
PROVIDERS: PCP Family Medicine; Referring Provider Obstetrics & Gynecology; Visit Provider Obstetrics & Gynecology
DX: N64.3 Galactorrhea not associated with childbirth (principal)
CPT/HCPCS: 77062; 76642; 77066; G0279

== ENCOUNTER → 2025-07-24 | Outpatient (CLI) | payer MEDICAID, SELFPAY ==
--- NOTE | 2025-07-24 11:02 | MRI_ITS ---
PROCEDURE: BREAST BILATERAL W/O AND W 07/24/2025 REASON FOR EXAM: 39-year-old female with history of black right nipple discharge presents for diagnostic MRI of the breast. TECHNIQUE: Procedure Code: [id number] Modality: MR Procedure: BREAST BILATERAL W/O AND W CONTRAST: 15 mL of IV Clariscan COMPARISON: Mammogram and ultrasound 07/05/2025, ultrasound 11/16/2018 FINDINGS: TISSUE DENSITY: The breasts are almost entirely fatty. Background Parenchymal Enhancement: Minimal RIGHT Breast: There is an enhancing mass in the upper central right breast at anterior depth, between 1 o'clock to 11 o'clock, measuring 0.6 x 0.6 cm (series 9, image 70). LEFT Breast: There is an enhancing mass in the upper-outer left breast at anterior depth, between 1 o'clock to 3 o'clock, measuring 0.9 x 0.6 cm (series 9, image 71). Other Findings: No suspicious axillary or internal mammary lymph nodes. Visualized portions of the thoracic and abdominal viscera are unremarkable. MRI/Breast Bilateral W/O and W IMPRESSION: 1. Suspicious enhancing mass in the upper central right breast at anterior dep th, between 1 o'clock to 11 o'clock. Recommend second-look ultrasound with subsequent ultrasound-guided core needle biopsy. I f no sonographic correlate is visualized this is amenable to MRI guided biopsy. 2. Suspicious enhancing mass in the upper-outer left breast at anterior depth, between 1 o'clock to 3 o'clock. Recommend second-look ultrasound with subsequent ultrasound-guided core needle biopsy if indicated. If no sonographic correlate is visualized this is amenable to MRI guided biopsy. OVERALL FINAL ASSESSMENT BI-RADS 4: SUSPICIOUS RECOMMENDATION: Biopsy Recommended Reading Location: [id number]
== END | disposition home or self-care (01) ==
LOC: OPMRI 10:59
PROVIDERS: PCP Family Medicine; Referring Provider Obstetrics & Gynecology; Visit Provider Obstetrics & Gynecology
DX: N64.3 Galactorrhea not associated with childbirth (principal)
CPT/HCPCS: 77049; A9575; A4216; C8908